=== PATIENT | female | born 1955 | race Caucasian/White ===

== ENCOUNTER 2023-05-15 09:43 | Outpatient (OUT) | payer MEDICARE, SELFPAY ==
--- NOTE | 2023-05-15 | VEIN_ITS ---
Patient Name: CHAI PAREDES MR#: [id number] : 1955 Exam Date: 05/15/2023 Ordering Doctor: MRS. ANNABELLA VASQUEZ . RADIOLOGY REPORT PROCEDURE: VC EXT VENOUS REFLUX RAISSA LMTD COMPARISON: None. INDICATIONS: Pain due to varicose veins of bilateral legs I83.813 TECHNIQUE: Duplex imaging of the lower extremity to assess the deep and superficial venous system for the presence of deep or superficial venous incompetence and to document the location and severity of disease. The study includes evaluation of the great saphenous vein (GSV), anterior accessory saphenous vein (AASV) and small saphenous vein (SSV). Patient scanned in reverse Trendelenburg and standing. FINDINGS: RIGHT LOWER EXTREMITY: Saphenofemoral Junction Reflux: Yes 6.8mm 3.0 sec GSV: Diam (mm) Reflux/ Time (sec) Proximal Thigh 7.3 Yes 2.6 Mid Thigh 6.1 Yes 1.1 Distal Thigh 5.9 Yes 1.8 Prox Calf 5.6 Yes 0.7 Mid Calf 2.6 No Saphenopopliteal Junction Reflux: 3.3mm No SSV: Proximal Calf 3.0 No Mid Calf 3.4 No AASV: Proximal Thigh 4.6 Yes 1.0 Mid Thigh 4.2 No Distal Thigh Thrombi: No acute or chronic thrombus visualized Compressibility: Normal Flow: Normal Preforator: Mid/med calf 3.1mm with 0.5s reflux. Tech Note: Incompetent GSV. Patent varicose vein prox/med calf 4.7mm with 1.3s reflux. Patent varicose vein medial knee 3.5mm with 0.7s reflux. Patent varicose vein mid/med thigh 3.9mm with 0.6s reflux. LEFT LOWER EXTREMITY: Saphenofemoral Junction Reflux: Yes 8.1 mm 1.4 sec GSV: Diam (mm) Reflux/Time (sec) Proximal Thigh 8.5 Yes 1.7 Mid Thigh 7.2 Yes 2.1 Distal Thigh 6.8 Yes 1.7 Prox Calf 5.4 Yes 1.0 Mid Calf 3.4 Yes 0.6 Saphenopopliteal Junction Relux: 2.6 mm Yes 0.5 SSV: Proximal Calf 2.1 No Mid Calf 1.3 AASV: Proximal Thigh 4.2 No Mid Thigh 4.8 No Distal Thigh Thrombi: No acute or chronic thrombus visualized Compressibility: Normal Flow: Normal Premises Technician: Dist/med calf 3.1mm with 0s reflux. Tech Note: Incompetent GSV. Patent varicose vein prox/med calf 3.6mm with 0.8s reflux. Patent varicose vein mid/med thigh 4.4mm with 0.9s reflux. CONCLUSION: 1. Abnormally dilated and incompetent great saphenous vein bilaterally with associated incompetent branch saphenous varicosities. Dictated by: Kishor Diez M.D. on 05/15/2023 at 10:56 Approved by: Kishor Diez M.D. on 05/15/2023 at 11:22
--- NOTE | 2023-05-15 | VEIN_ITS ---
Patient Name: CHAI PAREDES MR#: [id number] : 1955 Exam Date: 05/15/2023 Ordering Doctor: MRS. ANNABELLA VASQUEZ . RADIOLOGY REPORT PROCEDURE: [facility] - OFFICE VISIT INITIAL COMPARISON: None. PROGRESS NOTES: [age] year old female who presents with a 3 year history of right ankle pain. The patient's right leg symptoms are worse than the left. There has been a progression of symptoms since most recent surgery. This increases with increased use. The patient describes an improvement with stretches and exercises. The patient denies any signs and symptoms to suggest arterial ischemia. The patient describes a family history of heart disease, cancer, and diabetes,. The patient has drinking and smoking history of : Current smoker; no alcohol use. Patient has a past medical history significant for traumatic displaced fracture of right ankle and multiple surgeries.. The patient denies a history of deep venous thrombus or pulmonary embolus. See separate history and physical for medication list. No prior treatment for varicose or spider veins. No current use of compression stockings. After review of nurse notes, history and physical exam I discussed at length the pathophysiology of venous hypertension and possible treatments, therapies and strategies available. We discussed at length the importance of elevating the lower extremities above the level of the heart, increased physical activity and compression stocking use. Ultrasound venous reflux study performed today was discussed at length with the patient. The report demonstrates abnormally dilated and incompetent great saphenous veins bilaterally with associated dilated branches.. PHYSICAL EXAM: The right leg demonstrates a few varicosities, a few spider veins, no ulceration, mild edema, no significant skin discoloration. The left leg demonstrates a few varicosities, a few spider veins, no ulceration, no edema, no skin discoloration. Both thighs, legs and feet were symmetrically warm to the touch. Good posterior tibial and dorsalis pedis pulses were present bilaterally. VEIN/VC Facility EST Comprehensive IMPRESSION: 1. Bilateral lower extremity venous insufficiency 2. Bilateral lower extremity varicose veins 3. Mild right lower extremity subcutaneous edema 4. No flow significant arterial disease 5. CEAP: C3, EP, , MO PLAN: 1. Begin use of compression stockings 2. Elevated legs and increased physical activity symptomatic relief 3. Patient does not desire treatment of varicose veins at this time and will follow-up with us in future when symptomatic. Nurse notes, history and physical were reviewed and confirmed, see attached forms. The nurse was present throughout the physical exam and consultation Dictated by: Kishor Diez M.D. on 05/15/2023 at 13:02 Approved by: Kishor Diez M.D. on 05/15/2023 at 13:08
== END 2023-05-15 09:44 | disposition home or self-care (01) ==
PROVIDERS: Visit Provider Nurse Practitioner
DX: M79.89 Other specified soft tissue disorders (principal); L81.9 Disorder of pigmentation, unspecified; F17.200 Nicotine dependence, unspecified, uncomplicated; I83.813 Varicose veins of bilateral lower extremities with pain
CPT/HCPCS: 93970; G0463

== ENCOUNTER 2023-12-19 10:09 | Outpatient (OUT) | payer MEDICARE, SELFPAY ==
--- NOTE | 2023-12-19 10:17 | MM_ITS ---
Patient Name: CHAI PAREDES MR#: [id number] : 1955 Exam Date: 12/19/2023 Ordering Doctor: DR. ELIDA ANAND . RADIOLOGY REPORT PROCEDURE: MM TOMOSYNTHESIS SCREENING BI COMPARISON: MG MAMM SCREEN 3D RAISSA CAD, 11/23/2022. MG MAMM SCREEN 3D RAISSA CAD, 11/16/2021. MG MAMM SCREEN 3D RAISSA CAD, 11/13/2020. MG MAMM RAISSA SCRN W CAD DIG, 10/16/2013. INDICATIONS: Screening Calculator Name NCI Breast Cancer Risk Assessment Tool 5 Year Breast Cancer Risk 1.80% Lifetime Breast Cancer Risk 6.30% Personal Breast Cancer No Personal Ovarian Cancer No Treatments None Family Cancers None LOCATION: The [facility] BREAST COMPOSITION: There are scattered areas of fibroglandular density. FINDINGS: DIAGNOSTIC CATEGORY 2--BENIGN FINDING: RIGHT BREAST: No significant suspicious finding. Stable biopsy marker clip. No significant change has occurred. LEFT BREAST: No significant suspicious finding. No significant change has occurred. RECOMMENDATIONS: ROUTINE MAMMOGRAM AND CLINICAL EVALUATION IN 12 MONTHS. PLEASE NOTE: A NORMAL MAMMOGRAM DOES NOT EXCLUDE THE POSSIBILITY OF BREAST CANCER. A CLINICALLY SUSPICIOUS PALPABLE LUMP SHOULD BE BIOPSIED. Dictated by: Kishor Diez M.D. on 12/21/2023 at 08:13 Approved by: Kishor Diez M.D. on 12/21/2023 at 08:17
== END 2023-12-19 10:10 | disposition home or self-care (01) ==
LOC: MAMMO 10:09
PROVIDERS: PCP Family Medicine; Visit Provider Family Medicine
DX: Z12.31 Encounter for screening mammogram for malignant neoplasm of breast (principal)
CPT/HCPCS: 77063; 77067

== ENCOUNTER 2024-06-10 08:05 | Outpatient (RCR) | payer MEDICARE, SELFPAY | END 2024-07-02 20:54 | disposition home or self-care (01) | LOC: PT 08:05 | PROVIDERS: PCP Family Medicine; Visit Provider Family Medicine | DX: H83.09 Labyrinthitis, unspecified ear (principal); F43.20 Adjustment disorder, unspecified; F41.9 Anxiety disorder, unspecified; R09.81 Nasal congestion; G47.00 Insomnia, unspecified | CPT/HCPCS: 97110; 97161 ==

== ENCOUNTER 2024-12-23 10:09 | Outpatient (OUT) | payer MEDICARE, SELFPAY ==
--- NOTE | 2024-12-23 10:13 | MM_ITS ---
Patient Name: CHAI PAREDES MR#: [id number] : 1955 Exam Date: 12/23/2024 Ordering Doctor: DR. ELIDA ANAND . RADIOLOGY REPORT PROCEDURE: MM TOMOSYNTHESIS SCREENING BI COMPARISON: MM TOMOSYNTHESIS SCREENING BI, 12/19/2023. MG MAMM SCREEN 3D RAISSA CAD, 11/23/2022. MG MAMM SCREEN 3D RAISSA CAD, 11/16/2021. MG MAMM RAISSA SCRN W CAD DIG, 10/16/2013. INDICATIONS: Screening Calculator Name NCI Breast Cancer Risk Assessment Tool 5 Year Breast Cancer Risk 1.80% Lifetime Breast Cancer Risk 6.00% Personal Breast Cancer No Personal Ovarian Cancer No Treatments None Family Cancers None LOCATION: [facility] BREAST COMPOSITION: There are scattered areas of fibroglandular density. FINDINGS: DIAGNOSTIC CATEGORY 1--NEGATIVE. RIGHT BREAST: No significant suspicious finding. LEFT BREAST: No significant suspicious finding. RECOMMENDATIONS: ROUTINE MAMMOGRAM AND CLINICAL EVALUATION IN 12 MONTHS. PLEASE NOTE: A NORMAL MAMMOGRAM DOES NOT EXCLUDE THE POSSIBILITY OF BREAST CANCER. A CLINICALLY SUSPICIOUS PALPABLE LUMP SHOULD BE BIOPSIED. Dictated by: Choco Nunez DO on 12/23/2024 at 16:35 Approved by: Choco Nunez DO on 12/23/2024 at 16:36
--- OUTSIDE RECORDS SUMMARY | 2024-12-23 10:37 | XMS_ITS | CCD ---
Author Organization [facility] Care Team Providers Care Slubber Operator Name Role Phone MD Agustina West Primary Care Provider [phone] SARMAD Gordon Attending Provider [phone] Agustina West Primary Care Unavailable Rick Gordon Attending Unavailable Rick Gordon Admitting Unavailable AGUSTINA WEST Primary Care Physician CHRISTIANO, DR AGUSTINA Bower Primary Care Unavailable BEATA, DR RAO Consulting Unavailable BEATA, DR RAO Attending Unavailable BEATA, DR RAO Admitting Unavailable ZIEBER, DR DEEPAK Christopher Consulting Unavailable WEST, DR AGUSTINA Bower Admitting Unavailable WEST, DR AGUSTINA Bower Primary Care Unavailable WEST, DR AGUSTINA Bower Consulting Unavailable WEST, DR AGUSTINA Bower Attending Unavailable ZIEBER, DR DEEPAK Chirstopher Consulting Unavailable WEST, DR AGUSTINA Bower Admitting Unavailable WEST, DR AGUSTINA Bower Primary Care Unavailable WEST, DR AGUSTINA Bower Consulting Unavailable WEST, DR AGUSTINA Bower Attending Unavailable ZIEBER, DR DEEPAK Christopher Consulting Unavailable WEST, DR AGUSTINA Bower Primary Care Unavailable WEST, DR AGUSTINA Bower Attending Unavailable WEST, DR AGUSTINA Bower Admitting Unavailable WEST, DR AGUSTINA Bower Consulting Unavailable NEFCYCELINE Consulting Unavailable CHRISTIANO, DR AGUSTINA Bower Primary Care Unavailable MISC, DR RAMIRES Attending Unavailable MISC, DR RAMIRES Admitting Unavailable MISC, DR RAMIRES Consulting Unavailable CELINE ABRAHAM Admitting Unavailable CHRISTIANO, DR AGUSTINA Bower Primary Care Unavailable CELINE ABRAHAM Attending Unavailable CELINE ABRAHAM Admitting Unavailable CHRISTIANO, DR AGUSTINA Bower Primary Care Unavailable CONNER, DR NICOLAS Rodriguez Consulting Unavailable CELINE ABRAHAM Attending Unavailable CELINE ABRAHAM Consulting Unavailable OLIVER OLIVEIRA Consulting Unavailable DESTINEY RAMIREZ Consulting Unavailable CHRISTIANO, DR AGUSTINA Bower Primary Care Unavailable CELINE ABRAHAM Attending Unavailable CELINE ABRAHAM Admitting Unavailable CELINE ABRAHAM Attending Unavailable CHRISTIANO, DR AGUSTINA Bower Primary Care Unavailable CELINE ABRAHAM Admitting Unavailable RICK GORDON Attending Unavailable RICK GORDON Admitting Unavailable WEST, DR AGUSTINA Bower Primary Care Unavailable RICK GORDON Consulting Unavailable WEST, DR AGUSTINA Bower Primary Care Unavailable WEST, DR AGUSTINA Bower Consulting Unavailable WEST, DR AGUSTINA Bower Attending Unavailable WEST, DR AGUSTINA Bower Admitting Unavailable WEST, DR AGUSTINA Bower Primary Care Unavailable BEATA, DR RAO Admitting Unavailable BEATA, DR RAO Attending Unavailable WEST, DR NICOLAS Rodriguez Consulting Unavailable BAETA, DR RAO Consulting Unavailable WEST, DR AGUSTINA Bower Primary Care Unavailable WARREN ARMENDARIZ Attending Unavailable WARREN ARMENDARIZ Admitting Unavailable WARREN ARMENDARIZ Consulting Unavailable AALIYAHIPPNICOLAS KNOX Consulting Unavailable WEST, DR AGUSTINA Bower Primary Care Unavailable BEATA, DR RAO Admitting Unavailable BEATA, DR RAO Consulting Unavailable BEATA, DR RAO Attending Unavailable AGUSTINA WEST Primary Care Physician Elida Anand. Primary Care Physician SMITHA WATSON Attending Unavailable ELIDA ANAND Referring Unavailable Elida Anand MD Primary Care Provider KENISHA HILLIARD Referring Unavailable ROSS, ELIDA E Primary Care Unavailable KENISHA HILLIARD Referring Unavailable KIKA, ELIDA E Primary Care Unavailable KENISHA HILLIARD Referring Unavailable KIKA, ELIDA E Primary Care Unavailable NICOLAS ELLIS Referring Unavailable KIKA ELIDA E Primary Care Unavailable KENISHA HILLIARD Referring Unavailable ROSS, ELIDA E Primary Care Unavailable KENISHA HILLIARD Admitting Unavailable KENISHA HILLIARD Attending Unavailable KENISHA HILLIARD Referring Unavailable KIKA, ELIDA E Primary Care Unavailable GARCIA SANCHEZ Attending Unavailable ELIDA ANAND E Primary Care Unavailable KENISHA HILLIARD Attending Unavailable AGUSTINA WEST Referring Unavailable KIKA, ELIDA E Primary Care Unavailable KENISHA HILLIARD Attending Unavailable KIKA ELIDA E Referring Unavailable KIKA, ELIDA E Primary Care Unavailable AGUSTINA WEST Referring Unavailable AGUSTINA WEST Primary Care Unavailable SUMMER SMALLWOOD Attending Unavailable ELIDA ANAND Referring Unavailable KIKA, ELIDA E Primary Care Unavailable KENISHA HILLIARD Attending Unavailable ELIDA ANAND Referring Unavailable ROSS, ELIDA E Primary Care Unavailable YOALNDA SUMMER A Attending Unavailable ELIDA ANAND Referring Unavailable ELIDA ANAND Primary Care Unavailable Elida Anand Attending Unavailable Elida Anand Admitting Unavailable MD Elida Anand Attending Unavailable MD Elida Anand Attending Unavailable MD Elida Anand Attending Unavailable MD Elida Anand Attending Unavailable MD Elida Anand Attending Unavailable MD Elida Anand Referring Unavailable MD Elida Anand Admitting Unavailable MD Elida Anand Admitting Unavailable MD Elida Anand Attending Unavailable Kika, MD Elida Lyn Attending Unavailable Kika, MD Elida Lyn Admitting Unavailable Kika, MD Elida Lyn Admitting Unavailable MD Elida Anand Attending Unavailable Kika, MD Elida Lyn Admitting Unavailable MD Elida Anand Attending Unavailable MD Elida Anand Attending Unavailable EdmarKatlyn myers Attending Unavailable Katlyn Hyatt Attending Unavailable MD Elida Anand Attending Unavailable MD Elida Anand Attending Unavailable MD Elida Anand Attending Unavailable EdmarKatlyn myers Attending Unavailable Katlyn Hyatt Attending Unavailable Elida Anand Admitting Unavailable Elida Anand Attending Unavailable Katlyn Hyatt Attending Unavailable Allergies Allergy Classification Reported Allergen(s) Allergy Type Date of Onset Reaction(s) Facility (16 sources) Bacitracin / Hydrocortisone / Neomycin / Polymyxin B; Translations: [bacitracin/HC/neomyci n/polymyxin B topical] Drug Allergy [facility] (20 sources) bacitracin / neomycin / polymyxin b; Translations: [bacitracin/neomycin/p olymyxin B topical] Drug Allergy 04-11-20 18 [facility] (20 sources) ceftibuten; Translations: [ceftibuten] Drug Allergy 04-11-20 18 [facility] (16 sources) Cefuroxime; Translations: [cefuroxime] Drug Allergy [facility] (20 sources) Ciprofloxacin; Translations: [ciprofloxacin] Drug Allergy 04-11-20 18 [facility] (16 sources) Cortisone; Translations: [cortisone] Drug Allergy Eruption of skin (disorder) [facility] (20 sources) FLUoxetine; Translations: [fluoxetine] Drug Allergy 04-11-20 18 [facility] (12 sources) Minocycline; Translations: [minocycline] Drug Allergy 04-11-20 18 [facility] (3 sources) Oseltamivir; Translations: [oseltamivir] Drug Allergy [facility] (20 sources) Penicillins; Translations: [penicillins] Drug allergy 02-22-20 13 Difficulty breathing (finding), Anaphylaxis [facility] (12 sources) rofecoxib; Translations: [rofecoxib] Drug Allergy 04-11-20 18 [facility] (16 sources) Sulfonamides (Antibiotic); Translations: [sulfa drugs] Drug allergy [facility] (12 sources) Tetracycline; Translations: [tetracycline] Drug Allergy 04-11-20 18 [facility] (1 source) Bacitracin / Neomycin / Polymyxin B Drug Allergy 02-29-20 13 [facility] (1 source) ceftibuten Drug Allergy 02-29-20 13 [facility] (1 source) Cefuroxime Drug Allergy 02-29-20 13 [facility] (1 source) Ciprofloxacin Drug Allergy 02-29-20 13 [facility] (3 sources) Corticosteroids; Translations: [CORTICOSTEROIDS (GLUCOCORTICOIDS)] Drug allergy (disorder) 02-29-20 13 [facility] (2 sources) FLUoxetine Drug Allergy 02-29-20 13 [facility] (1 source) Minocycline Drug Allergy 02-29-20 13 [facility] (3 sources) moxifloxacin; Translations: [Avelox] Drug Allergy 02-29-20 13 [facility] (1 source) rofecoxib Drug Allergy 02-29-20 13 [facility] (1 source) Sulfonamides (Antibiotic) Drug allergy (disorder) 02-22-20 13 [facility] (1 source) Tetracycline Drug Allergy 02-29-20 13 [facility] (15 sources) Cromolyn; Translations: [cromolyn nasal] Drug Allergy Unknown (qualifier value) [facility] (15 sources) fluocinolone; Translations: [fluocinolone topical] Drug Allergy Unknown (qualifier value) [facility] (20 sources) moxifloxacin; Translations: [moxifloxacin] Drug Allergy 04-11-20 Unknown (qualifier value) [facility] (7 sources) Glucocorticoid preparation Propensity to adverse reactions to drug [facility] (9 sources) hydroCHLOROthiazide / Triamterene; Translations: [TRIAMTERENE-HYDROCHLO ROTHIAZID] Drug Allergy 04-11-20 [facility] (9 sources) Hydrocortisone / Neomycin / Polymyxin B; Translations: [SHETHMOP-OMVMOHJOC-AV ] Drug Allergy 04-11-20 [facility] (9 sources) Sulfonamides (Antibiotic); Translations: [SULFA (SULFONAMIDE ANTIBIOTICS)] Propensity to adverse reactions to drug 04-11-20 [facility] (2 sources) EYHAVOZV-[id number]-V OLYMYXNB; Translations: [NEOMYCIN-BACITRACNZN- POLYMYXNB] Propensity to adverse reactions to drug (disorder) 04-11-20 [facility] Medications Current Medications Medication Drug Class(es) Dates Sig (Normalized) Sig (Original) acetaminophen 325 mg / oxyCODONE hydrochloride 5 mg oral tablet (1 source) Opioid Agonist Start: 08-27-2024 End: 09-10-2024 oxyCODONE-acetamino phen (PERCOCET) 5-325 mg per tablet Indications: Lipoma of right axilla Take 1 tablet by mouth every 6 (six) hours as needed for pain for up to 12 doses. Max Daily Amount: 4 tablets 12 tablet 08/27/2024 09/10/2024 Discontinued (Patient Never Started This Medication) alendronic acid 70 mg oral tablet (20 sources) Bisphosphonate Start: 08-13-2024 take 1 tablet by mouth every week alendronate 70 mg Tab See Instructions, TAKE 1 TABLET BY MOUTH WEEKLY, # 12 tab(s), Refills(s) 11, Pharmacy: [facility]/pharmacy #[id number], 157, cm, 07/08/24 10:07:00 EST, Height/Length Dosing, 92.7, kg, 07/08/24 10:07:00 EST, Weight Dosing Start Date: 08/13/24 Status: Ordered Quantity: 12.0 Unit: tab(s) Repeat number: 12 Start: 04-25-2023 take 1 tablet by gloria th every week alendronate 70 mg Tab See Instructions, TAKE 1 TABLET BY MOUTH WEEKLY, # 12 tab(s), Refills(s) 11, Pharmacy: [facility] STORE [id number], 160, cm, 04/10/23 11:51:00 EDT, Height/Length Dosing, 92.1, kg, 04/10/23 11:51:00 EDT, Weight Dosing Start Date: 04/25/23 Status: Ordered Start: 07-15-2022 alendronate 70 mg Tab 70 mg = 1 tab(s), Oral, q7day, # 12 tab(s), Refills(s) 0 Start Date: 07/15/22 Status: Ordered ALPRAZolam 0.5 mg oral tablet (20 sources) Benzodiazepine Start: 11-04-2024 take 1 tablet by mouth three times daily as needed for anxiety Xanax 0.5 mg Tab 0.5 mg = 1 tab(s), Oral, TID, PRN for anxiety, For Anxiety, # 90 tab(s), Refills(s) 0, Pharmacy: [facility]/pharmacy #[id number], 157, cm, 10/15/24 14:04:00 EDT, Height/Length Dosing, 92.6, kg, 10/15/24 14:04:00 EDT, Weight Dosing Start Date: 11/04/24 Status: Ordered Quantity: 90.0 Unit: tab(s) Repeat number: 1 Start: 06-06-2012 take 1 tablet by gloria th three times daily as needed ALPRAZolam (XANAX) 0.5 mg tablet Take 1 tablet (0.5 mg total) by mouth 3 (three) times a day as needed. 0 03/27/2018 Active aspirin 81 mg delayed release oral tablet (12 sources) Platelet Aggregation Inhibitor, Nonsteroidal Anti-inflammatory Drug Start: 09-25-2023 take 1 tablet by mouth once daily aspirin 81 mg Oral EC Tab 81 mg = 1 tab(s), Oral, Daily, Refills(s) 0 Start Date: 09/25/23 Status: Ordered Repeat number: 1 atorvastatin 10 mg oral tablet (20 sources) HMG-CoA Reductase Inhibitor Start: 11-04-2024 take 1 tablet by mouth at bedtime atorvastatin 10 mg Tab See Instructions, TAKE 1 TABLET BY MOUTH AT BEDTIME, # 90 tab(s), Refills(s) 1, [id number] 157, cm, 10/15/24 14:04:00 EDT, Height/Length Dosing, 92.6, kg, 10/15/24 14:04:00 EDT, Weight Dosing Start Date: 11/04/24 Status: Ordered Quantity: 90.0 Unit: tab(s) Repeat number: 2 Start: 07-15-2022 take 1 tablet by gloria th at bedtime atorvastatin 10 mg Tab See Instructions, TAKE 1 TABLET BY MOUTH AT BEDTIME, # 90 tab(s), Refills(s) 1, Pharmacy: [facility]ORE [id number], 157, cm, 12/04/23 12:36:00 EDT, Height/Length Dosing, 89, kg, 12/04/23 12:36:00 EDT, Weight Dosing Start Date: 12/18/23 Status: Ordered azithromycin 500 mg oral tablet (5 sources) Macrolide Antimicrobial Start: 07-15-2022 take 1 tablet by mouth once daily azithromycin 500 mg oral tablet 500 mg = 1 tab(s), Oral, Daily, # 5 tab(s), Refills(s) 0, [id number] 160, cm, 12/05/22 12:09:00 EDT, Height/Length Dosing, 89.1, kg, 12/05/22 12:09:00 EDT, Weight Dosing Start Date: 12/09/22 Status: Ordered Azithromycin 3 Day Dose Pack 500 mg oral tablet (2 sources) Start: 04-10-2023 Azithromycin 3 Day Dose Pack 500 mg oral tablet 500 mg = 1 tab(s), Oral, Daily, # 3 tab(s), Refills(s) 0, [id number] 160, cm, 04/10/23 11:51:00 EDT, Height/Length Dosing, 92.1, kg, 04/10/23 11:51:00 EDT, Weight Dosing Start Date: 04/10/23 Status: Ordered cetirizine hydrochloride 10 mg oral capsule (4 sources) Histamine-1 Receptor Antagonist Start: 01-23-2023 take 1 capsule by mouth once daily as needed cetirizine 10 mg oral capsule 10 mg = 1 cap(s), Oral, Daily, PRN for allergy symptoms, # 90 cap(s), Refills(s) 0, Pharmacy: [facility]/pharmacy #[id number], 160, cm, 01/23/23 8:54:00 EDT, Height/Length Dosing, 88.7, kg, 01/23/23 8:54:00 EDT, Weight Dosing Start Date: 01/23/23 Status: Ordered escitalopram 20 mg oral tablet (20 sources) Serotonin Reuptake Inhibitor Start: 11-04-2024 take 1 tablet by mouth once daily escitalopram 20 mg Tab See Instructions, TAKE 1 TABLET BY MOUTH EVERY DAY, # 90 tab(s), Refills(s) 0, Pharmacy: [facility]/pharmacy #[id number], 157, cm, 10/15/24 14:04:00 EDT, Height/Length Dosing, 92.6, kg, 10/15/24 14:04:00 EDT, Weight Dosing Start Date: 11/04/24 Status: Ordered Quantity: 90.0 Unit: tab(s) Repeat number: 1 Start: 11-02-2023 take 1 tablet by gloria th once daily escitalopram 20 mg Tab 20 mg = 1 tab(s), Oral, Daily, # 90 tab(s), Refills(s) 0, [id number] 160, cm, 11/02/23 13:29:00 EDT, Height/Length Dosing, 87.5, kg, 11/02/23 13:29:00 EDT, Weight Dosing Start Date: 11/02/23 Status: Ordered Start: 01-08-2019 take 1 tablet by gloria th once daily escitalopram 10 mg Tab 10 mg = 1 tab(s), Oral, Daily, # 90 tab(s), Refills(s) 3, Pharmacy: [facility]/pharmacy #[id number], 160, cm, 04/10/23 11:51:00 EDT, Height/Length Dosing, 92.1, kg, 04/10/23 11:51:00 EDT, Weight Dosing Start Date: 06/02/23 Status: Ordered fluticasone propionate 0.05 mg/actuat metered dose nasal spray (2 sources) Corticosteroid Start: 11-29-2022 fluticasone Nasal 0.05 mg/inh [employer] 2 spray(s), Nasal, Daily, 16 gram, Refill(s) 3, each nostril, [id number], cm, 11/03/22 10:00:00 EDT, Height/Length Dosing, 89.7, kg, 11/03/22 10:00:00 EDT, Weight Dosing Start Date: 11/29/22 Status: Ordered Multivitamin preparation (4 sources) Start: 12-03-2024 multivitamin Refill(s) 0 Start Date: 12/03/24 Status: Ordered Repeat number: 1 pantoprazole 40 mg delayed release oral tablet (20 sources) Proton Pump Inhibitor Start: 11-26-2024 take 1 tablet by mouth twice daily Pantoprazole [address] Tab See Instructions, TAKE 1 TABLET BY MOUTH TWICE A DAY, # 180 tab(s), Refills(s) 1, Pharmacy: [facility] [id number], 157, cm, 10/15/24 14:04:00 EDT, Height/Length Dosing, 92.6, kg, 10/15/24 14:04:00 EDT, Weight Dosing Start Date: 11/26/24 Status: Ordered Quantity: 180.0 Unit: tab(s) Repeat number: 1 Start: 12-04-2023 take 1 tablet by gloria th twice daily Pantoprazole [address] Tab 40 mg = 1 tab(s), Oral, BID, # 180 tab(s), Refills(s) 1, [id number] 160, cm, 11/02/23 13:29:00 EDT, Height/Length Dosing, 87.5, kg, 11/02/23 13:29:00 EDT, Weight Dosing Start Date: 12/04/23 Status: Ordered Start: 06-02-2023 take 1 tablet by gloria th once daily Pantoprazole [address] Tab 40 mg = 1 tab(s), Oral, Daily, # 90 tab(s), Refills(s) 3, [id number] 160, cm, 04/10/23 11:51:00 EDT, Height/Length Dosing, 92.1, kg, 04/10/23 11:51:00 EDT, Weight Dosing Start Date: 06/02/23 Status: Ordered Start: 07-15-2022 take 1 tablet by gloria th once daily Pantoprazole [address] Tab 40 mg = 1 tab(s), Oral, Daily, Refills(s) 0 Start Date: 07/15/22 Status: Ordered take 1 tablet by gloria th in the morning pantoprazole (PROTONIX) 20 mg EC tablet Take 1 tablet (20 mg total) by mouth in the morning. Active promethazine hydrochloride 25 mg oral tablet (5 sources) Phenothiazine Start: 07-15-2022 take 1 tablet by mouth three times daily promethazine 25 mg Tab 25 mg = 1 tab(s), Oral, TID, # 15 tab(s), Refills(s) 0, Pharmacy: [facility][id number], 154.9, cm, 07/15/22 14:17:00 EST, Height/Length Dosing, 89, kg, 07/15/22 14:17:00 EST, Weight Dosing Start Date: 07/15/22 Status: Ordered Completed/Discontinued Medications Medication Drug Class(es) Dates Sig (Normalized) Sig (Original) ergocalciferol 1.25 mg oral capsule (9 sources) Provitamin D2 Compound Start: 07-15-2022 End: 07-09-2024 take 1 capsule by mouth every week ergocalciferol 50,000 intl units Cap 50,000 International_Unit = 1 cap(s), Oral, qWeek, # 4 cap(s), Refills(s) 0 Start Date: 07/15/22 Status: Ordered Start: 07-15-2022 take 1 capsule by mo [facility] every week ergocalciferol 50,000 intl units Cap 50,000 International_Unit = 1 cap(s), Oral, qWeek, # 4 cap(s), Refills(s) 0 Start Date: 07/15/22 Status: Ordered meclizine hydrochloride 25 mg oral tablet (6 sources) Antiemetic Start: 05-03-2023 take 1 tablet by mouth three times daily as needed for dizziness meclizine 25 mg Tab 25 mg = 1 tab(s), Oral, TID, TAKE 1 TABLET BY MOUTH THREE TIMES DAILY NEEDED for dizziness, # 90 tab(s), Refills(s) 0, Pharmacy: [facility]/pharmacy #[id number], 160, cm, 04/10/23 11:51:00 EDT, Height/Length Dosing, 92.1, kg, 04/10/23 11:51:00 EDT, Weight Dosing Start Date: 05/03/23 Status: Ordered Start: 09-12-2022 take 1 tablet by gloria th three times daily as needed for dizziness meclizine 25 mg Tab TAKE 1 TABLET BY MOUTH THREE TIMES DAILY NEEDED for dizziness Start Date: 09/12/22 Status: Ordered triamcinolone acetonide 0.055 mg/actuat metered dose nasal spray (4 sources) Corticosteroid Start: 01-23-2023 Nasacort Aller gy 24HR nasal spray 55 mcg, 1 spray(s), Nasal, Daily, 1 EA, Refill(s) 0, [facility]/pharmacy #[id number], 160, cm, 01/23/23 8:54:00 EDT, Height/Length Dosing, 88.7, kg, 01/23/23 8:54:00 EDT, Weight Dosing Start Date: 01/23/23 Status: Ordered Problems Active Problems Problem Classification Problem Date Documented Date Episodic/Chronic Anxiety disorders (20 sources) Anxiety; Translations: [Panic attack] Resolved : 06-06-20 12 01-08-2019 Chronic Cancer of kidney and renal pelvis (18 sources) History of malignant neoplasm of kidney; Translations: [Personal history of other malignant neoplasm of kidney] Onset: 08-19-1912-07-2018 Episodic Cancer; other and unspecified primary (1 source) H/O: neoplasm; Translations: [Personal history of other benign neoplasm] Onset: 10-16-19 Episodic Chronic kidney disease (12 sources) Chronic kidney disease stage 3A ; Translations: [Chronic kidney disease] Onset: 12-05-1912-19-2022 Chronic Conditions associated with dizziness or vertigo (3 sources) Dizziness; Translations: [Dizziness and giddiness] 04-10-2023 Episodic Congestive heart failure; nonhypertensive (7 sources) Diastolic heart failure 08-18-2023 Chronic Disorders of lipid metabolism (4 sources) Pure hypercholesterolemia, unspecified; Translations: [PURE HYPERCHOLESTEROLEMIA UNSPEC] Onset: 01-28-20 Chronic Gastritis and duodenitis (10 sources) Gastritis 03-22-2023 Episodic Genitourinary symptoms and ill-defined conditions (14 sources) Genuine stress incontinence 01-02-2020 Chronic Genitourinary symptoms and ill-defined conditions (20 sources) Nocturia; Translations: [Urgent desire to urinate] 10-10-2014 Episodic Joint disorders and dislocations; trauma-related (4 sources) Traumatic arthropathy, right ankle and foot; Translations: [TRAUMATIC ARTHROPATHY RT ANKLE FOOT] Onset: 08-16-19 Chronic Lymphadenitis (3 sources) Axillary lymphadenopathy; Translations: [Localized enlarged lymph nodes] Onset: 07-24-19 25 07-24-2024 Episodic Malaise and fatigue (2 sources) Fatigue 05-01-2023 Episodic Nausea and vomiting (1 source) Nausea; Translations: [Nausea] Onset: 07-15-19 Episodic Nutritional deficiencies (1 source) Vitamin D deficiency, unspecified; Translations: [VITAMIN D DEFICIENCY UNSPECIFIED] Onset: 02-03-20 Chronic Osteoporosis (1 source) Age-related osteoporosis without current pathological fracture; Translations: [AGE-REL OSTEOPOR W/O CURR PATH FX] Onset: 08-19-19 Chronic Other and unspecified benign neoplasm (3 sources) Lipoma of left upper limb; Translations: [Benign lipomatous neoplasm of skin and subcutaneous tissue of left arm] 07-10-2024 Episodic Other and unspecified benign neoplasm (3 sources) Lipoma of right upper limb; Translations: [Benign lipomatous neoplasm of skin and subcutaneous tissue of right arm] 07-10-2024 Episodic Other and unspecified benign neoplasm (2 sources) Lipoma of trunk; Translations: [Benign lipomatous neoplasm of skin and subcutaneous tissue of trunk] 08-14-2024 Episodic Other and unspecified benign neoplasm (2 sources) Benign lipomatous neoplasm of skin and subcutaneous tissue of trunk; Translations: [Benign lipomatous neoplasm of skin and subcutaneous tissue of trunk] Onset: 08-14-19 Episodic Other and unspecified benign neoplasm (2 sources) Benign lipomatous neoplasm of skin and subcutaneous tissue of left arm; Translations: [Benign lipomatous neoplasm of skin and subcutaneous tissue of left arm] Onset: 07-24-19 Episodic Other and unspecified benign neoplasm (2 sources) Benign lipomatous neoplasm of skin and subcutaneous tissue of right arm; Translations: [Benign lipomatous neoplasm of skin and subcutaneous tissue of right arm] Onset: 07-24-19 Episodic Other and unspecified benign neoplasm (1 source) Lipoma of axilla; Translations: [Benign lipomatous neoplasm of skin and subcutaneous tissue of right arm] 09-10-2024 Episodic Other circulatory disease (6 sources) Elevated blood-pressure reading without diagnosis of hypertension 12-04-2023 Episodic Other connective tissue disease (14 sources) Impingement syndrome of shoulder region 10-10-2014 Episodic Comment on above: right shoulder Other connective tissue disease (4 sources) Ganglion, right ankle and foot; Translations: [GANGLION RIGHT ANKLE AND FOOT] Onset: 05-19-20 Episodic Other connective tissue disease (10 sources) Swelling of right lower limb 05-01-2023 Episodic Other gastrointestinal disorders (1 source) Diarrhea; Translations: [Diarrhea, unspecified] Onset: 07-15-19 Episodic Other lower respiratory disease (1 source) Cough; Translations: [Cough, unspecified] Onset: 07-15-19 Episodic Other lower respiratory disease (10 sources) Dyspnea 12-19-2022 Episodic Other lower respiratory disease (8 sources) Orthopnea 07-31-2023 Episodic Other nutritional; endocrine; and metabolic disorders (4 sources) Obesity; Translations: [Obesity, unspecified] Onset: 10-16-1910-10-2014 Chronic Other nutritional; endocrine; and metabolic disorders (12 sources) Simple obesity 11-30-2022 Chronic Other nutritional; endocrine; and metabolic disorders (20 sources) Body mass index 30+ - obesity; Translations: [Obesity, unspecified] 12-04-2023 Chronic Other nutritional; endocrine; and metabolic disorders (1 source) Obesity, unspecified; Translations: [Obesity, unspecified] Onset: 08-14-19 Chronic Other nutritional; endocrine; and metabolic disorders (1 source) Obese class II; Translations: [Body mass index (BMI) 37.0-37.9, adult] Onset: 10-16-19 Chronic Other nutritional; endocrine; and metabolic disorders (5 sources) Obesity caused by energy imbalance 02-26-2024 Chronic Other skin disorders (10 sources) Cyst of skin 03-22-2023 Episodic Other upper respiratory infections (20 sources) Chronic sinusitis, unspecified; Translations: [Chronic maxillary sinusitis] Onset: 07-26-19 Chronic Other upper respiratory infections (2 sources) Viral upper respiratory tract infection 04-10-2023 Episodic Residual codes; unclassified (14 sources) Tobacco user 06-06-2012 Episodic Comment on above: Added secondary to s ocial history documentation. Residual codes; unclassified (1 source) Absent kidney; Translations: [Acquired absence of kidney] Episodic Residual codes; unclassified (1 source) Pain, unspecified; Translations: [Pain, unspecified] Onset: 07-28-19 Episodic Screening and history of mental health and substance abuse codes (8 sources) Ex-smoker; Translations: [Personal history of nicotine dependence] Onset: 07-28-19 23 01-02-2020 Episodic Substance-related disorders (20 sources) Smoker; Translations: [Nicotine dependence, cigarettes, uncomplicated] Onset: 08-19-1910-10-2014 Chronic Comment on above: Added secondary to d ocumentation in Social History. Unclassified (1 source) Ganglion, right ankle and foot; Translations: [Ganglion, right ankle and foot] Onset: 05-20-20 Unclassified (14 sources) Drug therapy finding 01-08-2019 Unclassified (1 source) PERSONAL HISTORY OF COVID-19; Translations: [PERSONAL HISTORY OF COVID-19] Onset: 08-19-19 Unclassified (10 sources) Finding of color of limb 05-01-2023 Unclassified (2 sources) Otalgia of left ear 12-19-2022 Unclassified (1 source) right axillary lipoma Onset: 08-27-19 Unclassified (1 source) Post-op Onset: 09-11-19 25 Unclassified (1 source) POST-OP VISIT Onset: 08-05-19 25 Unclassified (1 source) Suspicious Skin Lesion Onset: 07-24-19 25 Unclassified (1 source) Mass Onset: 07-10-19 25 Unclassified (5 sources) Long-term current use of opiate analgesic drug Onset: 03-11-20 24 03-11-2024 Comment on above: Added secondary to c urrent Opioid Treatment Agreement Past or Other Problems Problem Classification Problem Date Documented Date Episodic/Chronic Anal and rectal conditions (14 sources) Anal fissure Resolved: 06-06-2012 01-08-2019 Episodic Complication of device; implant or graft (1 source) Pain due to internal orthopedic prosthetic devices, implants and grafts, initial encounter; Translations: [PAIN INTRL ORTHO PROS DEV GFT INIT] Onset: 02-17-2022 Episodic Esophageal disorders (18 sources) Gastroesophageal reflux disease; Translations: [Gastro-esophageal reflux disease without esophagitis] Onset: 08-01-2022 Resolved: 06-06-2012 01-08-2019 Chronic Fracture of lower limb (2 sources) Displaced spiral fracture of shaft of right fibula, sequela; Translations: [Displaced pilon fracture of right tibia, sequela] Onset: 08-19-2021 Episodic Immunizations and screening for infectious disease (1 source) Encounter for screening for human papillomavirus (HPV); Translations: [ENC SCREENING HUMAN PAPILLOMAVIRUS] Onset: 08-16-2021 Episodic Mood disorders (15 sources) Depressive disorder; Translations: [Depression, unspecified] Resolved: 01-08-2019 01-08-2019 Chronic Other aftercare (1 source) Other long-term (current) drug therapy; Translations: [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] Onset: 08-19-2021 Episodic Other bone disease and musculoskeletal deformities (1 source) Other specified disorders of bone density and structure, right ankle and foot; Translations: [OTH D/O BONE DEN STRUCT RT ANK FOOT] Onset: 08-19-2021 Episodic Other bone disease and musculoskeletal deformities (1 source) Other specified disorders of bone density and structure, other site; Translations: [OTH D/O BONE DEN STRUCT OTH SITE] Onset: 08-17-2021 Episodic Other non-traumatic joint disorders (1 source) Pain in right ankle and joints of right foot; Translations: [PAIN IN RIGHT ANKLE] Onset: 08-19-2021 Episodic Other screening for suspected conditions (not mental disorders or infectious disease) (8 sources) Encounter for screening mammogram for malignant neoplasm of breast; Translations: [Encounter for screening for malignant neoplasm of cervix] Onset: 08-11-2021 Episodic Residual codes; unclassified (14 sources) Menopause present Resolved: 06-06-2012 01-08-2019 Episodic Residual codes; unclassified (1 source) Acquired absence of kidney; Translations: [ACQUIRED ABSENCE OF KIDNEY] Onset: 08-19-2021 Episodic Residual codes; unclassified (1 source) Acquired absence of other specified parts of digestive tract; Translations: [ACQ ABSENCE OTH PART DIGESTV TRACT] Onset: 08-19-2021 Episodic Residual codes; unclassified (1 source) Acquired absence of both cervix and uterus; Translations: [ACQUIRED ABSENCE BOTH CERVIX AND UTERUS] Onset: 08-19-2021 Episodic Residual codes; unclassified (4 sources) Asymptomatic menopausal state; Translations: [ASYMPTOMATIC MENOPAUSAL STATE] Onset: 08-12-2021 Episodic Unclassified (14 sources) Hypersensitivity granuloma (morphologic abnormality) Resolved: 10-10-2014 01-08-2019 Comment on above: multiple body sites Results Test Name Value Interpretation Reference Range Facility Ambulatory Visit Summaryon 0 12-18-2024 Ambulatory Visit Summary Ambulatory Visit Summary FLAKITA PAREDES :1955 Visit Date:12/18/2024 Ambulatory Visit Instructions Your Diagnosis Cough Fluid level behind tympanic membrane of both ears Wheezing BMI 38.0-38.9,adult Your Care Team Attending Physician - Katlyn Brooks Primary Care Physician - Kika SAMPSON, Elida Lyn This Is Your Medications List alendronate (alendronate 70 mg Tab) alprazolam (Xanax 0.5 mg Tab) aspirin (aspirin 81 mg Oral EC Tab) atorvastatin (atorvastatin 10 mg Tab) escitalopram (escitalopram 20 mg Tab) multivitamin pantoprazole (Pantoprazole [address] Tab) Procedures Performed Excision of lipoma of subcutaneous tissue of neck (08/27/2024), Foot (2021), Biopsy of breast (10/2019), Nephrectomy (12/31/2015), right shoulder arthroscopic subacromial decompression. extensive debridement, right shoulder partial thickness rotator cuff tear, biceps tendon, labrum, and and extensive subacromial bursectomy. lateral clavicle resection (10/23/2014), Biopsy of kidney using ultrasound guidance, Cholecystectomy, Colonoscopy, Coronary angiography, Hysterectomy, palmar faciectomy, trigger finger release, Tubal ligation. Discharge Vitals Temperature (Oral) 36.5 ???C Heart Rate (Peripheral) 94 Respiratory Rate 20 Blood Pressure 126/88 Height 157.0 cm Height 62 in Weight 94.0 kg Weight 207.234 lb BMI 38.14 What to do next Scheduled Follow-Up Appointments Monday 10:00 AM EDT With: Where: [facility] Monday 1:40 PM EDT With: Elida Anand MD Where: [address] [address]- Monday2025 9:30 AM EDT With: Where: [facility] [address] [place] [address]- Medications What How Much When Instructions Unchanged alendronate (alendronate 70 mg Tab) See instructions TAKE 1 TABLET BY MOUTH WEEKLY Unchanged alprazolam (Xanax 0.5 mg Tab) 1 Tablets By Mouth 3 times a day as needed for for anxiety For Anxiety Unchanged aspirin (aspirin 81 mg Oral EC Tab) 1 Tablets By Mouth Every day Unchanged atorvastatin (atorvastatin 10 mg Tab) See instructions TAKE 1 TABLET BY MOUTH AT BEDTIME Unchanged escitalopram (escitalopram 20 mg Tab) See instructions TAKE 1 TABLET BY MOUTH EVERY DAY Unchanged multivitamin Unchanged pantoprazole (Pantoprazole [address] Tab) See instructions TAKE 1 TABLET BY MOUTH TWICE A DAY Allergies Avelox (Unknown) Cedax Ceftin Cipro Cortisporin Nasalcrom (Unknown) Neosporin PROzac cortisone (Rash) fluocinolone topical (Unknown) penicillins (Difficulty breathing) sulfa drugs Problems Ongoing - Any problem that you are currently receiving treatment for. Anticoagulated Anxiety BMI 37.0-37.9, adult BMI 38.0-38.9,adult Chronic maxillary sinusitis Cigarette nicotine dependence Class 1 obesity due to excess calories in adult Cough Diastolic CHF Discoloration of skin of lower leg Elevated BP without diagnosis of hypertension Fluid level behind tympanic membrane of both ears RADHA (generalized anxiety disorder) Gastritis H/O renal cell cancer Long-term current use of opiate analgesic drug Obesity Obesity (BMI 30-39.9) Orthopnea Shortness of breath Shoulder impingement syndrome Sinusitis Skin cyst Smoker Stage 3a chronic kidney disease (CKD) Stress incontinence Swelling of right lower extremity Wheezing Historical - Any problem that you are no longer receiving treatment for. Acid reflux Allergic granuloma Anal fissure Anxiety BMI 35.0-35.9,adult BMI 36.0-36.9,adult Depression Menopause Nocturia Panic attacks Patient Survey You may receive a survey via text or e-mail asking about your office visit. Please share your experience with us by completing your survey. We appreciate your feedback and thank you for choosing us for your care. Normal [facility] Medicine Office/Clini c Noteon 12-18-2024 Family Medicine Office/Clinic Note Family Medicine Office/Clinic Note [facility] Staff Flakita is a 69 year old female presenting for congestion, cough Symptoms started- a month ago Headache- yes.. every day pressure Body aches- no Earache- both pressure in ears Runny/stuffy nose- runny Problem with Smell- no Problem with Taste- no Sore throat- yes Cough- yes Scratchy tickly throat- yes Chest symptoms- SOB- a little bit Lung Hx asthma, bronchitis, chest colds- Nothing Fever/chills- chills , never checked temp. but thinks had fever Has been sleeping in recliner because of her cough at night , she feels tired all the time Has ot tried anything for this, Tylenol for headache History of Present Illness pt presents today for URI symptoms Review of Systems PHQ Score Initial Depression Screen Score: 0 SCORE Physical Exam Vitals & Measurements T: 36.5 ???C(Oral) HR: 94(Peripheral) RR: 20 BP: 126/88 SpO2: 98% HT: 62 in HT: 157.0 cm WT: 94.0 kg WT: 207.234 lb BMI: 38.14 General: alert, no acute distress ENMT: oral mucosa moist, yes pharyngeal erythema or no exudate, RAISSA TM full of clear fluid Cardiovascular: regular rate and rhythm, normal peripheral perfusion Respiratory: Lungs expiratory wheezes, respirations non labored Extremities: no deformity, no trauma Neurological: oriented x 4, LOC appropriate for age, CN II-XII intact, motor strength equal & normal bilaterally, speech normal Assessment/Plan 1. Cough (R05.9: Cough, unspecified) pt has been coughing for a month. she is very congested and nasally. ears canals are irritated and TM are full of fluid. 2. Fluid level behind tympanic membrane of both ears (H65.93: Unspecified nonsuppurative otitis media, bilateral) RAISSA TM full of clear fluid. will give 40mg Kenalog in office today. 3. Wheezing (R06.2: Wheezing) mild wheezing noted on exam. z pack sent in, Kenalog given in office today 4. BMI 38.0-38.9,adult (Z68.38: Body mass index [BMI] 38.0-38.9, adult) BMI education given Follow-up No qualifying data available Problem List/Past Medical History Ongoing Anticoagulated Anxiety BMI 37.0-37.9, adult BMI 38.0-38.9,adult Chronic maxillary sinusitis Cigarette nicotine dependence Class 1 obesity due to excess calories in adult Cough Diastolic CHF Discoloration of skin of lower leg Elevated BP without diagnosis of hypertension Fluid level behind tympanic membrane of both ears RADHA (generalized anxiety disorder) Gastritis H/O renal cell cancer Long-term current use of opiate analgesic drug Obesity Obesity (BMI 30-39.9) Orthopnea Shortness of breath Shoulder impingement syndrome Sinusitis Skin cyst Smoker Stage 3a chronic kidney disease (CKD) Stress incontinence Swelling of right lower extremity Wheezing Historical Acid reflux Allergic granuloma Anal fissure Anxiety BMI 35.0-35.9,adult BMI 36.0-36.9,adult Depression Menopause Nocturia Panic attacks Procedure/Surgical History Excision of lipoma of subcutaneous tissue of neck (08/27/2024), Foot (2021), Biopsy of breast (10/2019), Nephrectomy (12/31/2015), right shoulder arthroscopic subacromial decompression. extensive debridement, right shoulder partial thickness rotator cuff tear, biceps tendon, labrum, and and extensive subacromial bursectomy. lateral clavicle resection (10/23/2014), Biopsy of kidney using ultrasound guidance, Cholecystectomy, Colonoscopy, Coronary angiography, Hysterectomy, palmar faciectomy, trigger finger release, Tubal ligation. Medications alendronate 70 mg Tab, See Instructions, 11 refills aspirin 81 mg Oral EC Tab, 81 mg= 1 tab(s), Oral, Daily atorvastatin 10 mg Tab, See Instructions, 1 refills escitalopram 20 mg Tab, See Instructions multivitamin Pantoprazole [address] Tab, See Instructions Xanax 0.5 mg Tab, 0.5 mg= 1 tab(s), Oral, TID, PRN Allergies Avelox (Unknown) Cedax Ceftin Cipro Cortisporin Nasalcrom (Unknown) Neosporin PROzac cortisone (Rash) fluocinolone topical (Unknown) penicillins (Difficulty breathing) sulfa drugs Social History Alcohol - Denies Alcohol Use, 06/06/2012 Never, 12/03/2024 Substance Abuse - Denies Substance Abuse, 06/06/2012 Never, 12/03/2024 Tobacco - High Risk, 12/12/2022 10 or more cigarettes (1/2 pack or more)/day in last 30 days Tobacco Use:. Never Smokeless Tobacco Use:. Cigarettes, Started age 15.0 Years. Ready to change: No. Household tobacco concerns: No. Yes, 12/18/2024 Family History Diabetes mellitus type 2: Father, Sister and Brother. Primary malignant neoplasm of colon: Grandparent. Immunizations Vaccine Date Status Comments pneumococcal 23-valent vaccine - Not Given Postpone due to refusal pneumococcal 13-valent vaccine - Not Given Postpone due to refusal SARS-CoV-2 mRNA (tozinameran 5y-11y) vac - Not Given Postpone due to refusal Normal [facility] Comment on above: Result Comment: Elec tronically Signed By: Katlyn Brooks\.br\Date and Time Signed: 12/18/24 15:44 EDT Ambulatory Visit Summaryon 0 12-04-2024 Ambulatory Visit Summary Ambulatory Visit Summary NEYEDWARD FLAKITA Yates :1955 Visit Date:12/03/2024 Ambulatory Visit Instructions Your Diagnosis Encounter for Medicare annual examination with abnormal findings Diastolic CHF Stage 3a chronic kidney disease (CKD) Depression Anxiety History of smoking 25-50 pack years Smoker Ovarian failure due to menopause Screening for ischemic heart disease Obesity due to excess calories Tests Performed BD Bone Density DEXA -- Results Pending -- Please visit your patient portal for your results or contact your primary care physician. Your Care Team Attending Physician - Elida Anand MD Primary Care Physician - Elida Anand MD. This Is Your Medications List alendronate (alendronate 70 mg Tab) alprazolam (Xanax 0.5 mg Tab) aspirin (aspirin 81 mg Oral EC Tab) atorvastatin (atorvastatin 10 mg Tab) escitalopram (escitalopram 20 mg Tab) multivitamin pantoprazole (Pantoprazole [address] Tab) Procedures Performed Excision of lipoma of subcutaneous tissue of neck (08/27/2024), Foot (2021), Biopsy of breast (10/2019), Nephrectomy (12/31/2015), right shoulder arthroscopic subacromial decompression. extensive debridement, right shoulder partial thickness rotator cuff tear, biceps tendon, labrum, and and extensive subacromial bursectomy. lateral clavicle resection (10/23/2014), Biopsy of kidney using ultrasound guidance, Cholecystectomy, Colonoscopy, Coronary angiography, Hysterectomy, palmar faciectomy, trigger finger release, Tubal ligation. Discharge Vitals Heart Rate (Peripheral) 66 Blood Pressure 130/70 Height 157 cm Height 62 in Weight 92.8 kg Weight 204.589 lb BMI 37.65 What to do next Scheduled Follow-Up Appointments Monday 8:20 AM EDT With: Where: [address] [id number]- Monday 9:00 AM EDT With: Kika SAMPSON, Elida Lyn Where: [address] [id number]- Monday2025 9:30 AM EDT With: Where: [address] [address]- You Need to Complete the Following Comprehensive Metabolic Panel, Blood, Routine collect, 12/03/24, Order for future visit, Lab Collect, Stage 3a chronic kidney disease (CKD), Not Required, Print Label By Order Location Lipid Panel, Blood, Routine collect, 12/03/24, Order for future visit, Lab Collect, Screening for ischemic heart disease, Required & Missing, Print Label By Order Location Urine Microalbumin/Creatinin e Ratio, Urine, Routine collect, 12/03/24, Order for future visit, Nurse collect, Stage 3a chronic kidney disease (CKD), Not Required, Print Label By Order Location CT Chest, Low Dose Screening, 12/03/24, Routine, Order for future visit, Transport Mode: Ambulatory, Reason: Screening, Yes, Yes, Yes, 1, 53, Yes, current smoker, [id number], No, Yes, Smoker History of smoking 25-50 pack years, pp_set_radiology_subsp ecialty, Not Required, Bud... Medications What How Much When Instructions Unchanged alendronate (alendronate 70 mg Tab) See instructions TAKE 1 TABLET BY MOUTH WEEKLY Unchanged alprazolam (Xanax 0.5 mg Tab) 1 Tablets By Mouth 3 times a day as needed for for anxiety For Anxiety Unchanged aspirin (aspirin 81 mg Oral EC Tab) 1 Tablets By Mouth Every day Unchanged atorvastatin (atorvastatin 10 mg Tab) See instructions TAKE 1 TABLET BY MOUTH AT BEDTIME Unchanged escitalopram (escitalopram 20 mg Tab) See instructions TAKE 1 TABLET BY MOUTH EVERY DAY Unchanged multivitamin Unchanged pantoprazole (Pantoprazole [address] Tab) See instructions TAKE 1 TABLET BY MOUTH TWICE A DAY Allergies Avelox (Unknown) Cedax Ceftin Cipro Cortisporin Nasalcrom (Unknown) Neosporin PROzac cortisone (Rash) fluocinolone topical (Unknown) penicillins (Difficulty breathing) sulfa drugs Problems Ongoing - Any problem that you are currently receiving treatment for. Anticoagulated Anxiety BMI 37.0-37.9, adult Chronic maxillary sinusitis Cigarette nicotine dependence Class 1 obesity due to excess calories in adult Diastolic CHF Discoloration of skin of lower leg Elevated BP without diagnosis of hypertension RADHA (generalized anxiety disorder) Gastritis H/O renal cell cancer Long-term current use of opiate analgesic drug Obesity Obesity (BMI 30-39.9) Orthopnea Shortness of breath Shoulder impingement syndrome Sinusitis Skin cyst Smoker Stage 3a chronic kidney disease (CKD) Stress incontinence Swelling of right lower extremity Historical - Any problem that you are no longer receiving treatment for. Acid reflux Allergic granuloma Anal fissure Anxiety BMI 35.0-35.9,adult BMI 36.0-36.9,adult Depression Menopause Nocturia Panic attacks Patient (more content not included)... Normal [facility] CHEMISTRYOrdered By: SYSTEM SYSTEM on 12-04-2024 Albumin [Mass/Vol] 4.2 g/dL Normal 3.3 - 5.0 gm/dL Remisol Chem Albumin/Globulin [Mass ratio] 1.4 {ratio} Normal 1.1 - 2.2 Remisol Chem ALP [Catalytic activity/Vol] 82 [iU]/d Normal 21 - 98 Int._Unit/L Remisol Chem ALT No additional P-5'-P [Catalytic activity/Vol] 21 [iU]/d Normal 6 - 46 Int._Unit/L Remisol Chem Anion gap [Moles/Vol] 11 mmol/L Normal 6 - 16 mEq/L Remisol Chem AST [Catalytic activity/Vol] 26 [iU]/d Normal 5 - 43 Int._Unit/L Remisol Chem Bilirubin [Mass/Vol] 0.9 mg/dL Normal 0.0 - 1 .1 mg/dL Remisol Chem Calcium [Mass/Vol] 9.5 mg/dL Normal 8.9 - 11. 1 mg/dL Remisol Chem Chloride [Moles/Vol] 104 mmol/L Normal 101 - 1 11 mmol/L Remisol Chem CO2 [Moles/Vol] 31 mmol/L Normal 21 - 31 mmol/L Remis ol Chem Creatinine [Mass/Vol] 1.0 mg/dL Normal 0.5 - 1.3 mg/dL Remisol Chem GFR/1.73 sq M.predicted MDRD (S/P/Bld) [Vol rate/Area] 61 mL/min/1.73 m2 Normal >=59mL/min/1.7 3 m2 Remisol Chem Globulin (S) [Mass/Vol] 3.0 g/dL Normal 1.4 - 4.0 gm/dL Remisol Chem Glucose [Mass/Vol] 100 mg/dL Normal 55 - 199 mg/dL Re misol Chem Potassium [Moles/Vol] 4.5 mmol/L Normal 3.5 - 5.3 mmol/L Remisol Chem Protein [Mass/Vol] 7.2 g/dL Normal 6.0 - 7.8 gm/dL Remisol Chem Sodium [Moles/Vol] 141 mmol/L Normal 135 - 145 mmol/L Remisol Chem Urea nitrogen [Mass/Vol] 13 mg/dL Normal 5 - 21 mg/dL Remisol Chem Urea nitrogen/Creatinine [Mass ratio] 13 mg/mg Normal 10 - 20 Remisol Chem Albumin DL <= 20 mg/L (U) [Mass/Vol] 0.9 mg/dL Normal 0.0 - 1.9 mg/dL Remisol Chem Cholesterol [Mass/Vol] 124 mg/dL Normal 120 - 200 mg/dL Remisol Chem Cholesterol in HDL [Mass/Vol] 46 mg/dL Invalid Interpretation Code Remisol Chem Comment on above: Result Comment: '>= 60 LOW RISK' '<= 40 HIGH RISK' Cholesterol in LDL [Mass/Vol] 69 mg/dL Normal <=129mg/dL Remisol Chem Cholesterol in VLDL [Mass/Vol] 19 mg/dL Normal 7 - 40 mg/dL Remisol Chem Triglyceride [Mass/Vol] 94 mg/dL Normal <=149mg/dL Remisol Chem CMPon 12-04-2024 Albumin [Mass/Vol] 4.2 g/dL Normal 3.3-5.0 [facility] Comment on above: Performed By: #### 2 [id number] #### [facility] [address] [place] [address] Albumin/Globulin [Mass ratio] 1.4 {ratio} Normal 1.1-2.2 [facility] Comment on above: Performed By: #### 2 [id number] #### [facility] [address] [place] [address] Alk Phos 82 Int._Unit/L Normal 21-98 [facility] Comment on above: Performed By: #### 2 [id number] #### [facility] [address] [place] [address] ALT 21 Int._Unit/L Normal 6-46 [facility] Comment on above: Performed By: #### 2 [id number] #### [facility] [address] [place] [address] Anion gap [Moles/Vol] 11 mmol/L Normal 6-16 [facility] Comment on above: Performed By: #### 2 [id number] #### [facility] [address] [place] [address] AST 26 Int._Unit/L Normal 5-43 [facility] Comment on above: Performed By: #### 2 [id number] #### [facility] [address] [place] [address] Bili Total 0.9 mg/dL Normal 0.0-1.1 [facility] Comment on above: Performed By: #### 2 [id number] #### [facility] [address] [place] [address] BUN/Creat Ratio 13 No Units Normal 10-20 [facility] Comment on above: Performed By: #### 2 [id number] #### [facility] [address] [place] [address] Calcium [Mass/Vol] 9.5 mg/dL Normal 8.9-11.1 [facility] Comment on above: Performed By: #### 2 [id number] #### [facility] [address] [place] [address] Chloride [Moles/Vol] 104 mmol/L Normal 101-111 [facility] Comment on above: Performed By: #### 2 [id number] #### [facility] [address] [place] [address] CO2 [Moles/Vol] 31 mmol/L Normal 21-31 [facility] Comment on above: Performed By: #### 2 [id number] #### [facility] [address] [place] [address] Creatinine [Mass/Vol] 1.0 mg/dL Normal 0.5-1.3 [facility] Comment on above: Performed By: #### 2 [id number] #### [facility] [address] [place] [address] Globulin (S) [Mass/Vol] 3.0 g/dL Normal 1.4-4.0 [facility] Comment on above: Performed By: #### 2 [id number] #### [facility] [address] [place] [address] Glucose [Mass/Vol] 100 mg/dL Normal 55-199 [facility] Comment on above: Performed By: #### 2 [id number] #### [facility] [address] [place] [address] Potassium [Moles/Vol] 4.5 mmol/L Normal 3.5-5.3 [facility] Comment on above: Performed By: #### 2 [id number] #### [facility] [address] [place] [address] Protein [Mass/Vol] 7.2 g/dL Normal 6.0-7.8 [facility] Comment on above: Performed By: #### 2 [id number] #### [facility] [address] [place], [place] [address] Sodium [Moles/Vol] 141 mmol/L Normal 135-145 [facility] Comment on above: Performed By: #### 2 [id number] #### [facility] [address] [place] [address] Urea nitrogen [Mass/Vol] 13 mg/dL Normal 5- [facility] Comment on above: Performed By: #### 2 [id number] #### [facility] [address] [place] [address] [facility] Medicine Office/Clini c Noteon 12-04-2024 Family Medicine Office/Clinic Note Family Medicine Office/Clinic Note Chief Complaint Subsequent Medicare Wellness History of Present Illness Covid-19, MERS, Ebola Screen *Contact With Person With Highly Contagious Disease Like Ebola/MERS/COVID-19 AND Have One or More of the Symptoms Below : No *Travel to a Country With Wide-Spread Ebola/MERS/COVID-19 in the Past 21 Days AND Have One or More of the Symptoms Below : No Patient Reported Covid-19 Testing : No *Verify Droplet, Contact Precautions for Ebola (Reference for CDC) : N/A *Verify Airborne, Droplet Precautions for MERS/COVID-19 : N/A Carolina Clark 12/03/2024 7:58 EDT Medicare/Medicaid Summary Systolic Blood Pressure : 130 mmHg Diastolic Blood Pressure : 70 mmHg Blood Pressure Location : Left arm Blood Pressure Position : Sitting O2 Sat Resting/Exertion Alpha : Resting Peripheral Pulse Rate : 66 bpm SpO2 : 94 % Carolina Clark 12/03/2024 8:22 EDT Chief Complaint : Subsequent Medicare Wellness Patient Counseled : Nutrition, Physical activity, Elevated BMI Height/Length Measured : 157 cm(Converted to: 5 ft 2 in, 61.81 in) Weight Measured : 92.8 kg(Converted to: 204 lb 9 Ounces, 204.589 lb) Body Mass Index Measured : 37.65 kg/m2 Height in Inches : 62 in Weight in Pounds : 204.589 lb Pain Present : No actual or suspected pain Carolina Clark 12/03/2024 7:58 EDT Carolina Clark 12/03/2024 8:22 EDT Hearing and Vision Screening FT FT Whisper Test Comments : no hearing deficits Vision Screen Comments : wears corrective lens. [employer] 2 years ago. Carolina Clark 12/03/2024 7:58 EDT Advance Directive FT Advance Directive : Yes Type of Advance Directive : Living will, Medical durable power of prosecuting attorney Location of Advance Directive : Scanned into EMR Organ Donation Consent : Yes Carolina Clark - 12/03/2024 7:58 EDT Procedures / Surgeries FT - Procedure History (As Of: 12/03/2024 08:16:35 EDT) Anesthesia Minutes: 0 ; Procedure Name: Hysterectomy ; Procedure Minutes: 0 ; Last Reviewed Dt/Tm: 12/03/2024 08:03:02 EDT Anesthesia Minutes: 0 ; Procedure Name: Cholecystectomy ; Procedure Minutes: 0 ; Last Reviewed Dt/Tm: 12/03/2024 08:03:02 EDT Anesthesia Minutes: 0 ; Procedure Name: Coronary angiography ; Procedure Minutes: 0 ; Comments: 06/06/2012 11:14 SAMMIE Hopkins RN, [facility] heart cath 8-10 years ago- negative ; Last Reviewed Dt/Tm: 12/03/2024 08:03:02 EDT Anesthesia Minutes: 0 ; Procedure Name: Tubal ligation ; Procedure Minutes: 0 ; Last Reviewed Dt/Tm: 12/03/2024 08:03:02 EDT Procedure Dt/Tm: 10/23/2014 ; Provider: Deepak Washburn DO; Anesthesia Minutes: 0 ; Procedure Name: right shoulder arthroscopic subacromial decompression. extensive debridement, right shoulder partial thickness rotator cuff tear, biceps tendon, labrum, and and extensive subacromial bursectomy. lateral clavicle resection ; Procedure Minutes: 0 ; Last Reviewed Dt/Tm: 12/03/2024 08:03:02 EDT Anesthesia Minutes: 0 ; Procedure Name: palmar faciectomy ; Procedure Minutes: 0 ; Comments: 10/10/2014 10:29 EDT - Tiki RODRIGUEZ, Camille right hand ; Last Reviewed Dt/Tm: 12/03/2024 08:03:02 EDT Anesthesia Minutes: 0 ; Procedure Name: trigger finger release ; Procedure Minutes: 0 ; Last Reviewed Dt/Tm: 12/03/2024 08:03:02 EDT Anesthesia Minutes: 0 ; Procedure Name: Colonoscopy ; Procedure Minutes: 0 ; Last Reviewed Dt/Tm: 12/03/2024 08:03:02 EDT Anesthesia Minutes: 0 ; Procedure Name: Biopsy of kidney using ultrasound guidance ; Procedure Minutes: 0 ; Last Reviewed Dt/Tm: 12/03/2024 08:03:02 EDT Procedure Dt/Tm: 12/31/2015 ; Provider: Dallas Roberson Jr., MD; Anesthesia Minutes: 0 ; Procedure Name: Nephrectomy ; Procedure Minutes: 0 ; Comments: 12/07/2018 11:08 EDT - Lolis Sun MA RT~ 12/31/2015 ; Last Reviewed Dt/Tm: 12/03/2024 08:03:02 EDT Procedure Dt/Tm: 10/2019 ; Anesthesia Minutes: 0 ; Procedure Name: Biopsy of breast- right ; Procedure Minutes: 0 ; Last Reviewed Dt/Tm: 12/03/2024 08:03:02 EDT Procedure Dt/Tm: 2021 ; Anesthesia Minutes: 0 ; Procedure Name: Foot ; Procedure Minutes: 0 ; Comments: 09/19/2022 9:14 EDT - Davina Sweet LPN right foot tumor was benign ; Last Reviewed Dt/Tm: 12/03/2024 08:03:02 EDT Procedure Dt/Tm: 08/27/2024 ; Provider: KENISHA HILLIARD DO; Anesthesia Minutes: 0 ; Procedure Name: Excision of lipoma of subcutaneous tissue of neck ; Procedure Minutes: 0 ; Last Reviewed Dt/Tm: 12/03/2024 08:03:02 EDT Family History Family History (As Of: 12/03/2024 08:30:39 EDT) Father: Relation: Father ; Gender: Male ; Nomenclature: Diabetes mellitus type 2 ; Value: Positive Brother: Relation: Brother ; Gender: Male ; Nomenclature: Diabetes mellitus type 2 ; Value: Positive Sister: Relation: Sister ; Gender: Female ; Nomenclature: Diabetes mellitus type 2 ; Value: Positive Grandparent: Relation: Grandparent ; Nomenclature: Primary malignant neoplasm of colon ; Value: Positive Medicare/Medicaid Social History FT Social History (As Of: 12/03 (more content not included)... Normal [facility] Comment on above: Result Comment: Elec tronically Signed By: Elida Anand MD\.br\Date and Time Signed: 12/04/24 10:43 EDT\.br\Electronically Co-Signed By: Carolina Clark\.br\Date and Time Co-Signed: 12/03/24 10:37 EDT Lipid Panelon 12-04-2024 Cholesterol [Mass/Vol] 124 mg/dL Normal 120-200 [facility] Comment on above: Performed By: #### 2 [id number] #### [facility] [address] [place] [address] Cholesterol in HDL [Mass/Vol] 46 mg/dL Invalid Interpretation Code [facility] Comment on above: Result Comment: '>= 60 LOW RISK' '<= 40 HIGH RISK' Performed By: #### 2 [id number] #### [facility] [address] [place] [address] Cholesterol in LDL [Mass/Vol] 69 mg/dL Normal <=129 [facility] Comment on above: Performed By: #### 2 [id number] #### [facility] [address] [place] [address] Cholesterol in VLDL [Mass/Vol] 19 mg/dL Normal 7-40 [facility] Comment on above: Performed By: #### 2 [id number] #### [facility] [address] [place] [address] Triglyceride [Mass/Vol] 94 mg/dL Normal <=149 [facility] Comment on above: Performed By: #### 2 [id number] #### [facility] [address] [place] [address] U Microalbon 12-04-2024 U Microalb 0.9 mg/dL Normal 0.0-1.9 [facility] Comment on above: Performed By: #### 1 [id number] #### [facility] [address] [place] [address] eGFRon 12-04-2024 eGFR 61 mL/min/1.73 m2 Normal >=59 [facility] Comment on above: Performed By: #### 1 [id number] #### [facility] [address] [place] [address] Ambulatory Visit Summaryon 0 10-15-2024 Ambulatory Visit Summary Ambulatory Visit Summary FLAKITA PAREDES :1955 Visit Date:10/15/2024 Ambulatory Visit Instructions Your Diagnosis BMI 37.0-37.9, adult Smoker Obesity (BMI 30-39.9) Your Care Team Attending Physician - Elida Anand MD. Primary Care Physician - Elida Anand MD This Is Your Medications List alendronate (alendronate 70 mg Tab) alprazolam (Xanax 0.5 mg Tab) aspirin (aspirin 81 mg Oral EC Tab) atorvastatin (atorvastatin 10 mg Tab) escitalopram (escitalopram 20 mg Tab) pantoprazole (Pantoprazole [address] Tab) Procedures Performed Excision of lipoma of subcutaneous tissue of neck (08/27/2024), Foot (2021), Biopsy of breast (10/2019), Nephrectomy (12/31/2015), right shoulder arthroscopic subacromial decompression. extensive debridement, right shoulder partial thickness rotator cuff tear, biceps tendon, labrum, and and extensive subacromial bursectomy. lateral clavicle resection (10/23/2014), Biopsy of kidney using ultrasound guidance, Cholecystectomy, Colonoscopy, Coronary angiography, Hysterectomy, palmar faciectomy, trigger finger release, Tubal ligation. Discharge Vitals Temperature (Tympanic) 36.8 ???C Heart Rate (Peripheral) 74 Blood Pressure 138/84 Height 157 cm Height 62 in Weight 92.6 kg Weight 204.148 lb BMI 37.57 What to do next Scheduled Follow-Up Appointments Monday 8:00 AM EDT Where: [place] [id number]- Medications What How Much When Instructions Unchanged alendronate (alendronate 70 mg Tab) See instructions TAKE 1 TABLET BY MOUTH WEEKLY Unchanged alprazolam (Xanax 0.5 mg Tab) 1 Tablets By Mouth 3 times a day as needed for for anxiety For Anxiety Unchanged aspirin (aspirin 81 mg Oral EC Tab) 1 Tablets By Mouth Every day Unchanged atorvastatin (atorvastatin 10 mg Tab) See instructions TAKE 1 TABLET BY MOUTH AT BEDTIME Unchanged escitalopram (escitalopram 20 mg Tab) See instructions TAKE 1 TABLET BY MOUTH EVERY DAY Unchanged pantoprazole (Pantoprazole [address] Tab) See instructions TAKE 1 TABLET BY MOUTH TWICE A DAY Allergies Avelox (Unknown) Cedax Ceftin Cipro Cortisporin Nasalcrom (Unknown) Neosporin PROzac cortisone (Rash) fluocinolone topical (Unknown) penicillins (Difficulty breathing) sulfa drugs Problems Ongoing - Any problem that you are currently receiving treatment for. Anticoagulated Anxiety BMI 36.0-36.9,adult BMI 37.0-37.9, adult Chronic maxillary sinusitis Cigarette nicotine dependence Class 1 obesity due to excess calories in adult Diastolic CHF Discoloration of skin of lower leg Elevated BP without diagnosis of hypertension RADHA (generalized anxiety disorder) Gastritis H/O renal cell cancer Long-term current use of opiate analgesic drug Obesity Obesity (BMI 30-39.9) Orthopnea Shortness of breath Shoulder impingement syndrome Sinusitis Skin cyst Smoker Stage 3a chronic kidney disease (CKD) Stress incontinence Swelling of right lower extremity Historical - Any problem that you are no longer receiving treatment for. Acid reflux Allergic granuloma Anal fissure Anxiety BMI 35.0-35.9,adult Depression Menopause Nocturia Panic attacks Patient Survey You may receive a survey via text or e-mail asking about your office visit. Please share your experience with us by completing your survey. We appreciate your feedback and thank you for choosing us for your care. Normal [facility] Family Medicine Office/Clini c Noteon 10-15-2024 Family Medicine Office/Clinic Note Family Medicine Office/Clinic Note Chief Complaint Acute Sick Visit HPI Staff Pt presents today for acute sick visit. Headaches, face tenderness & sore in mouth for the past week. Thinks it is sinus pressure. Denies fever. Has not tried anything OTC. History of Present Illness 1 week history of sinus pressure. Frontal headache. Sore throat. No other associated signs or symptoms. Review of Systems PHQ Score Initial Depression Screen Score: 2 SCORE Physical Exam Vitals & Measurements T: 36.8 ???C(Tympanic) HR: 74(Peripheral) BP: 138/84 SpO2: 92% HT: 62 in HT: 157 cm WT: 204.148 lb WT: 92.6 kg BMI: 37.57 General: alert, no acute distress ENMT: oral mucosa moist, Cardiovascular: normal peripheral perfusion Respiratory: respirations non labored Extremities: no deformity, no trauma Neurological: oriented x 4, LOC appropriate for age, CN II-XII intact, motor strength equal & normal bilaterally, speech normal Abdomen: Soft, Nontender, Non-distended, + BS Assessment/Plan 1. Sinusitis (J32.9: Chronic sinusitis, unspecified) Will do azithromycin. If no improvement please let us know. Patient is allergic to steroids. Ordered: azithromycin, = 1 packet(s), Oral, As Directed, as directed on package labeling, X 5 day(s), # 6 tab(s), Refills(s) 0, Pharmacy: [facility]/pharmacy #[id number], 157, cm, 10/15/24 14:04:00 EDT, Height/Length Dosing, 92.6, kg, 10/15/24 14:04:00 EDT, Weight Dosing 2. BMI 37.0-37.9, adult (Z68.37: Body mass index [BMI] 37.0-37.9, adult) BMI education added Ordered: azithromycin, = 1 packet(s), Oral, As Directed, as directed on package labeling, X 5 day(s), # 6 tab(s), Refills(s) 0, Pharmacy: [facility]/pharmacy #[id number], 157, cm, 10/15/24 14:04:00 EDT, Height/Length Dosing, 92.6, kg, 10/15/24 14:04:00 EDT, Weight Dosing Body Mass Index (BMI) documented 3008F Current tobacco non-user 1036F Depression Screening Negative 3352F Discharge medications reconciled with current medications in outpatient record 1111F Influenza immunization status assessed 1030F Influenza Type A&B POC 70919 Medication list documented in medical record 1159F Most recent diastolic blood pressure 80-89 mm Hg 3079F Patient screen for fall risk: no falls in last year or 1 fall with no injury in last year 1101F Rapid COVID POC 01851 Review of all meds by a prescribing practitioner or clinical pharmacist documented in EHR 1160F Systolic BP 130-139 mm Hg (Most Recent) 3075F 3. Smoker (F17.200: Nicotine dependence, unspecified, uncomplicated) Please stop smoking. This could be the cause of the sinusitis. Ordered: azithromycin, = 1 packet(s), Oral, As Directed, as directed on package labeling, X 5 day(s), # 6 tab(s), Refills(s) 0, Pharmacy: [facility]/pharmacy #[id number], 157, cm, 10/15/24 14:04:00 EDT, Height/Length Dosing, 92.6, kg, 10/15/24 14:04:00 EDT, Weight Dosing 4. Obesity (BMI 30-39.9) (E66.9: Obesity, unspecified) Diet and exercise advised Ordered: azithromycin, = 1 packet(s), Oral, As Directed, as directed on package labeling, X 5 day(s), # 6 tab(s), Refills(s) 0, Pharmacy: [facility]/pharmacy #[id number], 157, cm, 10/15/24 14:04:00 EDT, Height/Length Dosing, 92.6, kg, 10/15/24 14:04:00 EDT, Weight Dosing 5. History of lipoma (Z86.018: Personal history of other benign neoplasm) Removed by general surgery. Area is healing very well. Follow-up No qualifying data available Problem List/Past Medical History Ongoing Anticoagulated Anxiety BMI 36.0-36.9,adult BMI 37.0-37.9, adult Chronic maxillary sinusitis Cigarette nicotine dependence Class 1 obesity due to excess calories in adult Diastolic CHF Discoloration of skin of lower leg Elevated BP without diagnosis of hypertension RADHA (generalized anxiety disorder) Gastritis H/O renal cell cancer Long-term current use of opiate analgesic drug Obesity Obesity (BMI 30-39.9) Orthopnea Shortness of breath Shoulder impingement syndrome Sinusitis Skin cyst Smoker Stage 3a chronic kidney disease (CKD) Stress incontinence Swelling of right lower extremity Historical Acid reflux Allergic granuloma Anal fissure Anxiety BMI 35.0-35.9,adult Depression Menopause Nocturia Panic attacks Procedure/Surgical History Excision of lipoma of subcutaneous tissue of neck (08/27/2024), Foot (2021), Biopsy of breast (10/2019), Nephrectomy (12/31/2015), right shoulder arthroscopic subacromial decompression. extensive debridement, right shoulder partial thickness rotator cuff tear, biceps tendon, labrum, and and extensive subacromial bursectomy. lateral clavicle resection (10/23/2014), Biopsy of kidney using ultrasound guidance, Cholecystectomy, Colonoscopy, Coronary angiography, Hysterectomy, palmar faciectomy, trigger finger release, Tubal ligation. Medications alendronate 70 mg Tab, See Instructions, 11 refills aspirin 81 mg Oral EC Tab, 81 mg= 1 tab(s), Oral, Daily atorvastatin 10 mg Tab, See Instructions, 1 refills azithromycin 250 mg Tab, 1 packe (more content not included)... Normal [facility] Comment on above: Result Comment: Elec tronically Signed By: Kika SAMPSON, Elida Luo\Date and Time Signed: 10/15/24 14:32 EDT Surgical Pathologyon 08-27-2 025 Surgical Pathology Normal [facility] Comment on above: Result Comment: [facility] [address] [place] [address] Surgical Pathology Consultation Patient Name:FLAKITA PAREDES:1955 (Age: 69)Gender:FTaken:08/27/2024Reported:09/02/2024Physician(s):Kenisha Hilliard D.O. ([phone])Copy To: Rec. #:[id number]: #[id number] Final Pathologic Diagnosis Lipoma, right axilla - excision: - Lipoma Report Electronically Signed Out peng/09/02/2024Hemal Marsh MD [place] [address], License number: [id number]. Clinical History Right axillary lipoma. Gross Description Received in formalin labeled Candi PAREDES axilla is an aggregate of yellow lobulated fat, 3.5 x 3.5 x 1 cm. The specimen is sectioned to reveal homogeneous cut surfaces and 2 manufacturer's service representative sections are submitted a single cassette. (1,ns,[id number], m8.1) TB tgb/08/28/2024SSI Specimen(s) Received Right axilla lipoma Fee Codes(s): 1; 23073 COMPLETE BLOOD COUNTon 08-22 Erythrocyte distribution width (RBC) [Ratio] 13.8 % Normal 11.5-15.0 [facility] Comment on above: Performed By: #### C BC, CMP #### [facility] ([id number]) [address] [place] [address], [address] [place] [address] Hematocrit (Bld) [Volume fraction] 44.0 % Normal 35-47 [facility] Comment on above: Performed By: #### C ALICIA, CMP #### [facility] ([id number]) [address], [address] [place] [address] Hemoglobin (Bld) [Mass/Vol] 14.8 g/dL Normal 11.7-15.5 [facility] Comment on above: Performed By: #### C ALICIA, CMP #### [facility] ([id number]) [address] [facility] [address] [place] [address] MCH (RBC) [Entitic mass] 32.0 pg Normal 27-34 [facility] Comment on above: Performed By: #### C ALICIA, CMP #### [facility] ([id number]) [address], [facility] [address] [place] [address] MCHC (RBC) [Mass/Vol] 33.7 g/dL Normal 32-36 [facility] Comment on above: Performed By: #### C ALICIA, CMP #### [facility] ([id number]) [address], [facility] [address] [place] [address] MCV (RBC) [Entitic vol] 95 fL Normal 80-100 [facility] Comment on above: Performed By: #### C ALICIA, CMP #### [facility] ([id number]) [address], [address] [place] [address] Platelet mean volume (Bld) [Entitic vol] 8.6 fL Normal 7-12 [facility] Comment on above: Performed By: #### C ALICIA, CMP #### [facility] ([id number]) [address] [address] [place] [address] Platelets (Bld) [#/Vol] 344 10*3/uL Normal 150-450 [facility] Comment on above: Performed By: #### C BC, CMP #### [facility] ([id number]) [address], [address] [place] [address] RBC COUNT 4.64 X10E12/L Normal 3.80-5.20 [facility] Comment on above: Performed By: #### C BC, CMP #### [facility] ([id number]) [address], [address] [place] [address] WBC (Bld) [#/Vol] 7.2 10*3/uL Normal 4.0-11.[address] [facility] Comment on above: Performed By: #### C ALICIA, CMP #### [facility] ([id number]) [address], [address] [place] [address] COMPREHENSIVE METABOLIC PANE Junior 08-22-2024 Albumin [Mass/Vol] 4.3 g/dL Normal 3.2-5.[address] [facility] Comment on above: Performed By: #### Marc VARGAS, CMP #### [facility] ([id number]) [address], [address] [place] [address] ALP [Catalytic activity/Vol] 72 U/L Normal 39-130 [facility] Comment on above: Performed By: #### C ALICIA, CMP #### [facility] ([id number]) [address], [address] [place] [address] ALT [Catalytic activity/Vol] 23 U/L Normal 0-31 [facility] Comment on above: Performed By: #### C BC, CMP #### [facility] ([id number]) [address], [address] [place] [address] Anion gap [Moles/Vol] 8 mmol/L Normal 5-15 [facility] Comment on above: Performed By: #### C BC, CMP #### [facility] ([id number]) [address], [address] [place] [address] AST [Catalytic activity/Vol] 23 U/L Normal 0-41 [facility] Comment on above: Performed By: #### C BC, CMP #### [facility] ([id number]) [address], [address] [place] [address] Bilirubin [Mass/Vol] 1.2 mg/dL Normal 0.3-1.2 [facility] Comment on above: Performed By: #### C BC, CMP #### [facility] ([id number]) [address], [address] [place] [address] Calcium [Mass/Vol] 9.8 mg/dL Normal 8.5-10.[address] [facility] Comment on above: Performed By: #### C BC, CMP #### [facility] ([id number]) [address], [address] [place] [address] Chloride [Moles/Vol] 103 mmol/L Normal 98-109 [facility] Comment on above: Performed By: #### C BC, CMP #### [facility] ([id number]) [address], [address] [place] [address] CO2 [Moles/Vol] 30 mmol/L Normal 22-32 [facility] Comment on above: Performed By: #### C BC, CMP #### [facility] ([id number]) [address], [address] [place] [address] Creatinine [Mass/Vol] 1.03 mg/dL High 0.40-1.00 [facility] Comment on above: Result Comment: METH OD TRACEABLE TO IDMS STANDARD Performed By: #### C BC, CMP #### [facility] ([id number]) [address] [address] [place] [address] GFR/1.73 sq M.predicted among non-blacks MDRD (S/P/Bld) [Vol rate/Area] 59 mL/min/{1.73_m2} Low >59 [facility] Comment on above: Result Comment: Reported eGFR is based on the CKD-EPI 2021 equation that does not use a race coefficient. Performed By: #### C BC, CMP #### [facility] ([id number]) [address], [address] [place] [address] Glucose [Mass/Vol] 90 mg/dL Normal 65-[address] [facility] Comment on above: Performed By: #### C BC, CMP #### [facility] ([id number]) [address], [address] [place] [address] Potassium [Moles/Vol] 4.2 mmol/L Normal 3.5-5.0 [facility] Comment on above: Performed By: #### C BC, CMP #### [facility] ([id number]) [address], [address] [place] [address] Protein [Mass/Vol] 7.3 g/dL Normal 6.0-8.[address] [facility] Comment on above: Performed By: #### C BC, CMP #### [facility] ([id number]) [address], [address] [place] [address] Sodium [Moles/Vol] 141 mmol/L Normal 134-[address] [facility] Comment on above: Performed By: #### C BC, CMP #### [facility] ([id number]) [address], [address] [place] [address] Urea nitrogen [Mass/Vol] 14 mg/dL Normal 5-27 [facility] Comment on above: Performed By: #### C BC, CMP #### [facility] ([id number]) [address], [address] [place] [address] US EXT NON-VASC RT LIMITEDon 07-26-2024 US EXT NON-VASC RT LIMITED US EXT NON-VASC RT LIMITED Clinical history: Axillary adenopathy versus lipoma. Limited ultrasound right upper extremity: 07/25/2024 FINDINGS: Targeted ultrasound evaluation was performed in the area of clinical symptoms. In the subcutaneous fat there is a circumscribed isoechoic lesion estimated to measure 2.9 x 1.5 x 1.0 cm. Color Doppler images demonstrate no hyperemia or irregular flow within this area Nonenlarged lymph nodes are present within the axilla with minimally lobular appearance. There is no definite cortical thickening. The largest has a short axis diameter of less than 1 cm. IMPRESSION: Probable lipoma measuring 2.9 cm in the area of clinical symptoms. Axillary lymph nodes have benign appearance. Clinical follow-up recommended. Finalized by Jas Almazan MD on 07/26/2024 6:11 AM Normal [facility] Surgical Pathologyon 025 Surgical Pathology Normal [facility] Comment on above: Result Comment: [facility] Medicine [address] [place] [address] Surgical Pathology Consultation Patient Name:FLAKITA PAREDES:1955 (Age: 69)Gender:FTaken:07/24/2024Reported:07/29/2024Physician(s):Kenisha Hilliard D.O. ([phone])Copy To: Rec. #:[id number]: #[id number] Final Pathologic Diagnosis 1. Right upper extremity lipoma, excision: Angiolipoma 2. Left upper extremity top lipoma, excision: Angiolipoma. 3. Left forearm lipoma, excision: Angiolipoma. 4. Left upper extremity bottom lipoma, excision: Angiolipoma. Report Electronically Signed Out [facility]/07/29/2024Juan Carlos Braswell M.D. Interpretation performed at [facility], [address] [place] [address], License number: [id number]. Clinical History Lipoma of left upper extremity, D17.22. Lipoma of right upper extremity, D17.21. Gross Description 1. Received in formalin labeled REGGIE, right upper arm lipoma is a portion of yellow glistening adipose soft tissue that measures 1.6 x 1.2 x 1.0 cm. The specimen is inked black. The specimen is serially sectioned to reveal yellow glistening uniform cut surfaces. Three manufacturer's service representative cross-sections are submitted in a single cassette. (1, ss, [id number],m1) DM. 2. .Received in formalin labeled [facility], left upper arm top Lipoma is a portion of yellow glistening adipose soft tissue that measures 2.4 x 1.6 x 1.1 cm. The specimen is inked black. The specimen is serially sectioned to reveal yellow glistening uniform cut surfaces. Four manufacturer's service representative cross-sections are submitted in a single cassette. (1, ss, [id number],m1) DM. 3. Received in formalin labeled VOELZKE, left forearm lipoma is a portion of yellow glistening adipose soft tissue that measures 1.2 x 1.0 x 0.6 cm. The specimen is inked black. The specimen is serially sectioned to reveal yellow glistening uniform cut surfaces. Three manufacturer's service representative cross-sections are submitted in a single cassette. (1, ss, [id number],m1) DM. 4. Received in formalin labeled VOELKE, left upper arm bottom lipoma is a portion of yellow glistening adipose soft tissue that measures 1.2 x 1.1 x 0.6 cm. The specimen is inked black. The specimen is serially sectioned to reveal yellow glistening uniform cut surfaces. Two. Three manufacturer's service representative cross-sections are submitted in a single cassette. (1, ss, [id number],m1) DM. dm/07/25/2024NSK Specimen(s) Received 1: Right upper extremity 2: Left upper extremity top 3: Left forearm 4: Left upper extremity bottom Fee Codes(s): 1; 57647 2; 80983 3; 83577 4; 24841 Ambulatory Visit Summaryon 0 07-08-2024 Ambulatory Visit Summary Ambulatory Visit Summary REGGIE FLAKITA Yates :1955 Visit Date:07/08/2024 Ambulatory Visit Instructions Your Diagnosis Diastolic CHF Stage 3a chronic kidney disease (CKD) Elevated BP without diagnosis of hypertension Otitis media, unspecified, unspecified ear BMI 37.0-37.9, adult Obesity (BMI 30-39.9) Smoker Your Care Team Attending Physician - Elida Anand MD Primary Care Physician - Elida Anand MD This Is Your Medications List azithromycin (azithromycin 250 mg Tab) Contact prescribing physician if questions or concerns alendronate (alendronate 70 mg Tab) alprazolam (Xanax 0.5 mg Tab) aspirin (aspirin 81 mg Oral EC Tab) atorvastatin (atorvastatin 10 mg Tab) escitalopram (escitalopram 20 mg Tab) pantoprazole (Pantoprazole [address] Tab) Procedures Performed Foot (2021), Biopsy of breast (10/2019), Nephrectomy (12/31/2015), right shoulder arthroscopic subacromial decompression. extensive debridement, right shoulder partial thickness rotator cuff tear, biceps tendon, labrum, and and extensive subacromial bursectomy. lateral clavicle resection (10/23/2014), Biopsy of kidney using ultrasound guidance, Cholecystectomy, Colonoscopy, Coronary angiography, Hysterectomy, palmar faciectomy, trigger finger release, Tubal ligation. Discharge Vitals Temperature (Tympanic) 36.5 ???C Heart Rate (Peripheral) 76 Respiratory Rate 18 Blood Pressure 128/74 Height 157 cm Height 62 in Weight 92.7 kg Weight 204.368 lb BMI 37.61 What to do next Scheduled Follow-Up Appointments Monday 8:00 AM EDT Where: [place] [phone] Medications What How Much When Instructions New azithromycin (azithromycin 250 mg Tab) 1 Packets By Mouth As Directed Duration: 5 Days as directed on package labeling Pickup at [facility]/pharmacy #[id number] Unchanged alendronate (alendronate 70 mg Tab) See instructions TAKE 1 TABLET BY MOUTH WEEKLY Contact prescribing physician if questions or concerns Unchanged alprazolam (Xanax 0.5 mg Tab) 1 Tablets By Mouth 3 times a day as needed for for anxiety For Anxiety Contact prescribing physician if questions or concerns Unchanged aspirin (aspirin 81 mg Oral EC Tab) 1 Tablets By Mouth Every day Contact prescribing physician if questions or concerns Unchanged atorvastatin (atorvastatin 10 mg Tab) See instructions TAKE 1 TABLET BY MOUTH AT BEDTIME Contact prescribing physician if questions or concerns Unchanged escitalopram (escitalopram 20 mg Tab) See instructions TAKE 1 TABLET BY MOUTH EVERY DAY Contact prescribing physician if questions or concerns Unchanged pantoprazole (Pantoprazole [address] Tab) See instructions TAKE 1 TABLET BY MOUTH TWICE A DAY Contact prescribing physician if questions or concerns Pharmacy Information [facility]/pharmacy #[id number]: [address] [place], [place] [id number] [phone] Allergies Avelox (Unknown) Cedax Ceftin Cipro Cortisporin Nasalcrom (Unknown) Neosporin PROzac cortisone (Rash) fluocinolone topical (Unknown) penicillins (Difficulty breathing) sulfa drugs Problems Ongoing - Any problem that you are currently receiving treatment for. Anticoagulated Anxiety BMI 36.0-36.9,adult BMI 37.0-37.9, adult Chronic maxillary sinusitis Cigarette nicotine dependence Class 1 obesity due to excess calories in adult Diastolic CHF Discoloration of skin of lower leg Elevated BP without diagnosis of hypertension RADHA (generalized anxiety disorder) Gastritis H/O renal cell cancer Long-term current use of opiate analgesic drug Obesity Obesity (BMI 30-39.9) Orthopnea Shortness of breath Shoulder impingement syndrome Sinusitis Skin cyst Smoker Stage 3a chronic kidney disease (CKD) Stress incontinence Swelling of right lower extremity Historical - Any problem that you are no longer receiving treatment for. Acid reflux Allergic granuloma Anal fissure Anxiety BMI 35.0-35.9,adult Depression Menopause Nocturia Panic attacks Patient Survey You may receive a survey via text or e-mail asking about your office visit. Please share your experience with us by completing your survey. We appreciate your feedback and thank you for choosing us for your care. Education Materials BMI for Adults Body mass index (BMI) is a number found using a person's weight and height. BMI can help tell how much of a person's weight is made up of fat. BMI does not measure body fat directly. It is used instead of tests that directly measure body fat, which can be difficult and expensive. What are BMI measurements used for? BMI is useful to: ??? Find out if your weight puts you at higher risk for medical problems. ??? Help recommend changes, such as in diet and exercise. This can help you reach a healthy weight. BMI screening can be done again to see if these changes are wo (more content not included)... Normal [facility] Medicine Office/Clini c Noteon 07-08-2024 Family Medicine Office/Clinic Note Family Medicine Office/Clinic Note Chief Complaint 6m follow up HPI Staff 6m follow up to HTN & Anxiety Patient is here for follow up on hypertension. How often are you checking your blood pressure? Doesnt check BP at home What are your average readings? _ Yearly BMP: 05/01/23 Follow up for Mental Status: Medication adherence- Yes, takes medication as prescribed Medication refill needed: _ Suicidal thoughts-Not at this time Most recent RADHA: 7 Most recent PHQ: 10 Refills? no Concerns? Rt martins pain for yrs, now having Lt martins pain. Has been sleeping while sitting up, due to getting instant headache & ear pain when she lays down. History of Present Illness Patient presents for follow-up on high blood pressure. Patient had a one-time reading and has been resolved ever since. Patient is also having headaches and ear pain when she lies down. Patient does not want any muscle relaxers. Patient states it is just above her eyes and radiates to the back. Patient states that when she is sitting watching TV she will get a sudden pain in the neck which will go away. Patient also states that she has had a lot more ear pressure. This is improved with using the Jia pot however still having this issue. Review of Systems PHQ Score Initial Depression Screen Score: 0 SCORE Physical Exam Vitals & Measurements T: 36.5 ???C(Tympanic) HR: 76(Peripheral) RR: 18 BP: 128/74 SpO2: 93% HT: 62 in HT: 157 cm WT: 92.7 kg WT: 204.368 lb BMI: 37.61 General: alert, no acute distress ENMT: oral mucosa moist, fluid in the ear, right ear slightly red and painful Cardiovascular: Regular rate and rhythm, normal peripheral perfusion Respiratory: Lungs clear to auscultation, respirations non labored Extremities: no deformity, no trauma Neurological: oriented x 4, level of consciousness appropriate for age, CN II-XII intact, motor strength equal & normal bilaterally, speech normal Abdomen: Soft, Non-tender, Non-distended, + Bowel sounds Assessment/Plan 1. Diastolic CHF (I50.30: Unspecified diastolic (congestive) heart failure) Continue current management strategy for heart failure, monitoring for fluid accumulation and blood pressure changes. Asymptomatic at this time. 2. Stage 3a chronic kidney disease (CKD) (N18.31: Chronic kidney disease, stage 3a) Monitor renal function and electrolyte levels regularly. Advise on avoiding nephrotoxic substances. Discuss dietary modifications. Labs ordered. 3. Elevated BP without diagnosis of hypertension (R03.0: Elevated blood-pressure reading, without diagnosis of hypertension) Resolved Ordered: Body Mass Index (BMI) documented 3008F Current tobacco smoker 1034F Discharge medications reconciled with current medications in outpatient record 1111F Influenza immunization status assessed 1030F Medication list documented in medical record 1159F Most recent diastolic blood pressure <80 mm Hg 3078F Patient screen for fall risk: no falls in last year or 1 fall with no injury in last year 1101F Review of all meds by a prescribing practitioner or clinical pharmacist documented in EHR 1160F Systolic BP <130 mm Hg (Most Recent) 3074F 4. Otitis media, unspecified, unspecified ear (H66.90) Recommend symptomatic relief with nasal saline spray and Flonase. Prescribe azithromycin due to penicillin allergy, given the ear redness and fluid suggesting early infective process. 5. BMI 37.0-37.9, adult (Z68.37: Body mass index [BMI] 37.0-37.9, adult) Encourage weight management strategies. Discuss dietary modification and increased physical activity. Monitor progress with routine follow-ups. 6. Obesity (BMI 30-39.9) (E66.9: Obesity, unspecified) Reinforce the importance of lifestyle changes including diet and physical activity. Consider referral to a pharmacist manager for specialized dietary advice. 7. Smoker (F17.200: Nicotine dependence, unspecified, uncomplicated) Provide smoking cessation resources. Discuss strategies including nicotine replacement therapy or pharmacotherapy options. Orders: azithromycin, = 1 packet(s), Oral, As Directed, as directed on package labeling, X 5 day(s), # 6 tab(s), Refills(s) 0, Pharmacy: [facility]/pharmacy #[id number], 157, cm, 07/08/24 10:07:00 EST, Height/Length Dosing, 92.7, kg, 07/08/24 10:07:00 EST, Weight Dosing 69-year-old female with a history of Body mass index (BMI) 37.0-37.9, diastolic heart failure, elevated blood pressure, obesity, nicotine dependence, and Stage 3a chronic kidney disease presenting with ear pain and headache. The ear pain likely secondary to fluid buildup and possibly related to allergic symptoms or congestion. Neck tension and spasms may be contributing factors. The patient exhibits a significant medication allergy to amoxicillin requiring alternative antibiotic consideration. Follow-up No qualifying data available Patient Education BMI for Adults Problem List/Past Medical History Ongoing Anticoagulated Anxiety BMI 36.0-36.9,adult (more content not included)... Normal [facility] Comment on above: Result Comment: Elec tronically Signed By: Kika SAMPSON, Elida Lyn\.br\Date and Time Signed: 07/08/24 10:43 EST Family Medicine Office/Clini c Noteon 05-23-2024 Family Medicine Office/Clinic Note Family Medicine Office/Clinic Note Chief Complaint Dizziness with changes in position and nasal congestion. HPI Staff Flakita is a 69 year old female presenting for acute visit Acute: has pressure in forehead, frontal but she's just so tired al the time Doesn't always sleep the best at night History of Present Illness The patient is a 69-year-old female presenting with dizziness primarily experienced with positional changes, indicative of possible labyrinthitis. Symptoms began recently and occur when turning to the right, causing transient disequilibrium. She recalls previously having performed the Simone-Hallpike maneuver and associated exercises at home, which were previously recommended and provided some relief. The patient also reports persistent nasal congestion possibly exacerbated by recent sinus pressure. The patient has a background of anxiety disorder, compounded by grief over the loss of her sister nearly a year ago, which continues to deeply affect her emotional health, causing difficulty in sleep. Bereavement has been ongoing, impacting her stress levels and mourning processes, especially during holidays and family gatherings. She experiences disrupted sleep patterns despite not consuming caffeine and avoids Xanax unless necessary, instead focusing on attending counseling for anxiety management. Review of Systems PHQ Score Initial Depression Screen Score: 2 SCORE - Neurological: Reports dizziness when turning the head to the right. - Respiratory: Denies shortness of breath. - Psychiatric: Reports difficulty sleeping, stress, and persistent grief. Physical Exam Vitals & Measurements T: 36.9 ???C(Temporal Artery) HR: 74(Peripheral) RR: 16 BP: 138/84 SpO2: 96% HT: 62 in HT: 157 cm WT: 91.7 kg WT: 202.164 lb BMI: 37.2 General: alert, no acute distress ENMT: oral mucosa moist, sinus pressure noted Cardiovascular: Regular rate and rhythm, normal peripheral perfusion Respiratory: Lungs clear to auscultation, respirations non labored Extremities: no deformity, no trauma Neurological: oriented x 4, level of consciousness appropriate for age, CN II-XII intact, motor strength equal & normal bilaterally, speech normal, equilibrium issues noted when turning head Abdomen: Soft, Non-tender, Non-distended, + Bowel sounds Assessment/Plan 1. Labyrinthitis, unspecified ear (H83.09) Suggest continuation of home exercises such as the Cezar maneuver and physical therapy referral as a precautionary measure if symptoms persist or worsen. Ordered: Physical Therapy Evaluation - External Facility 2. Adjustment disorder, unspecified (F43.20) Reinforce the benefits of counseling in managing grief. Recognize timely attendance to support groups or psychological therapies during the anniversary of her sister???s passing and holidays as supportive measures for emotional well-being. Ordered: Physical Therapy Evaluation - External Facility 3. Anxiety disorder, unspecified (F41.9) Encourage ongoing counseling as primary treatment for anxiety management. Discussed avoiding increases in sedative medication unless necessary. Highlight the importance of support networks in emotional healing. Ordered: Physical Therapy Evaluation - External Facility 4. Nasal congestion (R09.81) Recommend non-pharmacological treatments including nasal saline and vapor rub. Emphasized the need to monitor for indications of infection that might warrant pharmacological treatment if symptoms do not resolve naturally. Ordered: Physical Therapy Evaluation - External Facility 5. Insomnia, unspecified (G47.00) Discuss behavioral strategies for sleep improvement, including sleep hygiene recommendations. Consider non-pharmacological interventions like Benadryl for antihistaminic and sedative effects, especially in relation to mild nasal congestion without reliance on stronger sedatives. Ordered: Physical Therapy Evaluation - External Facility 69-year-old female with history of anxiety disorder and recent bereavement presenting with dizziness attributable to possible labyrinthitis and nasal congestion suggestive of sinus-related pressure. Additionally, the patient exhibits symptoms consistent with insomnia and emotional distress due to unresolved grief and associated anxiety. Her difficulty in maintaining a regular sleep pattern may be contributing to her overall fatigue and psychological stress. Total time spent preparing for the encounter, evaluating and assessing the patient, documenting the visit, and ordering appropriate follow-up work was 30 minutes. Follow-up No qualifying data available Problem List/Past Medical History Ongoing Anticoagulated Anxiety Bereavement BMI 36.0-36.9,adult Chronic maxillary sinusitis Cigarette nicotine dependence Class 1 obesity due to excess calories in adult Diastolic CHF Discoloration of skin of lower leg Elevated BP without diagnosis of hypertension RADHA (generalized anxiety disorder) Gastritis (more content not included)... Normal [facility] Comment on above: Result Comment: Elec tronically Signed By: Elida Anand MD\.br\Date and Time Signed: 05/23/24 07:33 EST Ambulatory Visit Summaryon 1 07-21-2023 Ambulatory Visit Summary Ambulatory Visit Summary FLAKITA PAREDES :1955 Visit Date:05/21/2024 Ambulatory Visit Instructions Your Diagnosis Fatigue Headache Your Care Team Attending Physician - Elida Anand MD Primary Care Physician - Elida Anand MD This Is Your Medications List alendronate (alendronate 70 mg Tab) alprazolam (Xanax 0.5 mg Tab) aspirin (aspirin 81 mg Oral EC Tab) atorvastatin (atorvastatin 10 mg Tab) escitalopram (escitalopram 20 mg Tab) pantoprazole (Pantoprazole [address] Tab) Procedures Performed Foot (2021), Biopsy of breast (10/2019), Nephrectomy (12/31/2015), right shoulder arthroscopic subacromial decompression. extensive debridement, right shoulder partial thickness rotator cuff tear, biceps tendon, labrum, and and extensive subacromial bursectomy. lateral clavicle resection (10/23/2014), Biopsy of kidney using ultrasound guidance, Cholecystectomy, Colonoscopy, Coronary angiography, Hysterectomy, palmar faciectomy, trigger finger release, Tubal ligation. Discharge Vitals Temperature (Temporal Artery) 36.9 ???C Heart Rate (Peripheral) 74 Respiratory Rate 16 Blood Pressure 138/84 Height 157 cm Height 62 in Weight 91.7 kg Weight 202.164 lb BMI 37.2 What to do next Scheduled Follow-Up Appointments Monday 10:00 AM EST With: Elida Anand MD Where: [address] [address]- Monday 8:00 AM EDT With: Where: [address] [address]- Medications What How Much When Instructions Unchanged alendronate (alendronate 70 mg Tab) See instructions TAKE 1 TABLET BY MOUTH WEEKLY Unchanged alprazolam (Xanax 0.5 mg Tab) 1 Tablets By Mouth 3 times a day as needed for for anxiety For Anxiety Unchanged aspirin (aspirin 81 mg Oral EC Tab) 1 Tablets By Mouth Every day Unchanged atorvastatin (atorvastatin 10 mg Tab) See instructions TAKE 1 TABLET BY MOUTH AT BEDTIME Unchanged escitalopram (escitalopram 20 mg Tab) See instructions TAKE 1 TABLET BY MOUTH EVERY DAY Unchanged pantoprazole (Pantoprazole [address] Tab) 1 Tablets By Mouth 2 times a day Allergies Avelox (Unknown) Cedax Ceftin Cipro Cortisporin Nasalcrom (Unknown) Neosporin PROzac cortisone (Rash) fluocinolone topical (Unknown) penicillins (Difficulty breathing) sulfa drugs Problems Ongoing - Any problem that you are currently receiving treatment for. Anticoagulated Anxiety Bereavement BMI 36.0-36.9,adult Chronic maxillary sinusitis Cigarette nicotine dependence Class 1 obesity due to excess calories in adult Diastolic CHF Discoloration of skin of lower leg Elevated BP without diagnosis of hypertension RADHA (generalized anxiety disorder) Gastritis H/O renal cell cancer Long-term current use of opiate analgesic drug Obesity Orthopnea Shortness of breath Shoulder impingement syndrome Sinusitis Skin cyst Smoker Stage 3a chronic kidney disease (CKD) Stress incontinence Swelling of right lower extremity Historical - Any problem that you are no longer receiving treatment for. Acid reflux Allergic granuloma Anal fissure Anxiety BMI 35.0-35.9,adult Depression Menopause Nocturia Panic attacks Patient Survey You may receive a survey via text or e-mail asking about your office visit. Please share your experience with us by completing your survey. We appreciate your feedback and thank you for choosing us for your care. [facility] Ambulatory Visit Summaryon 0 03-11-2024 Ambulatory Visit Summary Ambulatory Visit Summary FLAKITA PAREDES :1955 Visit Date:03/11/2024 Ambulatory Visit Instructions Your Diagnosis BMI 36.0-36.9,adult Class 1 obesity due to excess calories in adult Smoker Your Care Team Attending Physician - Katlyn Brooks Primary Care Physician - Elida Anand MD This Is Your Medications List alendronate (alendronate 70 mg Tab) alprazolam (Xanax 0.5 mg Tab) aspirin (aspirin 81 mg Oral EC Tab) atorvastatin (atorvastatin 10 mg Tab) azithromycin (azithromycin 500 mg oral tablet) escitalopram (escitalopram 20 mg Tab) pantoprazole (Pantoprazole [address] Tab) Procedures Performed Foot (2021), Biopsy of breast (10/2019), Nephrectomy (12/31/2015), right shoulder arthroscopic subacromial decompression. extensive debridement, right shoulder partial thickness rotator cuff tear, biceps tendon, labrum, and and extensive subacromial bursectomy. lateral clavicle resection (10/23/2014), Biopsy of kidney using ultrasound guidance, Cholecystectomy, Colonoscopy, Coronary angiography, Hysterectomy, palmar faciectomy, trigger finger release, Tubal ligation. Discharge Vitals Temperature (Temporal Artery) 36.7 ?C Heart Rate (Peripheral) 78 Respiratory Rate 18 Blood Pressure 137/88 Height 157 cm Height 62 in Weight 90.5 kg Weight 199.1 lb BMI 36.72 What to do next Scheduled Follow-Up Appointments Monday 10:00 AM EST With: Kika SAMPSON, Elida Lyn Where: [address] [address]- Monday 8:00 AM EDT With: Where: [address] [id number]- Medications What How Much When Instructions Unchanged alendronate (alendronate 70 mg Tab) See instructions TAKE 1 TABLET BY MOUTH WEEKLY Unchanged alprazolam (Xanax 0.5 mg Tab) 1 Tablets By Mouth 3 times a day as needed for for anxiety For Anxiety Unchanged aspirin (aspirin 81 mg Oral EC Tab) 1 Tablets By Mouth Every day Unchanged atorvastatin (atorvastatin 10 mg Tab) See instructions TAKE 1 TABLET BY MOUTH AT BEDTIME Unchanged azithromycin (azithromycin 500 mg oral tablet) See instructions TAKE 1 TABLET BY MOUTH EVERY DAY FOR 3 DAYS Unchanged escitalopram (escitalopram 20 mg Tab) See instructions TAKE 1 TABLET BY MOUTH EVERY DAY Unchanged pantoprazole (Pantoprazole [address] Tab) 1 Tablets By Mouth 2 times a day Allergies Avelox (Unknown) Cedax Ceftin Cipro Cortisporin Nasalcrom (Unknown) Neosporin PROzac cortisone (Rash) fluocinolone topical (Unknown) penicillins (Difficulty breathing) sulfa drugs Problems Ongoing - Any problem that you are currently receiving treatment for. Anticoagulated Anxiety Bereavement BMI 36.0-36.9,adult Chronic maxillary sinusitis Cigarette nicotine dependence Class 1 obesity due to excess calories in adult Diastolic CHF Discoloration of skin of lower leg Elevated BP without diagnosis of hypertension RADHA (generalized anxiety disorder) Gastritis H/O renal cell cancer Long-term current use of opiate analgesic drug Obesity Orthopnea Shortness of breath Shoulder impingement syndrome Sinusitis Skin cyst Smoker Stage 3a chronic kidney disease (CKD) Stress incontinence Swelling of right lower extremity Historical - Any problem that you are no longer receiving treatment for. Acid reflux Allergic granuloma Anal fissure Anxiety BMI 35.0-35.9,adult Depression Menopause Nocturia Panic attacks Patient Survey You may receive a survey via text or e-mail asking about your office visit. Please share your experience with us by completing your survey. We appreciate your feedback and thank you for choosing us for your care. Normal [facility] Family Medicine Office/Clini c Noteon 03-11-2024 Family Medicine Office/Clinic Note Family Medicine Office/Clinic Note Chief Complaint f/u to abx Tx HPI Staff Pt presents today due to still having sx following abx tx. Still congested. Has improved. But still gets phlegm stuck. Which causes nausea. Occasional discomfort with ears. Denies coughing & fevers. Pt is requesting refill of Alprazolam. New Med agreement signed today. History of Present Illness pt presents today for continued URI symptoms. also needs refill on alprazolam Review of Systems PHQ Score Initial Depression Screen Score: 0 SCORE Physical Exam Vitals & Measurements T: 36.7 ?C(Temporal Artery) HR: 78(Peripheral) RR: 18 BP: 137/88 SpO2: 96% HT: 62 in HT: 157 cm WT: 90.5 kg WT: 199.1 lb BMI: 36.72 General: alert, no acute distress ENMT: oral mucosa moist, no pharyngeal erythema or exudate, sinus tenderness, nasal congestion Cardiovascular: regular rate and rhythm, normal peripheral perfusion Respiratory: Lungs CTA, respirations non labored Extremities: no deformity, no trauma Neurological: oriented x 4, LOC appropriate for age, CN II-XII intact, motor strength equal & normal bilaterally, speech normal Assessment/Plan 1. Chronic maxillary sinusitis (J32.0: Chronic maxillary sinusitis) pt states she is feeling somewhat better but but Dr. West always had to give her 2 z packs to get rid of it. will send a second 3 day treatment. pt will return the end of April beginning of May for wellness labs. 2. Anxiety (F41.9: Anxiety disorder, unspecified) pt is in need of refills on alprazolam. medication agreement updated. 3. BMI 36.0-36.9,adult (Z68.36: Body mass index [BMI] 36.0-36.9, adult) BMI education given 4. Class 1 obesity due to excess calories in adult (E66.09: Other obesity due to excess calories) see above 5. Smoker (F17.200: Nicotine dependence, unspecified, uncomplicated) consider not smoking Orders: alprazolam, 0.5 mg = 1 tab(s), Oral, TID, PRN for anxiety, For Anxiety, # 90 tab(s), Refills(s) 0, Pharmacy: [facility]/pharmacy #[id number], 157, cm, 03/11/24 13:45:00 EDT, Height/Length Dosing, 90.5, kg, 03/11/24 13:45:00 EDT, Weight Dosing alprazolam, 0.5 mg = 1 tab(s), Oral, TID, PRN for anxiety, For Anxiety, # 90 tab(s), Refills(s) 2, Pharmacy: [facility]/pharmacy #[id number], 160, cm, 09/25/23 13:08:00 EDT, Height/Length Dosing, 91.6, kg, 09/25/23 13:08:00 EDT, Weight Dosing azithromycin, 500 mg = 1 tab(s), Oral, Daily, X 3 day(s), # 3 tab(s), Refills(s) 0, Pharmacy: [facility]/pharmacy #[id number], 157, cm, 03/11/24 13:45:00 EDT, Height/Length Dosing, 90.5, kg, 03/11/24 13:45:00 EDT, Weight Dosing Follow-up No qualifying data available Problem List/Past Medical History Ongoing Anticoagulated Anxiety Bereavement BMI 36.0-36.9,adult Chronic maxillary sinusitis Cigarette nicotine dependence Class 1 obesity due to excess calories in adult Diastolic CHF Discoloration of skin of lower leg Elevated BP without diagnosis of hypertension RADHA (generalized anxiety disorder) Gastritis H/O renal cell cancer Long-term current use of opiate analgesic drug Obesity Orthopnea Shortness of breath Shoulder impingement syndrome Sinusitis Skin cyst Smoker Stage 3a chronic kidney disease (CKD) Stress incontinence Swelling of right lower extremity Historical Acid reflux Allergic granuloma Anal fissure Anxiety BMI 35.0-35.9,adult Depression Menopause Nocturia Panic attacks Procedure/Surgical History Foot (2021), Biopsy of breast (10/2019), Nephrectomy (12/31/2015), right shoulder arthroscopic subacromial decompression. extensive debridement, right shoulder partial thickness rotator cuff tear, biceps tendon, labrum, and and extensive subacromial bursectomy. lateral clavicle resection (10/23/2014), Biopsy of kidney using ultrasound guidance, Cholecystectomy, Colonoscopy, Coronary angiography, Hysterectomy, palmar faciectomy, trigger finger release, Tubal ligation. Medications alendronate 70 mg Tab, See Instructions aspirin 81 mg Oral EC Tab, 81 mg= 1 tab(s), Oral, Daily atorvastatin 10 mg Tab, See Instructions azithromycin 500 mg oral tablet, See Instructions azithromycin 500 mg oral tablet, 500 mg= 1 tab(s), Oral, Daily escitalopram 20 mg Tab, See Instructions Pantoprazole [address] Tab, 40 mg= 1 tab(s), Oral, BID, 1 refills Xanax 0.5 mg Tab, 0.5 mg= 1 tab(s), Oral, TID, PRN Allergies Avelox (Unknown) Cedax Ceftin Cipro Cortisporin Nasalcrom (Unknown) Neosporin PROzac cortisone (Rash) fluocinolone topical (Unknown) penicillins (Difficulty breathing) sulfa drugs Social History Alcohol - Denies Alcohol Use, 06/06/2012 Substance Abuse - Denies Substance Abuse, 06/06/2012 Tobacco - High Risk, 12/12/2022 10 or more cigarettes (1/2 pack or more)/day in last 30 days Tobacco Use:. Never Smokeless Tobacco Use:. Cigarettes, 0.5 per day. 50 year(s). Total pack years: 24.5. Started age 19.0 Years. Previous treatment: Medications, Nicotine replacement. Ready to change: No. Household (more content not included)... Normal [facility] Comment on above: Result Comment: Elec tronically Signed By: Katlyn Brooks\.br\Date and Time Signed: 03/11/24 14:23 EDT Ambulatory Visit Summaryon 0 02-26-2024 Ambulatory Visit Summary Ambulatory Visit Summary FLAKITA PAREDES :1955 Visit Date:02/26/2024 Ambulatory Visit Instructions Your Diagnosis BMI 36.0-36.9,adult Smoker Class 1 obesity due to excess calories in adult Your Care Team Attending Physician - Katlyn Brooks Primary Care Physician - Elida Anand MD This Is Your Medications List alendronate (alendronate 70 mg Tab) alprazolam (Xanax 0.5 mg Tab) aspirin (aspirin 81 mg Oral EC Tab) atorvastatin (atorvastatin 10 mg Tab) azithromycin (azithromycin 500 mg oral tablet) escitalopram (escitalopram 20 mg Tab) pantoprazole (Pantoprazole [address] Tab) Procedures Performed Foot (2021), Biopsy of breast (10/2019), Nephrectomy (12/31/2015), right shoulder arthroscopic subacromial decompression. extensive debridement, right shoulder partial thickness rotator cuff tear, biceps tendon, labrum, and and extensive subacromial bursectomy. lateral clavicle resection (10/23/2014), Biopsy of kidney using ultrasound guidance, Cholecystectomy, Colonoscopy, Coronary angiography, Hysterectomy, palmar faciectomy, trigger finger release, Tubal ligation. Discharge Vitals Temperature (Oral) 36.7 ?C Heart Rate (Peripheral) 79 Respiratory Rate 18 Blood Pressure 132/82 Height 157 cm Height 62 in Weight 90.5 kg Weight 199.1 lb BMI 36.72 What to do next Scheduled Follow-Up Appointments Monday 10:00 AM EST With: Elida Anand MD Where: [address] [address]- Monday 8:00 AM EDT With: Where: [address] [address]- Medications What How Much When Instructions Unchanged alendronate (alendronate 70 mg Tab) See instructions TAKE 1 TABLET BY MOUTH WEEKLY Unchanged alprazolam (Xanax 0.5 mg Tab) 1 Tablets By Mouth 3 times a day as needed for for anxiety For Anxiety Unchanged aspirin (aspirin 81 mg Oral EC Tab) 1 Tablets By Mouth Every day Unchanged atorvastatin (atorvastatin 10 mg Tab) See instructions TAKE 1 TABLET BY MOUTH AT BEDTIME Unchanged azithromycin (azithromycin 500 mg oral tablet) See instructions TAKE 1 TABLET BY MOUTH EVERY DAY FOR 3 DAYS Pickup at [facility]/pharmacy #[id number] Unchanged escitalopram (escitalopram 20 mg Tab) See instructions TAKE 1 TABLET BY MOUTH EVERY DAY Unchanged pantoprazole (Pantoprazole [address] Tab) 1 Tablets By Mouth 2 times a day Pharmacy Information [facility]/pharmacy #[id number]: [address] [place], [place] [id number] [phone] Allergies Avelox (Unknown) Cedax Ceftin Cipro Cortisporin Nasalcrom (Unknown) Neosporin PROzac cortisone (Rash) fluocinolone topical (Unknown) penicillins (Difficulty breathing) sulfa drugs Problems Ongoing - Any problem that you are currently receiving treatment for. Anticoagulated Anxiety Bereavement BMI 36.0-36.9,adult Chronic maxillary sinusitis Cigarette nicotine dependence Class 1 obesity due to excess calories in adult Diastolic CHF Discoloration of skin of lower leg Elevated BP without diagnosis of hypertension RADHA (generalized anxiety disorder) Gastritis H/O renal cell cancer Obesity Orthopnea Shortness of breath Shoulder impingement syndrome Skin cyst Smoker Stage 3a chronic kidney disease (CKD) Stress incontinence Swelling of right lower extremity Historical - Any problem that you are no longer receiving treatment for. Acid reflux Allergic granuloma Anal fissure Anxiety BMI 35.0-35.9,adult Depression Menopause Nocturia Panic attacks Patient Survey You may receive a survey via text or e-mail asking about your office visit. Please share your experience with us by completing your survey. We appreciate your feedback and thank you for choosing us for your care. [place] [facility] Family Medicine Office/Clini c Noteon 02-26-2024 Family Medicine Office/Clinic Note Family Medicine Office/Clinic Note Chief Complaint Sinus Congestion HPI Staff Flakita is a 68 year old female presenting with sinus infection Headache- yes Earache- yes Sinus Congestion- yes Rhinorrhea- no dryness Sore Throat- yes Cough- no only when laying down wheezing- no Dyspnea on exertion- no Orthopnea- Trouble laying flat/breathing through nose: Lung Hx (asthma, recurring bronchitis/chest colds, COPD)- no Fevers/chills- no GI symptoms- yes acid reflux History of Present Illness pt presents today with URI symptoms Review of Systems PHQ Score Initial Depression Screen Score: 0 SCORE Physical Exam Vitals & Measurements T: 36.7 ?C(Oral) HR: 79(Peripheral) RR: 18 BP: 132/82 SpO2: 95% HT: 62 in HT: 157 cm WT: 90.5 kg WT: 199.1 lb BMI: 36.72 General: alert, no acute distress ENMT: oral mucosa moist, no pharyngeal erythema or exudate Cardiovascular: regular rate and rhythm, normal peripheral perfusion Respiratory: Lungs CTA, respirations non labored Extremities: no deformity, no trauma Neurological: oriented x 4, LOC appropriate for age, CN II-XII intact, motor strength equal & normal bilaterally, speech normal sinus tenderness Assessment/Plan 1. Sinusitis (J32.9: Chronic sinusitis, unspecified) pt presents today with cough and nasal congestion. will treat with z kaiden. pt declines steroid and flonase. RTC as needed 2. BMI 36.0-36.9,adult (Z68.36: Body mass index [BMI] 36.0-36.9, adult) BMI education given Ordered: Rapid COVID POC 36874 3. Class 1 obesity due to excess calories in adult (E66.09: Other obesity due to excess calories) see above 4. Smoker (F17.200: Nicotine dependence, unspecified, uncomplicated) continue not smoking Orders: azithromycin, See Instructions, TAKE 1 TABLET BY MOUTH EVERY DAY FOR 3 DAYS, # 3 tab(s), Refills(s) 0, Pharmacy: [facility]/pharmacy #[id number], 157, cm, 02/26/24 13:42:00 EDT, Height/Length Dosing, 90.5, kg, 02/26/24 13:42:00 EDT, Weight Dosing Follow-up No qualifying data available Problem List/Past Medical History Ongoing Anticoagulated Anxiety Bereavement BMI 36.0-36.9,adult Chronic maxillary sinusitis Cigarette nicotine dependence Class 1 obesity due to excess calories in adult Diastolic CHF Discoloration of skin of lower leg Elevated BP without diagnosis of hypertension RADHA (generalized anxiety disorder) Gastritis H/O renal cell cancer Obesity Orthopnea Shortness of breath Shoulder impingement syndrome Sinusitis Skin cyst Smoker Stage 3a chronic kidney disease (CKD) Stress incontinence Swelling of right lower extremity Historical Acid reflux Allergic granuloma Anal fissure Anxiety BMI 35.0-35.9,adult Depression Menopause Nocturia Panic attacks Procedure/Surgical History Foot (2021), Biopsy of breast (10/2019), Nephrectomy (12/31/2015), right shoulder arthroscopic subacromial decompression. extensive debridement, right shoulder partial thickness rotator cuff tear, biceps tendon, labrum, and and extensive subacromial bursectomy. lateral clavicle resection (10/23/2014), Biopsy of kidney using ultrasound guidance, Cholecystectomy, Colonoscopy, Coronary angiography, Hysterectomy, palmar faciectomy, trigger finger release, Tubal ligation. Medications alendronate 70 mg Tab, See Instructions aspirin 81 mg Oral EC Tab, 81 mg= 1 tab(s), Oral, Daily atorvastatin 10 mg Tab, See Instructions azithromycin 500 mg oral tablet, See Instructions escitalopram 20 mg Tab, See Instructions Pantoprazole [address] Tab, 40 mg= 1 tab(s), Oral, BID, 1 refills Xanax 0.5 mg Tab, 0.5 mg= 1 tab(s), Oral, TID, PRN, 2 refills Allergies Avelox (Unknown) Cedax Ceftin Cipro Cortisporin Nasalcrom (Unknown) Neosporin PROzac cortisone (Rash) fluocinolone topical (Unknown) penicillins (Difficulty breathing) sulfa drugs Social History Alcohol - Denies Alcohol Use, 06/06/2012 Substance Abuse - Denies Substance Abuse, 06/06/2012 Tobacco - High Risk, 12/12/2022 10 or more cigarettes (1/2 pack or more)/day in last 30 days Tobacco Use:. Never Smokeless Tobacco Use:. Cigarettes, 0.5 per day. 49 year(s). Total pack years: 24.5. Started age 19.0 Years. Previous treatment: Medications, Nicotine replacement. Ready to change: No. Household tobacco concerns: No. Yes, 02/26/2024 Family History Diabetes mellitus type 2: Father, Sister and Brother. Primary malignant neoplasm of colon: Grandparent. Immunizations Vaccine Date Status Comments pneumococcal 23-valent vaccine - Not Given Postpone due to refusal pneumococcal 13-valent vaccine - Not Given Postpone due to refusal SARS-CoV-2 mRNA (tozinameran 5y-11y) vac - Not Given Postpone due to refusal Lab Results Ambulatory Point of Care Results Rapid Covid POC: Negative (02/26/24 14:02:00) Normal [facility] Comment on above: Result Comment: Elec tronically Signed By: Katlyn Brooks.sherly\Date and Time Signed: 02/26/24 14:15 EDT Ambulatory Visit Summaryon 0 01-01-2024 Ambulatory Visit Summary Ambulatory Visit Summary FLAKITA PAREDES :1955 Visit Date:01/01/2024 Ambulatory Visit Instructions Your Diagnosis Elevated BP without diagnosis of hypertension Bereavement Chronic maxillary sinusitis Class 1 obesity due to excess calories in adult Smoker BMI 36.0-36.9,adult Your Care Team Attending Physician - Elida Anand MD Primary Care Physician - Elida Anand MD This Is Your Medications List alendronate (alendronate 70 mg Tab) alprazolam (Xanax 0.5 mg Tab) aspirin (aspirin 81 mg Oral EC Tab) atorvastatin (atorvastatin 10 mg Tab) escitalopram (escitalopram 20 mg Tab) pantoprazole (Pantoprazole [address] Tab) Procedures Performed Foot (2021), Biopsy of breast (10/2019), Nephrectomy (12/31/2015), right shoulder arthroscopic subacromial decompression. extensive debridement, right shoulder partial thickness rotator cuff tear, biceps tendon, labrum, and and extensive subacromial bursectomy. lateral clavicle resection (10/23/2014), Biopsy of kidney using ultrasound guidance, Cholecystectomy, Colonoscopy, Coronary angiography, Hysterectomy, palmar faciectomy, trigger finger release, Tubal ligation. Discharge Vitals Temperature (Temporal Artery) 36.9 ?C Heart Rate (Peripheral) 70 Respiratory Rate 16 Blood Pressure 124/74 Height 157 cm Height 62 in Weight 90.5 kg Weight 199.1 lb BMI 36.72 What to do next Scheduled Follow-Up Appointments Monday 10:00 AM EST With: Elida Anand MD Where: [facility] Normal [address] [place] [address]- \.br\ Medications\.b r\ What How Much When Instructions\. br\ Unchanged alendronate (alendronate 70 mg Tab) See instructions TAKE 1 TABLET BY MOUTH WEEKLY \.br\ Unchanged alprazolam (Xanax 0.5 mg Tab) 1 Tablets By Mouth 3 times a day as needed for for anxiety For Anxiety \.br\ Unchanged aspirin (aspirin 81 mg Oral EC Tab) 1 Tablets By Mouth Every day\.br\ Unchanged atorvastatin (atorvastatin 10 mg Tab) See instructions TAKE 1 TABLET BY MOUTH AT BEDTIME \.br\ Unchanged escitalopram (escitalopram 20 mg Tab) 1 Tablets By Mouth Every day\.br\ Unchanged pantoprazole (Pantoprazole [address] Tab) 1 Tablets By Mouth 2 times a day\.br\ Allergies\.br\ Avelox (Unknown)\.br\ Cedax\.br\ Ceftin\.br\ Cipro\.br\ Cortisporin\.b r\ Nasalcrom (Unknown)\.br\ Neosporin\.br\ PROzac\.br\ cortisone (Rash)\.br\ fluocinolone topical (Unknown)\.br\ penicillins (Difficulty breathing)\.br \ sulfa drugs\.br\ Problems\.br\ Ongoing - Any problem that you are currently receiving treatment for.\.br\ Anticoagulated \.br\ Anxiety\.br\ Bereavement\.b r\ BMI 36.0-36.9,adul t\.br\ Chronic maxillary sinusitis\.br\ Cigarette nicotine dependence\.br \ Diastolic CHF\.br\ Discoloration of skin of lower leg\.br\ Elevated BP without diagnosis of hypertension\. br\ RADHA (generalized anxiety disorder)\.br\ Gastritis\.br\ H/O renal cell cancer\.br\ Obesity\.br\ Orthopnea\.br\ Shortness of breath\.br\ Shoulder impingement syndrome\.br\ Skin cyst\.br\ Smoker\.br\ Stage 3a chronic kidney disease (CKD)\.br\ Stress incontinence\. br\ Swelling of right lower extremity\.br\ Historical - Any problem that you are no longer receiving treatment for.\.br\ Acid reflux\.br\ Allergic granuloma\.br\ Anal fissure\.br\ Anxiety\.br\ BMI 35.0-35.9,adul t\.br\ Depression\.br \ Menopause\.br\ Nocturia\.br\ Panic attacks\.br\ Patient Survey\.br\ You may receive a survey via text or e-mail asking about your office visit. Please share your experience with us by completing your survey. We appreciate your feedback and thank you for choosing us for your care.\.br\ \.br\ [facility] Family Medicine Office/Clini c Noteon 01-01-2024 Family Medicine Office/Clinic Note Family Medicine Office/Clinic Note HPI Staff Flakita is a 68 year old female presenting for one month follow up elevated BP Patient is here for follow up on hypertension. How often are you checking your blood pressure? Doesnt check BP at home What are your average readings? N/A, Not checking at home Yearly BMP: 05/01/23 questions/concerns: would like her ct lung screening results ( Theo had one also) done at [place]. History of Present Illness - See staff HPI. Review of Systems PHQ Score Initial Depression Screen Score: 0 SCORE Physical Exam Vitals & Measurements T: 36.9 ?C(Temporal Artery) HR: 70(Peripheral) RR: 16 BP: 124/74 SpO2: 95% HT: 62 in HT: 157 cm WT: 90.5 kg WT: 199.1 lb BMI: 36.72 General: alert, no acute distress ENMT: oral mucosa moist, Cardiovascular: regular rate and rhythm, normal peripheral perfusion Respiratory: Lungs CTA, respirations non labored Extremities: no deformity, no trauma Neurological: oriented x 4, LOC appropriate for age, CN II-XII intact, motor strength equal & normal bilaterally, speech normal Abdomen: Soft, Nontender, Non-distended, + BS Assessment/Plan 1. Elevated BP without diagnosis of hypertension (R03.0: Elevated blood-pressure reading, without diagnosis of hypertension) - At goal. - Continue to monitor - Likely 2/2 stress Ordered: Body Mass Index (BMI) documented 3008F Current tobacco smoker 1034F Depression Screening Negative 3352F Most recent diastolic blood pressure <80 mm Hg 3078F Patient screen for fall risk: no falls in last year or 1 fall with no injury in last year 1101F Systolic BP <130 mm Hg (Most Recent) 3074F 2. Bereavement (Z63.4: Disappearance and of family member) - Doing well. - Discussed in detail. - No needs identified Ordered: Body Mass Index (BMI) documented 3008F Current tobacco smoker 1034F Depression Screening Negative 3352F Most recent diastolic blood pressure <80 mm Hg 3078F Patient screen for fall risk: no falls in last year or 1 fall with no injury in last year 1101F Systolic BP <130 mm Hg (Most Recent) 3074F 3. Chronic maxillary sinusitis (J32.0: Chronic maxillary sinusitis) - Will do Azithro 500mg for 3 days - Please stop smoking - Follow up PRN 4. Class 1 obesity due to excess calories in adult (E66.09: Other obesity due to excess calories) - Diet and exercise advised Ordered: Body Mass Index (BMI) documented 3008F Current tobacco smoker 1034F Depression Screening Negative 3352F Most recent diastolic blood pressure <80 mm Hg 3078F Patient screen for fall risk: no falls in last year or 1 fall with no injury in last year 1101F Systolic BP <130 mm Hg (Most Recent) 3074F 5. Smoker (F17.200: Nicotine dependence, unspecified, uncomplicated) - Please stop smoke Ordered: Body Mass Index (BMI) documented 3008F Current tobacco smoker 1034F Depression Screening Negative 3352F Most recent diastolic blood pressure <80 mm Hg 3078F Patient screen for fall risk: no falls in last year or 1 fall with no injury in last year 1101F Systolic BP <130 mm Hg (Most Recent) 3074F 6. BMI 36.0-36.9,adult (Z68.36: Body mass index [BMI] 36.0-36.9, adult) - BMI educations added Ordered: Body Mass Index (BMI) documented 3008F Current tobacco smoker 1034F Depression Screening Negative 3352F Most recent diastolic blood pressure <80 mm Hg 3078F Patient screen for fall risk: no falls in last year or 1 fall with no injury in last year 1101F Systolic BP <130 mm Hg (Most Recent) 3074F Orders: azithromycin, 500 mg = 1 tab(s), Oral, Daily, X 3 day(s), # 3 tab(s), Refills(s) 0, Pharmacy: [facility]/pharmacy #[id number], 157, cm, 01/01/24 9:18:00 EDT, Height/Length Dosing, 90.5, kg, 01/01/24 9:18:00 EDT, Weight Dosing Follow-up No qualifying data available Problem List/Past Medical History Ongoing Anticoagulated Anxiety Bereavement BMI 36.0-36.9,adult Chronic maxillary sinusitis Cigarette nicotine dependence Diastolic CHF Discoloration of skin of lower leg Elevated BP without diagnosis of hypertension RADHA (generalized anxiety disorder) Gastritis H/O renal cell cancer Obesity Orthopnea Shortness of breath Shoulder impingement syndrome Skin cyst Smoker Stage 3a chronic kidney disease (CKD) Stress incontinence Swelling of right lower extremity Historical Acid reflux Allergic granuloma Anal fissure Anxiety BMI 35.0-35.9,adult Depression Menopause Nocturia Panic attacks Procedure/Surgical History Foot (2021), Biopsy of breast (10/2019), Nephrectomy (12/31/2015), right shoulder arthroscopic subacromial decompression. extensive debridement, right shoulder partial thickness rotator cuff tear, biceps tendon, labrum, and and extensive subacromial bursectomy. lateral clavicle resection (10/23/2014), Biopsy of kidney using ultrasound guidance, Cholecystectomy, Colonoscopy, Coronary angiography, Hysterectomy, palmar faciectomy, trigger finger release, (more content not included)... Normal [facility] Comment on above: Result Comment: Elec tronically Signed By: Kika SAMPSON, Elida Lyn\.br\Date and Time Signed: 01/01/24 09:[address] Chest, Low Dose Screening on 12-28-2023 CT Chest, Low Dose Screening Exam Date/Time: 12/27/2023 10:39 EDT Reason for Exam: Screening;F17.210 Report IMPRESSION: Lung RADS 2: BENIGN APPEARANCE OR BEHAVIOR. CONTINUE ANNUAL SCREENING WITH LDCT IN 12 MONTHS CLINICAL HISTORY: Screening, F17.210>= 20 pk-yr smoking history COMPARISON: December 04, 2022 1017 hours FINDINGS: The right lung parenchyma shows mild emphysematous disease. The right lung parenchyma again shows a 2 mm pleural based nodule right upper lobe series 3-58 unchanged. No new focal parenchymal abnormalities pleural pleural effusions no pneumothoraces.. The left lung parenchyma shows mild emphysematous disease The left lung parenchyma shows some minimal atelectasis bases left upper lobe left lingula region. No other focal parenchymal abnormalities no pleural effusions no pneumothoraces. The heart and great vessels are intact. No significant periaortic, pretracheal, perihilar or subcarinal adenopathy. In the [id number] visualized abdominal contents of the gallbladder is surgically absent. Is multilevel degenerative changes of the thoracic spine superimposed upon a mild dorsal kyphosis. All CT scans at this facility use dose modulation, iterative reconstruction, and/or weight based dosing when appropriate to reduce radiation dose to as low as reasonably achievable. Ordering Provider: Elida Anand FINAL REPORT Dictated: 12/28/2023 10:13 am Raad Napoles Signed (Electronic Signature): 12/28/2023 10:13 am Signed by: Raad Napoles Transcribed by: VIRAJ Technologist: [facility] Consent for Treatmenton 12-02 Consent for Treatment [id number] 0TIFF [facility] Outside Mammographyon 2023 Outside Mammography [id number] 0TIFF [facility] CHEMISTRYOrdered By: SYSTEM SYSTEM on 05-01-2023 25-hydroxyvitamin D3 [Mass/Vol] 38.4 ng/mL Normal 30.0 - 100.0 ng/mL [facility] [place] [facility]isol Comment on above: Interpretive Data: Vitamin D deficiency has been defined as a level of serum 25-OH vitamin D less than 20 ng/mL (1,2) by the [place] of [employer] and an Endocrine Society practice guideline. The Endocrine Society further defined vitamin D insufficiency as a level between 21 and 29 ng/mL (2). 1. IOM ([place] of Medicine). 2010. Dietary reference intakes for calcium and D. [place]: The National Academies Press. 2. Bhupinder MF, Junie RÍOS, Samir SWIFT, et al. Evaluation, treatment, and prevention of vitamin D deficiency: an Endocrine Society clinical practice guideline. JCEM. 2010; 96 (7):1911-30. Albumin [Mass/Vol] 4.0 g/dL Normal 3.3 - 5.0 gm/dL [facility] Albumin/Globulin [Mass ratio] 1.0 {ratio} Low 1.1 - 2.2 [facility] ALP [Catalytic activity/Vol] 81 [iU]/d Normal 21 - 98 Int._Unit/L [facility] ALT No additional P-5'-P [Catalytic activity/Vol] 22 [iU]/d Normal 6 - 46 Int._Unit/L [facility] Anion gap [Moles/Vol] 10 mmol/L Normal 6 - 16 mEq/L [facility] AST [Catalytic activity/Vol] 23 [iU]/d Normal 5 - 43 Int._Unit/L [facility] Bilirubin [Mass/Vol] 1.0 mg/dL Normal 0.0 - 1 .1 mg/dL [facility] Calcium [Mass/Vol] 9.4 mg/dL Normal 8.9 - 11. 1 mg/dL [facility] Chloride [Moles/Vol] 105 mmol/L Normal 101 - 1 11 mmol/L [facility] CO2 [Moles/Vol] 27 mmol/L Normal 21 - 31 mmol/L [facility] Creatinine [Mass/Vol] 1.1 mg/dL Normal 0.5 - 1.3 mg/dL [facility] Ferritin [Mass/Vol] 80 ng/mL Normal 11 - 307 ng/mL [facility] Comment on above: Interpretive Data: N ORMALS MEN <30 YRS 16-132 ng/mL MEN >30 YRS 8-338 ng/mL WOMEN (PREMEN) 6-104 ng/mL WOMEN (POSTMEN) 12-210 ng/mL GFR/1.73 sq M.predicted among non-blacks MDRD (S/P/Bld) [Vol rate/Area] 55 mL/min/1.73 m2 Low >=59mL/min/1.7 3 m2 [facility] Chem S Comment on above: Interpretive Data: C hronic kidney disease could be indicated at eGFR's of less than 60 mL/min/1.73m2. Kidney failure is indicated at less than 15 mL/min/1.73m2. Globulin (S) [Mass/Vol] 3.9 g/dL Normal 1.4 - 4.0 gm/dL [facility] Glucose [Mass/Vol] 82 mg/dL Normal 55 - 199 mg/dL [facility] Comment on above: Interpretive Data: I f this glucose result represents a fasting glucose, interpretation should refer to the following reference range: 55-99 mg/dL Iron [Mass/Vol] 68 ug/dL Normal 35 - 153 mcg/dL [facility] Iron binding capacity [Mass/Vol] 353 ug/dL Normal 250 - 400 mcg/dL [facility] Potassium [Moles/Vol] 4.0 mmol/L Normal 3.5 - 5.3 mmol/L [facility] Protein [Mass/Vol] 7.9 g/dL High 6.0 - 7.8 gm/dL [facility] Sodium [Moles/Vol] 138 mmol/L Normal 135 - 145 mmol/L [facility] Transferrin [Mass/Vol] 252 mg/dL Normal 200 - 370 mg/dL [facility] TSH Qn 2.65 m[IU]/L Normal 0.34 - 5.60 mcIU/mL [facility] Urea nitrogen [Mass/Vol] 10 mg/dL Normal 5 - 21 mg/dL [facility] Urea nitrogen/Creatinine [Mass ratio] 9 mg/mg Low 10 - 20 [facility] HEMATOLOGYOrdered By: SYSTEM SYSTEM on 05-01-2023 Basophils/100 WBC (Bld) 1.0 % Normal 0.0 - 2.0 % [facility] HemeAutoSS Basophils/Leukocytes Auto (Bld) [Pure # fraction] 0.1 E9/L Normal 0.0 - 0.2 E9/L [facility]eAutoSS Eosinophils/100 WBC (Bld) 2.5 % Normal 0.0 - 8.0 % [facility]eAutoSS Eosinophils/Leukocyt es Auto (Bld) [Pure # fraction] 0.2 E9/L Normal 0.0 - 0.5 E9/L [facility]eAutoSS Lymphocytes/100 WBC (Bld) 30.9 % Normal 14.0 - 50.0 % [facility] HemeAutoSS Lymphocytes/Leukocyt es Auto (Bld) [Pure # fraction] 2.2 E9/L Normal 1.0 - 4.0 E9/L [facility]eAutoSS Monocytes/100 WBC (Bld) 8.8 % Normal 4.0 - 14.0 % [facility]eAutoSS Monocytes/Leukocytes Auto (Bld) [Pure # fraction] 0.6 E9/L Normal 0.2 - 1.0 E9/L [facility]eAutoSS Neutrophils/100 WBC (Bld) 56.8 % Normal 36.0 - 75.0 % [facility]eAutoSS Neutrophils/Leukocyt es Auto (Bld) [Pure # fraction] 4.1 E9/L Normal 2.0 - 7.5 E9/L [facility]eAutoSS HEMATOLOGYOrdered By: Ann-Marie Martins on 05-01-2023 Erythrocyte distribution width (RBC) [Ratio] 13.6 % Normal 10.9 - 14.2 % [facility]eAutoSS Hematocrit (Bld) [Volume fraction] 46.0 % Normal 34.0 - 46.0 % [facility]eAutoSS Hemoglobin (Bld) [Mass/Vol] 15.7 g/dL Normal 12.0 - 16.0 gm/dL [facility]eAuto[facility] MCH (RBC) [Entitic mass] 31.9 pg Normal 27.0 - 34.0 pg [facility]eAuto[facility] MCHC (RBC) [Mass/Vol] 34.1 g/dL Normal 31.4 - 36.0 gm/dL [facility]eAuto[facility] MCV (RBC) [Entitic vol] 93.7 fL Normal 80.0 - 100.0 fL [facility]Auto[facility] Platelet mean volume (Bld) [Entitic vol] 8.4 fL Normal 6.4 - 10.8 fL [facility]eAutoSS Platelets (Bld) [#/Vol] 322.0 E9/L Normal 150.0 - 500.0 E9/L [facility]eAuto[facility] RBC (Bld) [#/Vol] 4.9 E12/L Normal 4.3 - 5.9 E12/L [facility] WBC corrected for nucl RBC Auto (Bld) [#/Vol] 7.3 E9/L Normal 4.0 - 11.0 E9/L [facility] CHEMISTRYOrdered By: SYSTEM SYSTEM on 12-14-2022 Cholesterol [Mass/Vol] 120 mg/dL Normal 120 - 200 mg/dL [facility] Cholesterol in HDL [Mass/Vol] 44 mg/dL Invalid Interpretation Code [facility] Cholesterol in LDL [Mass/Vol] 58 mg/dL Normal <=129mg/dL [facility] Cholesterol in VLDL [Mass/Vol] 16 mg/dL Normal 7 - 40 mg/dL [facility] Triglyceride [Mass/Vol] 81 mg/dL Normal <=149mg/dL [facility] [place] CT LUNG CANCER SCREENINGon 0 07-28-2022 CT LUNG CANCER SCREENING EXAMINATION: CT LUNG CANCER SCREENING HISTORY: Nicotine dependence COMPARISON: No relevant comparison available. TECHNIQUE: Axial, Coronal, and Sagittal images were created without the administration of IV contrast material. Dose reduction techniques were achieved by using automated exposure control and/or adjustment of mA and/or kV according to patient size and/or use of iterative reconstruction technique. FINDINGS: LUNGS: No suspicious nodules. Trace amount of atelectasis or infiltrates within right middle lobe. Trace amount of scarring within lingula. PLEURA: No mass, effusion, or pneumothorax. VASCULATURE: No abnormality. RAYMUNDO: No mass or pathologic adenopathy. MEDIASTINUM: No mass or pathologic adenopathy. CARDIAC: No enlargement, pericardial thickening, or significant calcification. AORTA: No aneurysm or dissection. CHEST WALL: No mass or axillary adenopathy BONES: No bone lesion or fracture. LIMITED ABDOMEN: No suspicious findings. Limited images of the upper abdomen. OTHER: Negative. IMPRESSION: 1. Lung-RADS Category 1 Negative. No nodules and definitely benign nodules. Continue annual screening with LDCT in 12 months. Electronically authenticated by: DEEPAK SEGOVIA Date: 2022-07-28 12:22 Normal [facility] XR SINUSES 3 VIEWS OR GREATE Jose 07-26-2022 XR SINUSES 3 VIEWS OR GREATER EXAM: XR SINUSES 3 VIEWS OR GREATER HISTORY: Chronic sinusitis symptoms COMPARISON: None. TECHNIQUE: 4 views of the paranasal sinuses were obtained. FINDINGS: The paranasal sinuses are well-developed and clear. The orbital rims and floors are intact. No significant osseous abnormality is identified. No radiopaque foreign body is identified. The patient is edentulous with dentures in place. IMPRESSION: The paranasal sinuses are well-developed and clear. There is no evidence of sinusitis. The patient had a CT study of the head performed 08/25/2020, which also demonstrated clear paranasal sinuses. Electronically authenticated by: CELINE OCHOA Date: 2022-07-26 20:16 Normal [facility] CHEMISTRYOrdered By: Central Desktop SYSTEM on 07-15-2022 Albumin [Mass/Vol] 4.2 g/dL Normal 3.3 - 5.0 gm/dL [facility] Albumin/Globulin [Mass ratio] 1.1 {ratio} Normal 1.1 - 2.2 [facility] ALP [Catalytic activity/Vol] 73 [iU]/d Normal 21 - 98 Int._Unit/L [facility] ALT No additional P-5'-P [Catalytic activity/Vol] 36 [iU]/d Normal 6 - 46 Int._Unit/L [facility] Comment on above: Result Comment: 'Spe cimen hemolyzed, result may be affected. Recommend redraw.' Anion gap [Moles/Vol] 12 mmol/L Normal 6 - 16 mEq/L [facility] AST [Catalytic activity/Vol] 34 [iU]/d Normal 5 - 43 Int._Unit/L [facility] Comment on above: Result Comment: 'Spe cimen hemolyzed, result may be affected. Recommend redraw.' Bilirubin [Mass/Vol] 2.5 mg/dL High 0.0 - 1 .1 mg/dL [facility] Comment on above: Result Comment: 'Spe cimen hemolyzed, result may be affected. Redraw is recommended.' Bilirubin.direct [Mass/Vol] 0.5 mg/dL High 0.1 - 0.4 mg/dL [facility] Comment on above: Result Comment: 'Spe cimen hemolyzed, result may be affected. Redraw recommended.' Bilirubin.indirect [Mass or moles/Vol] 2.0 mg/dL High 0.1 - 0.9 mg/dL [facility] Calcium [Mass/Vol] 9.5 mg/dL Normal 8.9 - 11. 1 mg/dL [facility] Chloride [Moles/Vol] 103 mmol/L Normal 101 - 1 11 mmol/L [facility] CO2 [Moles/Vol] 24 mmol/L Normal 21 - 31 mmol/L [facility] Creatinine [Mass/Vol] 1.1 mg/dL Normal 0.5 - 1.3 mg/dL [facility] GFR/1.73 sq M.predicted among blacks MDRD (S/P/Bld) [Vol rate/Area] 60 mL/min/1.73 m2 Normal >=59mL/min/1.7 3 m2 [facility] [place] Chem S GFR/1.73 sq M.predicted among non-blacks MDRD (S/P/Bld) [Vol rate/Area] 50 mL/min/1.73 m2 Low >=59mL/min/1.7 3 m2 [facility] [place] Chem S Globulin (S) [Mass/Vol] 3.9 g/dL Normal 1.4 - 4.0 gm/dL [facility] Glucose [Mass/Vol] 106 mg/dL Normal 55 - 199 mg/dL [facility] Lipase [Catalytic activity/Vol] 40 U/L Normal 13 - 58 unit/L [facility] Potassium [Moles/Vol] 4.5 mmol/L Normal 3.5 - 5.3 mmol/L [facility] Comment on above: Result Comment: 'Spe cimen hemolyzed. Result may be affected. Redraw is recommended.' Protein [Mass/Vol] 8.1 g/dL High 6.0 - 7.8 gm/dL [facility] Sodium [Moles/Vol] 134 mmol/L Low 135 - 145 mmol/L [facility] Troponin I.cardiac [Mass/Vol] 3.80 pg/mL Low 10.10 - 27.10 pg/mL [facility] Urea nitrogen [Mass/Vol] 11 mg/dL Normal 5 - 21 mg/dL [facility] Urea nitrogen/Creatinine [Mass ratio] 10 mg/mg Normal 10 - 20 [facility] HEMATOLOGYOrdered By: SYSTEM SYSTEM on 07-15-2022 Basophils/100 WBC (Bld) 0.8 % Normal 0.0 - 2.0 % [facility]eAutoSS Basophils/Leukocytes Auto (Bld) [Pure # fraction] 0.1 E9/L Normal 0.0 - 0.2 E9/L [facility] Eosinophils/100 WBC (Bld) 2.5 % Normal 0.0 - 8.0 % [facility]Auto[facility] Eosinophils/Leukocyt es Auto (Bld) [Pure # fraction] 0.2 E9/L Normal 0.0 - 0.5 E9/L [facility] Lymphocytes/100 WBC (Bld) 30.7 % Normal 14.0 - 50.0 % [facility]eAutoSS Lymphocytes/Leukocyt es Auto (Bld) [Pure # fraction] 2.4 E9/L Normal 1.0 - 4.0 E9/L [facility] Monocytes/100 WBC (Bld) 6.3 % Normal 4.0 - 14.0 % [facility]eAutoSS Monocytes/Leukocytes Auto (Bld) [Pure # fraction] 0.5 E9/L Normal 0.2 - 1.0 E9/L [facility] Neutrophils/100 WBC (Bld) 59.7 % Normal 36.0 - 75.0 % [facility] Neutrophils/Leukocyt es Auto (Bld) [Pure # fraction] 4.8 E9/L Normal 2.0 - 7.5 E9/L [facility] HEMATOLOGYOrdered By: Kelli Gonzales on 07-15-2022 Erythrocyte distribution width (RBC) [Ratio] 13.2 % Normal 10.9 - 14.2 % [facility]eAuto[facility] Hematocrit (Bld) [Volume fraction] 49.1 % High 34.0 - 46.0 % [facility] Hemoglobin (Bld) [Mass/Vol] 16.4 g/dL High 12.0 - 16.0 gm/dL [facility] MCH (RBC) [Entitic mass] 31.7 pg Normal 27.0 - 34.0 pg [facility] MCHC (RBC) [Mass/Vol] 33.4 g/dL Normal 31.4 - 36.0 gm/dL [facility] MCV (RBC) [Entitic vol] 94.9 fL Normal 80.0 - 100.0 fL [facility] Platelet mean volume (Bld) [Entitic vol] 8.6 fL Normal 6.4 - 10.8 fL [facility] Platelets (Bld) [#/Vol] 389.0 E9/L Normal 150.0 - 500.0 E9/L [facility] RBC (Bld) [#/Vol] 5.2 E12/L Normal 4.3 - 5.9 E12/L [facility] WBC corrected for nucl RBC Auto (Bld) [#/Vol] 8.0 E9/L Normal 4.0 - 11.0 E9/L [facility] URINALYSISOrdered By: Kely orozco on 07-15-2022 Bacteria LM Ql (Urine sed) Trace /HPF Normal Trace/HPF [facility] UA Auto SS Bilirubin Ql (U) Negative (07/15/22 2:31 PM) Normal Negative [facility]A Auto SS Clarity (U) Slightly Cloudy *ABN* (07/15/22 2:31 PM) Invalid Interpretation Code Clear [facility] Auto SS Color (U) Straw *ABN* (07/15/22 2:31 PM) Invalid Interpretation Code Yellow [facility]A Auto SS Epithelial cells.squamous LM.HPF (Urine sed) [#/Area] /[HPF] Normal 0-2/HPF [facility]A Auto SS Glucose Test strip (U) [Mass/Vol] Negative (07/15/22 2:31 PM) Normal Negative [facility]A Auto SS Hemoglobin Ql (U) Negative (07/15/22 2:31 PM) Normal Negative [facility]A Auto SS Ketones (U) [Mass/Vol] Negative (07/15/22 2:31 PM) Normal Negative [facility] UA Auto SS [place] Ii.plasma/Lithi um.RBC (Bld) [Mass ratio] 0-3 /HPF Normal 0-3/HPF [facility] UA Auto SS Nitrite Ql (U) Negative (07/15/22 2:31 PM) Normal Negative [facility] Auto SS pH (U) 7.0 *NA* (07/15/22 2:31 PM) Invalid Interpretation Code 5.0 - 9.0 [facility] Auto SS Protein (U) [Mass/Vol] Negative (07/15/22 2:31 PM) Normal Negative [facility]A Auto SS Specific gravity (U) [Rel density] <=1.005 *NA* (07/15/22 2:31 PM) Invalid Interpretation Code 1.005 - 1.030 [facility]A Auto SS UA Spec Desc Clean Catch (07/15/22 2:31 PM) Normal [facility] UA Auto SS Urobilinogen Qn (U) 0.6576933 {Joelle'U}/dL Normal 0.0 - 1.0 EU/dL [facility] UA Auto SS WBC Auto Ql (U) Negative (07/15/22 2:31 PM) Normal Negative [facility] UA Auto SS WBC LM.HPF (Urine sed) [#/Area] 0-5 /HPF Normal 0-5/HPF [facility] UA Auto SS Junior 05-20-2022 L -- ---- Specimen: [id number] Received: 05/23/22 Status: EDUARDO Ayala Num: [id number] Spec Type: Surgical Subm Dr: Rick Godron DPM Tissues: A Soft Tissue/Surgical Margin-Other than Tumor,Mass,Lip or Martha (RT FOOT FIBROM B Lipoma (RT FOOT LIPOMA) Procedures: HE/2, Gross/Micro L4, Gross/Micro L3, SM ACTIN, SOX-10 ---- Age/ Patient Sex Location Account Attending Physician ---- Flakita Paredes 67/F LUD[place] [id number] Rick Gordon DPM ---- SPEC NUM: [id number] RECD: 05/23/22 STATUS: EDUARDO AYALA NUM: [id number] HUONG: 05/20/22- SUBM DR: Rick Gordon DPM ENTERED: 05/23/[address]: [facility] SPEC TYPE: Surgical DEPT: S ORDERED: HE/2, Gross/Micro L4, Gross/Micro L3, SM ACTIN, SOX-10 ORDERED: HE/2, Gross/Micro L4, Gross/Micro L3, SM ACTIN, SOX-10 Supplemental Report Addendum 1 Entered: 05/30/22 Specimen A: Intradermal nevus present. [id number] melanocytes present, SMA negative in the lesion. Stain controls adequate. CPT: 85572, 41782 Addendum Signed (signature on file) Joao Neal MD 05/30/221551 ---- Pathological Diagnosis A. Right foot, ganglion cyst and fibroma, excision: - Benign dense fibrous tissue, compatible with fibroma. - Benign skin with intradermal cellular lesion. See comment. B. Right foot, lipoma, excision: - Lipoma. Comment: Glomus tumor is in differential diagnosis with a potential intradermal nevus. See ---- Specimen: [id number] Received: 05/23/22 Status: EDUARDO Ayala Num: [id number] Spec Type: Surgical Subm Dr: Rick Gordon DPM Tissues: A Soft Tissue/Surgical Margin-Other than Tumor,Mass,Lip or Martha (RT FOOT FIBROM B Lipoma (RT FOOT LIPOMA) Procedures: HE/2, Gross/Micro L4, Gross/Micro L3, SM ACTIN, SOX-10 ---- Patient: Flakita Paredes [id number] (Continued) ---- Specimen: [id number] Received: 05/23/22 (Continued) Pathological Diagnosis (Continued) Signed (signature on file) Marah Avila MD 05/27/22 1800 ---- Specimen: [id number] Received: 05/23/22 Status: EDUARDO Ayala Num: [id number] Spec Type: Surgical Subm Dr: Rick Gordon DPM Tissues: A Soft Tissue/Surgical Margin-Other than Tumor,Mass,Lip or Martha (RT FOOT FIBROM B Lipoma (RT FOOT LIPOMA) Procedures: HE/2, Gross/Micro L4, Gross/Micro L3, SM ACTIN, SOX-10 ---- Patient: Flakita Paredes [id number] (Continued) ---- Specimen: [id number] Received: 05/23/22901 (Continued) Pathological Diagnosis (Continued) results of immunohistochemical stains with the final interpretation in a supplemental report. Clinical Information Ganglion cyst right foot, fibroma right foot Gross Description A. Received in formalin labeled with the patient's name, number and right foot fibroma is a 2.5 x 1.7 x 0.3 cm aggregate of borjas-ballesteros rubbery tissue. Entirely submitted in one cassette labeled A1. B. Received in formalin labeled with the patient's name, number and right foot lipoma is a 3.2 x 2.3 x 0.6 cm aggregate of yellow-borjas, lobular tissue. Entirely submitted in one cassette labeled B1. Microscopic Description A. One glass slide with H E stained material has been examined. The microscopic findings support the above pathologic diagnosis. B. One glass slide with H E stained material has been examined. The microscopic findings support the above pathologic diagnosis. CPT Codes 59992, 54839 ---- ---- Specimen: [id number] Received: 05/23/22 Status: EDUARDO Ayala Num: [id number] Spec Type: Surgical Subm Dr: Rick Gordon DPM Tissues: A Soft Tissue/Surgical Margin-Other than Tumor,Mass,Lip or Martha (RT FOOT FIBROM B Lipoma (RT FOOT LIPOMA) Procedures: HE/2, (more content not included)... Normal [facility] PROF CHEM 8 (BAS METB)on Anion gap [Moles/Vol] 5.7 mmol/L Normal [facility] Comment on above: Performed By: #### B MP ####[facility] [address] [place] [id number]. Paola Reynolds Calcium [Mass/Vol] 9.1 mg/dL Normal 8.5-10.1 [facility] Comment on above: Performed By: #### B MP ####[facility] [address] [place] [id number] Reynolds Chloride [Moles/Vol] 104 mmol/L Normal 98-107 [facility] Comment on above: Performed By: #### B MP ####[facility] [address] [place], [place] [address]HbCory Reynolds CO2 [Moles/Vol] 31.3 mmol/L Normal 21.0-32.0 [facility] Comment on above: Performed By: #### B MP ####[facility] [address] [place], [place] [address]JcCory Reynolds Creatinine [Mass/Vol] 1.00 mg/dL Normal 0.55-1.02 [facility] Comment on above: Performed By: #### B MP ####[facility] [address] [place] [id number]. Paola Rodolfo EGFR-AF MONTSERRATIAN >60 Normal >=60 [facility] Comment on above: Performed By: #### B MP ####[facility] [address] [place] [address]Dr. Paola Rodolfo EGFR-NON AF MONTSERRATIAN 55 mL/min/1.73m2 Critically low >=60 [facility] Comment on above: Performed By: #### B MP ####[facility] [address] [place] [id number]. Paola Reynolds Glucose [Mass/Vol] 100 mg/dL Normal 74-106 [facility] Comment on above: Performed By: #### B MP ####[facility] [address] [place] [address]Dr. Paola Reynolds Potassium [Moles/Vol] 4.0 mmol/L Normal 3.5-5.1 [facility] Comment on above: Performed By: #### B MP ####[facility] [address] [place] [address]Dr. Paola Reynolds Sodium [Moles/Vol] 137 mmol/L Normal 136-145 [facility] Comment on above: Performed By: #### B MP ####[facility] [address] [place] [address]Dr. Padminitalya Rodolfo Urea nitrogen [Mass/Vol] 14.0 mg/dL Normal 7.0-18.0 [facility] Comment on above: Performed By: #### B MP ####[facility] [address] [place] [phone]. Paola Reynolds Urea nitrogen/Creatinine [Mass ratio] 14.0 mg/mg Normal [facility] Comment on above: Performed By: #### B MP ####[facility] [address] [place] [address]Dr. Paola Reynolds VIT D 25-OH [facility] 2021 Vitamin D, 25-Hydroxy 94.3 ng/mL Normal 30.0-100.0 [facility] Comment on above: Result Comment: Sylvia min D deficiency has been defined by the [place] of Medicine and an Endocrine Society practice guideline as a level of serum 25-OH vitamin D less than 20 ng/mL (1,2). The Endocrine Society went on to further define vitamin D insufficiency as a level between 21 and 29 ng/mL (2). 1. IOM ([place] of Medicine). 2010. Dietary reference intakes for calcium and D. [place]: The National Academies Press. 2. Bhupinder MF, Junie RÍOS, Samir SWIFT, et al. Evaluation, treatment, and prevention of vitamin D deficiency: an Endocrine Society clinical practice guideline. JCEM. 2010; 96(7):1911-30. Performed By: #### V ITADLC ####[facility] [address] [place] [address]Dr. Paola Reynolds CBC AUTO DIFFon 01-27-2022 BASO # 0.0 103/ul Normal 0.0-0.1 [facility] Comment on above: Performed By: #### C BC #### [facility] [address] [address] [address] Paola Reynolds Basophils/100 WBC (Bld) 0.5 % Normal 0.2-2.0 [facility] Comment on above: Performed By: #### C BC #### [facility] [address] [address] [address] Paola Reynolds EO # 0.3 103/ul Normal 0.0-0.7 [facility] Comment on above: Performed By: #### C BC #### [facility] [address] [address] [address] Paola Reynolds Eosinophils/100 WBC (Bld) 4.0 % Normal 0.9-7.0 [facility] Comment on above: Performed By: #### C BC #### [facility] [address] [address] [address] Paola Reynolds Erythrocyte distribution width (RBC) [Ratio] 12.9 % Normal 11.0-15.0 [facility] Comment on above: Performed By: #### C BC #### [facility] [address] [place] [address] Dr. Paola Reynolds Hematocrit (Bld) [Volume fraction] 45.0 % Normal 36.0-48.0 [facility] Comment on above: Performed By: #### C BC #### [facility] [address] [place] [address] Dr. Paola Reynolds Hemoglobin (Bld) [Mass/Vol] 15.1 g/dL Normal 12.0-16.0 [facility] Comment on above: Performed By: #### C BC #### [facility] [address] [place] [address] Dr. Paola Reynolds IG # 0.02 10e3/ul Normal 0.00-0.03 [facility] Comment on above: Performed By: #### C BC #### [facility] [address] [place] [address] Dr. Paola Reynolds IG % 0.3 % Normal 0.0-0.5 [facility] Comment on above: Performed By: #### C BC #### [facility] [address] [place] [address] Dr. Paola Reynolds LYMPH # 2.9 103/ul Normal 1.2-3.8 [facility] Comment on above: Performed By: #### C BC #### [facility] [address] [place] [address] Dr. Paola Reynolds Lymphocytes/100 WBC (Bld) 37.7 % Normal 20.5-60.0 [facility] Comment on above: Performed By: #### C BC #### [facility] [address] [place] [address] Dr. Paola Reynolds MANUAL DIFF REQ NO Normal [facility] Comment on above: Performed By: #### C BC #### [facility] [address] [place] [address] Dr. Paola Reynolds MCH (RBC) [Entitic mass] 31.9 pg Normal 26.7-34.0 [facility] Comment on above: Performed By: #### C BC #### [facility] [address] [place] [address] Dr. Paola Reynolds MCHC (RBC) [Mass/Vol] 33.6 g/dL Normal 29.9-35.2 [facility] Comment on above: Performed By: #### C BC #### [facility] [address] [address] [address] Paola Reynolds MCV (RBC) [Entitic vol] 95.1 fL Normal 81.0-99.0 The [facility] Comment on above: Performed By: #### C BC #### [facility] [address] [address] [address] Paola Reynolds MONO # 0.6 103/ul Normal 0.3-0.8 The [facility] Comment on above: Performed By: #### C BC #### [facility] [address] [place] [address] Dr. Paola Reynolds Monocytes/100 WBC (Bld) 7.4 % Normal 1.7-12.0 The [facility] Comment on above: Performed By: #### C BC #### [facility] [address] [place] [address] Dr. Paola Reynolds NEUT # 3.9 103/ul Normal 1.4-6.5 The [facility] Comment on above: Performed By: #### C BC #### [facility] [address] [place] [address] Dr. Paola Reynolds Neutrophils/100 WBC (Bld) 50.1 % Normal 43.0-75.0 The [facility] Comment on above: Performed By: #### C BC #### [facility] [address] [place] [address] Dr. Paola Reynolds Platelet mean volume (Bld) [Entitic vol] 9.9 fL Normal 9.5-13.5 The [facility] Comment on above: Performed By: #### C BC #### [facility] [address] [place] [address] Dr. Paola Reynolds PLT 292 103/ul Normal 150-450 The [facility] Comment on above: Performed By: #### C BC #### [facility] [address] [place] [address] Dr. Paola Reynolds RBC 4.73 106/ul Normal 4.20-5.40 [facility] Comment on above: Performed By: #### C BC #### [facility] [address] [address] [address] Paola Reynolds WBC 7.8 103/ul Normal 4.0-11.0 [facility] Comment on above: Performed By: #### C BC #### [facility] [address] [address] [address] Paola Reynolds LIPID PROFILEon 01-27-2022 CHOL-HDL RATIO NORM SEE BELOW Normal [facility] Comment on above: Result Comment: 3.3 - 4.4 LOW RISK 4.4 - 7.1 AVERAGE RISK 7.1 - 11.0 MODERATE RISK >11.0 HIGH RISK Performed By: #### L IPID, CMP ####[facility] [address] [id number]. Paola Reynolds Cholesterol [Mass/Vol] 118 mg/dL Normal <=200 [facility] Comment on above: Performed By: #### L IPID, CMP ####[facility] [address] [place], [place] [address]Mm. Paola Reynolds Cholesterol in HDL [Mass/Vol] 48 mg/dL Normal 40-60 [facility] Comment on above: Performed By: #### L IPID, CMP ####[facility] [address] [place], [place] [address]Oc. Paola Reynolds Cholesterol in LDL [Mass/Vol] 51.4 mg/dL Normal [facility] Comment on above: Performed By: #### L IPID, CMP ####[facility] [address] [id number]. Paola Reynolds Cholesterol.total/Ch olesterol in HDL [Mass ratio] 2.5 {ratio} Normal [facility] Comment on above: Performed By: #### L IPID, CMP ####[facility] [address] [id number]. Paola Reynolds HDL NORMAL > or = 60 mg/dl - LO W CARDIOVASCULAR RISK <40 mg/dl - HIGH CARDIOVASCULAR RISK Normal [facility] Comment on above: Performed By: #### L IPID, CMP ####[facility] [address] [address]Dr. Paola Reynolds LDL CALC NORMAL SEE BELOW Normal [facility] Comment on above: Result Comment: <100 mg/dl OPTIMAL 100 - 129 mg/dl NEAR OR ABOVE OPTIMAL 130 - 159 mg/dl BORDERLINE HIGH 160 - 189 mg/dl HIGH >190 mg/dl VERY HIGH Performed By: #### L IPID, CMP ####[facility] [address] [address]Dr. Paola Reynolds Triglyceride [Mass/Vol] 93 mg/dL Normal <=150 The [facility] Comment on above: Performed By: #### L IPID, CMP ####[facility] [address] [address]Dr. Paola Reynolds VLDL CALC 18.6 mg/dL Normal [facility] Comment on above: Performed By: #### L IPID, CMP ####[facility] [address] [place], [place] [address]Dr. Paola Reynolds PROF 14(COMP METB)on 022 Albumin [Mass/Vol] 3.6 g/dL Normal 3.4-5.0 [facility] Comment on above: Performed By: #### L IPID, CMP ####[facility] [address] [place], [place] [address]Dr. Paola Reynolds Albumin/Globulin [Mass ratio] 1.0 {ratio} Normal [facility] Comment on above: Performed By: #### L IPID, CMP ####[facility] [address] [address]Dr. Paola Reynolds ALP [Catalytic activity/Vol] 86 U/L Normal 46-116 The [facility] Comment on above: Performed By: #### L IPID, CMP ####[facility] [address] [address]Dr. Paola Reynolds ALT [Catalytic activity/Vol] 28 U/L Normal 14-59 [facility] Comment on above: Performed By: #### L IPID, CMP ####[facility] [address] [id number]. Paola Reynolds Anion gap [Moles/Vol] 9.2 mmol/L Normal [facility] Comment on above: Performed By: #### L IPID, CMP ####[facility] [address] [address]Dr. Paola Reynolds AST [Catalytic activity/Vol] 21 U/L Normal 15-37 The [facility] Comment on above: Performed By: #### L IPID, CMP ####[facility] [address] [place], [place] [address]Dr. Paola Reynolds Bilirubin [Mass/Vol] 1.0 mg/dL Normal 0.2-1.0 [facility] Comment on above: Performed By: #### L IPID, CMP ####[facility] [address] [place], [place] [address]Dr. Paola Reynolds Calcium [Mass/Vol] 8.9 mg/dL Normal 8.5-10.1 [facility] Comment on above: Performed By: #### L IPID, CMP ####[facility] [address] [place], [place] [address]Dr. Paola Reynolds Chloride [Moles/Vol] 106 mmol/L Normal 98-107 The [facility] Comment on above: Performed By: #### L IPID, CMP ####[facility] [address] [place], [place] [address]Dr. Paola Reynolds CO2 [Moles/Vol] 30.3 mmol/L Normal 21.0-32.0 [facility] [place] [facility] Comment on above: Performed By: #### L IPID, CMP ####[facility] [address] [place], [place] [address]Dr. Paloa Reynolds Creatinine [Mass/Vol] 1.05 mg/dL Critically high 0.55-1.02 [facility] Comment on above: Performed By: #### L IPID, CMP ####[facility] [address] [place], [place] [address]Dr. Paola Reynolds EGFR-AF MONTSERRATIAN >60 Normal >=60 [facility] [place] [facility] Comment on above: Performed By: #### L IPID, CMP ####[facility] [address] [address]Dr. Paola Reynolds EGFR-NON AF MONTSERRATIAN 53 mL/min/1.73m2 Critically low >=60 [facility] Comment on above: Performed By: #### L IPID, CMP ####[facility] [address] [address]Dr. Paola Reynolds Globulin (S) [Mass/Vol] 3.6 g/dL Normal [facility] Comment on above: Performed By: #### L IPID, CMP ####[facility] [address] [place], [place] [address]Dr. Paola Reynolds Glucose [Mass/Vol] 97 mg/dL Normal 74-106 [facility] Comment on above: Performed By: #### L IPID, CMP ####[facility] [address] [place], [place] [address]Dr. Paola Rodolfo Potassium [Moles/Vol] 4.5 mmol/L Normal 3.5-5.1 The [facility] Comment on above: Performed By: #### L IPID, CMP ####[facility] [address] [place], [place] [address]Dr. Paola Reynolds Protein [Mass/Vol] 7.2 g/dL Normal 6.4-8.2 [facility] Comment on above: Performed By: #### L IPID, CMP ####[facility] [address] [place], [place] [address]Dr. Paola Reynolds Sodium [Moles/Vol] 141 mmol/L Normal 136-145 [facility] Comment on above: Performed By: #### L IPID, CMP ####[facility] [address] [place], [place] [address]Dr. Paola Reynolds Urea nitrogen [Mass/Vol] 10.0 mg/dL Normal 7.0-18.0 [facility] Comment on above: Performed By: #### L IPID, CMP ####[facility] [address] [place], [place] [address]Dr. Paola Reynolds Urea nitrogen/Creatinine [Mass ratio] 9.5 mg/mg Normal [facility] Comment on above: Performed By: #### L IPID, [facility] ####[facility] [address] [place], [place] [address]EhCory Reynolds MG MAMM SCREEN 3D RAISSA CADon 11-16-2021 MG MAMM SCREEN 3D RAISSA CAD Patient: FLAKITA PAREDES Exam Date: 11/16/2021 : 1955 Gender:F Ordering : DR MAIRA COTA . Admission #: [id number] Family : Order #: [id number] CLICK HERE TO VIEW EXAM RADIOLOGY REPORT PROCEDURE: MAMMOGRAM SCREENING 3D BILATERAL CAD COMPARISON: MG MAMM RT DIAG W CAD, 04/22/2020. MG MAMM SCREEN 3D RAISSA CAD, 11/13/2020. INDICATIONS: Screening mammography Calculator Name NCI Breast Cancer Risk Assessment Tool 5 Year Breast Cancer Risk 1.80% Lifetime Breast Cancer Risk 6.80% Personal Breast Cancer No Personal Ovarian Cancer No Treatments None Family Cancers None LOCATION: The [facility] BREAST COMPOSITION: Scattered areas fibroglandular density. FINDINGS: DIAGNOSTIC CATEGORY 1--NEGATIVE. NO CHANGE FROM COMPARISON ASSESSMENT. Scattered benign-appearing calcifications are present. Scattered benign-appearing lymph nodes are present. RIGHT BREAST: No significant suspicious finding. LEFT BREAST: No significant suspicious finding. RECOMMENDATIONS: ROUTINE MAMMOGRAM AND CLINICAL EVALUATION IN 12 MONTHS. PLEASE NOTE: A NORMAL MAMMOGRAM DOES NOT EXCLUDE THE POSSIBILITY OF BREAST CANCER. A CLINICALLY SUSPICIOUS PALPABLE LUMP SHOULD BE BIOPSIED. Dictated by: Nicolas Arnold MD on 11/16/2021 at 13:40 Approved by: Nicolas Arnold MD on 11/16/2021 at 14:24 Normal [facility] MRI ANKLE RT WO CONon 2021 MRI ANKLE RT WO CON EXAM: MRI ANKLE RT W O CON HISTORY: Ganglion of ankle and foot COMPARISON: Ankle x-rays 08/16/2021. TECHNIQUE: Multiplanar, multi sequential MRI sequences were performed. FINDINGS: Soft tissue marker has been placed along the lateral aspect of the foot adjacent to the fifth metatarsal base. Within the area of interest there is no subcutaneous soft tissue mass, cyst, hematoma or fluid collection. The fifth metatarsal base exhibits no fracture, dislocation, subluxation, bone marrow edema or osseous lesion. The insertion of the peroneus brevis tendon is normal. The peroneus brevis and peroneus longus tendons exhibit no thickening, tear, edema or tenosynovial collections. The adjacent muscles are normal. Patient is status post open reduction internal fixation of the tibia. The internal hardware results in susceptibility artifact through this region. Fibular hardware has been removed. The visualized osseous structures exhibit no acute fracture, dislocation, subluxation, osseous lesion or bone marrow edema. The superficial subcutaneous soft tissues are free of edema, hematoma, mass, cyst or fluid collection. No visualized chondral or osteochondral defect, ganglion cyst, joint effusion, synovitis or erosion The posterior tibial, flexor digitorum longus, flexor hallucis longus and anterior tendons exhibit no thickening, tear, edema or tenosynovial collections. The anterior talofibular, posterior talofibular, calcaneofibular, posterior inferior tibiofibular and intermalleolar ligaments are unremarkable. Postoperative changes of the distal tibiofibular syndesmosis and the anterior inferior tibiofibular ligament. Medially, no gross acute irregularity of the deltoid or spring ligamentous complex. The Achilles tendon, central cord of the plantar aponeurosis and sinus tarsi are unremarkable. No muscle edema, hematoma, atrophy or fatty infiltration. IMPRESSION: 1. No visualized irregularity within the region of the patient's skin marker. 2. Postoperative changes . 3. No visualized acute abnormalities Electronically authenticated by: NICOLAS PRIETO Date: 2021-11-12 10:53 Normal [facility] PAP ACOG PANEL 2: 30 to 65on 08-17-2021 . . Normal The [facility] Comment on above: Result Comment: Perf ormed at: WB Performed By: #### [id number] #### [facility] [address] [address] [address] Paola Reynolds Age Gdln ACOG Testing 30-65 Normal [facility] Comment on above: Performed By: #### [id number] #### [facility] [address] [id number] Paola Reynolds DIAGNOSIS: Comment Normal [facility] Comment on above: Result Comment: NEGA TIVE FOR INTRAEPITHELIAL LESION OR MALIGNANCY. THIS SPECIMEN WAS RESCREENED PART OF OUR LABORER DRIVER PROGRAM. Performed at: WB Performed By: #### [id number] #### [facility] [address] [place] [address] Dr. Paola Reynolds HPV Aptima Negative Normal Negative [facility] Comment on above: Result Comment: This nucleic acid amplification test detects fourteen high-risk HPV types (16,18,31,33,35,39,45,51,52,56,58,59,66,68) without differentiation. Performed at: =G Performed By: #### [id number] #### [facility] [address] [address] [address] Paola Reynolds Methodology: Comment Normal [facility] Comment on above: Result Comment: This liquid based ThinPrep(R) pap test was screened with the use of an image guided system. Performed at: WB Performed By: #### [id number] #### [facility] [address] [place] [address] Dr. Paola Reynolds Note: Comment Normal [facility] Comment on above: Result Comment: The Pap smear is a screening test designed to aid in the detection of premalignant and malignant conditions of the uterine cervix. It is not a diagnostic procedure and should not be used as the sole means of detecting cervical cancer. Both false-positive and false-negative reports do occur. . Performed at: WB Performed By: #### [id number] #### [facility] [address] [place] [address] Dr. Paola Reynolds Performed by: Comment Normal [facility] Comment on above: Result Comment: Narendra Tristan Business Operations Coordinator (ASCP) Performed at: WB Performed By: #### [id number] #### [facility] [address] [place] [address] Dr. Paola Reynolds QC reviewed by: Comment Normal [facility] Comment on above: Result Comment: Mark Reza, Business Operations Coordinator Performed at: WB Performed By: #### [id number] #### [facility] [address] [place] [address] Dr. Paola Reynolds Specimen adequacy: Comment Normal [facility] Comment on above: Result Comment: Sati sfactory for evaluation. No endocervical component is identified. Performed at: Performed By: #### [id number] #### [facility] [address] [place] [address] Dr. Paola Reynolds XR DEXA BONE DENSITYon 08-12 XR DEXA BONE DENSITY EXAMINATION: XR DEX A BONE DENSITY, 08/12/2021 1:57 PM EST HISTORY: Menopause present COMPARISON: 06/13/2017 TECHNIQUE: Dual-energy X-ray absorptiometry (DEXA) bone density study performed for the axial skeleton. FINDINGS: SPINE ANALYSIS: Average bone mineral density is 1.215 g/cm2. T-score (standard deviation relative to young adult mean): 0.3 . +6.3% change since prior study. HIP ANALYSIS: Lowest bone mineral density is within the left femoral neck, 0.763 g/cm2. T-score (standard deviation relative to young adult mean): -2.0 . +10.5% change since prior study. IMPRESSION: World [employer] Classification: Osteopenia - Moderate Fracture Risk Electronically authenticated by: DEEPAK SEGOVIA Date: 2021-08-12 14:41 Normal [facility] Vital Signs Date Time Vital Sign Value Performing Clinician Facility 10-15-2024 13:59-0400 Blood Pressure Location Elida Anand [facility] 10-15-2024 13:59-0400 Body temperature 98.24 [degF] Elida Anand [facility] 10-15-2024 13:59-0400 Diastolic blood pressure 84 mm[Hg] Elida Anand [facility] 10-15-2024 13:59-0400 Heart rate 74 /min Elida Anand [facility] 10-15-2024 13:59-0400 SaO2% (BldA) [Mass fraction] 92 % Elida Anand [facility] 10-15-2024 13:59-0400 Systolic blood pressure 138 mm[Hg] Elida Anand [facility] [place] 09-10-2024 10:31-0400 Body height 160 cm Summer Smallwood CARDIOVASCULAR INVASIVE SPECIALIST-WEATHERCASTER Work Phone: [facility] [employer] [facility] 09-10-2024 10:31-0400 Body mass index (BMI) [Ratio] 35.85 kg/m2 Summer Smallwood CARDIOVASCULAR INVASIVE SPECIALIST-WEATHERCASTER Work Phone: [facility] [employer] [facility] 09-10-2024 10:31-0400 Body weight 91.81 kg Summer Smallwood CARDIOVASCULAR INVASIVE SPECIALIST-WEATHERCASTER Work Phone: [facility] [employer] 09-10-2024 10:31-0400 Diastolic blood pressure 61 mm[Hg] Summer Smallwood CARDIOVASCULAR INVASIVE SPECIALIST-WEATHERCASTER Work Phone: [facility] [employer] 09-10-2024 10:31-0400 Heart rate 70 /min Summer Smallwood CARDIOVASCULAR INVASIVE SPECIALIST-WEATHERCASTER Work Phone: [facility] [employer] [facility] 09-10-2024 10:31-0400 Systolic blood pressure 119 mm[Hg] Summer Smallwood CARDIOVASCULAR INVASIVE SPECIALIST-WEATHERCASTER Work Phone: [facility] [employer] [facility] 08-22-2024 13:45-0500 Body height 160 cm Pmh 2 [facility] [employer] [facility] 08-22-2024 13:45-0500 Body mass index (BMI) [Ratio] 35.43 kg/m2 Pmh 2 [facility] [employer] [facility] 08-22-2024 13:45-0500 Body weight 90.72 kg Pmh 2 [facility] 08-14-2024 14:07-0500 Body height 157.5 cm Kenisha Hilliard DO [facility] Phone[facility] 08-14-2024 14:07-0500 Body mass index (BMI) [Ratio] 37.79 kg/m2 Kenisha Hilliard DO Work Phone[facility] 08-14-2024 14:07-0500 Body weight 93.71 kg Kenisha Hilliard DO Work Phone: [facility] [employer] [facility] 08-14-2024 14:07-0500 Diastolic blood pressure 62 mm[Hg] Kenisha Hilliard DO Work Phone: [facility] [employer] [facility] 08-14-2024 14:07-0500 Heart rate 95 /min Kenisha Hilliard DO Work Phone: [facility] 08-14-2024 14:07-0500 Systolic blood pressure 137 mm[Hg] Kenisha Hilliard DO Work Phone: [facility] 08-05-2024 09:23-0500 Body height 157.5 cm Summer Smallwood CARDIOVASCULAR INVASIVE SPECIALIST-WEATHERCASTER Work Phone: [facility] 08-05-2024 09:23-0500 Body mass index (BMI) [Ratio] 37.68 kg/m2 Summer Smallwood CARDIOVASCULAR INVASIVE SPECIALIST-WEATHERCASTER Work Phone: [facility] [employer] [facility] 08-05-2024 09:23-0500 Body weight 93.44 kg Summer Smallwood CARDIOVASCULAR INVASIVE SPECIALIST-WEATHERCASTER Work Phone: [facility] [employer] [facility] 07-24-2024 08:50-0500 Body height 157.5 cm Kenisha Hilliard DO Work Phone: [facility] 07-24-2024 08:50-0500 Body mass index (BMI) [Ratio] 37.39 kg/m2 Kenisha Hilliard DO Work Phone: [facility] 07-24-2024 08:50-0500 Body weight 92.72 kg Kenisha Hilliard DO Work Phone: [facility] 07-24-2024 08:50-0500 Diastolic blood pressure 80 mm[Hg] Kenisha Hilliard DO Work Phone: [facility] 07-24-2024 08:50-0500 Heart rate 84 /min Kenisha Hilliard DO Work Phone: [facility] 07-24-2024 08:50-0500 Systolic blood pressure 163 mm[Hg] Kenisha Hilliard DO Work Phone: [facility] 07-10-2024 09:43-0500 Body height 157.5 cm Kenisha Hilliard DO Work Phone: [facility] 07-10-2024 09:43-0500 Body mass index (BMI) [Ratio] 37.31 kg/m2 Kenisha Hilliard DO Work Phone: [facility] 07-10-2024 09:43-0500 Body weight 92.53 kg Kenisha Hilliard DO Work Phone: [facility] 07-15-2022 17:00-0500 Diastolic blood pressure 66 mm[Hg] [facility] 07-15-2022 17:00-0500 Heart rate 98 /min [facility] 07-15-2022 17:00-0500 Mean blood pressure 85 mm[Hg] [facility] 07-15-2022 17:00-0500 Respiratory rate 18 /min [facility] 07-15-2022 17:00-0500 SaO2% (BldA) [Mass fraction] 95 % [facility] 07-15-2022 17:00-0500 Systolic blood pressure 122 mm[Hg] [facility] 07-15-2022 16:00-0500 Diastolic blood pressure 75 mm[Hg] [facility] 07-15-2022 16:00-0500 Heart rate 103 /min [facility] 07-15-2022 16:00-0500 Mean blood pressure 92 mm[Hg] [facility] 07-15-2022 16:00-0500 SaO2% (BldA) [Mass fraction] 96 % [facility] 07-15-2022 16:00-0500 Systolic blood pressure 125 mm[Hg] [facility] 07-15-2022 15:00-0500 Diastolic blood pressure 69 mm[Hg] [facility] 07-15-2022 15:00-0500 Heart rate 101 /min [facility] 07-15-2022 15:00-0500 Mean blood pressure 86 mm[Hg] [facility] 07-15-2022 15:00-0500 Respiratory rate 20 /min [facility] 07-15-2022 15:00-0500 Systolic blood pressure 121 mm[Hg] [facility] 07-15-2022 14:13-0500 Body temperature 98.06 [degF] [facility] Encounters Encounter Date Encounter Type Care Provider Facility Start: 12-03-2025 ambulatory MD Elida Anand Facil ity:[facility] Start: 01-13-2025 ambulatory MD Elida Anand Facil ity:[facility] Start: 12-18-2024 End: 12-18-2024 ambulatory Katlyn Hyatt Facility:[facility] Start: 12-04-2024 End: 12-04-2024 Lab Drop off Elida Anand [facility] Start: 12-04-2024 End: 12-04-2024 ambulatory Elida Anand Facility:[facility] Start: 12-03-2024 End: 12-03-2024 ambulatory MD Elida Anand Facility:[facility] Start: 10-15-2024 End: 10-15-2024 ambulatory MD Elida Anand Facility:[facility] Start: 10-15-2024 End: 10-15-2024 Patient encounter procedure Elida Anand [facility] [place] Start: 09-10-2024 End: 09-10-2024 Office outpatient visit 10 minutes Summer Smallwood APRN-[facility]ATHERCASTER Work Phone: [facility] Comment on above: Lipoma of right axil la (Primary Dx) Start: 09-10-2024 End: 09-10-2024 ambulatory [facility] Start: 08-27-2024 End: 08-27-2024 Evaluation and management of inpatient GARCIA SANCHEZ [facility] Start: 08-27-2024 End: 08-27-2024 Evaluation and management of inpatient [facility] Start: 08-22-2024 Encounter for other preprocedural examination [facility] Start: 08-22-2024 End: 08-22-2024 ambulatory [facility] Start: 08-22-2024 End: 08-22-2024 Patient encounter procedure [facility] Pre-Admission Testing 2 [facility] - Pre Ad[facility] Start: 08-14-2024 End: 08-14-2024 Office outpatient visit 25 minutes Kenisha Hilliard DO Work Phone: [facility] Comment on above: Lipoma of torso (Leti daniel Dx); Obesity (BMI 35.0-39.9 without comorbidity); History of renal cell carcinoma Start: 08-14-2024 End: 08-14-2024 ambulatory [facility] Start: 08-05-2024 End: 08-05-2024 Office outpatient visit 10 minutes Summer Lion Monaca CARDIOVASCULAR INVASIVE SPECIALIST-[facility] Work Phone: [facility] Comment on above: Lipoma of left upper extremity (Primary Dx); Lipoma of right upper extremity Start: 08-05-2024 End: 08-05-2024 ambulatory [facility] Start: 07-29-2024 End: 07-29-2024 Telephone encounter Betzy Cotto CMA [facility] Start: 07-28-2024 ambulatory AGUSTINA WEST [facility] Start: 07-25-2024 End: 07-25-2024 ambulatory [facility] Start: 07-24-2024 End: 07-24-2024 Office outpatient visit 25 minutes Kenisha Hilliard DO Work Phone: [facility] Comment on above: Lipoma of left upper extremity (Primary Dx); Lipoma of right upper extremity; Axillary adenopathy Start: 07-24-2024 End: 07-24-2024 ambulatory [facility] Start: 07-10-2024 End: 07-10-2024 Office outpatient visit 15 minutes Kenisha Hilliard DO Work Phone: [facility] Comment on above: Lipoma of left upper extremity (Primary Dx); Lipoma of right upper extremity Start: 07-10-2024 End: 07-10-2024 ambulatory [facility] Start: 07-08-2024 End: 07-08-2024 ambulatory MD Elida Anand Facility:[facility] [place] Start: 05-21-2024 End: 05-21-2024 ambulatory MD Elida Anand Facility:[facility] [place] Start: 03-11-2024 End: 03-11-2024 ambulatory Katlyn L Edmar Facility:[facility] [place] Start: 02-26-2024 End: 02-26-2024 ambulatory Katlyn L Edmar Facility:[facility] [place] Start: 01-01-2024 End: 01-01-2024 ambulatory MD Elida Anand Facility:[facility] [place] Start: 12-27-2023 End: 12-27-2023 ambulatory MD Elida Anand Facility:[facility] Start: 12-27-2023 End: 12-27-2023 Patient encounter procedure Elida Anand [facility] Start: 10-18-2023 End: 10-18-2023 ambulatory SMITHA WATSON Not Available Start: 08-15-2023 End: 08-15-2023 Patient encounter procedure Elida Anand [facility] Start: 05-18-2023 End: 05-18-2023 Patient encounter procedure Katlyn L Edmar [facility] Start: 05-11-2023 End: 09-04-2023 Recurring Katlyn L Edmar [facility] Start: 05-01-2023 End: 05-01-2023 Lab Drop off Katlyn L Edmar [facility] Start: 12-14-2022 End: 12-14-2022 Patient encounter procedure Katlyn L Edmar [facility] Start: 11-30-2022 End: 11-30-2022 Lab Drop off Katlyn L Edmar [facility] Start: 09-27-2022 End: 09-27-2022 Patient encounter procedure Katlyn L Edmar [facility] Start: 08-01-2022 End: 08-02-[address] AGUSTINA WEST Facility:[facility] Start: 07-28-2022 End: 07-29-[address] AGUSTINA WEST Facility:[facility] Start: 07-26-2022 End: 07-27-[address] AGUSTINA WEST Facility:[facility] Start: 07-15-2022 End: 07-15-2022 Emergency department patient visit Noni Espinosa [facility] Start: 05-20-2022 End: 05-20-2022 ambulatory Agustina West Facility:[facility] Start: 05-20-2022 End: 05-20-2022 ambulatory MD Agustina West Work Phone: [facility] Work Phone: Start: 05-20-2022 End: 05-20-2022 Departed Referred MD Agustina West Work Phone: [facility] [place] Start: 05-19-2022 End: 05-20-[address] AGUSTINA WEST Facility:[facility] Start: 05-11-2022 End: 05-12-2022 ambulatory RICK GORDON Facility:[facility] Start: 01-27-2022 End: 01-28-[address] AGUSTINA WEST Facility:[facility] Start: 11-16-2021 End: 11-17-[address] AGUSTINA WEST Facility:[facility] Start: 11-10-2021 End: 11-11-[address] AGUSTINA WEST Facility:[facility] Start: 08-19-2021 Encounter for other preprocedural examination CELINE ABRAHAM [facility] Start: 08-19-2021 ambulatory CELINE ABRAHAM Faci lity:[facility] Start: 08-16-2021 End: 08-16-2021 ambulatory CELINE ABRAHAM Facility:[facility] Start: 08-12-2021 End: 08-13-[address] AGUSTINA WEST Facility:[facility] Start: 08-11-2021 End: 08-11-[address] AGUSTINA WEST Facility:[facility] Start: 08-10-2021 End: 08-11-2021 ambulatory CELINE ABRAHAM Facility:[facility] Start: 08-10-2021 End: 08-11-2021 Encounter for other preprocedural examination CELINE ABRAHAM Facility:[facility] Procedures Date Procedure Procedure Detail Performing Clinician Start: 08-27-2024 Excision of lipoma o f subcutaneous tissue of neck Elida Anand Start: 08-14-2024 Follow-up visit Follow-up KENISHA HILLIARD Start: 12-30-2021 Colonoscopy Kenisha muhammad DO Work Phone: Start: 07-03-2021 Foot structure (body structure) Katlyn Hyatt Comment on above: right foot tumor was benign Start: 10-02-2019 Biopsy of breast Noni Espinosa Start: 12-31-2015 Total nephrectomy Aamir Espinosa Comment on above: RT~ 12/31/2015 Start: 10-23-2014 right shoulder arthr oscopic subacromial decompression. extensive debridement, right shoulder partial thickness rotator cuff tear, biceps tendon, labrum, and and extensive subacromial bursectomy. lateral clavicle resection Noni Espinosa Biopsy of kidney usi ng ultrasound guidance Noni Espinosa Cholecystectomy Noni West ri Colonoscopy Noni Espinosa Coronary angiography Noni Espinosa Comment on above: heart cath 8-10 year s ago- negative Hysterectomy Noni Espinosa Ligation of fallopian tube A pancho Espinosa palmar faciectomy 3 Noni degroot Comment on above: right hand palmar faciectomy 4 Katlyn basilio Comment on above: right hand trigger finger release Aamir Espinosa Plan of Treatment Date Care Activity Detail Author Start: 12-30-2026 Screening for malign ant neoplasm of colon Colonoscopy [facility] Start: 08-27-2025 Adult BMI Screening Adult BMI Screen ing [facility] Start: 08-27-2025 Tobacco Screening Tobacco Screening [facility] Start: 08-22-2025 Adult BMI Screening Adult BMI Screen ing [facility] Start: 08-22-2025 Tobacco Screening Tobacco Screening [facility] Start: 08-14-2025 Adult BMI Screening Adult BMI Screen ing [facility] Start: 08-14-2025 Tobacco Screening Tobacco Screening [facility] Start: 07-24-2025 Adult BMI Screening Adult BMI Screen ing [facility] Start: 07-24-2025 Tobacco Screening Tobacco Screening [facility] Start: 07-10-2025 Adult BMI Screening Adult BMI Screen ing [facility] Start: 07-10-2025 Tobacco Screening Tobacco Screening [facility] Start: 09-10-2024 End: 09-10-2024 Patient encounter procedure 09/10/2024 10:30 AM EDT Office Visit [facility] [address] [place] [id number] Summer Smallwood, CARDIOVASCULAR INVASIVE SPECIALIST-[employer] [address] [place] [address] [facility] Start: 08-27-2024 End: 08-27-2024 Admission to same day surgery center [facility] Comment on above: EXCISION LIPOMA UPPE R EXTREMITY EXCISION LIPOMA UPPE R EXTREMITY AXILLA Start: 08-27-2024 End: 08-27-2024 Anesthesia consultation 08/27/2024 12:45 PM EST Anesthesia Event [facility] [address] [place] [address] Garcia Sanchez, DO [address] [facility] [place] [address] [facility] Start: 08-27-2024 End: 08-27-2024 EXCISION LIPOMA UPPER EXTREMITY EXCISION LIPOMA UPPER EXTREMITY right axillary lipoma 08/27/2024 12:45 PM EST [facility] Start: 08-27-2024 Subsequent hospital visit by physician 08/27/2024 12:45 PM EST Hospital Encounter [facility] [address] [place] [address] Kenisha Hilliard, [address] [place] [address] [facility] Start: 08-20-2024 End: 08-20-2024 Patient encounter procedure 08/20/2024 10:30 AM EST Procedure visit [facility] - Pre Admit [address] [place] [address] [facility] Start: 08-14-2024 End: 08-14-2024 Patient encounter procedure 08/14/2024 2:15 PM EST Office Visit [facility] [address] [place] [id number] Kenisha Hilliard DO [address] [place] [address] [facility] Start: 08-05-2024 End: 08-05-2024 Patient encounter procedure 08/05/2024 12:00 PM EST Office Visit [facility] [address] [place] [address] Summer Smallwood, CARDIOVASCULAR INVASIVE SPECIALIST-[employer] [address] [place], [place] [id number] [facility] Start: 07-25-2024 End: 07-25-2024 Patient encounter procedure 07/25/2024 1:00 PM EST Appointment [facility] [address] [place] [address] [facility] Start: 07-24-2024 End: 07-24-2025 US Extremity - right limited Ultrasound extremity non vascular limited right Imaging Routine Axillary adenopathy Expected: 07/24/2024, Expires: 07/24/2025 [facility] Comment on above: Expected: 07/24/2024 , Expires: 07/24/2025 Start: 07-24-2024 End: 07-24-2024 Patient encounter procedure 07/24/2024 9:00 AM EST Office Visit [facility] [address] [place] [id number] Kenisha Hilliard DO [address] [place], [place] [id number] [facility] Start: 03-03-2024 Influenza vaccination Influenza Vacc ine [facility] Start: 2021 Fall Risk Screening Fall Risk Screen ing [facility] Start: 2006 Administration of varicella zoster vaccine Zoster (Shingles) Vaccine (1 of 2) [facility] Start: 1975 DTaP,Tdap and Td Vaccines (1 - Tdap) DTaP,Tdap and Td Vaccines (1 - Tdap) [facility] Start: 1974 Adult BMI Follow Up Plan Adult BMI Follow Up Plan [facility] Start: 1968 Depression Screening Depression Scre maria luisa [facility] Start: 1956 Tobacco Counseling Tobacco Counselin g [facility] End: 08-14-2025 CBC panel - Blood by Automated count CBC without diff Lab Routine Lipoma of torso 1 Occurrences starting 08/14/2024 until 08/14/2025 [employer] Work Phone: Comment on above: 1 Occurrences starti ng 08/14/2024 until 08/14/2025 End: 08-14-2025 Comprehensive metabolic 2000 panel - Serum or Plasma Comprehensive metabolic panel Lab Routine Lipoma of torso 1 Occurrences starting 08/14/2024 until 08/14/2025 [employer] Comment on above: 1 Occurrences starti ng 08/14/2024 until 08/14/2025 End: 07-24-2025 Surgical Pathology Surgical Pathology Pathology and Cytology Routine Lipoma of left upper extremity Lipoma of right upper extremity 1 Occurrences starting 07/24/2024 until 07/24/2025 [employer] Work Phone: Comment on above: 1 Occurrences starti ng 07/24/2024 until 07/24/2025 End: 08-14-2025 Unlisted Procedure / Surgery Unlisted Procedure / Surgery Procedures Routine Lipoma of torso 1 Occurrences starting 08/14/2024 until 08/14/2025 [employer] Comment on above: 1 Occurrences starti ng 08/14/2024 until 08/14/2025 Immunizations Immunization Date Immunization Notes Care Provider Michelle sloan NEGATED: Highlighted row has not occurred!11-30-2022 pneumococcal polysaccharide vaccine, 23 valent Katlyn C[facility] [place] NEGATED: Highlighted row has not occurred!11-30-2022 pneumococcal conjugate vaccine, 13 valent [facility] [place] NEGATED: Highlighted row has not occurred!09-19-2022 SARS-CoV-2 mRNA (tozinameran 5y-11y) vaccine Katlyn Edmar [facility] [place] Payers Date Payer Category Payer Medicare [id number] 2024 Medicare HMO [employer] MEDICARE [id number] 2024 Unknown [id number] 2022 Medicare [id number] 2022 Self-pay 2022 Unknown [id number] 1959 Unknown [id number] 1956 Unknown [id number] 2.16.840.1.701762.3.579.2.593 1956 Unknown [id number] 2.16.840.1.954041.3.579.2.593 1956 Unknown [id number] 2.16.840.1.059568.3.579.2.593 1956 Unknown [id number] 2.16.840.1.473410.3.579.2.593 1956 Unknown [id number] 2.16.840.1.440094.3.579.2.593 1956 Unknown [id number] 2.16.840.1.883581.3.579.2.593 1956 Unknown [id number] 2.16.840.1.557383.3.579.2.593 1956 Unknown [id number] 2.16.840.1.374557.3.579.2.593 1956 Unknown [id number] 2.16.840.1.220502.3.579.2.593 1956 Unknown [id number] 2.16.840.1.931338.3.579.2.593 1956 Unknown [id number] 2.16.840.1.234861.3.579.2.593 1956 Unknown [id number] 2.16.840.1.920769.3.579.2.593 1956 Unknown [id number] 2.16.840.1.614587.3.579.2.593 1956 Unknown [id number] 2.16.840.1.760739.3.579.2.593 1956 Unknown [id number] 2.16.840.1.926486.3.579.2.125 9 1956 Unknown [id number] 2.16.840.1.271643.3.579.2.128 6 1956 Unknown [id number] 2.16.840.1.228375.3.579.2.128 6 1956 Unknown [id number] 2.16.840.1.211319.3.579.2.128 6 1956 Unknown [id number] 2.16.840.1.172887.3.579.2.128 6 1956 Unknown [id number] 2.16.840.1.427167.3.579.2.128 6 1956 Unknown [id number] 2.16.840.1.281469.3.579.2.128 6 1956 Unknown [id number] 2.16.840.1.054707.3.579.2.128 6 1956 Unknown [id number] 2.16.840.1.708848.3.579.2.128 6 1956 Unknown [id number] 2.16.840.1.148340.3.579.2.128 6 1956 Unknown [id number] 2.16.840.1.152713.3.579.2.128 6 1956 Unknown [id number] 2.16.840.1.791525.3.579.2.128 6 1956 Unknown [id number] 2.16.840.1.485774.3.579.2.128 6 1956 Unknown [id number] 2.16.840.1.685518.3.579.2.128 6 1956 Unknown [id number] 2.16.840.1.429666.3.579.2.128 6 1956 Unknown [id number] 2.16.840.1.348555.3.579.2.727 1956 Unknown [id number] 2.16.840.1.390652.3.579.2.727 1956 Unknown [id number] 2.16.840.1.530009.3.579.2.727 1956 Unknown [id number] 2.16.840.1.333549.3.579.2.727 1956 Unknown [id number] 2.16.840.1.808798.3.579.2.727 1956 Unknown [id number] 2.16.840.1.651558.3.579.2.727 1956 Unknown [id number] 2.16.840.1.337503.3.579.2.727 1956 Unknown [id number] 2.16.840.1.094302.3.579.2.727 1956 Unknown [id number] 2.16.840.1.754678.3.579.2.727 1956 Unknown [id number] 2.16.840.1.172494.3.579.2.727 1956 Unknown [id number] 2.16.840.1.760510.3.579.2.727 1956 Unknown [id number] 2.16.840.1.260564.3.579.2.727 1956 Unknown [id number] 2.16.840.1.954290.3.579.2.727 1956 Unknown [id number] 2.16.840.1.562393.3.579.2.727 1956 Unknown [id number] 2.16.840.1.638937.3.579.2.727 1956 Unknown [id number] 2.16.840.1.039406.3.579.2.727 Medicare Medicare [id number] Unknown [id number] 2.16.840.1.432683.3.579.2.531 Social History Date Type Detail Facility Tobacco smoking stat [facility] Unknown if ever smoked [facility] Work Phone: Start: 1955 Sex Assigned At Female [facility] Start: 04-15-2021 End: 12-03-2024 Tobacco smoking status Heavy tobacco smoker (finding) [facility] Comment on above: Pateint has smoked 1 /2 - 1 PPD for 50 + years, patient is currently working on cutting back smokes a pack or les s a day since 15 years. Start: 04-11-2018 End: 08-13-2020 Sex Assigned At Female [facility] Tobacco smoking status [facility] Comment on above: Pateint has smoked 1 /2 - 1 PPD for 50 + years, patient is currently working on cutting back smokes a pack or les s a day since 15 years. Start: 04-10-2023 End: 07-31-2023 Tobacco smoking status Light tobacco smoker (finding) [facility] Comment on above: Pateint has smoked 1 /2 - 1 PPD for 50 + years, patient is currently working on [employer] back Start: 07-10-2024 [facility] [employer] [facility] History of tobacco use [facility] Start: 08-13-2020 End: 07-10-2024 Cigarettes smoked current (pack per day) - Reported 0.5 [facility] [employer] Start: 07-10-2024 Tobacco use and exposure Smoke less tobacco non-user [facility] Start: 07-10-2024 End: 09-10-2024 Alcoholic beverage intake Current non-drinker of alcohol (finding) [facility] Start: 1955 Sex assigned at Not on file [facility] Start: 10-14-2009 End: 02-05-2015 Sex Female (finding) [facility] Sexual Orientation [facility] Functional Status Date Assessment Result Facility 10-15-2024 Functional Status N/A [facility] 07-15-2022 Functional Status N/A [facility] Clinical Notes 08-16-2021 to 12-04-2024 Summer Smallwood, CARDIOVASCULAR INVASIVE SPECIALIST-[facility] - 09/10/2024 10:30 AM EDTPatient InstructionsPerioperative Nursing Note - Rhonda Del Real RN - 08/22/2024 1:30 PM Lui Hilliard DO - 08/14/2024 2:15 PM EST Note Date & Type Note Facility 12-04-2024 Note Nurse Consultation N ote Reason for Visit patient came IO for lab draw Assessment/Plan 1. Stage 3a chronic kidney disease (CKD) (N18.31: Chronic kidney disease, stage 3a) Medications alendronate 70 mg Tab, See Instructions, 11 refills aspirin 81 mg Oral EC Tab, 81 mg= 1 tab(s), Oral, Daily atorvastatin 10 mg Tab, See Instructions, 1 refills escitalopram 20 mg Tab, See Instructions multivitamin Pantoprazole [address] Tab, See Instructions Xanax 0.5 mg Tab, 0.5 mg= 1 tab(s), Oral, TID, PRN Allergies Avelox (Unknown) Cedax Ceftin Cipro Cortisporin Nasalcrom (Unknown) Neosporin PROzac cortisone (Rash) fluocinolone topical (Unknown) penicillins (Difficulty breathing) sulfa drugs Immunizations Vaccine Date Status Comments pneumococcal 23-valent vaccine - Not Given Postpone due to refusal pneumococcal 13-valent vaccine - Not Given Postpone due to refusal SARS-CoV-2 mRNA (tozinameran 5y-11y) vac - Not Given Postpone due to refusal [facility] 12-03-2024 Note Patient Education Emergency Medicine Heart Attack A heart attack occurs when blood and oxygen supply to the heart is cut off. A heart attack can cause damage to the heart that cannot be fixed. A heart attack is also called a myocardial infarction, or IN. If you think you are having a heart attack, do not wait to see if the symptoms will go away. Get medical help right away. What are the causes? This condition may be caused by: ??? A fatty substance (plaque) in the blood vessels (arteries). This can block the flow of blood to the heart. ??? A blood clot in the blood vessels that go to the heart. The blood clot blocks blood flow. ??? An abnormal heartbeat. ??? Some diseases, such as problems in red blood cells (anemia)orproblems in breathing (respiratory failure). ??? Tightening (spasm) of a blood vessel that cuts off blood to the heart. ??? A tear in a blood vessel of the heart. Other causes may include: ??? Using drugs such as cocaine or methamphetamine. ??? Low blood pressure. What increases the risk? Aging. The risk gets higher as you get older. ??? Having a personal or family history of chest pain, heart attack, stroke, or narrowing of the arteries in the legs, arms, head, or stomach (peripheral vascular disease). ??? Having taken chemotherapy or immune-suppressing medicines. ??? Being male. ??? Being overweight or obese. ??? Having any of these conditions: ? High blood pressure. ? High cholesterol. ? Diabetes. ??? Making lifestyle choices such as: ? Drinking too much alcohol. ? Not getting regular exercise. ? Smoking. What are the signs or symptoms? Chest pain. It may feel like: ? Crushing or squeezing. ? Tightness, pressure, fullness, or heaviness. ??? Pain in the arm, neck, jaw, back, or upper body. ??? Heartburn. ??? Upset stomach (indigestion). ??? Shortness of breath. ??? Feeling like you may vomit (nauseous). ??? Cold sweats. ??? Sudden light-headedness, dizziness, or passing out. ??? Feeling tired. How is this treated? A heart attack must be treated as soon as possible. Treatment may include: ??? Medicines to: ? Break up or dissolve blood clots. ? Thin your blood and help prevent blood clots. ? Treat blood pressure. ? Improve blood flow to the heart. ? Reduce pain. ? Reduce cholesterol. ??? Procedures to widen a blocked artery and keep it open. ??? Open heart surgery. ??? Making your heart strong again (cardiac rehabilitation) through exercise, education, and counseling. Follow these instructions at home: Medicines ??? Take [id number] and prescription medicines only as told by your doctor. ??? Do not take these medicines unless your doctor says it is okay: ? NSAIDs, such as ibuprofen, naproxen, or celecoxib. ? Any vitamins or supplements. ? Hormone replacement therapy that has estrogen with or without progestin. ??? If you are taking blood thinners: ? Talk with your doctor before taking any medicines that have aspirin or NSAIDs, such as ibuprofen. ? Take medicines exactly as told. Take them at the same time each day. ? Avoid doing things that could hurt or bruise you. Take action to prevent falls. ? Wear an alert bracelet or carry a card that shows you are taking blood thinners. Lifestyle ??? Do not smoke or use any products that contain nicotine or tobacco. If you need help quitting, ask your doctor. ??? Avoid secondhand smoke. ??? Exercise regularly. Ask your doctor about a cardiac rehab program. ??? Eat heart-healthy foods. Your doctor will tell you what foods to eat. ??? Stay at a healthy weight. ??? Learn ways to lower your stress level. ??? Do not use illegal drugs. Alcohol use ??? Do not drink alcohol if: ? Your doctor tells you not to drink. ? You are , may be , or are planning to become . ??? If you drink alcohol: ? Limit how much you have to: ? 0?1 drink a day for women. ? 0?2 drinks a day for men. ? Know how much alcohol is in your drink. In the [place] one drink equals one 12 oz bottle of beer (355 mL), one 5 oz glass of wine (148 mL), or one 1? oz glass of hard liquor (44 mL). General instructions ??? Work with your doctor to treat other problems you may have, such as diabetes or high blood pressure. ??? Get screened for depression. Get treatment if needed. ??? Keep your vaccines up to date. Get the flu shot (influenza vaccine) every year. ??? Keep all follow-up visits. Contact a doctor if: ??? You feel very sad. ??? You have trouble doing your daily activities. ??? You get light-headed or dizzy. Get help right away if: ??? You have sudden, unexplained discomfort in your chest, arms, back, neck, jaw, or upper body. ??? You have shortness of breath. ??? You have sudden sweating or clammy skin. ??? You feel like you may vomit or you vomit. ??? You fe (more content not included)... [facility] 09-10-2024 History of Presen t illness Narrative Subjective Flakita Paredes is a 69 y.o. female status post excision of right axillary lipoma on 08/27/2024. She is doing well and is very pleased. She denies fever and chills. She denies drainage. Objective Vitals: 09/10/24 1031 BP: 119/61 Pulse: 70 Physical Exam Constitutional: General: She is not in acute distress. Appearance: Normal appearance. She is not ill-appearing. HENT: Head: Normocephalic and atraumatic. Mouth/Throat: Mouth: Mucous membranes are moist. Eyes: Pupils: Pupils are equal, round, and reactive to light. Cardiovascular: Rate and Rhythm: Normal rate. Pulmonary: Effort: Pulmonary effort is normal. No respiratory distress. Musculoskeletal: General: Normal range of motion. Skin: General: Skin is warm and dry. Findings: No bruising or erythema. Comments: Right axillary incision clean, dry and intact. No erythema or drainage. Minimal swelling. Neurological: Mental Status: She is alert and oriented to person, place, and time. Mental status is at baseline. Final Pathologic Diagnosis Lipoma, right axilla - excision: - Lipoma Assessment Flakita Paredes is a 69 y.o.female postoperative excision of right axillary lipoma. Plan Keep incision clean and dry. Avoid shaving until fully healed. Follow up p.r.n.. Lipoma of right axilla [D17.21] SARA CRAWFORD [facility] General Surgery [place] This note was created with the assistance of a speech recognition program. While intending to generate a timely document that accurately reflects the content of the visit, no guarantee can be provided that every grammatical or spelling mistake has been or will be identified or corrected. Thank you for your understanding. SARA Crawford 09/10/24 1043 documented in this encounter [facility] 08-22-2024 Instructions Rhonda Del Real RN - 08/22/2024 1:30 PM EST Preoperative Education Checklist- General Surgery date: 08/27/24 Surgery time: 1245 p.m. Arrival time: 1045 a.m. 1. Bring a photo ID and your insurance card with you the day of surgery. You will check in at the main lobby of the [facility]- registration desk is straight ahead as soon as you walk in. Tell them you are here for surgery. 2. If you have a Living Will/Durable Power of [employer] for Health Care that is not on file here, please bring a copy the day of surgery. 3. Please shower/bathe the night before surgery with the provided soap or wipes. Do not shower the morning of surgery- you will do use wipes when you arrive here at the hospital before getting into your surgical gown. Do not shave the area of your procedure for 2 days prior to your surgery. 4. NO powder, lotion, perfume/cologne, aftershave, make-up, deodorant, or hair products after you have bathed. 5. NO nail hungarian/acrylic on at least one finger. If you are having a hand, wrist or foot surgery then all nail hungarian and artificial/acrylic nails must be removed from that hand or foot. 6. Avoid ALL Aspirin and non-steroidal anti-inflammatory drugs and certain vitamins (Ibuprofen, Advil, Aleve, Excedrin, Meloxicam, Celebrex, fish/krill oil, etc.) for 7 days prior to surgery as instructed by your surgeon and/or your prescribing doctor. Tylenol IS ALLOWED. If you are on Ticlid, Xarelto, Eliquis, Pradaxa, Plavix or Coumadin, please check with your prescribing doctor for instructions for when to stop them. 7. If you use an inhaler, continue to use it routinely. 8. Nothing to eat or drink (not even water, gum, mints, or hard candy!) AFTER midnight prior to your surgery. 9. Take only medications that you are instructed to on the morning of surgery with a TINY SIP OF WATER. 10. Choose a responsible adult that will be able to drive you home when you are discharged from your hospital stay for your surgery and can stay with you in your home for 24 hours after your procedure. You must NOT drive any vehicle or operate any machinery for 24 hours after surgery. 11. When you dress for your appointment, please wear loose fitting clothing that is appropriate to accommodate your surgical area procedure. BRING WITH YOU ANY DEVICES YOU MAY NEED: RENÉE hose, ice machine, sling/swath, brace or special shoe, oversized zip-up or button up shirt, CPAP machine if staying overnight. 12. Do NOT wear jewelry, watches, or any piercings or metal for surgery- leave these valuables and money at home. 13. Do NOT wear contact lenses for surgery- glasses are okay if needed. 14. The anesthesiologist will talk with you the day of surgery and will ask you to sign a Consent Form. 15. Refrain from smoking or any type of tobacco use for at least 8 hours and marijuana for 24 hours prior to arrival for your surgery. 16. If a GREEN BLOOD band is given to you, please bring it with you for the day of surgery. 17. Notify your surgeon if you develop any illness before your surgery. 18. If you are staying overnight, please DO NOT BRING your home medications with you. 19. If you have any questions prior to surgery, please call the Preadmission Testing office at [phone], Mon.-Fri. 7 a.m.-3 p.m. Leave a voicemail if needed. Pre-Surgery Instructions: Medication Instructions alendronate (FOSAMAX) 70 mg tablet Stop taking 0 days prior to procedure ALPRAZolam (XANAX) 0.5 mg tablet Stop taking 0 days prior to procedure aspirin 81 mg Stop taking 1 week prior to procedure atorvastatin (LIPITOR) 10 mg tablet Stop taking 0 days prior to procedure escitalopram (LEXAPRO) 10 mg tablet Stop taking 0 days prior to procedure pantoprazole (PROTONIX) 20 mg EC tablet Take morning of procedure How to Avoid an Infection after Your Surgery Your doctor will give you specific instructions, but remember: -ALWAYS wash hands before caring for your incision. -No picking, scratching, or rubbing your incision. -No creams, lotion, powder, rubbing alcohol or hydrogen peroxide on the incision (can harm the tissue and slow healing). -Your doctor will give you specific instructions for what type of dressing you will need and how often it will need changed for infection purposes. -No tight clothing on incision. -Do not allow anyone to touch your incision unless they are cleaning, checking, or redressing it (be sure they wash their hands first). -No contact of your incision with pets; avoid sleeping with pets. -Take full course of antibiotic if prescribed for you after surgery- do not stop unless directed to by your physician. You may also be given an antibiotic prior to your surgery to help prevent surgical site infections. -Eat a healthy and varied diet including proteins, fruits, and vegetables to help promote wound healing and keep blood sugars under control if you are diabetic. -Smoking slows the healing process by decreasing the amount of oxygen in your blood that is needed for tissue healing. Try to avoid or stop smoking if possible. LOOK at your incision each morning and each night to check the progress of healing. Some soreness, numbness, itching and/or mild bruising around the incision is normal. Call your doctor if you notice any of the following: -Increased redness or hardening around the incision area. -Increased pain at the incision site. -Incision feels hot to the touch. -Swelling or pulling apart of the incision edges. -Yellow or green drainage or foul odor coming from the incision. -Bleeding from the incision (apply pressure as needed). -Fever higher than 101 degrees Fahrenheit for more than 4 hours. SHOWERING: Your doctor will give you specific instructions, but remember: -Be careful getting into and out of the shower. -Showers should be quick (5 minutes or less). -Use a clean washcloth to gently wash your incision with soap and water and pat the area dry with a clean towel. -No re-using wash cloths or towels; get a fresh one to clean your incision. -Do not soak in the bathtub, go swimming or use a hot tub (Canonicaluzzi), or perform activities where your incision is submerged in water or exposed to any fluids or substances until instructed by your doctor. -If your have the sticky strips (steri-strips) over the incision, it is OK to shower with them. Do not remove them. Let them fall off on their own. If you have a question, call your doctor s office. Go to the follow-up appointment with your doctor. documented in this encounter [facility] [employer] [facility] 08-22-2024 Miscellaneous Notes Preoperative Education Checklist- General Surgery date: 08/27/24 Surgery time: 1245 p.m. Arrival time: 1045 a.m. 1. Bring a photo ID and your insurance card with you the day of surgery. You will check in at the main lobby of the [facility]- registration desk is straight ahead as soon as you walk in. Tell them you are here for surgery. 2. If you have a Living Will/Durable Power of [employer] for Health Care that is not on file here, please bring a copy the day of surgery. 3. Please shower/bathe the night before surgery with the provided soap or wipes. Do not shower the morning of surgery- you will do use wipes when you arrive here at the hospital before getting into your surgical gown. Do not shave the area of your procedure for 2 days prior to your surgery. 4. NO powder, lotion, perfume/cologne, aftershave, make-up, deodorant, or hair products after you have bathed. 5. NO nail hungarian/acrylic on at least one finger. If you are having a hand, wrist or foot surgery then all nail hungarian and artificial/acrylic nails must be removed from that hand or foot. 6. Avoid ALL Aspirin and non-steroidal anti-inflammatory drugs and certain vitamins (Ibuprofen, Advil, Aleve, Excedrin, Meloxicam, Celebrex, fish/krill oil, etc.) for 7 days prior to surgery as instructed by your surgeon and/or your prescribing doctor. Tylenol IS ALLOWED. If you are on Ticlid, Xarelto, Eliquis, Pradaxa, Plavix or Coumadin, please check with your prescribing doctor for instructions for when to stop them. 7. If you use an inhaler, continue to use it routinely. 8. Nothing to eat or drink (not even water, gum, mints, or hard candy!) AFTER midnight prior to your surgery. 9. Take only medications that you are instructed to on the morning of surgery with a TINY SIP OF WATER. 10. Choose a responsible adult that will be able to drive you home when you are discharged from your hospital stay for your surgery and can stay with you in your home for 24 hours after your procedure. You must NOT drive any vehicle or operate any machinery for 24 hours after surgery. 11. When you dress for your appointment, please wear loose fitting clothing that is appropriate to accommodate your surgical area procedure. BRING WITH YOU ANY DEVICES YOU MAY NEED: RENÉE hose, ice machine, sling/swath, brace or special shoe, oversized zip-up or button up shirt, CPAP machine if staying overnight. 12. Do NOT wear jewelry, watches, or any piercings or metal for surgery- leave these valuables and money at home. 13. Do NOT wear contact lenses for surgery- glasses are okay if needed. 14. The anesthesiologist will talk with you the day of surgery and will ask you to sign a Consent Form. 15. Refrain from smoking or any type of tobacco use for at least 8 hours and marijuana for 24 hours prior to arrival for your surgery. 16. If a GREEN BLOOD band is given to you, please bring it with you for the day of surgery. 17. Notify your surgeon if you develop any illness before your surgery. 18. If you are staying overnight, please DO NOT BRING your home medications with you. 19. If you have any questions prior to surgery, please call the Preadmission Testing office at [phone], Mon.-Fri. 7 a.m.-3 p.m. Leave a voicemail if needed. Pre-Surgery Instructions: Medication Instructions alendronate (FOSAMAX) 70 mg tablet Stop taking 0 days prior to procedure ALPRAZolam (XANAX) 0.5 mg tablet Stop taking 0 days prior to procedure aspirin 81 mg Stop taking 1 week prior to procedure atorvastatin (LIPITOR) 10 mg tablet Stop taking 0 days prior to procedure escitalopram (LEXAPRO) 10 mg tablet Stop taking 0 days prior to procedure pantoprazole (PROTONIX) 20 mg EC tablet Take morning of procedure How to Avoid an Infection after Your Surgery Your doctor will give you specific instructions, but remember: -ALWAYS wash hands before caring for your incision. -No picking, scratching, or rubbing your incision. -No creams, lotion, powder, rubbing alcohol or hydrogen peroxide on the incision (can harm the tissue and slow healing). -Your doctor will give you specific instructions for what type of dressing you will need and how often it will need changed for infection purposes. -No tight clothing on incision. -Do not allow anyone to touch your incision unless they are cleaning, checking, or redressing it (be sure they wash their hands first). -No contact of your incision with pets; avoid sleeping with pets. -Take full course of antibiotic if prescribed for you after surgery- do not stop unless directed to by your physician. You may also be given an antibiotic prior to your surgery to help prevent surgical site infections. -Eat a healthy and varied diet including proteins, fruits, and vegetables to help promote wound healing and keep blood sugars under control if you are diabetic. -Smoking slows the healing process by decreasing the amount of oxygen in your blood that is needed for tissue healing. Try to avoid or stop smoking if possible. LOOK at your incision each morning and each night to check the progress of healing. Some soreness, numbness, itching and/or mild bruising around the incision is normal. Call your doctor if you notice any of the following: -Increased redness or hardening around the incision area. -Increased pain at the incision site. -Incision feels hot to the touch. -Swelling or pulling apart of the incision edges. -Yellow or green drainage or foul odor coming from the incision. -Bleeding from the incision (apply pressure as needed). -Fever higher than 101 degrees Fahrenheit for more than 4 hours. SHOWERING: Your doctor will give you specific instructions, but remember: -Be careful getting into and out of the shower. -Showers should be quick (5 minutes or less). -Use a clean washcloth to gently wash your incision with soap and water and pat the area dry with a clean towel. -No re-using wash cloths or towels; get a fresh one to clean your incision. -Do not soak in the bathtub, go swimming or use a hot tub (Jacuzzi), or perform activities where your incision is submerged in water or exposed to any fluids or substances until instructed by your doctor. -If your have the sticky strips (steri-strips) over the incision, it is OK to shower with them. Do not remove them. Let them fall off on their own. If you have a question, call your doctor s office. Go to the follow-up appointment with your doctor. Hibiclens and surgical instructions reviewed. Patient verbalized understanding. documented in this encounter [facility] 08-22-2024 Nurse Note Preoperative Education Checklist- General Surgery date: 08/27/24 Surgery time: 1245 p.m. Arrival time: 1045 a.m. 1. Bring a photo ID and your insurance card with you the day of surgery. You will check in at the main lobby of the [facility]- registration desk is straight ahead as soon as you walk in. Tell them you are here for surgery. 2. If you have a Living Will/Durable Power of Car [employer] for Health Care that is not on file here, please bring a copy the day of surgery. 3. Please shower/bathe the night before surgery with the provided soap or wipes. Do not shower the morning of surgery- you will do use wipes when you arrive here at the hospital before getting into your surgical gown. Do not shave the area of your procedure for 2 days prior to your surgery. 4. NO powder, lotion, perfume/cologne, aftershave, make-up, deodorant, or hair products after you have bathed. 5. NO nail hungarian/acrylic on at least one finger. If you are having a hand, wrist or foot surgery then all nail hungarian and artificial/acrylic nails must be removed from that hand or foot. 6. Avoid ALL Aspirin and non-steroidal anti-inflammatory drugs and certain vitamins (Ibuprofen, Advil, Aleve, Excedrin, Meloxicam, Celebrex, fish/krill oil, etc.) for 7 days prior to surgery as instructed by your surgeon and/or your prescribing doctor. Tylenol IS ALLOWED. If you are on Ticlid, Xarelto, Eliquis, Pradaxa, Plavix or Coumadin, please check with your prescribing doctor for instructions for when to stop them. 7. If you use an inhaler, continue to use it routinely. 8. Nothing to eat or drink (not even water, gum, mints, or hard candy!) AFTER midnight prior to your surgery. 9. Take only medications that you are instructed to on the morning of surgery with a TINY SIP OF WATER. 10. Choose a responsible adult that will be able to drive you home when you are discharged from your hospital stay for your surgery and can stay with you in your home for 24 hours after your procedure. You must NOT drive any vehicle or operate any machinery for 24 hours after surgery. 11. When you dress for your appointment, please wear loose fitting clothing that is appropriate to accommodate your surgical area procedure. BRING WITH YOU ANY DEVICES YOU MAY NEED: RENÉE hose, ice machine, sling/swath, brace or special shoe, oversized zip-up or button up shirt, CPAP machine if staying overnight. 12. Do NOT wear jewelry, watches, or any piercings or metal for surgery- leave these valuables and money at home. 13. Do NOT wear contact lenses for surgery- glasses are okay if needed. 14. The anesthesiologist will talk with you the day of surgery and will ask you to sign a Consent Form. 15. Refrain from smoking or any type of tobacco use for at least 8 hours and marijuana for 24 hours prior to arrival for your surgery. 16. If a GREEN BLOOD band is given to you, please bring it with you for the day of surgery. 17. Notify your surgeon if you develop any illness before your surgery. 18. If you are staying overnight, please DO NOT BRING your home medications with you. 19. If you have any questions prior to surgery, please call the Preadmission Testing office at [phone], Mon.-Fri. 7 a.m.-3 p.m. Leave a voicemail if needed. Pre-Surgery Instructions: Medication Instructions alendronate (FOSAMAX) 70 mg tablet Stop taking 0 days prior to procedure ALPRAZolam (XANAX) 0.5 mg tablet Stop taking 0 days prior to procedure aspirin 81 mg Stop taking 1 week prior to procedure atorvastatin (LIPITOR) 10 mg tablet Stop taking 0 days prior to procedure escitalopram (LEXAPRO) 10 mg tablet Stop taking 0 days prior to procedure pantoprazole (PROTONIX) 20 mg EC tablet Take morning of procedure How to Avoid an Infection after Your Surgery Your doctor will give you specific instructions, but remember: -ALWAYS wash hands before caring for your incision. -No picking, scratching, or rubbing your incision. -No creams, lotion, powder, rubbing alcohol or hydrogen peroxide on the incision (can harm the tissue and slow healing). -Your doctor will give you specific instructions for what type of dressing you will need and how often it will need changed for infection purposes. -No tight clothing on incision. -Do not allow anyone to touch your incision unless they are cleaning, checking, or redressing it (be sure they wash their hands first). -No contact of your incision with pets; avoid sleeping with pets. -Take full course of antibiotic if prescribed for you after surgery- do not stop unless directed to by your physician. You may also be given an antibiotic prior to your surgery to help prevent surgical site infections. -Eat a healthy and varied diet including proteins, fruits, and vegetables to help promote wound healing and keep blood sugars under control if you are diabetic. -Smoking slows the healing process by decreasing the amount of oxygen in your blood that is needed for tissue healing. Try to avoid or stop smoking if possible. LOOK at your incision each morning and each night to check the progress of healing. Some soreness, numbness, itching and/or mild bruising around the incision is normal. Call your doctor if you notice any of the following: -Increased redness or hardening around the incision area. -Increased pain at the incision site. -Incision feels hot to the touch. -Swelling or pulling apart of the incision edges. -Yellow or green drainage or foul odor coming from the incision. -Bleeding from the incision (apply pressure as needed). -Fever higher than 101 degrees Fahrenheit for more than 4 hours. SHOWERING: Your doctor will give you specific instructions, but remember: -Be careful getting into and out of the shower. -Showers should be quick (5 minutes or less). -Use a clean washcloth to gently wash your incision with soap and water and pat the area dry with a clean towel. -No re-using wash cloths or towels; get a fresh one to clean your incision. -Do not soak in the bathtub, go swimming or use a hot tub (Jacuzzi), or perform activities where your incision is submerged in water or exposed to any fluids or substances until instructed by your doctor. -If your have the sticky strips (steri-strips) over the incision, it is OK to shower with them. Do not remove them. Let them fall off on their own. If you have a question, call your doctor s office. Go to the follow-up appointment with your doctor. [facility] 08-22-2024 Nurse Note Hibiclens and surgical instructions reviewed. Patient verbalized understanding. [facility] 08-14-2024 History of Presen t illness Narrative Images from the original note were not included. [facility] GENER[facility] [address] [place] [address] Progress NOTE CHIEF COMPLAINT Chief Complaint Patient presents with Follow-up Follow up from ultrasound performed 07/25/24, discuss surgery Flakita Paredes is a 69 y.o. female presents along with her to review results of her ultrasound of the right axilla to rule out lymphadenopathy versus a lipoma. The ultrasound did show A lipoma measuring 2.9 x 1.5 x 1.0. She has a history of lipomas of the upper extremities. She wishes to see about having it excised. Reason for Exam Right axillary lymphadenopathy versus lipoma Dx: Axillary adenopathy [R59.0 (ICD-10-CM)] PACS Images Show images for Ultrasound extremity non vascular limited right Ultrasound extremity non vascular limited right Order: [id number] Status: Final result Visible to patient: Yes (seen) Next appt: None Dx: Axillary adenopathy 1 Result Note 1 Follow-up Encounter Details Reading Physician Reading Date Result Priority Jas Almazan MD [phone] 07/26/2024 Routine Narrative & Impression Clinical history: Axillary adenopathy versus lipoma. Limited ultrasound right upper extremity: 07/25/2024 FINDINGS: Targeted ultrasound evaluation was performed in the area of clinical symptoms. In the subcutaneous fat there is a circumscribed isoechoic lesion estimated to measure 2.9 x 1.5 x 1.0 cm. Color Doppler images demonstrate no hyperemia or irregular flow within this area Nonenlarged lymph nodes are present within the axilla with minimally lobular appearance. There is no definite cortical thickening. The largest has a short axis diameter of less than 1 cm. IMPRESSION: Probable lipoma measuring 2.9 cm in the area of clinical symptoms. Axillary lymph nodes have benign appearance. Clinical follow-up recommended. Finalized by Jas Almazan MD on 07/26/2024 6:11 AM Exam Ended: 07/25/24 13:08 EST Last Resulted: 01/24/25 06:11 EST MEDICATION Current Outpatient Medications: alendronate (FOSAMAX) 70 mg tablet, Take 1 tablet (70 mg total) by mouth every 7 days. In a.m. with water on empty stomach, nothing else by mouth and remain upright for 30min, Disp: , Rfl: ALPRAZolam (XANAX) 0.5 mg tablet, Take 1 tablet (0.5 mg total) by mouth 3 (three) times a day as needed., Disp: , Rfl: 0 aspirin 81 mg, Take 1 tablet (81 mg total) by mouth in the morning., Disp: , Rfl: atorvastatin (LIPITOR) 10 mg tablet, Take 1 tablet (10 mg total) by mouth in the morning., Disp: , Rfl: escitalopram (LEXAPRO) 10 mg tablet, Take 1 tablet (10 mg total) by mouth in the morning., Disp: , Rfl: pantoprazole (PROTONIX) 20 mg EC tablet, Take 1 tablet (20 mg total) by mouth in the morning., Disp: , Rfl: ALLERGY Allergies Allergen Reactions Penicillins Anaphylaxis Avelox [Moxifloxacin] Cedax [Ceftibuten] Ciprofloxacin Corticosteroids (Glucocorticoids) Cortisporin [Vaaikwgr-Yxfxqchqw-Oz] Dyazide [Triamterene-Hydrochlorothiazid] Minocin [Minocycline] Neosporin (Tse-Hhq-Qvyxs) [Lofoxhff-Eirkiukeykz-Ihgaglcmi] Prozac [Fluoxetine] Sulfa (Sulfonamide Antibiotics) Tetracycline Vioxx [Rofecoxib] MEDICAL HISTORY Past Medical History: Diagnosis Date Allergic Anxiety Cancer ([facility]) kidney- right kidney was removed Depression 1979 GERD (gastroesophageal reflux disease) 1999 History of kidney cancer Visual impairment SURGICAL HISTORY Past Surgical History: Procedure Laterality Date ANKLE FRACTURE SURGERY Right BREAST BIOPSY 2019 CARDIAC CATHETERIZATION 2014 CHOLECYSTECTOMY COLONOSCOPY COLONOSCOPY N/A 12/30/2021 Performed by Kenisha Hilliard DO at [facility] FRACTURE SURGERY 2020 Shattered right ankle HYSTERECTOMY KIDNEY SURGERY removed right kidney TUBAL LIGATION 1979 SOCIAL HISTORY Social History Socioeconomic History Marital status: Spouse name: Not on file Number of children: Not on file Years of education: Not on file Highest education level: Not on file Occupational History Not on file Tobacco Use Smoking status: Every Day Current packs/day: 0.50 Average packs/day: 0.5 packs/day for 50.0 years (25.0 ttl pk-yrs) Types: Cigarettes Smokeless tobacco: Never Vaping Use Vaping status: Never Used Substance and Sexual Activity Alcohol use: No Drug use: Never Sexual activity: Not Currently Partners: Male Other Topics Concern Not on file Social History Narrative Not on file Social Drivers of Health Financial Resource Strain: Not on file Food Insecurity: No Food Insecurity (08/14/2024) Hunger Screening Food Insecurity - Worry: Never True Food Insecurity - Inability: Never True Transportation Needs: Not on file Physical Activity: Not on file Stress: Not on file Social Connections: Not on file Interpersonal Safety: Not on file Housing Instability: Not on file FAMILY HISTORY Family History Problem Relation Age of Onset COPD Mother Diabetes Father Heart attack Father Stroke Sister Diabetes Sister No Known Problems Sister Diabetes Brother Kidney disease Brother Diabetes Brother Diabetes Paternal Aunt Diabetes Paternal Uncle Diabetes Paternal Grandmother Diabetes Paternal Grandfather Lung cancer Sister REVIEW OF SYSTEMS: Constitutional: Denies fevers, denies recent illnesses. Rest review of 10 systems negative except as above. PHYSICAL EXAM Constitutional: She is oriented to person, place, and time. Vital signs are normal. She appears well-developed and well-nourished. Cardiovascular: Normal rate and regular rhythm. Pulmonary/Chest: Effort normal and breath sounds normal. Abdominal: Soft. Obese Musculoskeletal: Normal range of motion. Lymphadenopathy: She has no cervical adenopathy. She has no axillary adenopathy. But in the right axilla she has a palpable mass approximately golf ball sized compatible with a lipoma with asymmetry in comparison to the left axilla Right: No inguinal and no supraclavicular adenopathy present. Left: No inguinal and no supraclavicular adenopathy present. Neurological: She is alert and oriented to person, place, and time. Skin: Skin is warm, dry and intact. Psychiatric: She has a normal mood and affect. Her speech is normal and behavior is normal. Cognition and memory are normal. IMPRESSION 1. Right axillary lipoma 2.9 x 1.5 x 1 cm 2. Obesity with a BMI of 38 3. History of right renal cell carcinoma status post nephrectomy ASSESSMENT & PLAN Excision of right axillary lipoma under general anesthesia. Risks benefits alternatives to surgery may include infection, bleeding, recurrence, pain, nerve injury, lymphedema of the right upper extremity, seroma formation, blood clots to legs or lungs pneumonia heart attack stroke or . She understood all the above and wished to proceed. Wafer Production Lead Worker was present for examination. Evaluation included: Preparing to see the patient (e.g., review of tests) Obtaining and/or reviewing separately obtained history Performing a medically appropriate examination and/or evaluation Counseling and educating the patient/family/caregiver Referring and communicating with other health customer care associate Lipoma of torso [D17.1] Kenisha Hilliard DO This note was created with the assistance of a speech recognition program. While intending to generate a timely document that accurately reflects the content of the visit, no guarantee can be provided that every grammatical or spelling mistake has been or will be identified or corrected. Thank you for your understanding. documented in this encounter [facility] 08-14-2024 Instructions Betzy Cotto [facility] - 08/14/2024 2:15 PM EST Are You Ready To Kick The Habit? Free Tobacco Cessation Resources [facility] Services [facility] provide all employees with free tobacco cessation services that include: Counseling to understand nicotine addiction Education about medications that can help you successfully quit Assistance with developing a plan to quit Call to set up an individual appointment or find out when group classes will be held: Alfredo yanez [facility]: [phone] [facility]: [phone] [facility]: [phone] [facility]: [phone] Quit Smoking Action Plan and Resources [facility] offers an eight-week, online smoking cessation plan to all [facility] employees, regardless of whether [place] is your medical insurance provider. Go to [email or web address].[email or web address]/employeewell ness and click the Health Risk Assessment and Resources link to get started. In the Sxrhu9Vsveij menu, click Action Plans instead of Health Risk Assessment to access the Quit Smoking Action Plan. Additional smoking cessation resources are also available to all [facility] employees on the Opxvl3Togqhs web page at www.[employer].com/quit smoking. [place] Tobacco Cessation Program If [place] is your medical insurance provider, there are more free resources available to you, including: No copays or deductibles on local tobacco cessation counseling services to help you quit Prescription assistance for tobacco cessation medications to help you quit For details about the tobacco cessation program available to [place] members, go to www.[employer] Experience.[employer]s (Search: Tobacco Cessation Program). [place] Tobacco Quit Line 0-874-SZZA-NOW ( ) is a toll-free, telephonic service that helps [place] residents quit smoking and using tobacco. It is staffed by experts who tailor a quit plan for you and provide you with advice. [place] Tobacco Quit Line 9-699-YURS-NOW ( ) is a toll-free, telephonic service that helps [place] residents quit smoking and using tobacco. It is staffed by experts who tailor a quit plan for you and provide you with advice. Two weeks of nicotine replacement therapy may be provided at no charge, if needed. Additional Resources These national organizations also offer free information and resources to help you quit tobacco: Canadian Cancer Society--www.cancer.org/healthy/ stayawayfromtobacco Canadian Heart Association--www.heart.org (Search: Quit Smoking) Centers for Disease Control and Prevention--www.cdc.gov/tobacco Canadian Lung Association--www.lungusa.org documented in this encounter [facility] 08-05-2024 History of Presen t illness Narrative Images from the original note were not included. Subjective Flakita Paredes is a 69 y.o. female status post excision of lipomas x4 on right and left upper extremities. She is doing well and has no concerns. She denies fever, chills, drainage. Objective There were no vitals filed for this visit. Physical Exam Constitutional: General: She is not in acute distress. Appearance: Normal appearance. She is not ill-appearing. HENT: Head: Normocephalic and atraumatic. Mouth/Throat: Mouth: Mucous membranes are moist. Eyes: Pupils: Pupils are equal, round, and reactive to light. Cardiovascular: Rate and Rhythm: Normal rate. Pulmonary: Effort: Pulmonary effort is normal. No respiratory distress. Abdominal: General: There is no distension. Musculoskeletal: General: Normal range of motion. Skin: General: Skin is warm and dry. Comments: RUE incision site x1 clean, dry and intact. LUE incision sites x3 clean, dry and intact. All sutures removed in office today. No signs of infection. Neurological: Mental Status: She is alert and oriented to person, place, and time. Mental status is at baseline. Final Pathologic Diagnosis 1. Right upper extremity lipoma, excision: Angiolipoma 2. Left upper extremity top lipoma, excision: Angiolipoma. 3. Left forearm lipoma, excision: Angiolipoma. 4. Left upper extremity bottom lipoma, excision: Angiolipoma. Assessment Flakita Paredes is a 69 y.o.female status post excision of lipomas x4. Plan Final pathology discussed and given to patient in office today. Follow-up to discuss surgery for right axillary lipoma. Lipoma of left upper extremity [D17.22] SARA CRAWFORD [facility] [place] This note was created with the assistance of a speech recognition program. While intending to generate a timely document that accurately reflects the content of the visit, no guarantee can be provided that every grammatical or spelling mistake has been or will be identified or corrected. Thank you for your understanding. SARA Crawford 08/05/24 0949 documented in this encounter [facility] 07-29-2024 Miscellaneous Notes ----- Message from Dr. Kenisha Hilliard DO sent at 07/26/2024 9:33 AM EST ----- Please let her know that there is a small lipoma there and that I would need to see her again to set up surgery if she wishes to have it removed. Thanks, Dr. Hdz Spoke with patient regarding ultrasound results. Patient verbally understood with no further questions. Will schedule a follow up appointment with Dr. Hilliard to discuss surgery. documented in this encounter [facility] 07-29-2024 Telephone encounter Note ----- Message from Dr. Kenisha Hilliard DO sent at 07/26/2024 9:33 AM EST ----- Please let her know that there is a small lipoma there and that I would need to see her again to set up surgery if she wishes to have it removed. Thanks, Dr. Hdz [facility] 07-29-2024 Telephone encounter Note Spoke with patient regarding ultrasound results. Patient verbally understood with no further questions. Will schedule a follow up appointment with Dr. Hilliard to discuss surgery. [facility] 07-24-2024 History of Presen t illness Narrative Images from the original note were not included. [facility] [id number] Progress NOTE CHIEF COMPLAINT Chief Complaint Patient presents with Suspicious Skin Lesion Excision of multiple lipomas Flakita Paredes is a 69 y.o. female who presents for excision of multiple lipomas 3 on the left upper extremity and 1 on the right upper extremity. She is also complaining of a lump in her right axilla and states that she is up-to-date on mammograms but has not had a physical examination by her PCP. She denies palpating any masses. Patient's last mammogram was normal and performed at the [facility] in November of 2023. We will obtain copies of that. MEDICATION Current Outpatient Medications: alendronate (FOSAMAX) 70 mg tablet, Take 1 tablet (70 mg total) by mouth every 7 days. In a.m. with water on empty stomach, nothing else by mouth and remain upright for 30min, Disp: , Rfl: ALPRAZolam (XANAX) 0.5 mg tablet, Take 1 tablet (0.5 mg total) by mouth 3 (three) times a day as needed., Disp: , Rfl: 0 aspirin 81 mg, Take 1 tablet (81 mg total) by mouth in the morning., Disp: , Rfl: atorvastatin (LIPITOR) 10 mg tablet, Take 1 tablet (10 mg total) by mouth in the morning., Disp: , Rfl: escitalopram (LEXAPRO) 10 mg tablet, Take 1 tablet (10 mg total) by mouth in the morning., Disp: , Rfl: pantoprazole (PROTONIX) 20 mg EC tablet, Take 1 tablet (20 mg total) by mouth in the morning., Disp: , Rfl: ALLERGY Allergies Allergen Reactions Penicillins Anaphylaxis Avelox [Moxifloxacin] Cedax [Ceftibuten] Ciprofloxacin Corticosteroids (Glucocorticoids) Cortisporin [Rrzapwqo-Unyksczus-Zm] Dyazide [Triamterene-Hydrochlorothiazid] Minocin [Minocycline] Neosporin (Ddb-Vmg-Tfbvm) [Zwyelczg-Djvarklyauc-Gaeeusell] Prozac [Fluoxetine] Sulfa (Sulfonamide Antibiotics) Tetracycline Vioxx [Rofecoxib] MEDICAL HISTORY Past Medical History: Diagnosis Date Allergic Anxiety Cancer ([facility]) kidney- right kidney was removed Depression 1979 GERD (gastroesophageal reflux disease) 1999 History of kidney cancer Visual impairment SURGICAL HISTORY Past Surgical History: Procedure Laterality Date ANKLE FRACTURE SURGERY Right BREAST BIOPSY 2019 CARDIAC CATHETERIZATION 2014 CHOLECYSTECTOMY COLONOSCOPY COLONOSCOPY N/A 12/30/2021 Performed by Kenisha Hilliard DO at [facility] F[facility]CTURE SURGERY 2020 Shattered right ankle HYSTERECTOMY KIDNEY SURGERY removed right kidney TUBAL LIGATION 1979 SOCIAL HISTORY Social History Socioeconomic History Marital status: Spouse name: Not on file Number of children: Not on file Years of education: Not on file Highest education level: Not on file Occupational History Not on file Tobacco Use Smoking status: Every Day Current packs/day: 0.50 Average packs/day: 0.5 packs/day for 50.0 years (25.0 ttl pk-yrs) Types: Cigarettes Smokeless tobacco: Never Vaping Use Vaping status: Never Used Substance and Sexual Activity Alcohol use: No Drug use: Never Sexual activity: Not Currently Partners: Male Other Topics Concern Not on file Social History Narrative Not on file Social Drivers of Health Financial Resource Strain: Not on file Food Insecurity: No Food Insecurity (07/24/2024) Hunger Screening Food Insecurity - Worry: Never True Food Insecurity - Inability: Never True Transportation Needs: Not on file Physical Activity: Not on file Stress: Not on file Social Connections: Not on file Interpersonal Safety: Not on file Housing Instability: Not on file FAMILY HISTORY Family History Problem Relation Age of Onset COPD Mother Diabetes Father Heart attack Father Stroke Sister Diabetes Sister No Known Problems Sister Diabetes Brother Kidney disease Brother Diabetes Brother Diabetes Paternal Aunt Diabetes Paternal Uncle Diabetes Paternal Grandmother Diabetes Paternal Grandfather Lung cancer Sister REVIEW OF SYSTEMS: Constitutional: Denies fevers, denies recent illnesses. Eyes: Denies any vision changes. ENT: Denies any throat pain. Neck: Denies any neck pain. Cardiovascular denies chest pain. Denies palpitations. Respiratory: Denies shortness of breath, denies cough, denies history of asthma or any other pulmonary illnesses. Gastrointestinal: Negative for abdominal pain, nausea, melena, hematochezia, weight loss, change in bowel habits or weight loss or emesis. Genitourinary negative for dysuria hematuria urinary frequency or urgency. Musculoskeletal: Negative for extremity pains or joint discomfort. Neurologic: No change in sensation or paresthesias or history of seizure disorder skin: No rashes. Hematologic: No anemia. No purpura. No petechiae and no prolonged or excessive bleeding Allergic and immunologic: No pruritus. No swelling. Endocrine: No unexplained weight loss. No polydipsia. No polyuria. No polyphagia. PHYSICAL EXAM Constitutional: She is oriented to person, place, and time. Vital signs are normal. She appears well-developed and well-nourished. HEENT: Head: Normocephalic and atraumatic. Eyes: Conjunctivae, EOM and lids are normal. Neck: Trachea normal. Neck supple. No thyroid mass present. 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 No palpable masses noted in either breast. She was examined in the sitting and supine positions. Abdominal: Soft. Normal appearance. Obese She exhibits no distension and no mass. Healed Aysha scar in the right upper quadrant; No hernia. Musculoskeletal: Normal range of motion. Lymphadenopathy: She has no cervical adenopathy. She has no axillary adenopathy on the left but on the right only in the supine position there is fullness in the upper right axilla? Lipoma versus axillary adenopathy versus normal fatty tissue. Neurological: She is alert and oriented to person, place, and time. Skin: Skin is warm, dry and intact. Psychiatric: She has a normal mood and affect. Her speech is normal and behavior is normal. Cognition and memory are normal. IMPRESSION 1. Multiple lipomas left upper extremity and right upper extremity successfully excised; specimens to pathology 2. Right axillary mass probable lipoma versus normal tissue only palpable in the supine position rule out lymphadenopathy versus lipoma ASSESSMENT & PLAN 1. Ultrasound right axilla and return to office for further recommendations Procedure: All areas of the arms were prepped and draped usual sterile fashion. Informed consent was obtained. 1% xylocaine with epinephrine 5 cc used anesthetize each lesion and a small incision was made over the palpable lump and the right triceps area measured about a cm to a cm and a half it was excised and submitted for pathology. The wound was closed with 3-0 Vicryl suture in interrupted fashion the skin was closed with 3-0 nylon suture in interrupted fashion. She had 2 lesions in the left biceps/triceps area; an incision was made over each area and a 1 cm mass was excised and submitted to pathology consistent with lipomas. There was another mass on the left forearm area which was excised similar fashion and all areas closed with 3-0 Vicryl suture in interrupted fashion and 3-0 nylon suture in interrupted fashion. Sterile dressings were placed. Specimens to pathology. Wound care precautions given. Tylenol or ice p.r.n. pain. She can expect to have bruising. Evaluation included: Preparing to see the patient (e.g., review of tests) Obtaining and/or reviewing separately obtained history Performing a medically appropriate examination and/or evaluation Counseling and educating the patient/family/caregiver Referring and communicating with other health customer care associate Lipoma of left upper extremity [D17.22] Kenisha Hilliard DO This note was created with the assistance of a speech recognition program. While intending to generate a timely document that accurately reflects the content of the visit, no guarantee can be provided that every grammatical or spelling mistake has been or will be identified or corrected. Thank you for your understanding. documented in this encounter [facility] [employer] [facility] 07-10-2024 History of Presen t illness Narrative Images from the original note were not included. [facility] [address] [place] [address] Progress NOTE CHIEF COMPLAINT Chief Complaint Patient presents with Mass 1 LEFT FOREARM, 2 UPPER LEFT, 1 RIGHT UPPER & 1 RIGHT LOWER LUMPS LIKE 2018, LIPOMAS SELF REFERRED Flakita Paredes is a 69 y.o. female Who presents today with complaints of multiple lumps on upper extremities. She has had previous lipomas removed by me. She wishes to have these removed as well. She complains of a lipoma in the left medial forearm near a vein and also 2 small ones on the left posterior triceps area and another 1 on the right upper extremity triceps area. She has had prior lipomas removed by me. MEDICATION Current Outpatient Medications: alendronate (FOSAMAX) 70 mg tablet, Take 1 tablet (70 mg total) by mouth every 7 days. In a.m. with water on empty stomach, nothing else by mouth and remain upright for 30min, Disp: , Rfl: ALPRAZolam (XANAX) 0.5 mg tablet, Take 1 tablet (0.5 mg total) by mouth 3 (three) times a day as needed., Disp: , Rfl: 0 aspirin 81 mg, Take 1 tablet (81 mg total) by mouth in the morning., Disp: , Rfl: atorvastatin (LIPITOR) 10 mg tablet, Take 1 tablet (10 mg total) by mouth in the morning., Disp: , Rfl: escitalopram (LEXAPRO) 10 mg tablet, Take 1 tablet (10 mg total) by mouth in the morning., Disp: , Rfl: pantoprazole (PROTONIX) 20 mg EC tablet, Take 1 tablet (20 mg total) by mouth in the morning., Disp: , Rfl: ALLERGY Allergies Allergen Reactions Penicillins Anaphylaxis Avelox [Moxifloxacin] Cedax [Ceftibuten] Ciprofloxacin Corticosteroids (Glucocorticoids) Cortisporin [Uytbaict-Ugypmognl-Pd] Dyazide [Triamterene-Hydrochlorothiazid] Minocin [Minocycline] Neosporin (Nte-Lvi-Cyslj) [Vlxmsrfs-Btwabtobzkk-Azbhghxtx] Prozac [Fluoxetine] Sulfa (Sulfonamide Antibiotics) Tetracycline Vioxx [Rofecoxib] MEDICAL HISTORY Past Medical History: Diagnosis Date Allergic Anxiety Cancer ([facility]) kidney- right kidney was removed Depression 1979 GERD (gastroesophageal reflux disease) 1999 History of kidney cancer Visual impairment SURGICAL HISTORY Past Surgical History: Procedure Laterality Date ANKLE FRACTURE SURGERY Right BREAST BIOPSY 2019 CARDIAC CATHETERIZATION 2014 CHOLECYSTECTOMY COLONOSCOPY COLONOSCOPY N/A 12/30/2021 Performed by Kenisha Hilliard DO at [facility] 2020 Shattered right ankle HYSTERECTOMY KIDNEY SURGERY removed right kidney TUBAL LIGATION 1979 SOCIAL HISTORY Social History Socioeconomic History Marital status: Spouse name: Not on file Number of children: Not on file Years of education: Not on file Highest education level: Not on file Occupational History Not on file Tobacco Use Smoking status: Every Day Current packs/day: 0.50 Average packs/day: 0.5 packs/day for 50.0 years (25.0 ttl pk-yrs) Types: Cigarettes Smokeless tobacco: Never Vaping Use Vaping status: Never Used Substance and Sexual Activity Alcohol use: No Drug use: Never Sexual activity: Not Currently Partners: Male Other Topics Concern Not on file Social History Narrative Not on file Social Drivers of Health Financial Resource Strain: Not on file Food Insecurity: Not on file Transportation Needs: Not on file Physical Activity: Not on file Stress: Not on file Social Connections: Not on file Interpersonal Safety: Not on file Housing Instability: Not on file FAMILY HISTORY Family History Problem Relation Age of Onset COPD Mother Diabetes Father Heart attack Father Stroke Sister Diabetes Sister No Known Problems Sister Diabetes Brother Kidney disease Brother Diabetes Brother Diabetes Paternal Aunt Diabetes Paternal Uncle Diabetes Paternal Grandmother Diabetes Paternal Grandfather Lung cancer Sister REVIEW OF SYSTEMS: Constitutional: Denies fevers, denies recent illnesses. Rest review of 10 systems negative except as above. PHYSICAL EXAM Constitutional: She is oriented to person, place, and time. Vital signs are normal. She appears well-developed and well-nourished. Left upper extremity on the volar surface of the left forearm she has a palpable 1/2-1 cm lym lipoma; on the posterior triceps area she has a another 2 smaller ones adjacent to 1 another about 1/2 cm to 1 cm in size and then on the right upper extremity in the right triceps areas another 1/2-1 cm lipoma Neurological: She is alert and oriented to person, place, and time. Skin: Skin is warm, dry and intact. Psychiatric: She has a normal mood and affect. Her speech is normal and behavior is normal. Cognition and memory are normal. IMPRESSION Lipomas left upper extremity and right upper extremity ASSESSMENT & PLAN Return to the office at later date for excision under local anesthesia. Risks benefits alternatives to procedure may include infection bleeding pain recurrence. She understood and wished to proceed. Evaluation included: Preparing to see the patient (e.g., review of tests) Obtaining and/or reviewing separately obtained history Performing a medically appropriate examination and/or evaluation Counseling and educating the patient/family/caregiver Referring and communicating with other health customer care associate Lipoma of left upper extremity [D17.22] Kenisha Hilliard DO This note was created with the assistance of a speech recognition program. While intending to generate a timely document that accurately reflects the content of the visit, no guarantee can be provided that every grammatical or spelling mistake has been or will be identified or corrected. Thank you for your understanding. documented in this encounter [facility] [employer] [facility] 07-08-2024 Note Patient Education Nutrition BMI for Adults Body mass index (BMI) is a number found using a person's weight and height. BMI can help tell how much of a person's weight is made up of fat. BMI does not measure body fat directly. It is used instead of tests that directly measure body fat, which can be difficult and expensive. What are BMI measurements used for? BMI is useful to: ??? Find out if your weight puts you at higher risk for medical problems. ??? Help recommend changes, such as in diet and exercise. This can help you reach a healthy weight. BMI screening can be done again to see if these changes are working. How is BMI calculated? Your height and weight are measured. The BMI is found from those numbers. This can be done with U.S. or metric measurements. Note that charts and online BMI calculators are available to help you find your BMI quickly and easily without doing these calculations. To calculate your BMI in U.S. measurements: 1. Measure your weight in pounds (lb). 2. Multiply the number of pounds by 703. ??? So, for an adult who weighs 150 lb, multiply that number by 703: 150 x 703, which equals 105,450. 3. Measure your height in inches. Then multiply that number by itself to get a measurement called inches squared. ??? So, for an adult who is 70 inches tall, the inches squared measurement is 70 inches x 70 inches, which equals 4,900 inches squared. 4. Divide the total from step 2 (number of lb x 703) by the total from step 3 (inches squared): 105,450 ? 4,900 = 21.5. This is your BMI. To calculate your BMI in metric measurements: 1. Measure your weight in kilograms (kg). ??? For this example, the weight is 70 kg. 2. Measure your height in meters (m). Then multiply that number by itself to get a measurement called meters squared. ??? So, for an adult who is 1.75 m tall, the meters squared measurement is 1.75 m x 1.75 m, which equals 3.1 meters squared. 3. Divide the number of kilograms (your weight) by the meters squared number. In this example: 70 ? 3.1 = 22.6. This is your BMI. What do the results mean? BMI charts are used to see if you are underweight, normal weight, overweight, or obese. The following guidelines will be used: ??? Underweight: BMI less than 18.5. ??? Normal weight: BMI between 18.5 and 24.9. ??? Overweight: BMI between 25 and 29.9. ??? Obese: BMI of 30 or above. BMI is a tool and cannot diagnose a condition. Talk with your health care provider about what your BMI means for you. Keep these notes in mind: ??? Weight includes fat and muscle. Someone with a muscular build, such as an athlete, may have a BMI that is higher than 24.9. In cases like these, BMI is not a correct measure of body fat. ??? If you have a BMI of 25 or higher, your provider may need to do more testing to find out if excess body fat is the cause. ??? BMI is measured the same way for males and females. Females usually have more body fat than males of the same height and weight. Where to find more information For more information about BMI, including tools to quickly find your BMI, go to: ??? Centers for Disease Control and Prevention: cdc.gov ??? Canadian Heart Association: heart.org ??? National Heart, Lung, and Blood [place]: nhlbi.nih.gov This information is not intended to replace advice given to you by your health care provider. Make sure you discuss any questions you have with your health care provider. Document Revised: 03/09/2023 Document Reviewed: 03/02/2023 Elsevier Patient Education ? 2023 [employer]. [facility] 08-01-2022 Note PROCEDURE: XR GI UPP ER AIR KUB DUAL CONTRAST, XR CINERADIOGRAPHY COMPARISON: None. HISTORY: Acid reflux TECHNIQUE: An air contrast upper gastrointestinal series was performed in the usual manner. Standard level fluoroscopic mode of operation utilized. FINDINGS: ESOPHAGUS:No visible obstruction, dilatation, reflux or hernia STOMACH: No obstruction, mass, or ulceration. Normal motility. DUODENUM:No ulceration or diverticulum. OTHER: Negative. IMPRESSION: 1. Normal upper GI study. No gastroesophageal reflux or suspicious findings. Electronically authenticated by: DEEPAK SEGOVIA Date: 2022-08-01 10:38 [facility] 08-01-2022 Note PROCEDURE: XR GI UPP ER AIR KUB DUAL CONTRAST, XR CINERADIOGRAPHY COMPARISON: None. HISTORY: Acid reflux TECHNIQUE: An air contrast upper gastrointestinal series was performed in the usual manner. Standard level fluoroscopic mode of operation utilized. FINDINGS: ESOPHAGUS:No visible obstruction, dilatation, reflux or hernia STOMACH: No obstruction, mass, or ulceration. Normal motility. DUODENUM:No ulceration or diverticulum. OTHER: Negative. IMPRESSION: 1. Normal upper GI study. No gastroesophageal reflux or suspicious findings. Electronically authenticated by: DEEPAK SEGOVIA Date: 2022-08-01 10:38 [facility] 07-15-2022 Hospital Discharg e instructions Patient Education 07/15/2022 17:44:52 Viral Illness, Adult Viral Illness, Adult Viruses are tiny germs that can get into a person's body and cause illness. There are many different types of viruses, and they cause many types of illness. Viral illnesses can range from mild to severe. They can affect various parts of the body. Common illnesses that are caused by a virus include colds and the flu. Viral illnesses also include serious conditions such as HIV/AIDS (human immunodeficiency virus/acquired immunodeficiency syndrome). A few viruses have been linked to certain cancers. What are the causes? Many types of viruses can cause illness. Viruses invade cells in your body, multiply, and cause the infected cells to malfunction or . When the cell dies, it releases more of the virus. When this happens, you develop symptoms of the illness, and the virus continues to spread to other cells. If the virus takes over the function of the cell, it can cause the cell to divide and grow out of control, as is the case when a virus causes cancer. Different viruses get into the body in different ways. You can get a virus by: Swallowing food or water that is contaminated with the virus. Breathing in droplets that have been coughed or sneezed into the air by an infected person. Touching a surface that has been contaminated with the virus and then touching your eyes, nose, or mouth. Being bitten by an insect or animal that carries the virus. Having sexual contact with a person who is infected with the virus. Being exposed to blood or fluids that contain the virus, either through an open cut or during a transfusion. If a virus enters your body, your body's defense system (immune system) will try to fight the virus. You may be at higher risk for a viral illness if your immune system is weak. What are the signs or symptoms? Symptoms vary depending on the type of virus and the location of the cells that it invades. Common symptoms of the main types of viral illnesses include: Cold and flu viruses Fever. Headache. Sore throat. Muscle aches. Nasal congestion. Cough. Digestive system (gastrointestinal) viruses Fever. Abdominal pain. Nausea. Diarrhea. Liver viruses (hepatitis) Loss of appetite. Tiredness. Yellowing of the skin (jaundice). Brain and spinal cord viruses Fever. Headache. Stiff neck. Nausea and vomiting. Confusion or sleepiness. Skin viruses Warts. Itching. Rash. Sexually transmitted viruses Discharge. Swelling. Redness. Rash. How is this treated? Viruses can be difficult to treat because they live within cells. Antibiotic medicines do not treat viruses because these drugs do not get inside cells. Treatment for a viral illness may include: Resting and drinking plenty of fluids. Medicines to relieve symptoms. These can include qutw-vaf-kaeluan medicine for pain and fever, medicines for cough or congestion, and medicines to relieve diarrhea. Antiviral medicines. These drugs are available only for certain types of viruses. They may help reduce flu symptoms if taken early. There are also many antiviral medicines for hepatitis and HIV/AIDS. Some viral illnesses can be prevented with vaccinations. A common example is the flu shot. Follow these instructions at home: Medicines Take dzmh-hrm-iqlyaob and prescription medicines only as told by your health care provider. If you were prescribed an antiviral medicine, take it as told by your health care provider. Do not stop taking the medicine even if you start to feel better. Be aware of when antibiotics are needed and when they are not needed. Antibiotics do not treat viruses. If your health care provider thinks that you may have a bacterial infection as well as a viral infection, you may get an antibiotic. ?Do not ask for an antibiotic prescription if you have been diagnosed with a viral illness. That will not make your illness go away faster. ?Frequently taking antibiotics when they are not needed can lead to antibiotic resistance. When this develops, the medicine no longer works against the bacteria that it normally fights. General instructions Drink enough fluids to keep your urine clear or pale yellow. Rest as much as possible. Return to your normal activities as told by your health care provider. Ask your health care provider what activities are safe for you. Keep all follow-up visits as told by your health care provider. This is important. How is this prevented? Take these actions to reduce your risk of viral infection: Eat a healthy diet and get enough rest. Wash your hands often with soap and water. This is especially important when you are in public places. If soap and water are not available, use hand sagger filler. Avoid close contact with friends and family who have a viral illness. If you travel to areas where viral gastrointestinal infection is common, avoid drinking water or eating raw food. Keep your immunizations up to date. Get a flu shot every year as told by your health care provider. Do not share toothbrushes, nail clippers, razors, or needles with other people. Always practice safe sex. Contact a health care provider if: You have symptoms of a viral illness that do not go away. Your symptoms come back after going away. Your symptoms get worse. Get help right away if: You have trouble breathing. You have a severe headache or a stiff neck. You have severe vomiting or abdominal pain. This information is not intended to replace advice given to you by your health care provider. Make sure you discuss any questions you have with your health care provider. Document Released: 10/28/2016 Document Revised: 06/01/2018 Document Reviewed: 10/28/2016 [employer] Patient Education 2020 [employer]. Follow Up Care 07/15/2022 14:04:44 With:AGUSTINA WEST Address: [address] [place] [id number] Business (1) When:07/18/2022 17:03:13 [facility] 07-15-2022 Evaluation + Plan note Extrac renée from: Title:ED Note Author:Gildardo Cha PA-C te:07/15/22 Cough (R05.9: Cough, unspeci fied) Diarrhea (R19.7: Diarrhea, unspecified) Nausea (R11.0: Nausea) Orders: promethazine, 12.5 mg = 0.5 mL, Injection, IV Push, Once, Stop date 07/15/22 14:19:00 EST, STAT, Start date 07/15/22 14:19:00 EST, 07/15/22 14:19:00 EST promethazine, 25 mg = 1 tab(s), Oral, TID, # 15 tab(s), Refills(s) 0, Pharmacy: [facility], 154.9, cm, 07/15/22 14:17:00 EST, Height/Length Dosing, 89, kg, 07/15/22 14:17:00 EST, Weight Dosing Sodium Chloride 0.9% intravenous solution, 1,000 mL, Soln-IV, IV, Once, Stop date 07/15/22 14:19:00 EST, STAT, Start date 07/15/22 14:19:00 EST, mL/hr, Infuse over 61, minute(s) Automated Diff Basic Metabolic Panel CBC w/ Auto Diff CT Abdomen/Pelvis w/ Contrast ECG 12 Lead Adult eGFR Hepatic Function Panel Lipase Level Troponin 0 Hr. Troponin 3 Hr. Troponin 6 Hr. Troponin 9 Hr. UA With Cult Reflex XR Chest Single View [facility]02-14-2022 NotePROCEDURE: XR ANKLE RT MIN 3 VIEWS COMPARISON: 03/24/2021 HISTORY: Postoperative care FINDINGS: BONES:Interval removal of medial and lateral fixation plates and screws and single medial malleolus screw. Stable posterior malleolus plate and screws. No acute fracture or dislocation. SOFT TISSUES:Moderate diffuse soft tissue swelling. Subcutaneous emphysema. Findings are consistent with postsurgical changes EFFUSION:None visible. OTHER: Negative. IMPRESSION: Interval removal of internal fixation hardware along the medial and lateral malleoli Electronically authenticated by: NICOLAS ARNOLD Date: 2021-08-16 11:22[facility]02-14-2022 NotePROCEDURE: XR ANKLE RT 2V COMPARISON: 08/26/2020 HISTORY: Pain of right ankle joint FINDINGS: 14 seconds of fluoroscopy. 7 fluoroscopic images Images demonstrate interval removal of medial lateral fixation plate and screws. Removal of medial malleolus screw. A posterior tibial plate remains in place IMPRESSION: Interval removal of medial and lateral internal fixation hardware Electronically authenticated by: NICOLAS ANROLD Date: 2021-08-16 10:46[facility] App[facility]ments Appointment Date:12/04/2023 09:30:00 AM Scheduled Provider: Location:[facility] Appointment Type:FM Medicare Wellness Subsequent Diagnostic Tests Pending * HCV Antibody RFX to Quant PCR 11/30/22 Future Scheduled Tests Laboratory* Lipid Panel 11/30/22 Radiology* CT Chest, Low Dose Screening [facility]ments Appointment Date:12/19/2022 07:40:00 AM Scheduled Provider:Elida Anand MD Location:[facility] Appointment Type: ER/Hospital Follow Up Appointment Date:12/04/2023 09:30:00 AM Scheduled Provider: Location:[facility] Appointment Type:FM Medicare Wellness [facility] Future App[facility]ments Appointment Date:07/31/2023 09:15:00 AM Scheduled Provider:Elida Anand MD Location:[facility] Appointment Type: Open Appointment Date:12/04/2023 09:30:00 AM Scheduled Provider: Location:[facility] Appointment Type:FM Medicare Wellness [facility] App[facility]ments Appointment Date:05/23/2023 08:45:00 AM Scheduled Provider: [facility] Appoint[facility] Type:PT Vestib 45 (FT) Appointment Date:06/02/2023 09:30:00 AM Scheduled Provider: [facility] Appointment Type:PT Vestib 45 (FT) Appointment Date:06/06/2023 11:15:00 AM Scheduled Provider: [facility] [place] Appointment Type:PT Vestib Re-eval (FT) Appointment Date:07/31/2023 09:15:00 AM Scheduled Provider:[facility] Open Appointment Date:12/04/2023 09:30:00 AM Scheduled Provider: Location:[facility] Appointment Type: Medicare Wellness [facility] Future App[facility]ments Appointment Date:09/25/2023 01:00:00 PM Scheduled Provider:Elida Anand MD [facility] Appointment Type: Open Appointment Date:12/04/2023 09:30:00 AM Scheduled Provider: Location:[facility] Appointment Type: Medicare Wellness Subsequent Future Scheduled Tests Radiology* CT Chest, Low Dose Screening 07/31/23 [facility]ments Appointment Date:01/01/2024 09:15:00 AM Scheduled Provider:Elida Anand MD [facility] Appointment Type: Open Appointment Date:12/03/2024 08:00:00 AM Scheduled Provider: Location:[facility] Appointment Type: Medicare Wellness [facility] Future Appointments Appointment Date:12/03/2024 08:00:00 AM Scheduled Provider: Location:[facility] Appointment Type: Medicare Wellness Subsequent [facility] Evaluation + Plan note Future Appointments Appointment Date:12/30/2024 10:00:00 AM Scheduled Provider: [facility] App[facility] Type:CT Chest, Low Dose Screening (FT) Appointment Date:01/06/2025 08:20:00 AM Scheduled Provider:Elida Anand MD [facility] Appointment Type:FM Open Appointment Date:12/03/2025 09:30:00 AM Scheduled Provider: Location:[facility] [place] Appointment Type: Medicare Wellness Subsequent Future Scheduled Tests Radiology* CT Chest, Low Dose Screening 12/30/24 [facility] evaluation noteNo assessment information available [facility] Work Phone: [email or web address] note* Diagnosis Lipoma of left upper extremity- Primary Lipoma of right upper extremity [facility] Lipoma of left upper extremity- Primary Lipoma of right upper extremity Axillary adenopathy Enlargement of lymph nodes [facility] Diagnosis Lipoma of left upper extremity- Primary Lipoma of right upper extremity [facility] Diagnosis Lipoma of torso- Primary Obesity (BMI 35.0-39.9 without comorbidity) History of renal cell carcinoma Preop examination- Primary Unspecified pre-operative examination [facility] Diagnosis Lipoma of right axilla- Primary [facility] Narrative No data available for this section [facility] No data available for this section [facility] filedocumented in this encounter [facility] filedocumented in this encounter [facility]Not on filedocumented in [facility] encounter [facility] No data available for this section [facility] Summary Purpose Family History No Family History Records FoundNo Family History Records Found No data available for this section No data available for this section No data available for this section No data available for this section No Family History Records Found No data available for this section No Family History Records FoundNo Family History Records Found No data available for this section No Family History Records FoundNo Family History Records Found No data available for this section No data available for this section No data available for this section No data available for this section No Family History Records FoundNo Family History Records FoundNo Family History Records Found Advance Directives No Advanced Directives Records FoundNo Advanced Directives Records FoundNo Advanced Directives Records FoundNo Advanced Directives Records FoundNo Advanced Directives Records FoundNo Advanced Directives Records FoundNo Advanced Directives Records FoundNo Advanced Directives Records FoundNo Advanced Directives Records FoundNo Advanced Directives Records Found Additional Source Comments Care Teams (unrecognized sec tion and content) Team Status: Inactive Member Role Status Dates Agustina West MD Primary Care Provider Active Rick Gordon DPM Attending Provider Active Team Status: Active Member Role Status Dates Agustina West MD Primary Care Provider Active Slubber Operator Relationship Specialty Start Date End Date Elida Anand MD [address] [place] [address] PCP - General Family Medicine 07/10/24 Slubber Operator Relationship Specialty Start Date End Date Elida Anand MD [address] [place] [address] PCP - General Family Medicine 07/10/24 Slubber Operator Relationship Specialty Start Date End Date Elida Anand MD [address] [place] [address] PCP - General Family Medicine 07/10/24 Slubber Operator Relationship Specialty Start Date End Date Elida Anand MD [address] [place] [address] PCP - General Family Medicine 07/10/24 Slubber Operator Relationship Specialty Start Date End Date Elida Anand MD [address] [place] [address] PCP - General Family Medicine 07/10/24 Slubber Operator Relationship Specialty Start Date End Date Elida Anand MD [address] [place] [address] PCP - General Family Medicine 07/10/24 Goals (unrecognized section and content) Goals may be documented in a n alternate section No data available for this section No data available for this section No data available for this section No data available for this section No data available for this section No data available for this section No data available for this section No data available for this section No data available for this sectionNot on filedocumented as of this encounterNot on filedocumented as of this encounterNot on filedocumented as of this encounterNot on filedocumented as of this encounterNot on filedocumented as of this encounterNot on filedocumented as of this encounterNot on filedocumented as of this encounter No data available for this section No data available for this section No data available for this section No data available for this section No data available for this section INFORMATION SOURCE (unrecogn ized section and content) DATE CREATED AUTHOR 06/01/2022 [facility] DATE CREATED AUTHOR AUTHOR'S ORGANIZ ATION 08/04/2022 [facility] DATE CREATED AUTHOR AUTHOR'S ORGANIZ ATION [facility]/19/2023 [facility] DATE CREATED AUTHOR AUTHOR'S ORGANIZ ATION 09/04/2024 [facility] DATE CREATED AUTHOR AUTHOR'S ORGANIZ ATION 09/12/2024 [facility] DATE CREATED AUTHOR AUTHOR'S ORGANIZ ATION 12/06/2024 [facility] DATE CREATED AUTHOR AUTHOR'S ORGANIZ ATION 12/10/2024 [facility] DATE CREATED AUTHOR AUTHOR'S ORGANIZ ATION 12/12/2024 [facility] DATE CREATED AUTHOR AUTHOR'S ORGANIZ ATION 12/20/2024 [facility] Reason for Visit (unrecogniz ed section and content) Reason Comments Mass 1 LEFT FOREARM, 2 UP PER LEFT, 1 RIGHT UPPER & 1 RIGHT LOWER LUMPS LIKE 2018, LIPOMAS SELF REFERRED Reason Comments Suspicious Skin Lesion Excision of multi ple lipomas Reason Comments POST-OP VISIT SUTURE REMOVAL, IN O FFICE EXCISION OF 4 CYSTS ON 07/24/24 Reason Comments [facility] performed 07/25/24, discuss surgery Reason Comments Post-op Post op excision of right axillary lipoma performed 08/27/24 at [facility] PERTAINING TO PATIENTS WHO ARE OR HAVE BEEN ENROLLED IN A CHEMICAL DEPENDENCY/SUBSTANCEABUSE PROGRAM, SOME INFORMATION MAY BE OMITTED. This clinical summary was aggregated from multiple sources. Caution should be exercised in using it in the provision of clinical care. This summary normalizes information from multiple sources, and as a consequence, information in this document may materially change the coding, format and clinical context of patient data. In addition, data may be omitted in some cases. CLINICAL DECISIONS SHOULD BE BASED ON THE PRIMARY CLINICAL RECORDS. [facility] [employer] [facility]. provides no warranty or guarantee of the accuracy or completeness of information in this document.
== END 2024-12-23 10:10 | disposition home or self-care (01) ==
LOC: MAMMO 10:09
PROVIDERS: PCP Family Medicine; Visit Provider Family Medicine
DX: Z12.31 Encounter for screening mammogram for malignant neoplasm of breast (principal); E28.39 Other primary ovarian failure; M85.80 Other specified disorders of bone density and structure, unspecified site
CPT/HCPCS: 77063; 77067; 77080

== ENCOUNTER 2025-01-22 09:51 | Outpatient (OUT) | payer MEDICARE, SELFPAY ==
--- OUTSIDE RECORDS SUMMARY | 2025-01-22 09:55 | XMS_ITS | Clinical Summary ---
Author Organization [employer] tem Address [id number] [address] [place] [address] Care Team Providers Care Body Hanger Name Role Phone Braydon Rodas MD Primary Care Provider [phone] Allergies Active Allergy Reactions Criticality Noted Date Comments Moxifloxacin 04/11/2018 Ceftibuten 04/11/2018 Ciprofloxacin 04/11/2018 Corticosteroids (Glucocorticoids) Bwgsohzi-Arrfefcku-Yq 04/11/2018 Triamterene-Hydrochlorothiazid 04/11 Minocycline 04/11/2018 Lfucylja-Rxjvuqhohvs-Twgcisqgw 04/11 Penicillins Anaphylaxis High 04/11/2018 Fluoxetine 04/11/2018 Sulfa (Sulfonamide Antibiotics) 04/02 Tetracycline 04/11/2018 Rofecoxib 04/11/2018 Medications ALPRAZolam (XANAX) 0.5 mg tablet Take 1 tablet (0.5 mg total) by mouth 3 (three) times a day as needed. 0 03/27/2018 Active escitalopram (LEXAPRO) 10 mg tablet Take 1 tablet (10 mg total) by mouth in the morning. Active aspirin 81 mg Take 1 tablet (81 mg total) by mouth in the morning. Active atorvastatin (LIPITOR) 10 mg tablet Take 1 tablet (10 mg total) by mouth in the morning. Active alendronate (FOSAMAX) 70 mg tablet Take 1 tablet (70 mg total) by mouth every 7 days. In a.m. with water on empty stomach, nothing else by mouth and remain upright for 30min Active pantoprazole (PROTONIX) 20 mg EC tablet Take 1 tablet (20 mg total) by mouth in the morning. Active Active Problems No known active problems Family History Medical History Relation Name Comments Diabetes Brother 1 JViji Liban Diabetes Brother 2 Richard Liban Kidney disease Brother 2 Richard Liban Heart attack Brother 3 Remy- in his 40s Diabetes Father Calin Louie Heart attack Father Calin Louie COPD Mother Flakita Richter Diabetes Paternal Aunt Linda Bowen Diabetes Paternal Grandfather Calin Louie St Diabetes Paternal Grandmother Skyla Louie Diabetes Paternal Uncle Luther Louie Diabetes Sister 1 Simran Dubose Stroke Sister 1 Simran Dubose No Known Problems Sister 2 Lung cancer Sister 3 Lyssa Deckerdipika Relation Name Status Comments Brother 1 JElizabethn Liban Alive Brother 2 Richard Liban Alive Brother 3 Remy- in his 40s Father Calin Louie Mother Flakita Richter Paternal Aunt Linda Bowen Paternal Grandfather Calin Louie St Paternal Grandmother Skyla Louie Paternal Uncle Luther Liban Sister 1 Simran Dubose Alive Sister 2 Alive Sister 3 Lyssa Hernandez Social History Tobacco Use Types Packs/Day Years Used Date Smoking Tobacco: Every Day Cigarettes 0.5 50 Smokeless Tobacco: Never Tobacco Cessation:Ready to Q uit: Not Asked; Counseling Given: Not Answered Alcohol Use Standard Drinks/Week Comments No 0 (1 standard drink = 0.6 oz pur e alcohol) AUDIT-C Answer Date Recorded Frequency of Alcohol Consumption Never 04/11/2018 Average Number of Drinks Not on file 018 Frequency of Binge Drinking Not on file 04/02 Childcare Answer Date Recorded Childcare Unknown 12/12/2018 Employment Answer Date Recorded Employment Unknown 12/12/2018 Hunger Screening Answer Date Recorded Within the past 12 months we worried whether our food would run out before we got money to buy more. Never True 09/10/2024 Within the past 12 months th e food we bought just didn't last and we didn't have money to get more. Never True 09/10/2024 Purpose - Life Answer Date Recorded Purpose and direction in life Unknown Comments No Sex and Gender Information Value Date Recorded Sex Assigned at Not on file Legal Sex Female 11:33 AM EDT Gender Identity Not on file Sexual Orientation Not on file Last Filed Vital Signs Vital Sign Reading Time Taken Comments Blood Pressure 119/61 09/10/2024 10:31 AM EDT Pulse 70 09/10/2024 10:31 AM EDT Temperature 36.1 C (96.9 F) 08/27/2024 1:30 PM EST Respiratory Rate 15 08/27/2024 2:06 PM EST Oxygen Saturation 90% 08/27/2024 1:59 PM EST Inhaled Oxygen Concentration - - Weight 91.8 kg (202 lb 6.4 oz) 09/10/2024 10:31 AM EDT Height 160 cm (5' 3 ) 09/10/2024 10:31 AM EDT Body Mass Index 35.85 09/10/2024 10:31 AM EDT Plan of Treatment Health Maintenance Due Date Last Done Comments Tobacco Counseling 1955 Depression Screening 1968 Adult BMI Follow Up Plan 1974 DTaP,Tdap and Td Vaccines (1 - Tdap) 1975 Zoster (Shingles) Vaccine (1 of 2) 2006 Fall Risk Screening 2021 Influenza Vaccine 03/03/2025 Adult BMI Screening 09/10/2025 09/10/2024 Tobacco Screening 09/10/2025 09/10/2024 Colonoscopy 12/30/2026 12/30/2021, 12/30/2021 Medical Devices Not on file Procedures Procedure Name Priority Date/Time Associated Diagnosis Comments PROVATION COLONOSCOPY Routine 12/30/2021 8:17 AM EDT from Last 3 Months or Most Recently Relevant to Health Maintenance Results * Colonoscopy Report (12/30/2021 8:17 AM EDT) Narrative SYSTEMGENERATED, DOCUMENTATION - 12/30/2021 8:17 AM EDT This order has been auto-finalized for image and report archival in PACs. *For full report details, please reach out to your physician. Effective 11/17/20 this image will be visible to you in MyChart.* us Justin Davis DO IMG OR IMG ORDERABLES Final Result from Last 3 Months or Most Recently Relevant to Health Maintenance Insurance [employer] Care Teams Body Hanger Relationship Specialty Start Date End Date Braydon Rodas MD [address] [facility] [place] [address] PCP - General Family Medicine 07/10/24
--- OUTSIDE RECORDS SUMMARY | 2025-01-22 09:55 | XMS_ITS | Encounter Summary ---
Author Organization [employer] [facility] tem Address [id number] [address] [place] [address] Care Team Providers Care Network Operations Project Manager Name Role Phone Braydon Rdoas MD Primary Care Provider [phone] Encounter Details Date Type Department Care Team (Late st Contact Info) Description 12/15/2021 Telephone [facility] [address] [place] [address] Justin Davis DO [address] [place], [place] [id number] Social History Tobacco Use Types Packs/Day Years Used Date Smoking Tobacco: Every Day Cigarettes Smokeless Tobacco: Never Alcohol Use Standard Drinks/Week Comments No 0 (1 standard drink = 0.6 oz pur e alcohol) AUDIT-C Answer Date Recorded Frequency of Alcohol Consumption Never 04/11/2018 Average Number of Drinks Not on file 018 Frequency of Binge Drinking Not on file 04/02 Childcare Answer Date Recorded Childcare Unknown 12/12/2018 Employment Answer Date Recorded Employment Unknown 12/12/2018 Purpose - Life Answer Date Recorded Purpose and direction in life Unknown Comments Unknown Sex and Gender Information Value Date Recorded Sex Assigned at Not on file Legal Sex Female 11:33 AM EDT Gender Identity Not on file Sexual Orientation Not on file COVID-19 Exposure Response Date Recorded In the last month, have you been in contact with someone who was confirmed or suspected to have Coronavirus / COVID-19? No / Unsure 12/16/2021 2:18 PM EDT documented as of this encounter Plan of Treatment Not on file documented as of this encounter Visit Diagnoses Not on filedocumented in this encounter Care Teams Network Operations Project Manager Relationship Specialty Start Date End Date Braydon Rodas MD [address] [place] [address] PCP - General Family Medicine 07/10/24 documented as of this encounter
--- OUTSIDE RECORDS SUMMARY | 2025-01-22 09:55 | XMS_ITS | Clinical Summary ---
Author Organization [facility] Address [address] [place] [address] Care Team Providers Care Safety Instructor Name Role Phone Braydon Rodas MD Primary Care Provider [phone] Allergies Active Allergy Reactions Criticality Noted Date Comments Hpxpvny-Djaduktk-Ntesnf shauna-Hc 03/28/2023 Other Reaction(s): Unknown Bacitracin-Polymyxin B 03/28/2023 Other Reaction(s): Unknown Ceftibuten 04/11/2018 Other Reaction(s): Not available, Unknown Cefuroxime 03/28/2023 Other Reaction(s): Not available, Unknown Ciprofloxacin 04/11/2018 Other Reaction(s): Not available, Unknown Cortisone Rash Low 03/28/2023 Other Reaction(s): Unknown Cromolyn 03/28/2023 Other Reaction(s): Unknown Fluocinonide 03/28/2023 Other Reaction(s): Unknown Fluoxetine 04/11/2018 Other Reaction(s): Not available, Unknown Hydrochlorothiazide-Tri amterene 04/11/2018 Lomefloxacin 03/28/2023 Other Reaction(s): Unknown Minocycline 04/11/2018 Other Reaction(s): Not available, Unknown Moxifloxacin 04/11/2018 Other Reaction(s): Not available, Unknown Oseltamivir Unknown 03/28/2023 Penicillins Anaphylaxis,Shortne ss of breath High 11/30/2015 Other Reaction(s): Difficulty breathing, Unknown Rofecoxib 04/11/2018 Other Reaction(s): Not available Sulfa Antibiotics 03/28/2023 Tetracycline 04/11/2018 Other Reaction(s): Not available, Unknown Medications alendronate (Fosamax) 70 MG tablet Take 70 mg by mouth once a week. 07/15/2022 Active atorvastatin (Lipitor) 10 MG tablet Take 10 mg by mouth in the morning. 07/15/2022 Active ergocalciferol (Vitamin D-2) 1.25 MG (58875 UT) capsule Take 50,000 Int'l Units by mouth 1 (one) time per week. 07/15/2022 Active escitalopram (Lexapro) 10 MG tablet Take 10 mg by mouth in the morning. Active pantoprazole (ProtoNix) 40 MG EC tablet Take 40 mg by mouth in the morning. Take before meals. 07/15/2022 Active ALPRAZolam (Xanax) 0.5 MG tablet Take 0.5 mg by mouth 3 (three) times a day as needed. 12/19/2022 Active Active Problems Problem Noted Date Diagnosed Date Acute recurrent sinusitis 03/29/2023 Anticoagulated 03/28/2023 Chest pain 03/28/2023 Depression 03/28/2023 Dysphagia 03/28/2023 Ear pain, left 03/28/2023 Fibrocystic disease of breast 03/28/2023 Gastritis 03/28/2023 Generalized anxiety disorder 03/28/2023 Glenoid labrum tear 03/28/2023 Granuloma annulare 03/28/2023 History of primary malignant neoplasm of kidney 03/28/2023 Hypertensive disorder 03/28/2023 Disorder of rotator cuff 03/28/2023 Impingement syndrome of shoulder region 03/28/20 23 Overview (03/28/2023): right shoulder Dyspnea 03/28/2023 Stage 3a chronic kidney disease (CKD) 03/28/2023 Stress incontinence 03/28/2023 Current smoker 03/28/2023 Overview (03/28/2023): Added secondary to documentation in Social History. Unspecified mononeuropathy of right lower limb 0 03/28/2023 Wheezing 03/28/2023 Chronic maxillary sinusitis 12/05/2022 Gastroesophageal reflux disease without esophagi tis 11/30/2015 Resolved Problems Problem Noted Date Diagnosed Date Resolved Date Simple obesity 03/28/2023 03/28/2023 Skin cyst 03/28/2023 03/28/2023 Tobacco user 03/28/2023 03/28/2023 Overview (03/28/2023): Added secondary to social history documentation. Urgency of urination 03/28/2023 023 Anxiety 10/22/1970 03/28/2023 Family History Medical History Relation Name Comments Diabetes Brother 1 Diabetes Brother 2 Marcus Louie Mental illness Daughter youngest Panic attack Daughter youngest Diabetes Father Calin Louie Heart attack Father Calin Louie Diabetes Father's Brother Bob Louie Mental illness Father's Sister 1 Panic attack Father's Sister 1 Diabetes Father's Sister 2 Flakita Antoine Cancer Maternal Grandmother Iramdon Richter COPD Mother Flakita Louie Migraines Mother Flkaita Louie Cancer Paternal Grandmother Skyla Louie Diabetes Sibling Hypertension Sibling Diabetes Sister 1 Diabetes Sister 2 Simran Dubose Relation Name Status Comments Brother 1 Brother 2 Marcus Liban Daughter x2 Father Calin Louie Father's Brother Bob Louie Father's Sister 1 Father's Sister 2 Flakita Antoine Maternal Grandmother Iram Richter Mother Flakita Louie Paternal Grandmother Skyla Louie Sibling Alive Sister 1 Sister 2 Simran Dubose Social History Tobacco Use Types Packs/Day Years Used Date Smoking Tobacco: Every Day Cigarettes 0.5 50 Smokeless Tobacco: Never Tobacco Cessation:Ready to Q uit: Not Asked; Counseling Given: Not Answered Alcohol Use Standard Drinks/Week Comments Not Currently 0 (1 standard drink = 0.6 oz pur e alcohol) Comments Unknown Sex and Gender Information Value Date Recorded Sex Assigned at Female 03/24/2023 2:23 PM EDT Legal Sex Female 7:13 PM EDT Gender Identity Female 09/14/2022 7:13 PM EDT Sexual Orientation Straight 03/24/2023 2: 23 PM EDT Occupation Industry Job Start Date Job End Date on social security disability Not on file Not on file Not on file Last Filed Vital Signs Vital Sign Reading Time Taken Comments Blood Pressure 118/70 03/29/2023 10:21 AM EDT Pulse - - Temperature - - Respiratory Rate - - Oxygen Saturation - - Inhaled Oxygen Concentration - - Weight 91.6 kg (202 lb) 03/29/2023 10:21 AM EDT Height 160 cm (5' 3 ) 03/29/2023 10:21 AM EDT Body Mass Index 35.78 03/29/2023 10:21 AM EDT Plan of Treatment Not on file Insurance [employer] Care Teams Safety Instructor Relationship Specialty Start Date End Date Braydon Rodas MD PCP - General Family Medicine 03/24/23
--- OUTSIDE RECORDS SUMMARY | 2025-01-22 09:55 | XMS_ITS | Clinical Summary ---
Author Organization [facility] Address [address] [place] [address], [address] [place] [address] Care Team Providers Care Burn Table Operator Name Role Phone Ltaa West MD Primary Care Provider Unavailab le Allergies Active Allergy Reactions Criticality Noted Date Comments Penicillins 11/30/2015 Active Problems Problem Noted Date Diagnosed Date Gastroesophageal reflux disease without esophagi tis 11/30/2015 Social History Tobacco Use Types Packs/Day Years Used Date Smoking Tobacco: Never Assessed Comments Unknown Sex and Gender Information Value Date Recorded Sex Assigned at Not on file Legal Sex Female 12:50 PM EDT Gender Identity Not on file Sexual Orientation Not on file Plan of Treatment Not on file Insurance [email or web address] MEDICARE Care Teams Burn Table Operator Relationship Specialty Start Date End Date Lata West MD [address] [place] [address] PCP - General 09/19/14
--- NOTE | 2025-01-22 10:02 | US_ITS ---
The [address] [address] Patient Name: CHAI PAREDES MRN: [id number] date: 1955 Sex: F Assigned Patient Location: US Current Patient Location: US Accession/Order Number: [id number] Exam Date: 01/22/2025 10:31 Report Date: 01/22/2025 10:32 At the request of: ANNABELLA VASQUEZ Procedure: US renal BI Bilateral Renal Ultrasound HISTORY: Left flank pain for one month. Right nephrectomy secondary to cancer COMPARISON: None RIGHT kidney absent LEFT kidney measures 11.4 cm. Hydronephrosis: None RENAL STONE: No shadowing renal calculus is seen. RENAL LESIONS: No renal lesion identified. URINARY BLADDER: Unremarkable REPRODUCTIVE STRUCTURES Not assessed IMPRESSION : No left hydronephrosis. Right nephrectomy Impression dictated by: Raad Mustafa M.D. 01/22/2025 10:32 AM Dictation Location: [place] [address] Electronically authenticated by: [id number] Y Date: 01/22/2025 10:32
--- OUTSIDE RECORDS SUMMARY | 2025-01-22 10:13 | XMS_ITS | CCD ---
Author Organization [facility] Care Team Providers Care Lead Manufacturing Engineer Name Role Phone MD Agustina West Primary Care Provider [phone] SARMAD Gordon Attending Provider Agustina West Primary Care Unavailable Rick Gordon [...] Unavailable WEST, DR AGUSTINA Bower Consulting Unavailable NEFCELINE SANDOVAL Consulting Unavailable WEST, DR AGUSTINA Bower Primary Care Unavailable MISC, DR RAMIRES Attending Unavailable MISC, DR RAMIRES Admitting Unavailable MISC, DR RAMIRES Consulting Unavailable CELINE ABRAHAM Admitting Unavailable CHRISTIANO, DR AGUSTINA Bower Primary Care Unavailable CELINE ABRAHAM Attending Unavailable CELINE ABRAHAM Admitting Unavailable CHRISTIANO, DR AGUSTINA Bower Primary Care Unavailable [place], DR NICOLAS Rodriguez Consulting Unavailable CELINE ABRAHAM [...] AGUSTINA Bower Primary Care Unavailable BEATA, DR ROA Admitting Unavailable BEATA, DR RAO Attending Unavailable WEST, DR NICOLAS Rodriguez Consulting Unavailable BEATA, DR RAO Consulting Unavailable WEST, DR AGUSTINA Bower Primary Care Unavailable WARREN ARMENDARIZ Attending Unavailable WARREN ARMENDARIZ Admitting Unavailable WARREN ARMENDARIZ Consulting Unavailable KLIPPNICOLAS KNOX Consulting Unavailable WEST, DR AGUSTINA Bower Primary Care Unavailable BEATA, DR RAO Admitting Unavailable BEATA, DR RAO Consulting Unavailable BEATA, DR RAO Attending Unavailable AGUSTINA WEST Primary Care Physician Elida Anand. Primary Care Physician [phone] SMITHA WATSON Attending Unavailable ELIDA ANAND Referring Unavailable Elida Anand MD Primary Care Provider KENISHA HILLIARD Referring Unavailable KIKA ELIDA E Primary Care Unavailable KENISHA HILLIARD Referring Unavailable KIKA ELIDA E Primary Care Unavailable KENISHA HILLIARD Referring Unavailable KIKA ELIDA E Primary Care Unavailable NICOLAS ELLIS Referring Unavailable ELIDA ANAND Primary Care Unavailable KENISHA HILLIARD Referring Unavailable KIKA ELIDA E Primary Care Unavailable KENISHA HILLIARD Admitting Unavailable KENISHA HILLIARD Attending Unavailable KENISHA HILLIARD Referring Unavailable KIKA ELIDA E Primary Care Unavailable GARCIA SANCHEZ Attending Unavailable ELIDA ANAND Primary Care Unavailable KENISHA HILLIARD Attending Unavailable AGUSTINA WEST Referring Unavailable KIKA ELIDA E Primary Care Unavailable KENISHA HILLIARD Attending Unavailable ELIDA ANAND Referring Unavailable KIKA ELIDA E Primary Care Unavailable AGUSTINA WEST Referring Unavailable AGUSTINA WEST Primary Care Unavailable SUMMER SMALLWOOD Attending Unavailable ELIDA ANAND Referring Unavailable KIKA ELIDA E Primary Care Unavailable KENISHA HILLIARD Attending Unavailable ELIDA ANAND Referring Unavailable ELIDA ANAND Primary Care Unavailable SMALLWOODSUMMER CAT Lion Attending Unavailable ELIDA ANAND Referring Unavailable ELIDA ANAND Primary Care Unavailable Elida Anand Attending Unavailable Elida Anand Admitting Unavailable MD Elida Anand Attending Unavailable MD Elida Anand Attending Unavailable [place], CAFETERIA COOK Katlyn L Attending Unavailable MD Elida Anand Attending Unavailable MD Elida Anand Attending Unavailable [place], CAFETERIA COOK Katlyn L Attending Unavailable MD Elida Anand Attending Unavailable MD Elida Anand Admitting Unavailable MD Elida Anand Attending Unavailable MD Elida Anand Admitting Unavailable MD Elida Anand Attending Unavailable MD Elida Anand Admitting Unavailable MD Elida Anand Attending Unavailable MD Elida Anand Admitting Unavailable MD Elida Anand Attending Unavailable MD Elida Anand Attending Unavailable [place], CAFETERIA COOK Katlyn L Attending Unavailable [place], CAFETERIA COOK Katlyn L Attending Unavailable [place], CAFETERIA COOK Katlyn L Attending Unavailable MD Elida Anand Admitting Unavailable MD Elida Anand Attending Unavailable [place], CAFETERIA COOK Katlyn L Attending Unavailable [place], CAFETERIA COOK Katlyn L Attending Unavailable [place], CAFETERIA COOK Katlyn L Attending Unavailable MD Elida Anand Admitting Unavailable MD Elida Anand Attending Unavailable MD Elida Anand Referring Unavailable Allergies Allergy Classification Reported Allergen(s) Allergy Type Date of Onset Reaction(s) Facility (17 sources) Bacitracin / Hydrocortisone / Neomycin / Polymyxin B; Translations: [bacitracin/HC/neomyci n/polymyxin B topical] Drug Allergy [facility] (20 sources) bacitracin / neomycin / polymyxin b; Translations: [bacitracin/neomycin/p olymyxin B topical] Drug Allergy 04-11-20 18 [facility] (20 sources) ceftibuten; Translations: [ceftibuten] Drug Allergy 04-11-20 18 [facility] (17 sources) Cefuroxime; Translations: [cefuroxime] Drug Allergy [facility] (20 sources) Ciprofloxacin; Translations: [ciprofloxacin] Drug Allergy 04-11-20 18 [facility] (17 sources) Cortisone; Translations: [cortisone] Drug Allergy Eruption of skin (disorder) [facility] (20 sources) FLUoxetine; Translations: [fluoxetine] Drug Allergy 04-11-20 18 [facility] (12 sources) Minocycline; Translations: [minocycline] Drug Allergy 04-11-20 18 [facility] (3 sources) Oseltamivir; Translations: [oseltamivir] Drug Allergy [facility] (20 sources) Penicillins; Translations: [penicillins] Drug allergy 02-22-20 13 Difficulty breathing (finding), Anaphylaxis [facility] (12 sources) rofecoxib; Translations: [rofecoxib] Drug Allergy 04-11-20 18 [facility] (17 sources) Sulfonamides (Antibiotic); Translations: [sulfa drugs] Drug allergy [facility] (12 sources) Tetracycline; Translations: [tetracycline] Drug Allergy 04-11-20 18 [facility] (1 source) Bacitracin / Neomycin / Polymyxin B Drug Allergy 02-29-20 13 [facility] (1 source) ceftibuten Drug Allergy 02-29-20 13 [facility] (1 source) Cefuroxime Drug Allergy 02-29-20 13 [facility] (1 source) Ciprofloxacin Drug Allergy 02-29-20 13 [facility] (3 sources) Corticosteroids; Translations: [CORTICOSTEROIDS (GLUCOCORTICOIDS)] Drug allergy (disorder) 02-29-20 13 [facility] (2 sources) FLUoxetine Drug Allergy 02-29-20 13 [facility] (1 source) Minocycline Drug Allergy 02-29-20 13 [facility] (3 sources) moxifloxacin; Translations: [Avelox] Drug Allergy 02-29-20 13 [facility] (1 source) rofecoxib Drug Allergy 02-29-20 13 [facility] (1 source) Sulfonamides (Antibiotic) Drug allergy (disorder) 02-22-20 13 [facility] (1 source) Tetracycline Drug Allergy 02-29-20 13 [facility] (16 sources) Cromolyn; Translations: [cromolyn nasal] Drug Allergy Unknown (qualifier value) [facility] (16 sources) fluocinolone; Translations: [fluocinolone topical] Drug Allergy Unknown (qualifier value) [facility] (20 sources) moxifloxacin; Translations: [moxifloxacin] Drug Allergy 04-11-20 Unknown (qualifier value) [facility] (7 sources) Glucocorticoid preparation Propensity to adverse reactions to drug [facility] (9 sources) hydroCHLOROthiazide / Triamterene; Translations: [TRIAMTERENE-HYDROCHLO ROTHIAZID] Drug Allergy 04-11-20 [facility] (9 sources) Hydrocortisone / Neomycin / Polymyxin B; Translations: [[id number] ] Drug Allergy 04-11-20 [facility] (9 sources) Sulfonamides (Antibiotic); Translations: [SULFA (SULFONAMIDE ANTIBIOTICS)] Propensity to adverse reactions to drug 04-11-20 [facility] (2 sources) [id number] [id number]; Translations: [NEOMYCIN-BACITRACNZN- POLYMYXNB] Propensity to adverse reactions to drug (disorder) 04-11-20 [facility] Medications Current Medications Medication Drug Class(es) [...] WEEKLY, # 12 tab(s), Refills(s) 11, Pharmacy: [facility]/pharmacy #[id number], 157, cm, 07/08/24 10:07:00 EST, Height/Length Dosing, 92.7, kg, 07/08/24 10:07:00 EST, Weight Dosing Start Date: 08/13/24 Status: Ordered Quantity: 12.0 Unit: tab(s) Repeat number: 12 Start: 04-25-2023 take 1 tablet by gloria th every week alendronate 70 mg Tab See Instructions, TAKE 1 TABLET BY MOUTH WEEKLY, # 12 tab(s), Refills(s) 11, Pharmacy: [facility] [id number], 160, cm, 04/10/23 11:51:00 EDT, Height/Length Dosing, 92.1, kg, 04/10/23 11:51:00 EDT, Weight Dosing Start Date: 04/25/23 Status: Ordered Start: 07-15-2022 alendronate 70 mg Tab 70 mg = 1 tab(s), Oral, q7day, # 12 tab(s), Refills(s) 0 Start Date: 07/15/22 Status: Ordered ALPRAZolam 0.5 mg oral tablet (20 sources) Benzodiazepine Start: 12-19-2024 take 1 tablet by mouth three times daily as needed for anxiety Xanax 0.5 mg Tab 0.5 mg = 1 tab(s), Oral, TID, PRN for anxiety, For Anxiety, # 90 tab(s), Refills(s) 0, [id number] 157, cm, 12/18/24 15:28:00 EDT, Height/Length Dosing, 94, kg, 12/18/24 15:28:00 EDT, Weight Dosing Start Date: 12/19/24 Status: Ordered Quantity: 90.0 Unit: tab(s) Repeat number: 1 Start: 11-04-2024 take 1 tablet by gloria th three times daily as needed for anxiety Xanax 0.5 mg Tab 0.5 mg = 1 tab(s), Oral, TID, PRN for anxiety, For Anxiety, # 90 tab(s), Refills(s) 0, [id number], 157, cm, 10/15/24 14:04:00 EDT, [...] aspirin 81 mg delayed release oral tablet (13 sources) Platelet Aggregation Inhibitor, Nonsteroidal Anti-inflammatory Drug [...] BEDTIME, # 90 tab(s), Refills(s) 1, [id number], 157, cm, 10/15/24 14:04:00 EDT, Height/Length Dosing, 92.6, kg, 10/15/24 14:04:00 EDT, Weight Dosing Start Date: 11/04/24 Status: Ordered Quantity: 90.0 Unit: tab(s) Repeat number: 2 Start: 07-15-2022 take 1 tablet by gloria th at bedtime atorvastatin 10 mg Tab See Instructions, TAKE 1 TABLET BY MOUTH AT BEDTIME, # 90 tab(s), Refills(s) 1, Pharmacy: [facility] [id number], 157, cm, 12/04/23 12:36:00 EDT, Height/Length Dosing, 89, kg, 12/04/23 12:36:00 EDT, Weight Dosing Start Date: 12/18/23 Status: Ordered azithromycin 500 mg oral tablet (5 sources) Macrolide Antimicrobial Start: 07-15-2022 take 1 tablet by mouth once daily azithromycin 500 mg oral tablet 500 mg = 1 tab(s), Oral, Daily, # 5 tab(s), Refills(s) 0, Pharmacy: [facility]/pharmacy #[id number], 160, cm, 12/05/22 12:09:00 EDT, Height/Length Dosing, 89.1, kg, 12/05/22 12:09:00 EDT, Weight Dosing Start Date: 12/09/22 Status: Ordered Azithromycin 3 Day Dose Pack 500 mg oral tablet (2 sources) Start: 04-10-2023 Azithromycin 3 Day Dose Pack 500 mg oral tablet 500 mg = 1 tab(s), Oral, Daily, # 3 tab(s), Refills(s) 0, Pharmacy: [facility]/pharmacy #[id number], 160, cm, 04/10/23 [...] symptoms, # 90 cap(s), Refills(s) 0, [id number], 160, cm, 01/23/23 8:54:00 EDT, Height/Length Dosing, 88.7, kg, 01/23/23 8:54:00 EDT, Weight Dosing Start Date: 01/23/23 Status: Ordered escitalopram 20 mg oral tablet (20 sources) Serotonin Reuptake Inhibitor Start: 11-04-2024 take 1 tablet by mouth once daily escitalopram 20 mg Tab See Instructions, TAKE 1 TABLET BY MOUTH EVERY DAY, # 90 tab(s), Refills(s) 0, [id number], 157, cm, 10/15/24 14:04:00 EDT, Height/Length Dosing, 92.6, kg, 10/15/24 14:04:00 EDT, Weight Dosing Start Date: 11/04/24 Status: Ordered Quantity: 90.0 Unit: tab(s) Repeat number: 1 Start: 11-02-2023 take 1 tablet by gloria th once daily escitalopram 20 mg Tab 20 mg = 1 tab(s), Oral, Daily, # 90 tab(s), Refills(s) 0, Pharmacy: [facility]/pharmacy #[id number], 160, cm, 11/02/23 13:29:00 EDT, Height/Length Dosing, 87.5, kg, 11/02/23 13:29:00 EDT, Weight Dosing Start Date: 11/02/23 Status: Ordered Start: 01-08-2019 take 1 tablet by gloria th once daily escitalopram 10 mg Tab 10 mg = 1 tab(s), Oral, Daily, # 90 tab(s), Refills(s) 3, [id number], 160, cm, 04/10/23 11:51:00 EDT, Height/Length Dosing, 92.1, kg, 04/10/23 11:51:00 EDT, Weight Dosing Start Date: 06/02/23 Status: Ordered fluticasone propionate 0.05 mg/actuat metered dose nasal spray (2 sources) Corticosteroid Start: 11-29-2022 fluticasone Nasal 0.05 mg/inh [place] 2 spray(s), Nasal, Daily, 16 gram, Refill(s) 3, each nostril, [id number] 160, cm, 11/03/22 10:00:00 EDT, Height/Length Dosing, 89.7, kg, 11/03/22 10:00:00 EDT, Weight Dosing Start Date: 11/29/22 Status: Ordered Multivitamin preparation (5 sources) Start: 12-03-2024 multivitamin Refill(s) 0 Start Date: 12/03/24 Status: Ordered Repeat number: 1 pantoprazole 40 mg delayed release oral tablet (20 sources) Proton Pump Inhibitor Start: 11-26-2024 take 1 tablet by mouth twice daily Pantoprazole [address] Tab See Instructions, TAKE 1 TABLET BY MOUTH TWICE A DAY, # 180 tab(s), Refills(s) 1, Pharmacy: [facility] [id number], 157, cm, 10/15/24 14:04:00 EDT, Height/Length Dosing, 92.6, kg, 10/15/24 14:04:00 EDT, Weight Dosing Start Date: 11/26/24 Status: Ordered Quantity: 180.0 Unit: tab(s) Repeat number: 1 Start: 12-04-2023 take 1 tablet by gloria th twice daily Pantoprazole [address] Tab 40 mg = 1 tab(s), Oral, BID, # 180 tab(s), Refills(s) 1, [id number], 160, cm, 11/02/23 13:29:00 EDT, Height/Length Dosing, 87.5, kg, 11/02/23 13:29:00 EDT, Weight Dosing Start Date: 12/04/23 Status: Ordered Start: 06-02-2023 take 1 tablet by gloria th once daily Pantoprazole [address] Tab 40 mg = 1 tab(s), Oral, Daily, # 90 tab(s), Refills(s) 3, Pharmacy: [facility]/pharmacy #[id number], 160, cm, 04/10/23 [...] TID, # 15 tab(s), Refills(s) 0, Pharmacy: [facility] #[id number], 154.9, cm, 07/15/22 14:17:00 EST, Height/Length [...] Start: 07-15-2022 take 1 capsule by mo [facility] every week ergocalciferol 50,000 intl units Cap [...] dizziness, # 90 tab(s), Refills(s) 0, Pharmacy: [facility]/pharmacy #[id number], 160, cm, 04/10/23 11:51:00 EDT, Height/Length Dosing, 92.1, kg, 04/10/23 11:51:00 EDT, Weight Dosing Start Date: 05/03/23 Status: Ordered Start: 09-12-2022 take 1 tablet by [facility] three times daily as needed for dizziness meclizine 25 mg Tab TAKE 1 TABLET BY MOUTH THREE TIMES DAILY NEEDED for dizziness Start Date: 09/12/22 Status: Ordered triamcinolone acetonide 0.055 mg/actuat metered dose nasal spray (4 sources) Corticosteroid Start: 01-23-2023 Nasacort Aller gy 24HR nasal spray 55 mcg, 1 spray(s), Nasal, Daily, 1 EA, Refill(s) 0, [facility]/pharmacy #[id number], 160, cm, 01/23/23 8:54:00 EDT, Height/Length Dosing, 88.7, kg, 01/23/23 8:54:00 EDT, Weight Dosing Start Date: 01/23/23 Status: Ordered Problems Active Problems Problem Classification Problem Date Documented Date Episodic/Chronic Anxiety disorders (20 sources) Anxiety; Translations: [Panic attack] Resolved : 06-06-20 12 01-08-2019 Chronic Cancer of kidney and renal pelvis (19 sources) History of malignant neoplasm of kidney; Translations: [Personal history of other malignant neoplasm of kidney] Onset: 08-19-19 22 12-07-2018 Episodic Cancer; other and unspecified primary (1 source) H/O: neoplasm; Translations: [Personal history of other benign neoplasm] Onset: 10-16-19 Episodic Chronic kidney disease (13 sources) Chronic kidney disease stage 3A ; Translations: [Chronic kidney disease] Onset: 12-05-1912-19-2022 Chronic Conditions associated with dizziness or vertigo (3 sources) Dizziness; Translations: [Dizziness and giddiness] 04-10-2023 Episodic Congestive heart failure; nonhypertensive (8 sources) Diastolic heart failure 08-18-2023 Chronic Disorders of lipid metabolism (4 sources) Pure hypercholesterolemia, unspecified; Translations: [PURE HYPERCHOLESTEROLEMIA UNSPEC] Onset: 01-28-20 Chronic Gastritis and duodenitis (11 sources) Gastritis 03-22-2023 Episodic Genitourinary symptoms and ill-defined conditions (15 sources) Genuine stress incontinence 01-02-2020 Chronic Genitourinary [...] right arm] 09-10-2024 Episodic Other circulatory disease (7 sources) Elevated blood-pressure reading without diagnosis of hypertension 12-04-2023 Episodic Other connective tissue disease (15 sources) Impingement syndrome of shoulder region 10-10-2014 Episodic Comment on above: right shoulder Other connective tissue disease (4 sources) Ganglion, right ankle and foot; Translations: [GANGLION RIGHT ANKLE AND FOOT] Onset: 05-19-20 Episodic Other connective tissue disease (11 sources) Swelling of right lower limb 05-01-2023 Episodic Other gastrointestinal disorders (1 source) Diarrhea; Translations: [Diarrhea, unspecified] Onset: 07-15-19 Episodic Other lower respiratory disease (2 sources) Cough; Translations: [Cough, unspecified] Onset: 07-15-19 Episodic Other lower respiratory disease (11 sources) Dyspnea 12-19-2022 Episodic Other lower respiratory disease (9 sources) Orthopnea 07-31-2023 Episodic Other lower respiratory disease (1 source) Wheezing 12-18-2024 Episodic Other nutritional; endocrine; and metabolic disorders (4 sources) Obesity; Translations: [Obesity, unspecified] Onset: 10-16-19 25 10-10-2014 Chronic Other nutritional; endocrine; and metabolic disorders (13 sources) Simple obesity 11-30-2022 Chronic Other nutritional; [...] Chronic Other nutritional; endocrine; and metabolic disorders (6 sources) Obesity caused by energy imbalance 02-26-2024 Chronic Other skin disorders (11 sources) Cyst of skin 03-22-2023 Episodic Other upper respiratory infections (20 sources) Chronic sinusitis, unspecified; Translations: [Chronic maxillary sinusitis] Onset: 07-26-19 Chronic Other upper respiratory infections (2 sources) Viral upper respiratory tract infection 04-10-2023 Episodic Otitis media and related conditions (1 source) Finding of fluid behind tympanic membrane 12-18-2024 Episodic Residual codes; unclassified (15 sources) Tobacco user 06-06-2012 Episodic Comment on above: Added secondary to s ocial history documentation. Residual codes; unclassified (1 source) Absent kidney; Translations: [Acquired absence of kidney] Episodic Residual codes; unclassified (1 source) Pain, unspecified; Translations: [Pain, unspecified] Onset: 07-28-19 Episodic Screening and history of mental health and substance abuse codes (8 sources) Ex-smoker; Translations: [Personal history of nicotine dependence] Onset: 07-28-1901-02-2020 Episodic Substance-related disorders (20 sources) Smoker; Translations: [Nicotine dependence, cigarettes, uncomplicated] Onset: 08-19-1910-10-2014 Chronic Comment on above: Added secondary to d ocumentation in Social History. Unclassified (1 source) Ganglion, right ankle and foot; Translations: [Ganglion, right ankle and foot] Onset: 05-20-20 Unclassified (15 sources) Drug therapy finding 01-08-2019 Unclassified (1 source) PERSONAL HISTORY OF COVID-19; Translations: [PERSONAL HISTORY OF COVID-19] Onset: 08-19-19 Unclassified (11 sources) Finding of color of limb 05-01-2023 Unclassified (2 sources) Otalgia of left ear 12-19-2022 Unclassified (1 source) right axillary lipoma Onset: 08-27-19 25 Unclassified (1 source) Post-op Onset: 09-11-19 25 Unclassified (1 source) POST-OP VISIT Onset: 08-05-19 25 Unclassified (1 source) Suspicious Skin Lesion Onset: 07-24-19 25 Unclassified (1 source) Mass Onset: 07-10-19 25 Unclassified (6 sources) Long-term current use of opiate analgesic drug Onset: 03-11-20 24 03-11-2024 Comment on above: Added secondary to c urrent Opioid Treatment Agreement Past or Other Problems Problem Classification Problem Date Documented Date Episodic/Chronic Anal and rectal conditions (15 sources) Anal fissure Resolved: 06-06-2012 01-08-2019 Episodic Complication of device; implant or graft (1 source) Pain due to internal orthopedic prosthetic devices, implants and grafts, initial encounter; Translations: [PAIN INTRL ORTHO PROS DEV GFT INIT] Onset: 08-19-2021 Episodic Esophageal disorders (19 sources) Gastroesophageal reflux disease; Translations: [Gastro-esophageal reflux [...] HUMAN PAPILLOMAVIRUS] Onset: 08-16-2021 Episodic Mood disorders (16 sources) Depressive disorder; Translations: [Depression, unspecified] Resolved: 01-08-2019 01-08-2019 Chronic Other aftercare (1 source) Other fci (current) drug therapy; Translations: [OTH GROUP HOME CURRENT DRUG THERAPY] Onset: 08-19-2021 Episodic Other [...] D/O BONE DEN STRUCT OTH SITE] Onset: 02-15-2022 Episodic Other non-traumatic joint disorders (1 source) Pain in right ankle and joints of right foot; Translations: [PAIN IN RIGHT ANKLE] Onset: 08-19-2021 Episodic Other screening for suspected conditions (not mental disorders or infectious disease) (8 sources) Encounter for screening mammogram for malignant neoplasm of breast; Translations: [Encounter for screening for malignant neoplasm of cervix] Onset: 08-11-2021 Episodic Residual codes; unclassified (15 sources) Menopause present Resolved: 06-06-2012 01-08-2019 Episodic [...] [ASYMPTOMATIC MENOPAUSAL STATE] Onset: 08-12-2021 Episodic Unclassified (15 sources) Hypersensitivity granuloma (morphologic abnormality) Resolved: 10-10-2014 01-08-2019 Comment on above: multiple body sites Results Test Name Value Interpretation Reference Range Facility Ambulatory Visit Summaryon 0 01-15-2025 Ambulatory Visit Summary Ambulatory Visit Summary FLAKITA PAREDES :1955 Visit Date:01/15/2025 Ambulatory Visit Instructions Your Diagnosis Major depressive disorder, recurrent, mild BMI 37.0-37.9, adult Class 2 severe obesity with body mass index (BMI) of 35 to 39.9 with serious comorbidity Smoker Morbid (severe) obesity due to excess calories Your Care Team Attending Physician - Katlyn Brooks Primary Care Physician - Katlyn Brooks This Is Your Medications List alendronate (alendronate 70 mg Tab) alprazolam (Xanax 0.5 mg Tab) aspirin (aspirin 81 mg Oral EC Tab) atorvastatin (atorvastatin 10 mg Tab) azithromycin (azithromycin 250 mg Tab) calcium-vitamin D (calcium (as carbonate)-vitamin D 600 mg-800 intl units oral tablet) escitalopram (escitalopram 20 mg Tab) multivitamin pantoprazole [...] Tubal ligation. Discharge Vitals Temperature (Temporal Artery) 36.2 ???C Heart Rate (Peripheral) 64 Respiratory Rate 18 Blood Pressure 124/84 Height 157.0 cm Height 62 in Weight 93.4 kg Weight 205.912 lb BMI 37.89 What to do next Scheduled Follow-Up Appointments Monday 11:00 AM EST With: Katlyn Brooks Where: [address] [id number] 9:30 AM EDT With: Where: [address] [address]- Medications What How Much When Why Instructions Unchanged alendronate (alendronate 70 mg Tab) [...] BY MOUTH AT BEDTIME Unchanged azithromycin (azithromycin 250 mg Tab) 250 Milligram By Mouth As Directed take two tabs on day 1. take one tab on day 2-10 Unchanged calcium-vitamin D (calcium (as carbonate)-vitamin D 600 mg-800 intl units oral tablet) 1 Tablets By Mouth 2 times a day BMI 37.0-37.9, adult Class 1 obesity due to excess calories in adult Smoker Unchanged escitalopram (escitalopram 20 mg Tab) See [...] due to excess calories in adult Cough Dairy product intolerance Depression Diastolic CHF Discoloration of skin of lower leg Elevated BP without diagnosis of hypertension Fluid level behind tympanic membrane of both ears RADHA (generalized anxiety disorder) Gastritis H/O renal cell cancer Long-term current use of opiate analgesic drug Major depressive disorder, recurrent, mild Obesity Orthopnea Osteopenia Shortness of breath Shoulder impingement syndrome Sinusitis Skin cyst Stage 3a chronic kidney disease (CKD) Stress incontinence Swelling of right lower extremity Upper respiratory infection Wheezing Historical - Any problem that you are no longer receiving treatment for. Acid reflux Allergic granuloma Anal fissure Anxiety BMI 35.0-35.9,adult BMI 36.0-36.9,adult Menopause Nocturia Panic attacks Patient Survey You may receive a survey via text or e-mail asking about your office visit. Please share your experience with us by completing your survey. We appreciate your feedback and thank you for choosing us for your care. Patient Portal You may access all of your results and other medical record information on our secure patient portal. If you are not signed up for this yet, please contact [employer] at [phone] to get signed up today. Language Information Language assistance services are available as needed. Vineet Farrell [facility] Family Medicine Office/Clini c Noteon 01-15-2025 Family Medicine Office/Clinic Note Family Medicine Office/Clinic Note HPI Staff Flakita is a 69 year old female presenting with Follow up for Mental Status: Medication adherence- Yes, takes medication as prescribed Medication refill needed: _ Suicidal thoughts-Not at this time Most recent RADHA: 15 Most recent PHQ: 13 Med consent- 09/25/23 updated today Drug screen 09/25/23 updated today History of Present Illness pt presents today for chronic care follow up. Review of Systems PHQ Score Initial Depression Screen Score: 0 SCORE Physical Exam Vitals & Measurements T: 36.2 ???C(Temporal Artery) HR: 64(Peripheral) RR: 18 BP: 124/84 SpO2: 95% HT: 157.0 cm HT: 62 in WT: 205.912 lb WT: 93.4 kg BMI: 37.89 General: alert, no acute distress ENMT: oral mucosa moist, no pharyngeal erythema or exudate Cardiovascular: regular rate and rhythm, normal peripheral perfusion Respiratory: Lungs CTA, respirations non labored Extremities: no deformity, no trauma Neurological: oriented x 4, LOC appropriate for age, CN II-XII intact, motor strength equal & normal bilaterally, speech normal left flank pain Assessment/Plan 1. Left flank pain (R10.9: Unspecified abdominal pain) pt c/o left flank pain, left lower back pain that wraps around left hip and into her abdomen. pt only has 1 kidney due to h/o cancer so she is a little worked up about this pain. will order u/s of left kidney. denies UTI symptoms. does not need refills at this time. All questions answered. RTC in May for follow up or as needed before that. 2. Major depressive disorder, recurrent, mild (F33.0: Major depressive disorder, recurrent, mild) will continue Lexapro and alprazolam. med agreement updated. UDS obtained. pt is still very anxious about changing providers again. much reassurance provided. Ordered: Body Mass Index (BMI) documented 3008F Depression Screening Negative 3352F Influenza immunization status assessed 1030F Medication list documented in medical record 1159F Most recent diastolic blood pressure 80-89 mm Hg 3079F Patient screen for fall risk: no falls in last year or 1 fall with no injury in last year 1101F Review of all meds by a prescribing practitioner or clinical pharmacist documented in EHR 1160F Screened for tobacco use AND received tobacco cessation intervention 4004F Systolic BP <130 mm Hg (Most Recent) 3074F 3. BMI 37.0-37.9, adult (Z68.37: Body mass index [BMI] 37.0-37.9, adult) BMI education given Ordered: Body Mass Index (BMI) documented 3008F Depression Screening Negative 3352F Influenza immunization status assessed 1030F Medication list documented in medical record 1159F Most recent diastolic blood pressure 80-89 mm Hg 3079F Patient screen for fall risk: no falls in last year or 1 fall with no injury in last year 1101F Review of all meds by a prescribing practitioner or clinical pharmacist documented in EHR 1160F Screened for tobacco use AND received tobacco cessation intervention 4004F Systolic BP <130 mm Hg (Most Recent) 3074F 4. Class 2 severe obesity with body mass index (BMI) of 35 to 39.9 with serious comorbidity (E66.812: Obesity, class 2) see above Ordered: Body Mass Index (BMI) documented 3008F Depression Screening Negative 3352F Influenza immunization status assessed 1030F Medication list documented in medical record 1159F Most recent diastolic blood pressure 80-89 mm Hg 3079F Patient screen for fall risk: no falls in last year or 1 fall with no injury in last year 1101F Review of all meds by a prescribing practitioner or clinical pharmacist documented in EHR 1160F Screened for tobacco use AND received tobacco cessation intervention 4004F Systolic BP <130 mm Hg (Most Recent) 3074F 5. Morbid (severe) obesity due to excess calories (E66.01: Morbid (severe) obesity due to excess calories) see above 6. Smoker (F17.200: Nicotine dependence, unspecified, uncomplicated) consider not smoking Ordered: Body Mass Index (BMI) documented 3008F Depression Screening Negative 3352F Influenza immunization status assessed 1030F Medication list documented in medical record 1159F Most recent diastolic blood pressure 80-89 mm Hg 3079F Patient screen for fall risk: no falls in last year or 1 fall with no injury in last year 1101F Review of all meds by a prescribing practitioner or clinical pharmacist documented in EHR 1160F Screened for tobacco use AND received tobacco cessation intervention 4004F Systolic BP <130 mm Hg (Most Recent) 3074F Follow-up No qualifying data available Problem List/Past Medical History Ongoing Anticoagulated Anxiety BMI 37.0-37.9, adult Chronic maxillary sinusitis Cigarette nicotine dependence Class 1 obesity due to excess calories in adult Cough Dairy product intolerance Depression Diastolic CHF Discoloration of skin of lower leg Elevated BP without diagnosis of hypertension Fluid level behind tympanic membrane of both ears RADHA (generalized anxiety dis (more content not included)... Normal [facility] Comment on above: Result Comment: Elec tronically Signed By: Katlyn Brooks\.br\Date and Time Signed: 01/15/25 12:37 EDT Pre-Visit Planningon 025 Pre-Visit Planning Pre-Visit Planning From: Michaela Feliz To: Katlyn Brooks; Sent: 01/14/2025 15:03:21 EDT Subject: Pre-Visit Planning Due Date/Time: 01/14/2025 15:03:00 EDT Caller Name: FLAKITA PAREDES; Caller Number: Grover , Chris Anselmo Potts. During a pre-visit planning chart review, I noted the following documentation in the medical record: Current Problem List: Depression, unspecified. Current Medication List: escitalopram. 12/03/2024 Medicare Wellness Visit: Depression (F32.A: Depression, unspecified) Patient taking escitalopram daily, voices medication is effective. Follows up with PCP with medication management and symptom control. PHQ-9 risk assessment completed with positive findings. Total risk score is 10. Patient denies any suicidal ideations at this time. Reviewed additional signs/symptoms to monitor for and report to provider. Patient follows up with [facility] as directed. Patient reports depression is much improved. Patient understands that a sooner appointment can be made to review depression medications. Patient voices that she does not want medication increased. PCP advised. Based on your medical judgment, can you please clarify which, if any, of the following conditions are present? I can update the Chronic Problem List with your response if you would like. Major Depressive Disorder, Single Episode ??? Major depressive disorder, single episode, mild ??? Major depressive disorder, single episode, moderate ??? Major depressive disorder, single episode, severe without mention of psychotic behavior ??? Major depressive disorder, single episode, in partial remission ??? Major depressive disorder, single episode in full remission Major Depressive Disorder, Recurrent ??? Major depressive disorder, recurrent, mild ??? Major depressive disorder, recurrent, moderate ??? Major depressive disorder, recurrent, severe without mention of psychotic behavior ??? Major depressive disorder, recurrent, in partial remission ??? Major depressive disorder, recurrent, in full remission Other (Please Specify): In responding to this request, please exercise your independent professional judgement. The fact that a question is asked does not imply that any particular answer is desired or expected. If you have any questions, please feel free to contact me at extension [phone]. Thank you! Michaela Feliz LPN Clinical [employer] Consultant [address] [address] Extension: [phone] [email or web address] From: Katlyn Brooks To: Michaela Feliz; Sent: 01/15/2025 07:56:08 EDT Subject: RE: Pre-Visit Planning Caller Name: FLAKITA PAREDES; Caller Number: H , Chris major depressive disorder, recurrent, mild Normal [facility] Ambulatory Visit Summaryon 0 01-01-2025 Ambulatory Visit Summary Ambulatory Visit Summary FLAKITA PAREDES :1955 Visit Date:01/01/2025 Ambulatory Visit Instructions Your Diagnosis BMI 37.0-37.9, adult Class 1 obesity due to excess calories in adult, Other obesity due to excess calories Smoker Your Care Team Attending Physician - Katlyn Brooks Primary Care Physician - Katlyn Brooks This Is Your Medications List alendronate (alendronate [...] ligation. Discharge Vitals Temperature (Temporal Artery) 36.7 ???C Heart Rate (Peripheral) 79 Respiratory Rate 18 Blood Pressure 132/84 Height 157.0 cm Height 62 in Weight 93.0 kg Weight 205.03 lb BMI 37.73 What to do next Scheduled Follow-Up Appointments Monday 9:40 AM EDT With: Edmar COURTNEY, Katlyn Interiano Where: [address] [address]- Monday2025 9:30 AM EDT With: Where: [address] [address]- Medications What How Much When Instructions Unchanged [...] you for choosing us for your care. Patient Portal You may access all of your results and other medical record information on our secure patient portal. If you are not signed up for this yet, please contact [employer] at [phone] to get signed up today. Language Information Language assistance services are available as needed. Vineet Farrell [facility] Family Medicine Office/Clini c Noteon 01-01-2025 Family Medicine Office/Clinic Note Family Medicine Office/Clinic Note HPI Staff Patient is presenting for headaches, upset stomach, coughing up phlegm Headache- yes, started a few months ago. She takes tylenol or ibuprofen if it gets really bad Body aches- yes, a little bit Earache- occasional ear pain, pressure. was told johanna she had fluid in her ears Runny/stuffy nose- yes Problem with Smell- no Problem with Taste- no Sore throat- only when she coughs Cough- yes, with phlegm Scratchy tickly throat- yes, when she coughs Chest symptoms- somtimes feels SOB WILKINSON- no Orthopnea- yes, she has been sleeping in recliner to prevent her from laying flat and coughing Lung Hx asthma, bronchitis, chest colds- no Fever/chills- n/a GI symptoms- nausea COVID exposure- no Wondering if milk is causing her cough with phlegm. Did not have milk on monday and felt fine, after she had milk on monday, cough came back History of Present Illness pt presents today for URI symptoms Review of Systems PHQ Score Initial Depression Screen Score: 2 SCORE Physical Exam Vitals & Measurements T: 36.7 ???C(Temporal Artery) HR: 79(Peripheral) RR: 18 BP: 132/84 SpO2: 97% HT: 157.0 cm HT: 62 in WT: 205.03 lb WT: 93.0 kg BMI: 37.73 General: alert, no acute distress ENMT: oral mucosa moist, no pharyngeal erythema or exudate Cardiovascular: regular rate and rhythm, normal peripheral perfusion Respiratory: Lungs CTA, respirations non labored Extremities: no deformity, no trauma Neurological: oriented x 4, LOC appropriate for age, CN II-XII intact, motor strength equal & normal bilaterally, speech normal Assessment/Plan 1. Upper respiratory infection (J06.9: Acute upper respiratory infection, unspecified) pt very congested and coughing. will send in 10 days worth of z pack. pt states Dr. Yarbrough always order 5 days on then 5 days off then another 5 days. that's the only way she can kick this. offered allergy medication pt declines. 2. Osteopenia (M85.80: Other specified disorders of bone density and structure, unspecified site) will order vitamin D and calcium 3. Dairy product intolerance (K90.49: Malabsorption due to intolerance, not elsewhere classified) pt thinks she has intolerance to milk. she didn't drink milk on Monday and she felt great on Monday. encouraged her to trial not drinking milk for a few days. and use lactaid if she does have dairy products. 4. BMI 37.0-37.9, adult (Z68.37: Body mass index [BMI] 37.0-37.9, adult) BMI education given Ordered: calcium-vitamin D, 1 tab(s), Oral, BID, 180 tab(s), Refill(s) 0, [id number], 157, cm, 01/01/25 13:03:00 EDT, Height/Length Dosing, 93, kg, 01/01/25 13:03:00 EDT, Weight Dosing 5. Class 1 obesity due to excess calories in adult (E66.09: Other obesity due to excess calories) see above Ordered: calcium-vitamin D, 1 tab(s), Oral, BID, 180 tab(s), Refill(s) 0, [id number], 157, cm, 01/01/25 13:03:00 EDT, Height/Length Dosing, 93, kg, 01/01/25 13:03:00 EDT, Weight Dosing 6. Smoker (F17.200: Nicotine dependence, unspecified, uncomplicated) consider not smoking Ordered: calcium-vitamin D, 1 tab(s), Oral, BID, 180 tab(s), Refill(s) 0, [id number], 157, cm, 01/01/25 13:03:00 EDT, Height/Length Dosing, 93, kg, 01/01/25 13:03:00 EDT, Weight Dosing Orders: azithromycin, 250 mg, Oral, As Directed, take two tabs on day 1. take one tab on day 2-10, # 11 tab(s), Refills(s) 1, Pharmacy: [id number], 157, cm, 01/01/25 13:03:00 EDT, Height/Length Dosing, 93, kg, 01/01/25 13:03:00 EDT, Weight Dosing Follow-up No qualifying data available Problem List/Past Medical History Ongoing Anticoagulated Anxiety BMI 37.0-37.9, adult BMI 38.0-38.9,adult Chronic maxillary sinusitis Cigarette nicotine dependence Class 1 obesity due to excess calories in adult Cough Dairy product intolerance Diastolic CHF Discoloration of skin of lower leg Elevated BP without diagnosis of hypertension Fluid level behind tympanic membrane of both ears RADHA (generalized anxiety disorder) Gastritis H/O renal cell cancer Long-term current use of opiate analgesic drug Obesity Obesity (BMI 30-39.9) Orthopnea Osteopenia Shortness of breath Shoulder impingement syndrome Sinusitis Skin cyst Smoker Stage 3a chronic kidney disease (CKD) Stress incontinence Swelling of right lower extremity Upper respiratory infection Wheezing Historical Acid reflux Allergic granuloma Anal fissure Anxiety BMI 35.0-35.9,adult BMI 36.0-36.9,adult Depression Menopause Nocturia Panic attacks Procedure/Surgical History Excision of lipoma of subcutaneous tissue of neck (08/27/2024), Foot (2021), Biopsy of breast (10/2019), Nephrectomy (12/31/2015), right shoulder arthroscopic subacromial decompression. extensive debridement, right shoulder partial thickness rotator cuff tear, biceps tendon, labrum, and and extensive subacromial bursectomy. lateral clavicle resection (10/23/2014 (more content not included)... Normal [facility] Comment on above: Result Comment: Elec tronically Signed By: Katlyn Brooks\.br\Date and Time Signed: 01/01/25 13:[address] Chest, Low Dose Screening on 12-31-2024 CT Chest, Low Dose Screening Exam Date/Time: 12/30/2024 10:13 EDT Reason for Exam: Screening;F17.200 Report IMPRESSION: Lung RADS category 2: Benign appearance and behavior. Follow-up screening CT chest in [address] IMAGING OF THE CHEST WITHOUT INTRAVENOUS CONTRAST MEDIUM. HISTORY: Tobacco use. TECHNICAL FACTORS: Low dose CT imaging of the chest was obtained and formatted as 2.5 mm contiguous axial images from the thoracic inlet through the adrenal glands. Sagittal and coronal reconstructions obtained during postprocessing. Intravenous contrast medium: None. Comparison: 12/27/2023 FINDINGS: Right lun mm noncalcified pleural-based nodule right upper lobe (series 3, image 52), unchanged. No new nodules. No consolidation, pleural effusion, pneumothorax. Left lun.6 mm partially pleural-based noncalcified nodule, left upper lobe (series 3, image 28), unchanged. No new nodules. No consolidation, pleural effusion, pneumothorax. Lymph nodes: No hilar, mediastinal, or axillary lymph node enlargement. Thoracic aorta: Normal in course and caliber. Cardiac: Size normal. No pericardial effusion. Very artery calcification identified. Upper abdomen:Limited imaging upper abdomen shows gallbladder surgically absent.. Musculoskeletal:No osteoblastic, and no osteolytic lesions. Diffuse disc space narrowing thoracic spine. All CT scans at this facility use dose modulation, iterative reconstruction, and/or Report weight based dosing when appropriate to reduce radiation dose to as low as reasonably achievable. Ordering Provider: Elida Anand FINAL REPORT Dictated: 12/31/2024 10:38 am John Frazier MD Signed (Electronic Signature): 12/31/2024 10:38 am Signed by: John Frazier MD Transcribed by: VIRAJ Technologist: ZAC Farrell [facility] Ambulatory Visit Summaryon 0 12-18-2024 Ambulatory Visit [...] PM EDT With: Elida Anand MD Where: [address] [id number]- Monday2025 9:30 AM EDT With: Where: [address] [address]- Medications What How Much When Instructions Unchanged [...] for choosing us for your care. Vineet [facility] Family Medicine Office/Clini c Noteon 12-18-2024 Family Medicine Office/Clinic Note Family Medicine Office/Clinic Note HPI Staff Flakita is a 69 year [...] Given Postpone due to refusal SARS-CoV-2 mRNA (totinonameran 5y-11y) vac - Not Given Postpone due to refusal Normal [facility] Comment on above: Result Comment: Elec tronically Signed By: Edmar COURTNEY, Katlyn Interiano\.br\Date and Time Signed: 12/18/24 15:44 EDT Ambulatory Visit Summaryon 0 12-04-2024 Ambulatory Visit Summary Ambulatory Visit Summary FLAKITA PAREDES :1955 Visit Date:12/03/2024 Ambulatory Visit Instructions Your [...] Appointments Monday 8:20 AM EDT With: Where: [address] [address]- Monday 9:00 AM EDT With: Elida Anand MD Where: [address] [address]- Monday2025 9:30 AM EDT With: Where: [address] [address]- You Need to Complete the Following Comprehensive [...] Yes, Yes, 1, 53, Yes, current smoker, [id number], No, Yes, Smoker History of smoking 25-50 [...] attacks Patient (more content not included)... Normal [facility] CHEMISTRYOrdered By: SYSTEM SYSTEM on 12-04-2024 Albumin [...] 11 mmol/L Normal 6 - 16 mEq/L R emisol Chem AST [Catalytic activity/Vol] 26 [iU]/d Normal 5 - 43 Int._Unit/L Remisol Chem Bilirubin [Mass/Vol] 0.9 mg/dL Normal 0.0 - 1 .1 mg/dL Remisol Chem Calcium [Mass/Vol] 9.5 mg/dL Normal 8.9 - 11. 1 mg/dL Remisol Chem Chloride [Moles/Vol] 104 mmol/L Normal 101 - 1 11 mmol/L Remisol Chem CO2 [Moles/Vol] 31 mmol/L Normal 21 - 31 mmol/L Remisol Chem Creatinine [Mass/Vol] 1.0 mg/dL Normal 0.5 - 1.3 mg/dL Remisol Chem GFR/1.73 sq M.predicted MDRD (S/P/Bld) [Vol rate/Area] 61 mL/min/1.73 m2 Normal >=59mL/min/1 .73 m2 Remisol Chem Globulin (S) [Mass/Vol] 3.0 g/dL Normal 1.4 - 4.0 gm/dL Remisol Chem Glucose [Mass/Vol] 100 mg/dL Normal 55 - 199 mg/dL Remisol Chem Potassium [Moles/Vol] 4.5 mmol/L Normal 3.5 [...] 12-04-2024 Albumin [Mass/Vol] 4.2 g/dL Normal 3.3-5.0 [facility] Comment on above: Performed By: #### 2 [id number] #### [facility] [address] [place] [address] Albumin/Globulin [Mass ratio] 1.4 {ratio} Normal 1.1-2.2 [facility] Comment on above: Performed By: #### 2 [id number] #### [facility] [address] [place] [address] Alk Phos 82 Int._Unit/L Normal 21-98 [facility] Comment on above: Performed By: #### 2 [id number] #### [facility] [address] [place] [address] ALT 21 Int._Unit/L Normal 6-46 [facility] Comment on above: Performed By: #### 2 [id number] #### [facility] [address] [place] [address] Anion gap [Moles/Vol] 11 mmol/L Normal 6-16 [facility] Comment on above: Performed By: #### 2 [id number] #### [facility] [address] [place] [address] AST 26 Int._Unit/L Normal 5-43 [facility] Comment on above: Performed By: #### 2 [id number] #### [facility] [address] [place] [address] Bili Total 0.9 mg/dL Normal 0.0-1.1 [facility] Comment on above: Performed By: #### 2 [id number] #### [facility] [address] [place] [address] BUN/Creat Ratio 13 No Units Normal 10-20 [facility] Comment on above: Performed By: #### 2 [id number] #### [facility] [address] [place] [address] Calcium [Mass/Vol] 9.5 mg/dL Normal 8.9-11.1 [facility] Comment on above: Performed By: #### 2 [id number] #### [facility] [address] [place] [address] Chloride [Moles/Vol] 104 mmol/L Normal 101-111 [facility] Comment on above: Performed By: #### 2 [id number] #### [facility] [address] [place] [address] CO2 [Moles/Vol] 31 mmol/L Normal 21-31 [facility] Comment on above: Performed By: #### 2 [id number] #### [facility] [address] [place] [address] Creatinine [Mass/Vol] 1.0 mg/dL Normal 0.5-1.3 [facility] Comment on above: Performed By: #### 2 [id number] #### [facility] [address] [place] [address] Globulin (S) [Mass/Vol] 3.0 g/dL Normal 1.4-4.0 [facility] Comment on above: Performed By: #### 2 [id number] #### [facility] [address] [place] [address] Glucose [Mass/Vol] 100 mg/dL Normal 55-199 [facility] Comment on above: Performed By: #### 2 [id number] #### [facility] [address] [place] [address] Potassium [Moles/Vol] 4.5 mmol/L Normal 3.5-5.3 [facility] Comment on above: Performed By: #### 2 [id number] #### [facility] [address] [place] [address] Protein [Mass/Vol] 7.2 g/dL Normal 6.0-7.8 [facility] Comment on above: Performed By: #### 2 [id number] #### [facility] [address] [place] [address] Sodium [Moles/Vol] 141 mmol/L Normal 135-145 [facility] Comment on above: Performed By: #### 2 [id number] #### [facility] [address] [place] [address] Urea nitrogen [Mass/Vol] 13 mg/dL Normal 5-21 [facility] Comment on above: Performed By: #### 2 [id number] #### [facility] [address] [place] [address] Family Medicine Office/Clini c Noteon 12-04-2024 Family Medicine [...] [facility] 2 years ago. Carolina Clark Deanna 12/03/2024 7:58 EDT Advance Directive FT Advance Directive : Yes Type of Advance Directive : Living will, Medical durable power of attorney at law Location of Advance Directive : Scanned into EMR Organ Donation Consent : Yes Carolina Clark Deanna 12/03/2024 7:58 EDT Procedures / Surgeries FT [...] ; Comments: 06/06/2012 11:14 SAMMIE Hopkins RN, [facility] heart cath 8-10 years ago- negative ; [...] Of: 12/03 (more content not included)... Normal [facility] Comment on above: Result Comment: Elec tronically Signed By: Elida Anand MD\.br\Date and Time Signed: 12/04/24 10:43 EDT\.br\Electronically Co-Signed By: Carolina Clark\.br\Date and Time Co-Signed: 12/03/24 10:37 EDT Lipid Panelon 12-04-2024 Cholesterol [Mass/Vol] 124 mg/dL Normal 120-200 [facility] Comment on above: Performed By: #### 2 [id number] #### [facility] [address] [place] [address] Cholesterol in HDL [Mass/Vol] 46 mg/dL Invalid Interpretation Code [facility] Comment on above: Result Comment: '>= 60 LOW RISK' '<= 40 HIGH RISK' Performed By: #### 2 [id number] #### [facility] [address] [place] [address] Cholesterol in LDL [Mass/Vol] 69 mg/dL Normal <=129 [facility] Comment on above: Performed By: #### 2 [id number] #### [facility] [address] [place] [address] Cholesterol in VLDL [Mass/Vol] 19 mg/dL Normal 7-40 [facility] Comment on above: Performed By: #### 2 [id number] #### [facility] [address] [place] [address] Triglyceride [Mass/Vol] 94 mg/dL Normal <=149 [facility] [facility] Comment on above: Performed By: #### 2 [id number] #### [facility] [address] [place] [address] U Microalbon 12-04-2024 U Microalb 0.9 mg/dL Normal 0.0-1.9 [facility] Comment on above: Performed By: #### 1 [id number] #### [facility] [address] [place] [address] eGFRon 12-04-2024 eGFR 61 mL/min/1.73 m2 Normal >=59 [facility] Comment on above: Performed By: #### 1 [id number] #### [facility] [address] [place] [address] Ambulatory Visit Summaryon 0 10-15-2024 Ambulatory Visit [...] Follow-Up Appointments Monday 8:00 AM EDT Where: [place] [id number]- Medications What How Much When Instructions Unchanged [...] for choosing us for your care. Vineet Farrell [facility] Family Medicine Office/Clini c Noteon 10-15-2024 Family [...] day(s), # 6 tab(s), Refills(s) 0, Pharmacy: [facility]/pharmacy #[id number], 157, cm, 10/15/24 14:04:00 EDT, Height/Length Dosing, 92.6, kg, 10/15/24 14:04:00 EDT, Weight Dosing 2. BMI 37.0-37.9, adult (Z68.37: Body mass index [BMI] 37.0-37.9, adult) BMI education added Ordered: azithromycin, = 1 packet(s), Oral, As Directed, as directed on package labeling, X 5 day(s), # 6 tab(s), Refills(s) 0, Pharmacy: [facility]/pharmacy #[id number], 157, cm, 10/15/24 14:04:00 EDT, Height/Length Dosing, 92.6, kg, 10/15/24 14:04:00 EDT, Weight Dosing Body Mass Index (BMI) documented 3008F Current tobacco non-user 1036F Depression Screening Negative 3352F Discharge medications reconciled with current medications in outpatient record 1111F Influenza immunization status assessed 1030F Influenza Type A&B POC 86108 Medication list documented in medical record 1159F Most recent diastolic blood pressure 80-89 mm Hg 3079F Patient screen for fall risk: no falls in last year or 1 fall with no injury in last year 1101F Rapid COVID POC 48248 Review of all meds by a prescribing practitioner or clinical pharmacist documented in EHR 1160F Systolic BP 130-139 mm Hg (Most Recent) 3075F 3. Smoker (F17.200: Nicotine dependence, unspecified, uncomplicated) Please stop smoking. This could be the cause of the sinusitis. Ordered: azithromycin, = 1 packet(s), Oral, As Directed, as directed on package labeling, X 5 day(s), # 6 tab(s), Refills(s) 0, [id number] 157, cm, 10/15/24 14:04:00 EDT, Height/Length Dosing, 92.6, kg, 10/15/24 14:04:00 EDT, Weight Dosing 4. Obesity (BMI 30-39.9) (E66.9: Obesity, unspecified) Diet and exercise advised Ordered: azithromycin, = 1 packet(s), Oral, As Directed, as directed on package labeling, X 5 day(s), # 6 tab(s), Refills(s) 0, [id number] 157, cm, 10/15/24 14:04:00 EDT, [...] 1 packe (more content not included)... Normal [facility] Comment on above: Result Comment: Elec tronically Signed By: Kika SAMPSON, Elida Tovar.br\Date and Time Signed: 10/15/24 14:32 EDT Surgical Pathologyon 025 Surgical Pathology Normal [facility] Comment on above: Result Comment: [facility] [address] [place] [address] Surgical Pathology Consultation Patient Name:FLAKITA PAREDES:1955 (Age: 69)Gender:FTaken:08/27/2024Reported:09/02/2024Physician(s):Kenisha Hilliard D.O. ([phone])Copy To: Rec. #:[id number]: #[id number] Final Pathologic Diagnosis Lipoma, right axilla - excision: - Lipoma Report Electronically Signed Out [facility]/09/02/2024Hemal Marsh MD Interpretation performed at [facility], [address] [place] [address], License number: [id number]. Clinical History Right axillary lipoma. Gross Description Received in formalin labeled VOELZKE, R axilla is an aggregate of yellow lobulated fat, 3.5 x 3.5 x 1 cm. The specimen is sectioned to reveal homogeneous cut surfaces and 2 sales representative malt liquors sections are submitted a single cassette. (1,ns,H15-8566, m8.1) [facility]/08/28/2024SSI Specimen(s) Received Right axilla lipoma Fee Codes(s): 1; 12934 COMPLETE BLOOD COUNTon 08-22 Erythrocyte distribution width (RBC) [Ratio] 13.8 % Normal 11.5-15.0 [facility] Comment on above: Performed By: #### C BC, CMP #### [facility] ([id number]) Formerly [facility]0 [facility], [facility] [address] [place] [address] Hematocrit (Bld) [Volume fraction] 44.0 % Normal 35-47 [facility] Comment on above: Performed By: #### C BC, CMP #### [facility] ([id number]) [address] [facility] [address] [place] [address] Hemoglobin (Bld) [Mass/Vol] 14.8 g/dL Normal 11.7-15.5 [facility] Comment on above: Performed By: #### C BC, CMP #### [facility] ([id number]) [address] [facility] [address] [place] [address] MCH (RBC) [Entitic mass] 32.0 pg Normal 27-34 [facility] Comment on above: Performed By: #### C BC, CMP #### [facility] ([id number]) [address], [address] [place] [address] MCHC (RBC) [Mass/Vol] 33.7 g/dL Normal 32-36 [facility] Comment on above: Performed By: #### C BC, CMP #### [facility] ([id number]) [address], [address] [place] [address] MCV (RBC) [Entitic vol] 95 fL Normal 80-100 [facility] Comment on above: Performed By: #### C ALICIA, CMP #### [facility] ([id number]) [address], [address] [place] [address] Platelet mean volume (Bld) [Entitic vol] 8.6 fL Normal 7-12 [facility] Comment on above: Performed By: #### C ALICIA, CMP #### [facility] ([id number]) [address], [address] [place] [address] Platelets (Bld) [#/Vol] 344 10*3/uL Normal 150-450 [facility] Comment on above: Performed By: #### C ALICIA, CMP #### [facility] ([id number]) [address], [address] [place] [address] RBC COUNT 4.64 X10E12/L Normal 3.80-5.20 [facility] Comment on above: Performed By: #### C ALICIA, CMP #### [facility] ([id number]) [address] [place] [address] WBC (Bld) [#/Vol] 7.2 10*3/uL Normal 4.0-11.[address] [facility] Comment on above: Performed By: #### C BC, CMP #### [facility] ([id number]) [address], [address] [place] [address] COMPREHENSIVE METABOLIC PANE Junior 08-22-2024 Albumin [Mass/Vol] 4.3 g/dL Normal 3.2-5.[address] [facility] Comment on above: Performed By: #### C ALICIA, CMP #### [facility] ([id number]) [address], [address] [place] [address] ALP [Catalytic activity/Vol] 72 U/L Normal 39-130 [facility] Comment on above: Performed By: #### C ALICIA, CMP #### [facility] ([id number]) [address], [address] [place] [address] ALT [Catalytic activity/Vol] 23 U/L Normal 0-31 [facility] Comment on above: Performed By: #### C ALICIA, CMP #### [facility] ([id number]) [address], [address] [place] [address] Anion gap [Moles/Vol] 8 mmol/L Normal 5-15 [facility] Comment on above: Performed By: #### C ALICIA, CMP #### [facility] ([id number]) [address], [address] [place] [address] AST [Catalytic activity/Vol] 23 U/L Normal 0-41 [facility] Comment on above: Performed By: #### C ALICIA, CMP #### [facility] ([id number]) [address], [address] [place] [address] Bilirubin [Mass/Vol] 1.2 mg/dL Normal 0.3-1.2 [facility] Comment on above: Performed By: #### C ALICIA, CMP #### [facility] ([id number]) [address], [address] [place] [address] Calcium [Mass/Vol] 9.8 mg/dL Normal 8.5-10.[address] [facility] Comment on above: Performed By: #### C BC, CMP #### [facility] ([id number]) [address], [address] [place] [address] Chloride [Moles/Vol] 103 mmol/L Normal 98-109 [facility] Comment on above: Performed By: #### Marc VARGAS, CMP #### [facility] ([id number]) [address], [address] [place] [address] CO2 [Moles/Vol] 30 mmol/L Normal 22-32 [facility] Comment on above: Performed By: #### Marc VARGAS, CMP #### [facility] ([id number]) [address], [address] [place] [address] Creatinine [Mass/Vol] 1.03 mg/dL High 0.40-1.00 [facility] Comment on above: Result Comment: METH OD TRACEABLE TO IDMS STANDARD Performed By: #### Marc VARGAS, CMP #### [facility] ([id number]) [address], [address] [place] [address] GFR/1.73 sq M.predicted among non-blacks MDRD (S/P/Bld) [Vol rate/Area] 59 mL/min/{1.73_m2} Low >59 [facility] Comment on above: Result Comment: Reported eGFR is based on the CKD-EPI 1 equation that does not use a race coefficient. Performed By: #### Marc VARGAS, CMP #### [facility] ([id number]) [address], [address] [place] [address] Glucose [Mass/Vol] 90 mg/dL Normal 65-[address] [facility] Comment on above: Performed By: #### Marc VARGAS, CMP #### [facility] ([id number]) [address], [address] [place] [address] Potassium [Moles/Vol] 4.2 mmol/L Normal 3.5-5.0 [facility] Comment on above: Performed By: #### Marc VARGAS, CMP #### [facility] ([id number]) [address], [address] [place] [address] Protein [Mass/Vol] 7.3 g/dL Normal 6.0-8.[address] [facility] Comment on above: Performed By: #### C BC, CMP #### [facility] ([id number]) [address], [address] [place] [address] Sodium [Moles/Vol] 141 mmol/L Normal 134-[address] [facility] Comment on above: Performed By: #### C BC, CMP #### [facility] ([id number]) [address], [address] [place] [address] Urea nitrogen [Mass/Vol] 14 mg/dL Normal 5-27 [facility] Comment on above: Performed By: #### C BC, CMP #### [facility] ([id number]) [address], [address] [place] [address] US EXT NON-VASC RT LIMITEDon 07-26-2024 US [...] Almazan MD on 07/26/2024 6:11 AM Normal [facility] Surgical Pathologyon 025 Surgical Pathology Normal [facility] Comment on above: Result Comment: [facility] [employer] [facility] [address] [place] [address] Surgical Pathology Consultation Patient Name:FLAKITA PAREDES:1955 (Age: 69)Gender:FTaken:07/24/2024Reported:07/29/2024Physician(s):Kenisha Hilliard D.O. ([phone])Copy To: Rec. #:[id number]: #[id number] Final Pathologic Diagnosis 1. Right upper extremity lipoma, excision: Angiolipoma 2. Left upper extremity top lipoma, excision: Angiolipoma. 3. Left forearm lipoma, excision: Angiolipoma. 4. Left upper extremity bottom lipoma, excision: Angiolipoma. Report Electronically Signed Out [facility]/07/29/2024Juan Carlos Braswell M.D. Interpretation [place] [address], License number: [id number]. Clinical History Lipoma of left upper extremity, D17.22. Lipoma of right upper extremity, D17.21. Gross Description 1. Received in formalin labeled [facility], right upper arm lipoma is a portion of yellow glistening adipose soft tissue that measures 1.6 x 1.2 x 1.0 cm. The specimen is inked black. The specimen is serially sectioned to reveal yellow glistening uniform cut surfaces. Three sales [employer] cross-sections are submitted in a single cassette. (1, , [id number],m1) DM. 2. .Received in formalin labeled [facility], left upper arm top Lipoma is a portion of yellow glistening adipose soft tissue that measures 2.4 x 1.6 x 1.1 cm. The specimen is inked black. The specimen is serially sectioned to reveal yellow glistening uniform cut surfaces. Four [employer] representative [employer] cross-sections are submitted in a single cassette. (1, ss, [id number],m1) DM. 3. Received in formalin labeled [facility], left forearm lipoma is a portion of yellow glistening adipose soft tissue that measures 1.2 x 1.0 x 0.6 cm. The specimen is inked black. The specimen is serially sectioned to reveal yellow glistening uniform cut surfaces. Three sales representative malt liqu[employer] cross-sections are submitted in a single cassette. (1, ss, [id number],m1) DM. 4. Received in formalin labeled REGGIE left upper arm bottom lipoma is a portion of yellow glistening adipose soft tissue that measures 1.2 x 1.1 x 0.6 cm. The specimen is inked black. The specimen is serially sectioned to reveal yellow glistening uniform cut surfaces. Two. Three sales representative malt [employer] cross-sections are submitted in a single cassette. (1, ss, [id number],m1) DM. dm/07/25/2024NSK Specimen(s) Received 1: Right upper extremity 2: Left upper extremity top 3: Left forearm 4: Left upper extremity bottom Fee Codes(s): 1; 24453 2; 04105 3; 11509 4; 03304 Ambulatory Visit Summaryon 0 07-08-2024 Ambulatory Visit Summary Ambulatory Visit Summary FLAKITA PAREDES :1955 Visit Date:07/08/2024 Ambulatory Visit Instructions Your Diagnosis Diastolic CHF Stage 3a chronic kidney disease (CKD) Elevated BP without diagnosis of hypertension Otitis media, unspecified, unspecified ear BMI 37.0-37.9, adult Obesity (BMI 30-39.9) Smoker Your Care Team Attending Physician - Elida Anand MD Primary Care Physician - Elida Anand MD. This Is Your Medications List azithromycin (azithromycin [...] Follow-Up Appointments Monday 8:00 AM EDT Where: [address] [address]- Medications What How Much When Instructions New azithromycin (azithromycin 250 mg Tab) 1 Packets By Mouth As Directed Duration: 5 Days as directed on package labeling Pickup at [facility]/pharmacy #[id number] Unchanged alendronate (alendronate 70 mg Tab) See [...] physician if questions or concerns Pharmacy Information [facility]/pharmacy #[id number]: [address], [place] [phone] Allergies Avelox (Unknown) Cedax Ceftin Cipro Cortisporin [...] are wo (more content not included)... Normal [facility] Family Medicine Office/Clini c Noteon 07-08-2024 Family Medicine [...] and physical activity. Consider referral to a cage clerk for specialized dietary advice. 7. Smoker (F17.200: Nicotine dependence, unspecified, uncomplicated) Provide smoking cessation resources. Discuss strategies including nicotine replacement therapy or pharmacotherapy options. Orders: azithromycin, = 1 packet(s), Oral, As Directed, as directed on package labeling, X 5 day(s), # 6 tab(s), Refills(s) 0, Pharmacy: [facility]/pharmacy #[id number], 157, cm, 07/08/24 [...] BMI 36.0-36.9,adult (more content not included)... Normal [facility] Comment on above: Result Comment: Elec tronically [...] disorder) Gastritis (more content not included)... Normal [facility] Comment on above: Result Comment: Elec tronically [...] EST With: Kika SAMPSON, Elida Lyn Where: [address] [id number]- Monday 8:00 AM EDT With: Where: [address] [address]- Medications What How Much When Instructions Unchanged [...] you for choosing us for your care. [facility] Ambulatory Visit Summaryon 0 03-11-2024 Ambulatory Visit Summary Ambulatory Visit Summary FLAKITA PAREDES :1955 Visit Date:03/11/2024 Ambulatory Visit Instructions Your Diagnosis BMI 36.0-36.9,adult Class 1 obesity due to excess calories in adult Smoker Your Care Team Attending Physician - Katlyn Brooks Primary Care Physician - Elida Anand MD. [...] EST With: Kika SAMPSON, Elida Lyn Where: [address] [address]- Monday 8:00 AM EDT With: Where: [address] [address]- Medications What How Much When Instructions Unchanged [...] for choosing us for your care. Vineet Farrell [facility] Family Medicine Office/Clini c Noteon 03-11-2024 Family [...] Anxiety, # 90 tab(s), Refills(s) 0, [id number] 157, cm, 03/11/24 13:45:00 EDT, Height/Length Dosing, 90.5, kg, 03/11/24 13:45:00 EDT, Weight Dosing alprazolam, 0.5 mg = 1 tab(s), Oral, TID, PRN for anxiety, For Anxiety, # 90 tab(s), Refills(s) 2, [id number], 160, cm, 09/25/23 13:08:00 EDT, Height/Length Dosing, 91.6, kg, 09/25/23 13:08:00 EDT, Weight Dosing azithromycin, 500 mg = 1 tab(s), Oral, Daily, X 3 day(s), # 3 tab(s), Refills(s) 0, [id number], 157, cm, 03/11/24 13:45:00 EDT, Height/Length [...] No. Household (more content not included)... Normal [facility] Comment on above: Result Comment: Elec tronically [...] EST With: Kika SAMPSON, Elida Lyn Where: [address] [address]- Monday 8:00 AM EDT With: Where: [address] [phone]- Medications What How Much When Instructions Unchanged [...] EVERY DAY FOR 3 DAYS Pickup at [facility]/pharmacy #[id number] Unchanged escitalopram (escitalopram 20 mg Tab) See instructions TAKE 1 TABLET BY MOUTH EVERY DAY Unchanged pantoprazole (Pantoprazole [address] Tab) 1 Tablets By Mouth 2 times a day Pharmacy Information [facility]/pharmacy #[id number]: [address], [place] [phone] Allergies Avelox (Unknown) Cedax Ceftin Cipro Cortisporin [...] for choosing us for your care. Normal [facility] Family Medicine Office/Clini c Noteon 02-26-2024 Family [...] BMI education given Ordered: Rapid COVID POC 25883 3. Class 1 obesity due to excess calories in adult (E66.09: Other obesity due to excess calories) see above 4. Smoker (F17.200: Nicotine dependence, unspecified, uncomplicated) continue not smoking Orders: azithromycin, See Instructions, TAKE 1 TABLET BY MOUTH EVERY DAY FOR 3 DAYS, # 3 tab(s), Refills(s) 0, Pharmacy: [facility]/pharmacy #[id number], 157, cm, 02/26/24 13:42:00 EDT, Height/Length [...] Rapid Covid POC: Negative (02/26/24 14:02:00) Normal [facility] Comment on above: Result Comment: Elec tronically Signed By: Katlyn Brooks\Date and Time Signed: 02/26/24 14:15 EDT CHEMISTRYOrdered By: SYSTEM SYSTEM on 05-01-2023 25-hydroxyvitamin D3 [Mass/Vol] 38.4 ng/mL Normal 30.0 - 100.0 ng/mL [facility] Remisol Comment on above: Interpretive Data: Vitamin D deficiency has been defined as a level of serum 25-OH vitamin D less than 20 ng/mL (1,2) by the [place] [employer] and an Endocrine Society practice guideline. The Endocrine Society further defined vitamin D insufficiency as a level between 21 and 29 ng/mL (2). 1. IOM ([place] of [employer]). 2010. Dietary reference intakes for [...] 10 mmol/L Normal 6 - 16 mEq/L [facility] AST [Catalytic activity/Vol] 23 [iU]/d Normal [...] 80 ng/mL Normal 11 - 307 ng/mL [facility] Comment on above: Interpretive Data: N ORMALS MEN <30 YRS 16-132 ng/mL MEN >30 YRS 8-338 ng/mL WOMEN (PREMEN) 6-104 ng/mL WOMEN (POSTMEN) 12-210 ng/mL GFR/1.73 sq M.predicted among non-blacks MDRD (S/P/Bld) [Vol rate/Area] 55 mL/min/1.73 m2 Low >=59mL/min/1 .73 m2 [facility] Chem S Comment on above: Interpretive Data: C hronic kidney disease could be indicated at eGFR's of less than 60 mL/min/1.73m2. Kidney failure is indicated at less than 15 mL/min/1.73m2. Globulin (S) [Mass/Vol] 3.9 g/dL Normal 1.4 - 4.0 gm/dL [facility] Glucose [Mass/Vol] 82 mg/dL Normal 55 - 199 mg/dL [facility] Comment on above: Interpretive Data: I [...] Normal 0.0 - 8.0 % [facility] HemeAutoSS Eosinophils/Leukocyte s Auto (Bld) [Pure # fraction] 0.2 E9/L Normal 0.0 - 0.5 E9/L [facility] HemeAutoSS Lymphocytes/100 WBC (Bld) 30.9 % Normal 14.0 - 50.0 % [facility] HemeAutoSS Lymphocytes/Leukocyte s Auto (Bld) [Pure # fraction] 2.2 E9/L Normal 1.0 - 4.0 E9/L [facility] HemeAutoSS Monocytes/100 WBC (Bld) 8.8 % Normal 4.0 - 14.0 % [facility] HemeAutoSS Monocytes/Leukocytes Auto (Bld) [Pure # fraction] 0.6 E9/L Normal 0.2 - 1.0 E9/L [facility] HemeAutoSS Neutrophils/100 WBC (Bld) 56.8 % Normal 36.0 - 75.0 % [facility] HemeAutoSS Neutrophils/Leukocyte s Auto (Bld) [Pure # fraction] 4.1 E9/L [...] 16 mg/dL Normal 7 - 40 mg/dL [facility] Triglyceride [Mass/Vol] 81 mg/dL Normal <=149mg/dL [facility] Remisol CT LUNG CANCER SCREENINGon 0 07-28-2022 [...] by: DEEPAK SEGOVIA Date: 2022-07-28 12:22 Normal [facility] XR SINUSES 3 VIEWS OR GREATE Jose [...] CELINE OCHOA Date: 2022-07-26 20:16 Normal [facility] CHEMISTRYOrdered By: SYSTEM SYSTEM on 07-15-2022 Albumin [Mass/Vol] 4.2 g/dL [...] 12 mmol/L Normal 6 - 16 mEq/L [facility] Remisol AST [Catalytic activity/Vol] 34 [iU]/d Normal [...] (S/P/Bld) [Vol rate/Area] 60 mL/min/1.73 m2 Normal >=59mL/min/1 .73 m2 [facility] Chem S GFR/1.73 sq M.predicted among non-blacks MDRD (S/P/Bld) [Vol rate/Area] 50 mL/min/1.73 m2 Low >=59mL/min/1 .73 m2 [facility] Chem S Globulin (S) [Mass/Vol] 3.9 g/dL Normal 1.4 - 4.0 gm/dL [facility] Glucose [Mass/Vol] 106 mg/dL Normal 55 - 199 mg/dL [facility] Lipase [Catalytic activity/Vol] 40 U/L Normal 13 - 58 unit/L [facility] Potassium [Moles/Vol] 4.5 mmol/L Normal 3.5 - 5.3 mmol/L [facility] Comment on above: Result Comment: 'Spe cimen hemolyzed. Result may be affected. Redraw is recommended.' Protein [Mass/Vol] 8.1 g/dL High 6.0 - 7.8 gm/dL [facility] Sodium [Moles/Vol] 134 mmol/L Low 135 - 145 mmol/L [facility] Troponin I.cardiac [Mass/Vol] 3.80 pg/mL Low 10.10 - 27.10 pg/mL [facility] Urea nitrogen [Mass/Vol] 11 mg/dL Normal 5 - 21 mg/dL [facility] Urea nitrogen/Creatinine [Mass ratio] 10 mg/mg Normal 10 - 20 [facility] HEMATOLOGYOrdered By: SYSTEM SYSTEM on 07-15-2022 Basophils/100 WBC (Bld) 0.8 % Normal 0.0 - 2.0 % [facility] HemeAutoSS Basophils/Leukocytes Auto (Bld) [Pure # fraction] 0.1 E9/L Normal 0.0 - 0.2 E9/L [facility] HemeAutoSS Eosinophils/100 WBC (Bld) 2.5 % Normal 0.0 - 8.0 % [facility] HemeAutoSS Eosinophils/Leukocyte s Auto (Bld) [Pure # fraction] 0.2 E9/L Normal 0.0 - 0.5 E9/L [facility] HemeAutoSS Lymphocytes/100 WBC (Bld) 30.7 % Normal 14.0 - 50.0 % [facility] HemeAutoSS Lymphocytes/Leukocyte s Auto (Bld) [Pure # fraction] 2.4 E9/L Normal 1.0 - 4.0 E9/L [facility] HemeAutoSS Monocytes/100 WBC (Bld) 6.3 % Normal 4.0 - 14.0 % [facility] HemeAutoSS Monocytes/Leukocytes Auto (Bld) [Pure # fraction] 0.5 E9/L Normal 0.2 - 1.0 E9/L [facility] HemeAutoSS Neutrophils/100 WBC (Bld) 59.7 % Normal 36.0 - 75.0 % [facility] HemeAutoSS Neutrophils/Leukocyte s Auto (Bld) [Pure # fraction] 4.8 E9/L [...] sed) [#/Area] /[HPF] Normal 0-2/HPF [facility] UA Aut o SS Glucose Test strip (U) [Mass/Vol] Negative (07/15/22 2:31 PM) Normal Negative [facility] UA Auto SS Hemoglobin Ql (U) Negative (07/15/22 2:31 PM) Normal Negative [facility] UA Auto SS Ketones (U) [Mass/Vol] Negative (07/15/22 2:31 PM) Normal Negative [facility] UA Auto SS Amo.plasma/Lithiu m.RBC (Bld) [Mass ratio] 0-3 /HPF Normal 0-3/HPF [...] PM) Invalid Interpretation Code 1.005 - 1.030 [facility] UA Auto SS UA Spec Desc Clean Catch (07/15/22 2:31 PM) Normal [facility] UA Auto SS Urobilinogen Qn (U) [id number] {Joelle'U}/dL Normal 0.0 - 1.0 EU/dL FT UA Auto SS WBC Auto Ql (U) Negative (07/15/22 2:31 PM) Normal Negative [facility] UA Auto SS WBC LM.HPF (Urine sed) [#/Area] 0-5 /HPF Normal 0-5/HPF [facility] SEILING [employer] Junior 05-20-2022 L -- ---- Specimen: [id number] Received: 05/23/22 Status: EDUARDO Ayala Num: [id number] Spec Type: Surgical Subm Dr: Rick Gordon DPM Tissues: A Soft Tissue/Surgical Margin-Other than Tumor,Mass,Lip or Martha (RT FOOT FIBROM B Lipoma (RT FOOT LIPOMA) Procedures: HE/2, Gross/Micro L4, Gross/Micro L3, SM ACTIN, SOX-10 ---- Age/ Patient Sex Location Account Attending Physician ---- Flakita Paredes 67/F [place] [id number] Rick Gordon DPM ---- SPEC NUM: [id number] RECD: 05/23/22 STATUS: EDUARDO AYALA NUM: [id number] HUONG: 05/20/22- SUBM DR: Rick Gordon DPM ENTERED: 05/23/22 [facility] DR: [facility] SPEC TYPE: Surgical DEPT: S ORDERED: HE/2, Gross/Micro L4, Gross/Micro L3, SM ACTIN, SOX-10 ORDERED: HE/2, Gross/Micro L4, Gross/Micro L3, SM ACTIN, SOX-10 Supplemental Report Addendum 1 Entered: 05/30/22 Specimen A: Intradermal nevus present. [id number] melanocytes present, SMA negative in the lesion. Stain controls adequate. CPT: 76541, 98598 Addendum Signed (signature on file) Joao Neal MD 05/30/221551 ---- Pathological Diagnosis A. Right foot, ganglion cyst and fibroma, excision: - Benign dense fibrous tissue, compatible with fibroma. - Benign skin with intradermal cellular lesion. See comment. B. Right foot, lipoma, excision: - Lipoma. Comment: Glomus tumor is in differential diagnosis with a potential intradermal nevus. See ---- Specimen: [id number] Received: 05/23/22 Status: EDUARDO Ayala Num: [id number] Spec Type: Surgical Subm Dr: Rick Gordon DPM Tissues: A Soft Tissue/Surgical Margin-Other than Tumor,Mass,Lip or Martha (RT FOOT FIBROM B Lipoma (RT FOOT LIPOMA) Procedures: HE/2, Gross/Micro L4, Gross/Micro L3, SM ACTIN, SOX-10 ---- Patient: Flakita Paredes [id number] (Continued) ---- Specimen: [id number] Received: 05/23/22 (Continued) Pathological Diagnosis (Continued) Signed (signature on file) Marah Avila MD 05/27/22 1800 ---- Specimen: [id number] Received: 05/23/22 Status: EDUARDO Ayala Num: [id number] Spec Type: Surgical Subm Dr: Rick Gordon DPM Tissues: A Soft Tissue/Surgical Margin-Other than Tumor,Mass,Lip or Martha (RT FOOT FIBROM B Lipoma (RT FOOT LIPOMA) Procedures: HE/2, Gross/Micro L4, Gross/Micro L3, SM ACTIN, SOX-10 ---- Patient: Flakita Paredes [id number] (Continued) ---- Specimen: [id number] Received: 05/23/22 (Continued) Pathological Diagnosis (Continued) results of immunohistochemical [...] support the above pathologic diagnosis. CPT Codes 45106, 01480 ---- ---- Specimen: [id number] Received: 05/23/22 Status: EVANTarun David Num: [id number] Spec Type: Surgical Subm Dr: Rick Gordon DPM Tissues: A Soft Tissue/Surgical Margin-Other than Tumor,Mass,Lip or Martha (RT FOOT FIBROM B Lipoma (RT FOOT LIPOMA) Procedures: HE/2, (more content not included)... Normal [facility] PROF CHEM 8 (BAS METB)on Anion gap [Moles/Vol] 5.7 mmol/L Normal [facility] Comment on above: Performed By: #### B MP ####[facility] [address] [place], [place] [address]LtCory Reynolds Calcium [Mass/Vol] 9.1 mg/dL Normal 8.5-10.1 [facility] Comment on above: Performed By: #### B MP ####[facility] [address] [place] [id number]. Paola Reynolds Chloride [Moles/Vol] 104 mmol/L Normal 98-107 [facility] Comment on above: Performed By: #### B MP ####[facility] [address] [place] [address]Dr. Paola Reynolds CO2 [Moles/Vol] 31.3 mmol/L Normal 21.0-32.0 [facility] Comment on above: Performed By: #### B MP ####[facility] [address] [address]Dr. Paola Reynolds Creatinine [Mass/Vol] 1.00 mg/dL Normal 0.55-1.02 [facility] Comment on above: Performed By: #### B MP ####[facility] [address] [place], [place] [address]Dr. Paola Reynolds EGFR-AF SRI LANKAN >60 Normal >=60 [facility] Comment on above: Performed By: #### B MP ####[facility] [address] [place], [place] [address]Dr. Paola Reynolds EGFR-NON AF SRI LANKAN 55 mL/min/1.73m2 Critically low >=60 [facility] Comment on above: Performed By: #### B MP ####[facility] [address] [place], [place] [address]Dr. Paola Reynolds Glucose [Mass/Vol] 100 mg/dL Normal 74-106 [facility] Comment on above: Performed By: #### B MP ####[facility] [address] [place], [place] [address]Dr. Paola Reynolds Potassium [Moles/Vol] 4.0 mmol/L Normal 3.5-5.1 [facility] Comment on above: Performed By: #### B MP ####[facility] [address] [place], [place] [address]Dr. Paola Reynolds Sodium [Moles/Vol] 137 mmol/L Normal 136-145 [facility] Comment on above: Performed By: #### B MP ####[facility] [address] [place], [place] [address]DrCory Reynolds Urea nitrogen [Mass/Vol] 14.0 mg/dL Normal 7.0-18.0 [facility] Comment on above: Performed By: #### B MP ####[facility] [address] [place] [id number] Reynolds Urea nitrogen/Creatinine [Mass ratio] 14.0 mg/mg Normal [facility] Comment on above: Performed By: #### B MP ####[facility] [address] [place] [id number]. Paola Reynolds VIT D 25-OH LABCORPon 2021 Vitamin D, 25-Hydroxy 94.3 ng/mL Normal 30.0-100.0 [facility] Comment on above: Result Comment: Sylvia min D deficiency has been defined by the [place] of [employer] and an Endocrine Society practice guideline as a level of serum 25-OH vitamin D less than 20 ng/mL (1,2). The Endocrine Society went on to further define vitamin D insufficiency as a level between 21 and 29 ng/mL (2). 1. IOM ([place] of [employer]). 2010. Dietary reference intakes for calcium and D. [place]: The National Academies Press. 2. Bhupinder MF, Junie NC, Samir SWIFT, et al. Evaluation, treatment, and prevention of vitamin D deficiency: an Endocrine Society clinical practice guideline. JCEM. 2010; 96(7):1911-30. Performed By: #### V ITADLC ####[facility] [address] [place] [address]Dr. Paola Reynolds CBC AUTO DIFFon 01-27-2022 BASO # 0.0 103/ul Normal 0.0-0.1 [facility] Comment on above: Performed By: #### C BC #### [facility] [address] [address] [address] Paola Reynolds Basophils/100 WBC (Bld) 0.5 % Normal 0.2-2.0 [facility] Comment on above: Performed By: #### C BC #### [facility] [address] [address] [address] Paola Reynolds EO # 0.3 103/ul Normal 0.0-0.7 [facility] Comment on above: Performed By: #### C BC #### [facility] [address] [place] [address] Dr. Paola Reynolds Eosinophils/100 WBC (Bld) 4.0 % Normal 0.9-7.0 [facility] Comment on above: Performed By: #### C BC #### [facility] [address] [place] [address] Dr. Paola Reynolds Erythrocyte distribution width (RBC) [Ratio] 12.9 % Normal 11.0-15.0 [facility] Comment on above: Performed By: #### C BC #### [facility] [address] [place] [address] Dr. Paola Reynolds Hematocrit (Bld) [Volume fraction] 45.0 % Normal 36.0-48.0 [facility] Comment on above: Performed By: #### C BC #### [facility] [address] [place] [address] Dr. Paola Reynolds Hemoglobin (Bld) [Mass/Vol] 15.1 g/dL Normal 12.0-16.0 [facility] Comment on above: Performed By: #### C BC #### [facility] [address] [place] [address] Dr. Paola Reynolds IG # 0.02 10e3/ul Normal 0.00-0.03 [facility] Comment on above: Performed By: #### C BC #### [facility] [address] [place] [address] Dr. Paola Reynolds IG % 0.3 % Normal 0.0-0.5 [facility] Comment on above: Performed By: #### C BC #### [facility] [address] [place] [address] Dr. Paola Reynolds LYMPH # 2.9 103/ul Normal 1.2-3.8 [facility] Comment on above: Performed By: #### C BC #### [facility] [address] [place] [address] Dr. Paola Reynolds Lymphocytes/100 WBC (Bld) 37.7 % Normal 20.5-60.0 [facility] Comment on above: Performed By: #### C BC #### [facility] [address] [place] [address] Dr. Paola Reynolds MANUAL DIFF REQ NO Normal [facility] Comment on above: Performed By: #### C BC #### [facility] [address] [place] [address] Dr. Paola Reynolds MCH (RBC) [Entitic mass] 31.9 pg Normal 26.7-34.0 [facility] Comment on above: Performed By: #### C BC #### [facility] [address] [place] [address] Dr. Paola Reynolds MCHC (RBC) [Mass/Vol] 33.6 g/dL Normal 29.9-35.2 [facility] Comment on above: Performed By: #### C BC #### [facility] [address] [place] [address] Dr. Paola Reynolds MCV (RBC) [Entitic vol] 95.1 fL Normal 81.0-99.0 [facility] Comment on above: Performed By: #### C BC #### [facility] [address] [place] [address] Dr. Paola Reynolds MONO # 0.6 103/ul Normal 0.3-0.8 [facility] Comment on above: Performed By: #### C BC #### [facility] [address] [place] [address] Dr. Paola Reynolds Monocytes/100 WBC (Bld) 7.4 % Normal 1.7-12.0 [facility] Comment on above: Performed By: #### C BC #### [facility] [address] [place] [address] Dr. Paola Reynolds NEUT # 3.9 103/ul Normal 1.4-6.5 [facility] Comment on above: Performed By: #### C BC #### [facility] [address] [place] [address] Dr. Paola Reynolds Neutrophils/100 WBC (Bld) 50.1 % Normal 43.0-75.0 [facility] Comment on above: Performed By: #### C BC #### [facility] [address] [address] [address] Paola Reynolds Platelet mean volume (Bld) [Entitic vol] 9.9 fL Normal 9.5-13.5 [facility] Comment on above: Performed By: #### C BC #### [facility] [address] [address] [address] Paola Reynolds PLT 292 103/ul Normal 150-450 [facility] Comment on above: Performed By: #### C BC #### [facility] [address] [address] [address] Paola Reynolds RBC 4.73 106/ul Normal 4.20-5.40 [facility] Comment on above: Performed By: #### C BC #### [facility] [address] [address] [address] Paola Reynolds WBC 7.8 103/ul Normal 4.0-11.0 [facility] Comment on above: Performed By: #### C BC #### [facility] [address] [address] [address] Paola Reynolds LIPID PROFILEon 01-27-2022 CHOL-HDL RATIO NORM SEE BELOW Normal [facility] Comment on above: Result Comment: 3.3 - 4.4 LOW RISK 4.4 - 7.1 AVERAGE RISK 7.1 - 11.0 MODERATE RISK >11.0 HIGH RISK Performed By: #### L IPID, CMP ####[facility] [address] [place] [id number] Reynolds Cholesterol [Mass/Vol] 118 mg/dL Normal <=200 [facility] Comment on above: Performed By: #### L IPID, CMP ####[facility] [address] [place] [id number] Reynolds Cholesterol in HDL [Mass/Vol] 48 mg/dL Normal 40-60 [facility] Comment on above: Performed By: #### L IPID, CMP ####[facility] [address] [place] [id number]. Paola Reynolds Cholesterol in LDL [Mass/Vol] 51.4 mg/dL Normal [facility] Comment on above: Performed By: #### L IPID, CMP ####[facility] [address] [place] [id number]. Paola Reynolds Cholesterol.total/Cho lesterol in HDL [Mass ratio] 2.5 {ratio} Normal [facility] Comment on above: Performed By: #### L IPID, CMP ####[facility] [address] [place] [id number]. Paola Reynolds HDL NORMAL > or = 60 mg/dl - LO W CARDIOVASCULAR RISK <40 mg/dl - HIGH CARDIOVASCULAR RISK Normal [facility] Comment on above: Performed By: #### L IPID, CMP ####[facility] [address] [address]Dr. Paola Reynolds LDL CALC NORMAL SEE BELOW Normal [facility] Comment on above: Result Comment: <100 mg/dl OPTIMAL 100 - 129 mg/dl NEAR OR ABOVE OPTIMAL 130 - 159 mg/dl BORDERLINE HIGH 160 - 189 mg/dl HIGH >190 mg/dl VERY HIGH Performed By: #### L IPID, CMP ####[facility] [address] [place] [id number]. Paola Reynolds Triglyceride [Mass/Vol] 93 mg/dL Normal <=150 [facility] Comment on above: Performed By: #### L IPID, CMP ####[facility] [address] [place] [id number]. Paola Reynolds VLDL CALC 18.6 mg/dL Normal [facility] Comment on above: Performed By: #### L IPID, CMP ####[facility] [address] [place] [id number]. Paola Reynolds PROF 14(COMP METB)on 022 Albumin [Mass/Vol] 3.6 g/dL Normal 3.4-5.0 [facility] Comment on above: Performed By: #### L IPID, CMP ####[facility] [address] [place] [id number]. Paola Reynolds Albumin/Globulin [Mass ratio] 1.0 {ratio} Normal [facility] Comment on above: Performed By: #### L IPID, CMP ####[facility] [address] [address]Dr. Paola Reynolds ALP [Catalytic activity/Vol] 86 U/L Normal 46-116 [facility] Comment on above: Performed By: #### L IPID, CMP ####[facility] [address] [place], [place] [address]Dr. Paola Reynolds ALT [Catalytic activity/Vol] 28 U/L Normal 14-59 [facility] Comment on above: Performed By: #### L IPID, CMP ####[facility] [address] [place], [place] [address]Dr. Paola Reynolds Anion gap [Moles/Vol] 9.2 mmol/L Normal [facility] Comment on above: Performed By: #### L IPID, CMP ####[facility] [address] [place], [place] [address]Dr. Paola Reynolds AST [Catalytic activity/Vol] 21 U/L Normal 15-37 [facility] Comment on above: Performed By: #### L IPID, CMP ####[facility] [address] [place], [place] [address]Dr. Paola Reynolds Bilirubin [Mass/Vol] 1.0 mg/dL Normal 0.2-1.0 [facility] Comment on above: Performed By: #### L IPID, CMP ####[facility] [address] [place], [place] [address]Dr. Paola Reynolds Calcium [Mass/Vol] 8.9 mg/dL Normal 8.5-10.1 [facility] Comment on above: Performed By: #### L IPID, CMP ####[facility] [address] [place], [place] [address]Dr. Paola Reynolds Chloride [Moles/Vol] 106 mmol/L Normal 98-107 [facility] Comment on above: Performed By: #### L IPID, CMP ####[facility] [address] [place], [place] [address]Dr. Paola Reynolds CO2 [Moles/Vol] 30.3 mmol/L Normal 21.0-32.0 [facility] Comment on above: Performed By: #### L IPID, CMP ####[facility] [address] [place] [address]Dr. Paola Reynolds Creatinine [Mass/Vol] 1.05 mg/dL Critically high 0.55-1.02 [facility] Comment on above: Performed By: #### L IPID, CMP ####[facility] [address] [place] [address]Dr. Paola Reynolds EGFR-AF SRI LANKAN >60 Normal >=60 [facility] Comment on above: Performed By: #### L IPID, CMP ####[facility] [address] [place] [address]Dr. Paola Reynolds EGFR-NON AF SRI LANKAN 53 mL/min/1.73m2 Critically low >=60 [facility] Comment on above: Performed By: #### L IPID, CMP ####[facility] [address] [place] [address]Dr. Paola Reynolds Globulin (S) [Mass/Vol] 3.6 g/dL Normal [facility] Comment on above: Performed By: #### L IPID, CMP ####[facility] [address] [place] [id number]. Paola Reynolds Glucose [Mass/Vol] 97 mg/dL Normal 74-106 [facility] Comment on above: Performed By: #### L IPID, CMP ####[facility] [address] [place] [address]Dr. Paola Reynolds Potassium [Moles/Vol] 4.5 mmol/L Normal 3.5-5.1 [facility] Comment on above: Performed By: #### L IPID, CMP ####[facility] [address] [place] [address]Dr. Paola Reynolds Protein [Mass/Vol] 7.2 g/dL Normal 6.4-8.2 [facility] Comment on above: Performed By: #### L IPID, CMP ####[facility] [address] [place], [place] [address]Jc. Paola Reynolds Sodium [Moles/Vol] 141 mmol/L Normal 136-145 [facility] Comment on above: Performed By: #### L IPID, CMP ####[facility] [address] [place], [place] [address]El. Paola Reynolds Urea nitrogen [Mass/Vol] 10.0 mg/dL Normal 7.0-18.0 [facility] Comment on above: Performed By: #### L IPID, CMP ####[facility] [address] [place], [place] [address]Db. Paola Reynolds Urea nitrogen/Creatinine [Mass ratio] 9.5 mg/mg Normal [facility] Comment on above: Performed By: #### L IPID, CMP ####[facility] [address] [place], [place] [address]Id. Paola Reynolds MG MAMM SCREEN 3D RAISSA CADon 11-16-2021 MG MAMM SCREEN 3D RAISSA CAD Patient: FLAKITA PAREDES Exam Date: 11/16/2021 : 1955 Gender:F Ordering : DR MAIRA COTA . Admission #: [id number] Family : Order #: [id number] CLICK HERE TO VIEW EXAM RADIOLOGY REPORT [...] Treatments None Family Cancers None LOCATION: [facility] BREAST COMPOSITION: Scattered areas fibroglandular density. FINDINGS: [...] Arnold MD on 11/16/2021 at 14:24 Normal [facility] MRI ANKLE RT WO CONon 2021 [...] by: NICOLAS PRIETO Date: 2021-11-12 10:53 Normal [facility] PAP ACOG PANEL 2: 30 to 65on 08-17-2021 . . Normal [facility] Comment on above: Result Comment: Perf ormed at: WB Performed By: #### [id number] #### [facility] [address] [place] [address] Dr. Paola Reynolds Age Gdln ACOG Testing 30-65 [facility] [place] Comment on above: Performed By: #### [id number] #### [facility] [address] [place] [address] Dr. Paola Reynolds DIAGNOSIS: Comment Normal [facility] Comment on above: Result Comment: NEGA TIVE FOR INTRAEPITHELIAL LESION OR MALIGNANCY. THIS SPECIMEN WAS RESCREENED PART OF OUR BUNCH BREAKER PROGRAM. Performed at: WB Performed By: #### 4 [id number] #### [facility] [address] [place] [address] Dr. Paola Reynolds HPV Aptima Negative Normal Negative [facility] Comment on above: Result Comment: This nucleic acid amplification test detects fourteen high-risk HPV types (16,18,31,33,35,39,45,51,52,56,58,59,66,68) without differentiation. Performed at: =G Performed By: #### [id number] #### [facility] [address] [place] [address] Dr. Paola Reynolds Methodology: Comment [facility] [place] Comment on above: Result Comment: This liquid based ThinPrep(R) pap test was screened with the use of an image guided system. Performed at: WB Performed By: #### [id number] #### [facility] [address] [place] [address] Dr. Paola Reynolds Note: Comment [facility] [place] Comment on above: Result Comment: The Pap smear is a screening test designed to aid in the detection of premalignant and malignant conditions of the uterine cervix. It is not a diagnostic procedure and should not be used as the sole means of detecting cervical cancer. Both false-positive and false-negative reports do occur. . Performed at: WB Performed By: #### [id number] #### [facility] [address] [place] [address] Dr. Paola Reynolds Performed by: Comment Normal [facility] Comment on above: Result Comment: Narendra Tristan, Journal Clerk (ASCP) Performed at: WB Performed By: #### 4 [id number] #### [facility] [address] [address] [address] Paola Reynolds QC reviewed by: Comment Normal [facility] Comment on above: Result Comment: Mark Reza, Journal Clerk Performed at: WB Performed By: #### 4 [id number] #### [facility] [address] [address] [address] Paola Reynolds Specimen adequacy: Comment Normal [facility] Comment on above: Result Comment: Sati sfactory for evaluation. No endocervical component is identified. Performed at: WB Performed By: #### 4 [id number] #### [facility] [address] [place] [address] Dr. Paola Reynolds XR DEXA BONE DENSITYon [...] by: DEEPAK SEGOVIA Date: 2021-08-12 14:41 Normal [facility] Vital Signs Date Time Vital Sign Value Performing Clinician Facility 10-15-2024 13:59-0400 Blood Pressure Location Elida Anand [facility] 10-15-2024 13:59-0400 Body temperature 98.24 [degF] Elida Anand [facility] 10-15-2024 13:59-0400 Diastolic blood pressure 84 mm[Hg] Elida Anand [facility] 10-15-2024 13:59-0400 Heart rate 74 /min Elida Anand [facility] 10-15-2024 13:59-0400 SaO2% (BldA) [Mass fraction] 92 % Elida Anand [facility] 10-15-2024 13:59-0400 Systolic blood pressure 138 mm[Hg] Elida Anand [facility] 09-10-2024 10:31-0400 Body height 160 cm Summer Johnsonoll REAL ESTATE ASSISTANT-FARM CREW LEADER Work Phone: [facility] 09-10-2024 10:31-0400 Body mass index (BMI) [Ratio] 35.85 kg/m2 Summer Smallwood REAL ESTATE ASSISTANT-FARM CREW LEADER Work Phone: [facility] 09-10-2024 10:31-0400 Body weight 91.81 kg Summer Smallwood REAL ESTATE ASSISTANT-FARM CREW LEADER Work Phone: [facility] 09-10-2024 10:31-0400 Diastolic blood pressure 61 mm[Hg] Summer Johnsonoll REAL ESTATE ASSISTANT-FARM CREW LEADER Work Phone: [facility] 09-10-2024 10:31-0400 Heart rate 70 /min Summer Smallwood REAL ESTATE ASSISTANT-FARM CREW LEADER Work Phone: [facility] 09-10-2024 10:31-0400 Systolic blood pressure 119 mm[Hg] Summer Smallwood REAL ESTATE ASSISTANT-FARM CREW LEADER Work Phone: [facility] 08-22-2024 13:45-0500 Body height 160 cm [facility] [employer] [facility] 08-22-2024 13:45-0500 Body mass index (BMI) [Ratio] 35.43 kg/m2 [facility] 2 [facility] 08-22-2024 13:45-0500 Body weight 90.72 kg Pmh 2 [facility] 08-14-2024 14:07-0500 Body height 157.5 cm Kenisha Hilliard DO Work Phone: The [facility] 08-14-2024 14:07-0500 Body mass index (BMI) [Ratio] 37.79 kg/m2 Kenisha Hilliard DO Work Phone: [facility] 08-14-2024 14:07-0500 Body weight 93.71 kg Kenisha Hilliard DO Work Phone: [facility] 08-14-2024 14:07-0500 Diastolic blood pressure 62 mm[Hg] Kenisha Hilliard DO Work Phone: [facility] 08-14-2024 14:07-0500 Heart rate 95 /min Kenisha Hilliard DO Work Phone: [facility] 08-14-2024 14:07-0500 Systolic blood pressure 137 mm[Hg] Kenisha Hilliard DO Work Phone: [facility] 08-05-2024 09:23-0500 Body height 157.5 cm Summer Smallwood APRN-CASH Work Phone: [facility] 08-05-2024 09:23-0500 Body mass index (BMI) [Ratio] 37.68 kg/m2 Summer Smallwood APRN-CASH Work Phone: [facility] 08-05-2024 09:23-0500 Body weight 93.44 kg Summer Smallwood APRN-CASH Work Phone: [facility] 07-24-2024 08:50-0500 Body height 157.5 cm Kenisha Hilliard DO Work Phone: [facility] 07-24-2024 08:50-0500 Body mass index (BMI) [Ratio] 37.39 kg/m2 Kenisha Hilliard DO Work Phone: [facility] 07-24-2024 08:50-0500 Body weight 92.72 kg Kenisha Hilliard DO Work Phone: [facility] 07-24-2024 08:50-0500 Diastolic blood pressure 80 mm[Hg] Kenisha Hilliard DO Work Phone: [facility] 07-24-2024 08:50-0500 Heart rate 84 /min Kenisha Hilliard DO Work Phone: [facility] 07-24-2024 08:50-0500 Systolic blood pressure 163 mm[Hg] Kenisha Hilliard DO Work Phone: [facility] 07-10-2024 09:43-0500 Body height 157.5 cm Kenisha Hilliard DO Work Phone: [facility] 07-10-2024 09:43-0500 Body mass index (BMI) [Ratio] 37.31 kg/m2 Kenisha Hilliard DO Work Phone: [facility] 07-10-2024 09:43-0500 Body weight 92.53 kg Kenisha Hilliard DO Work Phone: [facility] 07-15-2022 17:00-0500 Diastolic blood pressure 66 mm[Hg] [facility] 07-15-2022 17:00-0500 Heart rate 98 /min [facility] 07-15-2022 17:00-0500 Mean blood pressure 85 mm[Hg] [facility] 07-15-2022 17:00-0500 Respiratory rate 18 /min [facility] 07-15-2022 17:00-0500 SaO2% (BldA) [Mass fraction] 95 % [facility] 07-15-2022 17:00-0500 Systolic blood pressure 122 mm[Hg] [facility] 07-15-2022 16:00-0500 Diastolic blood pressure 75 mm[Hg] [facility] 07-15-2022 16:00-0500 Heart rate 103 /min [facility] 07-15-2022 16:00-0500 Mean blood pressure 92 mm[Hg] [facility] 07-15-2022 16:00-0500 SaO2% (BldA) [Mass fraction] 96 % [facility] 07-15-2022 16:00-0500 Systolic blood pressure 125 mm[Hg] [facility] 07-15-2022 15:00-0500 Diastolic blood pressure 69 mm[Hg] [facility] 07-15-2022 15:00-0500 Heart rate 101 /min [facility] 07-15-2022 15:00-0500 Mean blood pressure 86 mm[Hg] [facility] 07-15-2022 15:00-0500 Respiratory rate 20 /min [facility] 07-15-2022 15:00-0500 Systolic blood pressure 121 mm[Hg] [facility] 07-15-2022 14:13-0500 Body temperature 98.06 [degF] [facility] Encounters Encounter Date Encounter Type Care Provider Facility Start: 12-03-2025 ambulatory MD Elida Anand [facility]il [facility] Start: 05-06-2025 ambulatory CAFETERIA COOK Katlyn L Edmar Facil ity:[facility] Start: 01-15-2025 End: 01-15-2025 ambulatory CAFETERIA COOK Katlyn L Edmar Facility:[facility] [place] Start: 01-01-2025 End: 01-01-2025 ambulatory CAFETERIA COOK [facility]lyn L Ed[facility] Start: 12-30-2024 End: 12-30-2024 ambulatory MD Elida Anand [facility] Start: 12-30-2024 End: 12-30-2024 Patient encounter procedure [facility]ida [facility] Start: 12-18-2024 End: 12-18-2024 ambulatory CAFETERIA COOK Katlyn Hyatt Facility:[facility] Start: 12-04-2024 End: 12-04-2024 Lab Drop off Elida Anand [facility] Start: 12-04-2024 End: 12-04-2024 ambulatory Elida Anand Facility:[facility] Start: 12-03-2024 End: 12-03-2024 ambulatory MD Elida Anand Facility:[facility] Start: 10-15-2024 End: 10-15-2024 ambulatory MD Elida Anand Facility:[facility] Start: 10-15-2024 End: 10-15-2024 Patient encounter procedure Elida Anand [facility] Jose R Start: 09-10-2024 End: 09-10-2024 Office outpatient visit 10 minutes Summer Lion Smallwood REAL ESTATE ASSISTANT-FARM CREW LEADER Work Phone: [facility] Comment on above: Lipoma of right axil la (Primary Dx) Start: 09-10-2024 End: 09-10-2024 ambulatory [facility] Lion SMALLWOOD [facility] Start: 08-27-2024 End: 08-27-2024 Evaluation and management of inpatient GARCIA SANCHEZ [facility] Start: 08-27-2024 End: 08-27-2024 Evaluation and management of inpatient [facility] Start: 08-22-2024 Encounter for other preprocedural examination [facility] Start: 08-22-2024 End: 08-22-2024 ambulatory [facility] Start: 08-22-2024 End: 08-22-2024 Patient encounter procedure [facility] Pre-Admission Testing 2 [facility] - Pre Admit Start: 08-14-2024 End: 08-14-2024 Office outpatient visit 25 minutes Kenisha Hilliard DO Work Phone: [facility] Comment on above: Lipoma of torso (Leti daniel Dx); Obesity (BMI 35.0-39.9 without comorbidity); History of renal cell carcinoma Start: 08-14-2024 End: 08-14-2024 ambulatory [facility] Start: 08-05-2024 End: 08-05-2024 Office outpatient visit 10 minutes Summer Lion [place] REAL ESTATE ASSISTANT-FARM CREW LEADER Work Phone: [facility] Comment on above: Lipoma of left upper extremity (Primary Dx); Lipoma of right upper extremity Start: 08-05-2024 End: 08-05-2024 ambulatory [facility] Start: 07-29-2024 End: 07-29-2024 Telephone encounter Betzy Cotto CMA [facility] Start: 07-28-2024 ambulatory [facility] Start: 07-25-2024 End: 07-25-2024 ambulatory [facility] Start: 07-24-2024 End: 07-24-2024 Office outpatient visit 25 minutes Kenisha Hilliard DO [facility] Phone[facility] Comment on above: Lipoma of left upper extremity (Primary Dx); Lipoma of right upper extremity; Axillary adenopathy Start: 07-24-2024 End: 07-24-2024 ambulatory [facility] Start: 07-10-2024 End: 07-10-2024 Office outpatient visit 15 minutes Kenisha Hilliard DO Work Phone: [facility] Comment on above: Lipoma of left upper extremity (Primary Dx); Lipoma of right upper extremity Start: 07-10-2024 End: 07-10-2024 ambulatory [facility] Start: 07-08-2024 End: 07-08-2024 ambulatory MD Elida Anand Facility:[facility] Start: 05-21-2024 End: 05-21-2024 ambulatory MD Elida Anand Facility:[facility] [place] Start: 03-11-2024 End: 03-11-2024 ambulatory CAFETERIA COOK Katlyn L Edmar Facility:[facility] [place] Start: 02-26-2024 End: 02-26-2024 ambulatory CAFETERIA COOK Katlyn L Edmar Facility:[facility] [place] Start: 12-27-2023 End: 12-27-2023 Patient encounter procedure Elida Anand [facility] Start: 10-18-2023 End: 10-18-2023 ambulatory SMITHA WATSON Not Available Start: 08-15-2023 End: 08-15-2023 Patient encounter procedure Elida Anand [facility] Start: 05-18-2023 End: 05-18-2023 Patient encounter procedure Katlyn L [facility] Start: 05-11-2023 End: 09-04-2023 Recurring Katlyn L [facility] Start: 05-01-2023 End: 05-01-2023 Lab Drop off Katlyn L [facility] Start: 12-14-2022 End: 12-14-2022 Patient encounter procedure Katlyn L [facility] Start: 11-30-2022 End: 11-30-2022 Lab Drop off Katlyn L [facility] Start: 09-27-2022 End: 09-27-2022 Patient encounter procedure Katlyn L [facility] Start: 08-01-2022 End: 08-02-[address] AGUSTINA WEST Facility:[facility] Start: 07-28-2022 End: 07-29-[address] AGUSTINA WEST Facility:[facility] Start: 07-26-2022 End: 07-27-[address] AGUSTINA WEST Facility:[facility] Start: 07-15-2022 End: 07-15-2022 Emergency department patient visit [facility] Start: 05-20-2022 End: 05-20-2022 ambulatory Agustina West Facility:[facility] Start: 05-20-2022 End: 05-20-2022 ambulatory MD Agustina West Work Phone: [facility] Work Phone: Start: 05-20-2022 End: 05-20-2022 Departed Referred MD Agustina West Work Phone: [facility] [place] Start: 05-19-2022 End: 05-20-[address] AGUSTINA WEST Facility:[facility] Start: 05-11-2022 End: 05-12-2022 ambulatory RICK GORDON Facility:[facility] Start: 01-27-2022 End: 01-28-[address] AGUSTINA WEST Facility:[facility] Start: 11-16-2021 End: 11-17-[address] AGUSTINA WEST Facility:[facility] Start: 11-10-2021 End: 11-11-[address] AGUSTINA WEST Facility:[facility] Start: 08-19-2021 Encounter for other preprocedural examination CELINE ABRAHAM [facility] Start: 08-19-2021 ambulatory CELINE ABRAHAM Faci lity:[facility] Start: 08-16-2021 End: 08-16-2021 ambulatory CELINE ABRAHAM Facility:[facility] Start: 08-12-2021 End: 08-13-[address] AGUSTINA WEST Facility:[facility] Start: 08-11-2021 End: 08-11-[address] AGUSTINA WEST Facility:[facility] Start: 08-10-2021 End: 08-11-2021 ambulatory CELINE ABRAHAM Facility:[facility] Start: 08-10-2021 End: 08-11-2021 Encounter for other preprocedural examination CELINE Bender [facility] Facility:[facility] Procedures Date Procedure Procedure Detail Performing [...] ng ultrasound guidance Noni Espinosa Cholecystectomy Noni villalba Colonoscopy Noni Espinosa Coronary angiography Noni Espinosa [...] for malign ant neoplasm of colon Colonoscopy [facility] [employer] [facility] Start: 08-27-2025 Adult BMI Screening [facility] Start: 08-27-2025 Tobacco Screening Tobacco Screening [facility] Start: 08-22-2025 Adult BMI Screening Adult BMI Screen ing [facility] Start: 08-22-2025 Tobacco Screening Tobacco Screening [facility] Start: 08-14-2025 Adult BMI Screening Adult BMI Screen ing [facility] Start: 08-14-2025 Tobacco Screening Tobacco Screening [facility] Start: 07-24-2025 Adult BMI Screening Adult BMI Screen ing [facility] Start: 07-24-2025 Tobacco Screening Tobacco Screening [facility] Start: 07-10-2025 Adult BMI Screening Adult BMI Screen ing [facility] Start: 07-10-2025 Tobacco Screening Tobacco Screening [facility] Start: 09-10-2024 End: 09-10-2024 Patient encounter procedure 09/10/2024 10:30 AM EDT Office Visit [facility] [address] [place] [phone] Summer Smallwood APRN-CASH [address] [place], [place] [phone] [facility] Start: 08-27-2024 End: 08-27-2024 Admission to same day surgery center [facility] Comment on above: EXCISION LIPOMA UPPE R EXTREMITY EXCISION LIPOMA UPPE R EXTREMITY AXILLA Start: 08-27-2024 End: 08-27-2024 Anesthesia consultation 08/27/2024 12:45 PM EST Anesthesia Event [facility] [address] [place] [phone] Garcia Sanchez, DO [address] [place], [place] [id number] [facility] Start: 08-27-2024 End: 08-27-2024 EXCISION LIPOMA UPPER EXTREMITY EXCISION LIPOMA UPPER EXTREMITY right axillary lipoma 08/27/2024 12:45 PM EST [facility] Start: 08-27-2024 Subsequent hospital visit by physician 08/27/2024 12:45 PM EST Hospital Encounter [facility] [address] [place] [phone] Kenisha Hilliard DO [address] [place], [place] [id number] [facility] - Surgery Start: 08-20-2024 End: 08-20-2024 Patient encounter procedure 08/20/2024 10:30 AM EST Procedure visit [facility] - Pre Admit [address] [place] [address] [facility] - Pre Admit Start: 08-14-2024 End: 08-14-2024 Patient encounter procedure 08/14/2024 2:15 PM EST Office Visit [facility] [address] [place] [phone] Kenisha Hilliard DO [address] [place] [address] [facility] Start: 08-05-2024 End: 08-05-2024 Patient encounter procedure 08/05/2024 12:00 PM EST Office Visit [facility] [address] [place] [address] Summer Smallwood, REAL ESTATE ASSISTANT-FARM CREW LEADER [address] [place] [address] [facility] Start: 07-25-2024 End: 07-25-2024 Patient encounter procedure 07/25/2024 1:00 PM EST Appointment [facility] - Ultrasound [address] [place] [address] [facility] - Ultrasound Start: 07-24-2024 End: 07-24-2025 US Extremity - right limited Ultrasound extremity non vascular limited right Imaging Routine Axillary adenopathy Expected: 07/24/2024, Expires: 07/24/2025 [facility] Comment on above: Expected: 07/24/2024 , Expires: 07/24/2025 Start: 07-24-2024 End: 07-24-2024 Patient encounter procedure 07/24/2024 9:00 AM EST Office Visit [facility] [address] [place] [phone] Kenisha Hilliard DO [address] [place] [address] [facility] Start: 03-03-2024 Influenza vaccination Influenza Vacc ine [facility] Start: 2021 Fall Risk Screening Fall Risk Screen ing [facility] Start: 2006 Administration of varicella zoster vaccine Zoster (Shingles) Vaccine (1 of 2) [facility] Start: 1975 DTaP,Tdap and Td Vaccines (1 - Tdap) DTaP,Tdap and Td Vaccines (1 - Tdap) [facility] Start: 1974 Adult BMI Follow Up Plan Adult BMI Follow Up Plan [facility] Start: 1968 Depression Screening Depression Scre ening [facility] [employer] Start: 1956 Tobacco Counseling Tobacco Counselin g [facility] End: 08-14-2025 CBC panel - Blood by Automated count CBC without diff Lab Routine Lipoma of torso 1 Occurrences starting 08/14/2024 until 08/14/2025 [employer] Work Phone: Comment on above: 1 Occurrences starti ng 08/14/2024 until 08/14/2025 End: 08-14-2025 Comprehensive metabolic 2000 panel - Serum or Plasma Comprehensive metabolic panel Lab Routine Lipoma of torso 1 Occurrences starting 08/14/2024 until 08/14/2025 [facility] Comment on above: 1 Occurrences starti ng 08/14/2024 until 08/14/2025 End: 07-24-2025 Surgical Pathology Surgical Pathology Pathology and Cytology Routine Lipoma of left upper extremity Lipoma of right upper extremity 1 Occurrences starting 07/24/2024 until 07/24/2025 [employer] Work Phone: Comment on above: 1 Occurrences starti ng 07/24/2024 until 07/24/2025 End: 08-14-2025 Unlisted Procedure / Surgery Unlisted Procedure / Surgery Procedures Routine Lipoma of torso 1 Occurrences starting 08/14/2024 until 08/14/2025 [facility] Comment on above: 1 Occurrences starti ng 08/14/2024 until 08/14/2025 Immunizations Immunization Date Immunization Notes Care Provider Michelle sloan NEGATED: Highlighted row has not occurred!11-30-2022 pneumococcal polysaccharide vaccine, 23 valent Katlyn Lawrenceab [facility] NEGATED: Highlighted row has not occurred!11-30-2022 pneumococcal conjugate vaccine, 13 valent Katlyn Edmar [facility] NEGATED: Highlighted row has not occurred!09-19-2022 SARS-CoV-2 mRNA (tozinameran 5y-11y) vaccine Katlyn Hyatt [facility] Payers Date Payer Category Payer Medicare [id number] 2024 Medicare HMO ANTH MEDICARE [id number] 2024 Unknown [id number] 2022 Medicare [id number] 2022 Self-pay 2022 Unknown [id number] 1959 Unknown [id number] 1956 Unknown [id number] 2.16.840.1.314518.3.579.2.593 1956 Unknown [id number] 2.16.840.1.227490.3.579.2.593 1956 Unknown [id number] 2.16.840.1.262602.3.579.2.593 1956 Unknown [id number] 2.16.840.1.908187.3.579.2.593 1956 Unknown [id number] 2.16.840.1.141194.3.579.2.593 1956 Unknown [id number] 2.16.840.1.814500.3.579.2.593 1956 Unknown [id number] 2.16.840.1.983589.3.579.2.593 1956 Unknown [id number] 2.16.840.1.592441.3.579.2.593 1956 Unknown [id number] 2.16.840.1.697149.3.579.2.593 1956 Unknown [id number] 2.16.840.1.266636.3.579.2.593 1956 Unknown [id number] 2.16.840.1.962205.3.579.2.593 1956 Unknown [id number] 2.16.840.1.115906.3.579.2.593 1956 Unknown [id number] 2.16.840.1.101966.3.579.2.593 1956 Unknown [id number] 2.16.840.1.298367.3.579.2.593 1956 Unknown [id number] 2.16.840.1.864682.3.579.2.125 9 1956 Unknown [id number] 2.16.840.1.046522.3.579.2.128 6 1956 Unknown [id number] 2.16.840.1.521914.3.579.2.128 6 1956 Unknown [id number] 2.16.840.1.379997.3.579.2.128 6 1956 Unknown [id number] 2.16.840.1.329407.3.579.2.128 6 1956 Unknown [id number] 2.16.840.1.926130.3.579.2.128 6 1956 Unknown [id number] 2.16.840.1.600428.3.579.2.128 6 1956 Unknown [id number] 2.840.1.204741.3.579.2.128 6 1956 Unknown [id number] 2.16.840.1.390668.3.579.2.128 6 1956 Unknown [id number] 2.16.840.1.768940.3.579.2.128 6 1956 Unknown [id number] 2.16.840.1.776227.3.579.2.128 6 1956 Unknown [id number] 2.840.1.821037.3.579.2.128 6 1956 Unknown [id number] 2.16.840.1.953443.3.579.2.128 6 1956 Unknown [id number] 2.16.840.1.533385.3.579.2.128 6 1956 Unknown [id number] 2.16.840.1.413899.3.579.2.128 6 1956 Unknown [id number] 2.16.840.1.990527.3.579.2.727 1956 Unknown [id number] 2.16.840.1.322169.3.579.2.727 1956 Unknown [id number] 2.16.840.1.519284.3.579.2. 1956 Unknown [id number] 2.16.840.1.822123.3.579.2. 1956 Unknown [id number] 2.16.840.1.862964.3.579.2. 1956 Unknown [id number] 2.16.840.1.260671.3.579.2. 1956 Unknown [id number] 2.16.840.1.792576.3.579.2 1956 Unknown [id number] 2.16.840.1.298262.3.579.2 1956 Unknown [id number] 2.16.840.1.903544.3.579.2 1956 Unknown [id number] 2.16.840.1.602778.3.579.2 1956 Unknown [id number] 2.16.840.1.819958.3.579.2 1956 Unknown [id number] 2.16.840.1.597949.3.579.2 1956 Unknown [id number] 2.16.840.1.087728.3.579.2 1956 Unknown [id number] 2.16.840.1.589667.3.579.2. 1956 Unknown [id number] 2.16.840.1.500032.3.579.2 1956 Unknown [id number] 2.16.840.1.809648.3.579.2 1956 Unknown [id number] 2.16.840.1.925718.3.579.2.727 Medicare Medicare [id number] Unknown [id number] 2.16.840.1.169199.3.579.2.531 Social History Date Type Detail Facility Tobacco smoking stat us NHIS Unknown if ever smoked [facility] Work Phone: Start: 1955 Sex Assigned At Female F [facility] Start: 04-15-2021 End: 12-18-2024 Tobacco smoking status Heavy tobacco smoker (finding) [facility] Comment on above: Marat has smoked 1 /2 - 1 PPD for 50 + years, patient is currently working on cutting back smokes a pack or les s a day since 15 years. Start: 04-11-2018 End: 08-13-2020 Sex Assigned At Female [facility] Comment on above: Patpatriciat has smoked 1 /2 - 1 PPD for 50 + years, patient is currently working on cutting back smokes a pack or les s a day since 15 years. Start: 04-10-2023 End: 07-31-2023 Tobacco smoking status Light tobacco smoker (finding) [facility] Comment on above: Marat has smoked 1 /2 - 1 PPD for 50 + years, patient is currently working on cutting back Start: 07-10-2024 [facility] History of tobacco use Cigarette Smoker P [facility] Start: 08-13-2020 End: 07-10-2024 Cigarettes smoked current (pack per day) - Reported 0.5 [facility] Start: 07-10-2024 Tobacco use and exposure Smoke less tobacco non-user [facility] Start: 07-10-2024 End: 09-10-2024 Alcoholic beverage intake Current non-drinker of alcohol (finding) [facility] Start: 1955 Sex assigned at Not on file P [facility] Start: 10-14-2009 End: 02-05-2015 Sex Female (finding) [facility] Sexual Orientation [facility] Functional Status Date Assessment Result Facility 10-15-2024 Functional Status N/A [facility] Jose R 07-15-2022 Functional Status N/A [facility] Clinical Notes 08-16-2021 to 12-04-2024 Summer Smallwood, REAL ESTATE ASSISTANT-FARM CREW LEADER - 09/10/2024 10:30 AM EDTPatient InstructionsPerioperative Nursing Note - Rhonda Del Real, RN - 08/22/2024 1:30 PM Lui Hilliard, DO - 08/14/2024 2:15 PM EST Note [...] - Not Given Postpone due to refusal [facility] 12-03-2024 Note Patient Education Emergency Medicine Heart Attack A heart attack occurs when blood and oxygen supply to the heart is cut off. A heart attack can cause damage to the heart that cannot be fixed. A heart attack is also called a myocardial infarction, or PA. If you think you are having a [...] these instructions at home: Medicines ??? Take [id number]-ulu-ajoptyt and prescription medicines only as told by [...] ??? You fe (more content not included)... [facility] 09-10-2024 History of Presen t illness Narrative [...] up p.r.n.. Lipoma of right axilla [D17.21] SUMMER SMALLWOOD, REAL ESTATE ASSISTANT-FARM CREW LEADER [facility] [place] This note was created with the assistance of a speech recognition program. While intending to generate a timely document that accurately reflects the content of the visit, no guarantee can be provided that every grammatical or spelling mistake has been or will be identified or corrected. Thank you for your understanding. SARA Barrett 09/10/24 [id number] documented in this encounter [facility] [employer] [facility] 08-22-2024 Instructions Rhonda Del Real RN - 08/22/2024 1:30 PM EST Preoperative Education Checklist- General Surgery date: 08/27/24 Surgery time: 1245 p.m. Arrival time: 1045 a.m. 1. Bring a photo ID and your insurance card with you the day of surgery. You will check in at the main lobby of the [facility]- registration desk is straight ahead as soon as you walk in. Tell them you are here for surgery. 2. If you have a Living Will/Durable Power of Studio Control Operator for Health Care that is not on [...] after you have bathed. 5. NO nail tanzanian/acrylic on at least one finger. If you are having a hand, wrist or foot surgery then all nail tanzanian and artificial/acrylic nails must be removed from [...] please call the Preadmission Testing office at [phone], Mon.-Fri. 7 a.m.-3 p.m. Leave a voicemail [...] with your doctor. documented in this encounter [employer] 08-22-2024 Miscellaneous Notes Preoperative Education Checklist- General Surgery date: 08/27/24 Surgery time: 1245 p.m. Arrival time: 1045 a.m. 1. Bring a photo ID and your insurance card with you the day of surgery. You will check in at the main lobby of the [facility]- registration desk is straight ahead as soon as you walk in. Tell them you are here for surgery. 2. If you have a Living Will/Durable Power of Studio Control Operator for Health Care that is not on [...] after you have bathed. 5. NO nail tanzanian/acrylic on at least one finger. If you are having a hand, wrist or foot surgery then all nail tanzanian and artificial/acrylic nails must be removed from [...] please call the Preadmission Testing office at [phone], Mon.-Fri. 7 a.m.-3 p.m. Leave a voicemail [...] Patient verbalized understanding. documented in this encounter [facility] 08-22-2024 Nurse Note Preoperative Education Checklist- General Surgery date: 08/27/24 Surgery time: 1245 p.m. Arrival time: 1045 a.m. 1. Bring a photo ID and your insurance card with you the day of surgery. You will check in at the main lobby of the [facility]- registration desk is straight ahead as soon as you walk in. Tell them you are here for surgery. 2. If you have a Living Will/Durable Power of Studio Control Operator for Health Care that is not on [...] after you have bathed. 5. NO nail tanzanian/acrylic on at least one finger. If you are having a hand, wrist or foot surgery then all nail tanzanian and artificial/acrylic nails must be removed from [...] please call the Preadmission Testing office at [phone], Mon.-Fri. 7 a.m.-3 p.m. Leave a voicemail [...] to the follow-up appointment with your doctor. [facility] 08-22-2024 Nurse Note Hibiclens and surgical instructions reviewed. Patient verbalized understanding. [facility]14[facility]24 History of Presen t illness Narrative Images from the original note were not included. [facility] [address] [facility] [address] Progress NOTE CHIEF COMPLAINT Chief Complaint Patient [...] Ultrasound extremity non vascular limited right Order: [id number] Status: Final result Visible to patient: Yes (seen) Next appt: None Dx: Axillary adenopathy 1 Result Note 1 Follow-up Encounter Details Reading Physician Reading Date Result Priority Jas Almazan MD [phone] 07/26/2024 Routine Narrative & Impression Clinical history: [...] Exam Ended: 07/25/24 13:08 EST Last Resulted: 07/26/24 06:11 EST MEDICATION Current Outpatient Medications: alendronate [...] [Moxifloxacin] Cedax [Ceftibuten] Ciprofloxacin Corticosteroids (Glucocorticoids) Cortisporin [Wgnefabx-Vunzgerrv-Tq] Dyazide [Triamterene-Hydrochlorothiazid] Minocin [Minocycline] Neosporin (Nvo-Oml-Twczk) [Jtfornul-Hhrbqctwuhp-Tjhwabzjz] Prozac [Fluoxetine] Sulfa (Sulfonamide Antibiotics) Tetracycline Vioxx [...] 12/30/2021 Performed by Kenisha Hilliard DO at [facility] 2020 Shattered right ankle [...] all the above and wished to proceed. Pca was present for examination. Evaluation included: Preparing to see the patient (e.g., review of tests) Obtaining and/or reviewing separately obtained history Performing a medically appropriate examination and/or evaluation Counseling and educating the patient/family/caregiver Referring and communicating with other health multi care technician Lipoma of torso [D17.1] Kenisha Hilliard DO This note was created with the assistance of a speech recognition program. While intending to generate a timely document that accurately reflects the content of the visit, no guarantee can be provided that every grammatical or spelling mistake has been or will be identified or corrected. Thank you for your understanding. documented in this encounter [facility] [employer] [facility] 08-14-2024 Instructions Betzy Cotto CMA - 08/14/2024 2:15 PM EST Are You Ready To Kick The Habit? Free Tobacco Cessation Resources [facility] Services [facility] provide all employees with free tobacco cessation services that include: Counseling to understand nicotine addiction Education about medications that can help you successfully quit Assistance with developing a plan to quit Call to set up an individual appointment or find out when group classes will be held: [facility] [place], [facility]: [phone] [facility]: [phone] [facility]: [phone] [facility]: [phone] Quit Smoking Action Plan and Resources [facility] offers an eight-week, online smoking cessation plan to all [facility] employees, regardless of whether [employer] is your medical insurance provider. Go to www.AUPEO!.org/employeewell ness and click the Health Risk Assessment and Resources link to get started. In the [employer] menu, click Action Plans instead of Health Risk Assessment to access the Quit Smoking Action Plan. Additional smoking cessation resources are also available to all [facility] employees on the Asrvg1Jbryym web page at www.Instilling Values/quit smoking. [employer] Tobacco Cessation Program If [employer] is your medical insurance provider, there are more free resources available to you, including: No copays or deductibles on local tobacco cessation counseling services to help you quit Prescription assistance for tobacco cessation medications to help you quit For details about the tobacco cessation program available to [employer] members, go to www.LightInTheBox.com.[employer] (Search: Tobacco Cessation Program). [place] Tobacco Quit Line 4-810-FZUV-NOW ( ) is a toll-free, telephonic service that helps [place] residents quit smoking and using tobacco. It is staffed by experts who tailor a quit plan for you and provide you with advice. [place] Tobacco Quit Line 1-450-JSFX-NOW ( ) is a toll-free, telephonic service that helps [place] residents quit smoking and using tobacco. It is staffed by experts who tailor a quit plan for you and provide you with advice. Two weeks of nicotine replacement therapy may be provided at no charge, if needed. Additional Resources These national organizations also offer free information and resources to help you quit tobacco: [employer] Cancer Society--www.cancer.org/healthy/ stayawayfromtobacco [place] Heart Association--www.heart.org (Search: Quit Smoking) Centers for Disease Control and Prevention--www.cdc.gov/tobacco [place] Lung Association--www.lungusa.org documented in this encounter [facility] 08-05-2024 History of Presen t illness Narrative [...] lipoma. Lipoma of left upper extremity [D17.22] [place], REAL ESTATE ASSISTANT-FARM CREW LEADER [facility] General Surgery [facility] This note was created with the assistance of a speech recognition program. While intending to generate a timely document that accurately reflects the content of the visit, no guarantee can be provided that every grammatical or spelling mistake has been or will be identified or corrected. Thank you for your understanding. SARA Barrett 08/05/24 0949 documented in this encounter [facility] 07-29-2024 Miscellaneous Notes ----- Message from Dr. [...] to discuss surgery. documented in this encounter [facility] 07-29-2024 Telephone encounter Note ----- Message from Dr. Kenisha Hilliard DO sent at 07/26/2024 9:33 AM EST ----- Please let her know that there is a small lipoma there and that I would need to see her again to set up surgery if she wishes to have it removed. Thanks, Dr. Hdz [facility] 07-29-2024 Telephone encounter Note Spoke with patient regarding ultrasound results. Patient verbally understood with no further questions. Will schedule a follow up appointment with Dr. Hilliard to discuss surgery. [facility] 07-24-2024 History of Presen t illness Narrative Images from the original note were not included. [facility] [address] [place] [address] Progress NOTE CHIEF COMPLAINT Chief Complaint Patient [...] mammogram was normal and performed at the [facility] in November of 2023. We will obtain [...] [Moxifloxacin] Cedax [Ceftibuten] Ciprofloxacin Corticosteroids (Glucocorticoids) Cortisporin [Gouonujy-Mmdepegvj-Yz] Dyazide [Triamterene-Hydrochlorothiazid] Minocin [Minocycline] Neosporin (Iyr-Ysg-Mclsi) [Grfnkszb-Hwuccsnaebq-Xbytdrhmb] Prozac [Fluoxetine] Sulfa (Sulfonamide Antibiotics) Tetracycline Vioxx [Rofecoxib] MEDICAL HISTORY Past Medical History: Diagnosis Date Allergic Anxiety Cancer ([facility]) kidney- right kidney was removed Depression 1979 GERD (gastroesophageal reflux disease) 1999 History of kidney cancer Visual impairment SURGICAL HISTORY Past Surgical History: Procedure Laterality Date ANKLE FRACTURE SURGERY Right BREAST BIOPSY 2019 CARDIAC CATHETERIZATION 2014 CHOLECYSTECTOMY COLONOSCOPY COLONOSCOPY N/A 12/30/2021 Performed by Kenisha Hilliard DO at [facility] 2020 Shattered right ankle [...] Neck supple. No thyroid mass present. Breasts: Pca present; symmetrical bilaterally with nipples everted. No [...] patient/family/caregiver Referring and communicating with other health multi care technician Lipoma of left upper extremity [D17.22] Kenisha [...] for your understanding. documented in this encounter [facility] 07-10-2024 History of Presen t illness Narrative Images from the original note were not included. [facility] [facility] [address] Progress NOTE CHIEF COMPLAINT Chief Complaint Patient [...] [Moxifloxacin] Cedax [Ceftibuten] Ciprofloxacin Corticosteroids (Glucocorticoids) Cortisporin [Letvlwvt-Hfqmnvfyv-Lx] Dyazide [Triamterene-Hydrochlorothiazid] Minocin [Minocycline] Neosporin (Gqp-Rgc-Frxoh) [Rakmbwte-Byzzeoomang-Ymnldrtsz] Prozac [Fluoxetine] Sulfa (Sulfonamide Antibiotics) Tetracycline Vioxx [Rofecoxib] MEDICAL HISTORY Past Medical History: Diagnosis Date Allergic Anxiety Cancer ([facility]) kidney- right kidney was removed Depression 1979 GERD (gastroesophageal reflux disease) 1999 History of kidney cancer Visual impairment SURGICAL HISTORY Past Surgical History: Procedure Laterality Date ANKLE FRACTURE SURGERY Right BREAST BIOPSY 2019 CARDIAC CATHETERIZATION 2014 CHOLECYSTECTOMY COLONOSCOPY COLONOSCOPY N/A 12/30/2021 Performed by Kenisha Hilliard DO at [facility] 2020 Shattered right ankle [...] patient/family/caregiver Referring and communicating with other health multi care technician Lipoma of left upper extremity [D17.22] Kenisha Hilliard, DO This note was created with the assistance of a speech recognition program. While intending to generate a timely document that accurately reflects the content of the visit, no guarantee can be provided that every grammatical or spelling mistake has been or will be identified or corrected. Thank you for your understanding. documented in this encounter [facility] 07-08-2024 Note Patient Education Nutrition BMI for [...] for Disease Control and Prevention: cdc.gov ??? [place] Heart Association: heart.org ??? National Heart, Lung, and Blood [place]: nhlbi.nih.gov This information is not intended to replace advice given to you by your health care provider. Make sure you discuss any questions you have with your health care provider. Document Revised: 03/09/2023 Document Reviewed: 03/02/2023 Jigsaw Meeting Patient Education ? 2023 [employer]. [facility] 08-01-2022 Note PROCEDURE: XR GI UPP ER [...] authenticated by: DEEPAK SEGOVIA Date: 2022-08-01 10:38 [facility] 08-01-2022 Note PROCEDURE: XR GI UPP [...] authenticated by: DEEPAK SEGOVIA Date: 2022-08-01 10:38 [facility] 07-15-2022 Hospital Discharg e instructions Patient [...] Medicines to relieve symptoms. These can include olmh-gug-rlxufiq medicine for pain and fever, medicines for [...] Follow these instructions at home: Medicines Take hihy-usb-zmbaxlt and prescription medicines only as told by [...] and water are not available, use hand ship's cook. Avoid close contact with friends and family [...] 10/28/2016 Document Revised: 06/01/2018 Document Reviewed: 10/28/2016 Jigsaw Meeting Patient Education 2020 [employer]. Follow Up Care 07/15/2022 14:04:44 With:AGUSTINA WEST Address: [address] [place] [address] Business (1) When:07/18/2022 17:03:13 [facility] 07-15-2022 Evaluation + Plan note Extrac renée [...] TID, # 15 tab(s), Refills(s) 0, Pharmacy: [id number], 154.9, cm, 07/15/22 14:17:00 EST, Height/Length [...] With Cult Reflex XR [facility]02-14-2022 NotePROCEDURE: XR ANKLE RT MIN 3 VIEWS [...] Electronically authenticated by: NICOLAS ARNOLD Date: 2021-08-16 11:22[facility]02-14-2022 NotePROCEDURE: XR ANKLE RT 2V COMPARISON: 08/26/2020 HISTORY: Pain of right ankle joint FINDINGS: 14 seconds of fluoroscopy. 7 fluoroscopic images Images demonstrate interval removal of medial lateral fixation plate and screws. Removal of medial malleolus screw. A posterior tibial plate remains in place IMPRESSION: Interval removal of medial and lateral internal fixation hardware Electronically authenticated by: NICOLAS ARNOLD Date: 2021-08-16 10:46[facility] Plan note Future Appointments Appointment Date:12/04/2023 09:30:00 AM Scheduled Provider: Location:[facility] Appointment Type: Medicare Wellness Subsequent Diagnostic Tests Pending * HCV Antibody RFX to Quant PCR 11/30/22 Future Scheduled Tests Laboratory* Lipid Panel 11/30/22 Radiology* CT Chest, Low Dose Screening 11/30/22 [facility] + Plan note Future Appointments Appointment Date:12/19/2022 07:40:00 AM Scheduled Provider:Elida Anand MD Location:[facility] Appointment Type: ER/Hospital Follow Up Appointment Date:12/04/2023 09:30:00 AM Scheduled Provider: Location:[facility] Appointment Type:FM Medicare Wellness [facility] note Future Appointments Appointment Date:07/31/2023 09:15:00 AM Scheduled Provider:Elida Anand MD Location:[facility] Appointment Type: Open Appointment Date:12/04/2023 09:30:00 AM Scheduled Provider: Location:[facility] Appointment Type:FM Medicare Wellness [facility] + [facility] note Future Appointments Appointment Date:05/23/2023 08:45:00 AM Scheduled Provider: [facility] Type:PT Vestib 45 (FT) Appointment Date:06/02/2023 09:30:00 AM Scheduled Provider: [facility] App[facility] Type:PT Vestib 45 (FT) Appointment Date:06/06/2023 11:15:00 AM Scheduled Provider: [facility] App[facility] Type:PT Vestib Re-eval (FT) Appointment Date:07/31/2023 09:15:00 AM Scheduled Provider:El[facility] Anand MD [facility]: Open Appointment Date:12/04/2023 09:30:00 AM Scheduled Provider: Location:[facility] Appointment Type:FM Medicare Wellness [facility] + Plan note Future Appointments Appointment Date:09/25/2023 01:00:00 PM Scheduled Provider:[facility] Anand MD [facility]: Open Appointment Date:12/04/2023 09:30:00 AM Scheduled Provider: Location:[facility] Appointment Type: Medicare Wellness Subsequent Future Scheduled Tests Radiology* CT Chest, Low Dose Screening 07[facility]31/23 [facility] Future Appointments Appointment Date:01/01/2024 09:15:00 AM Scheduled Provider:Elida Anand MD [facility] Type: Open Appointment Date:12/03/2024 08:00:00 AM Scheduled Provider: Location:[facility] Appointment Type: Medicare Wellness [facility] Future Appointments Appointment Date:12/03/2024 08:00:00 AM Scheduled Provider: Location:[facility] Appointment Type: Medicare Wellness Subsequent [facility] + Plan note Future Appointments Appointment Date:12/30/2024 10:00:00 AM Scheduled Provider: [facility] App[facility] Type:CT Chest, Low Dose Screening (FT) Appointment Date:01/06/2025 08:20:00 AM Scheduled Provider:Elida Anand MD Location:[facility] Appointment Type: Open Appointment Date:12/03/2025 09:30:00 AM Scheduled Provider: Location:[facility] Appointment Type: Medicare Wellness Subsequent Future Scheduled Tests Radiology* CT Chest, Low Dose Screening 12/30/24 [facility] + Plan note Future Appointments Appointment Date:01/13/2025 09:40:00 AM Scheduled Provider:Katlyn Brooks [facility] Type: Open Appointment Date:12/03/2025 09:30:00 AM Scheduled Provider: Location:[facility] Appointment Type: Medicare Wellness Subsequent [facility] evaluation noteNo assessment information available [facility] Work Phone: evaluation note* Diagnosis Lipoma of left upper extremity- Primary Lipoma of right upper extremity documented in this encounter [facility] [employer] SystemEvaluation note* Diagnosis Lipoma of left upper extremity- Primary Lipoma of right upper extremity Axillary adenopathy Enlargement of lymph nodes [facility] Diagnosis Lipoma of left upper extremity- Primary Lipoma of right upper extremity [facility] Diagnosis Lipoma of torso- Primary Obesity (BMI 35.0-39.9 without comorbidity) History of renal cell carcinoma Preop examination- Primary Unspecified pre-operative examination [facility] Diagnosis Lipoma of right axilla- Primary [facility] Narrative No data available for this section [facility] No data available for this section [facility]ructionsNot on filedocumented in this encounter [facility]ructionsNot on filedocumented in this encounter [facility] System[facility]ructionsNot on filedocumented in this encounter [facility] No data available for this section [facility] Summary Purpose Family History No Family History [...] Agustina West MD Primary Care Provider Active Lead Manufacturing Engineer Relationship Specialty Start Date End Date Elida Anand MD [address] [place] [address] PCP - General Family Medicine 07/10/24 Lead Manufacturing Engineer Relationship Specialty Start Date End Date Elida Anand MD [address] [place] [address] PCP - General Family Medicine 07/10/24 Lead Manufacturing Engineer Relationship Specialty Start Date End Date Elida Anand MD [address] [place] [address] PCP - General Family Medicine 07/10/24 Lead Manufacturing Engineer Relationship Specialty Start Date End Date Elida Anand MD [address] [place] [address] PCP - General Family Medicine 07/10/24 Lead Manufacturing Engineer Relationship Specialty Start Date End Date Elida Anand MD [address] [place] [address] PCP - General Family Medicine 07/10/24 Lead Manufacturing Engineer Relationship Specialty Start Date End Date Elida Anand MD [address] [place] [address] PCP - General Family Medicine 07/10/24 Goals [...] section and content) DATE CREATED AUTHOR 06/01/2022 [facility] DATE CREATED AUTHOR AUTHOR'S ORGANIZ ATION 08/04/2022 [facility] DATE CREATED AUTHOR AUTHOR'S ORGANIZ ATION 10/19/2023 [facility] EPIC DATE CREATED AUTHOR AUTHOR'S ORGANIZ ATION 09/04/2024 [facility] DATE CREATED AUTHOR AUTHOR'S ORGANIZ ATION 09/12/2024 [facility] DATE CREATED AUTHOR AUTHOR'S ORGANIZ ATION 12/06/2024 [facility] DATE CREATED AUTHOR AUTHOR'S ORGANIZ ATION 12/10/2024 [facility] DATE CREATED AUTHOR AUTHOR'S ORGANIZ ATION 01/18/2025 [facility] DATE CREATED AUTHOR AUTHOR'S ORGANIZ ATION 01/19/2025 [facility] Reason for [...] 07/24/24 Reason Comments Follow-up Follow up from [facility] performed 07/25/24, discuss surgery Reason Comments Post-op Post op excision of right axillary lipoma performed 08/27/24 at [facility] FOR RECORDS PERTAINING TO PATIENTS WHO ARE [...] BE BASED ON THE PRIMARY CLINICAL RECORDS. [facility] [employer] provides no warranty or guarantee of the accuracy or completeness of information in this document.
== END 2025-01-22 09:52 | disposition home or self-care (01) ==
LOC: US 09:53
PROVIDERS: PCP Nurse Practitioner; Visit Provider Nurse Practitioner
DX: R10.32 Left lower quadrant pain (principal)
CPT/HCPCS: 76775

== ENCOUNTER 2025-06-25 10:08 | Outpatient (OUT) | payer MEDICARE, SELFPAY ==
--- OUTSIDE RECORDS SUMMARY | 2024-01-23 08:20 | XMS_ITS ---
Author Organization [facility] Address [address] [place] [address] Care Team Providers Care Digital Content Marketing Manager Name Role Phone Kirti Torres Primary Care Provider [phone] Dr. Choco Fabian [facility] [phone] REASON FOR VISIT ADJUSTMENT UPPER DENTURES Encounters Encounter Location Date Provider Diagnosis [facility] [address] [place] [address] 01/23/2024 Choco Fabian Plan Of Treatment No Information Progress Notes * CHAI PAREDESDOB:[birth year] (70 yo F)Acc No.[id number]:01/23/2024 Dental Appointment Patient: Michael CHAI MOLINA :Bryson Fabian DDSDOB:1955???Age:68 Y???Sex: FemaleDate:01/23/2024hone:[phone]:[address], [address], [place], [place]-[id number]:Kirti Cleaning Subjective: * Chief Complaints: * A DJUSTMENT UPPER DENTURES Billing Information: * Procedure Codes: * Electronic signature of Dr. Choco Fabian , [facility], [id number] on 06/25/2025 at 10:10 AM ESTSign off status: Pending * Provider: Ignacio Fabian DDS Date: 0 01/23/2024 Generated for Printing/Faxing/eTransmitting on:?06/25/2025 10:10 AM EST
--- OUTSIDE RECORDS SUMMARY | 2025-06-25 10:10 | XMS_ITS | Clinical Summary ---
Author Organization [employer] [facility] Address [id number] [address] [place] [address] Care Team Providers Care Access Developer Name Role Phone Braydon Rodas MD Primary Care Provider [phone] Allergies Active AllergyReactionsCriticalityNoted RxaqDgtkzfrcZeoepiscubmn56/10/2018 Znjuyqutcq52/10/9435Dldpgssqnaerl27/10/2018Corticosteroids (Glucocorticoids) Ayyhikuq-Kgbzifbor-Wz48/10/2018Triamterene-Kerjymenymvfkrvfle51/10/2018 Tccuubxqfhg15/10/1212Opawqdfp-Qavvathtsnd-Rfawgdwah22/10/2018Penicillins QyfzchplkifTqml57/10/1806Queoogcdxo40/10/2018Sulfa (Sulfonamide Antibiotics) 04/11/20180322Ktacwlpnzgvd83/10/5869Bwtjmbbrl31/10/2018 Medications MedicationSigDispense QuantityRefillsLast FilledStart DateEnd DateStatus ALPRAZolam (XANAX) 0.5 mg tablet Take 1 tablet (0.5 mg total) by mouth 3 (three) times a day as needed.0 03/27/2018Active escitalopram (LEXAPRO) 10 mg tablet Take 1 tablet (10 mg total) by mouth in the morning.Active aspirin 81 mg Take 1 tablet (81 mg total) by mouth in the morning.Active atorvastatin (LIPITOR) 10 mg tablet Take 1 tablet (10 mg total) by mouth in the morning.Active alendronate (FOSAMAX) 70 mg tablet Take 1 tablet (70 mg total) by mouth every 7 days. In a.m. with water on empty stomach, nothing else by mouth and remain upright for 30minActive pantoprazole (PROTONIX) 20 mg EC tablet Take 1 tablet (20 mg total) by mouth in the morning.Active Active Problems No known active problems Family History Medical HistoryRelationNameCommentsDiabetesBrother 1JDuthen WilsonDiabetes Brother 2Van WilsonKidney diseaseBrother 2Van WilsonHeart attackBrother 3Danny- in his 40sDiabetesFatherJay WilsonHeart attackFatherJay WilsonCOPDMother Flakita WaldonDiabetesPaternal AuntCheryl BoydDiabetesPaternal GrandfatherJay Liban StDiabetesPaternal GrandmotherKathryn WilsonDiabetesPaternal UncleDaryl WilsonDiabetesSister 1Veronica GreenStrokeSister 1Veronica GreenNo Known ProblemsSister 2Lung cancerSister 3Scarlet BruehlerRelationNameStatusComments Brother 1JDuthen WilsonAliveBrother 2Van WilsonAliveBrother 3Danny- in his 40sDeceasedFatherJay WilsonDeceasedMotherShirley WaldonDeceasedPaternal Aunt Linda BoydPaternal GrandfatherJay Liban StPaternal GrandmotherKathryn Liban Paternal UncleDaryl WilsonSister 1Veronica GreenAliveSister 2AliveSister 3 Scarlet Bruehler Social History Tobacco UseTypesPacks/DayYears UsedDateSmoking Tobacco: Every DayCigarettes0.550 Smokeless Tobacco: Never Tobacco Cessation:Ready to Q uit: Not Asked; Counseling Given: Not Answered Alcohol UseStandard Drinks/WeekCommentsNo0 (1 standard drink = 0.6 oz pure alcohol)AUDIT-CAnswerDate RecordedFrequency of Alcohol ConsumptionNever 04/11/2018Average Number of DrinksNot on file04/11/2018Frequency of Binge DrinkingNot on file04/11/2018ChildcareAnswerDate RecordedChildcareUnknown 12/12/2018EmploymentAnswerDate WulxvnjzTtquaombbnSkbxdbk35/12/2019Hunger ScreeningAnswerDate RecordedWithin the past 12 months we worried whether our food would run out before we got money to buy more.Never True09/10/2024Within the past 12 months the food we bought just didn't last and we didn't have money to get more.Never True09/10/2024Purpose - LifeAnswerDate RecordedPurpose and direction in swdyWkyxteo59/11/2021CommentsNoSex and Gender Information ValueDate RecordedSex Assigned at BirthNot on fileLegal UpcYgrbru21/06/2015 11:33 AM EDTGender IdentityNot on fileSexual OrientationNot on file Last Filed Vital Signs Vital SignReadingTime TakenCommentsBlood Ohhizjxa745/61009/10/2024 10:31 AM EDT Wsxpy050409/10/2024 10:31 AM SEVGmzaemvotnf97.1 ??C (96.9 ??F)08/27/2024 1:30 PM ESTRespiratory Tqus809008/27/2024 2:06 PM ESTOxygen Wahovtiekd98%08/27/2024 1:59 PM ESTInhaled Oxygen Concentration--Oyekvj73.8 kg (202 lb 6.4 oz)09/10/2024 10:31 AM WOTMicokd293 cm (5' 3 )09/10/2024 10:31 AM EDTBody Mass Index35.85 09/10/2024 10:31 AM EDT Plan of Treatment Health MaintenanceDue DateLast DoneCommentsTobacco Zdtmcszcvx1955 Depression Sffvvipyy76/18/1968Adult BMI Follow Up Plan1974DTaP,Tdap and Td Vaccines (1 - Tdap)1975Zoster (Shingles) Vaccine (1 of 2)2006Fall Risk Sxgxokoop30/18/2021Influenza Csguqzq1503/03/2025dult BMI Eorsovrpb37/11/2026 09/10/2024Tobacco Rwgeytjni41olonoscopy, 2RSV ( or age 60+ yrs) (1 - 1-dose 75+ series)2031 Medical Devices Not on file Procedures Procedure NamePriorityDate/TimeAssociated DiagnosisCommentsPROVATION COLONOSCOPY Gmpnukz7212/30/2021 8:17 AM EDT from Last 3 Months or Most Recently Relevant to Health Maintenance Results * Colonoscopy Report (12/30/2021 8:17 AM EDT)Specimen (Source)Anatomical Location / LateralityCollection Method / VolumeCollection TimeReceived Time Narrative SYSTEMGENERATED, DOCUMENTATION - 12/30/2021 8:17 AM EDT This order has been auto-finalized for image and report archival in PACs. *For full report details, please reach out to your physician. ??Effective 11/17/20 this image will be visible to you in MyChart.* Authorizing ProviderResult TypeResult StatusMichael E Grillis DOIMG OR IMG ORDERABLESFinal Result from Last 3 Months or Most Recently Relevant to Health Maintenance [address] [place] [address] Care Teams Team MemberRelationshipSpecialtyStart DateEnd Date Braydon Rodas MD [address] [place] [address] PCP - GeneralFamily Medicine07/10/24
--- OUTSIDE RECORDS SUMMARY | 2025-06-25 10:10 | XMS_ITS | Clinical Summary ---
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 Drafting Machine Operator Name Role Phone Lata West MD Primary Care Provider Unavailab le Allergies Active AllergyReactionsCriticalityNoted LshbMwmemjvkYpvtbthqmsa23/30/2016 Active Problems ProblemNoted DateDiagnosed DateGastroesophageal reflux disease without trucgbnwmeb06/30/2016 Social History Tobacco UseTypesPacks/DayYears UsedDateSmoking Tobacco: Never Assessed CommentsUnknownSex and Gender InformationValueDate RecordedSex Assigned at Not on fileLegal NvfIpmres18/20/2015 12:50 PM EDTGender IdentityNot on file Sexual OrientationNot on file Plan of Treatment Not on file Insurance Care Teams Team MemberRelationshipSpecialtyStart DateEnd Date Lata West MD [address] [place] [address] [facility]09/19/14
--- OUTSIDE RECORDS SUMMARY | 2025-06-25 10:10 | XMS_ITS | Patient Health Record ---
Author Organization [facility] [employer] [facility] Address [address] [place] [address] Care Team Providers Care Staff Physician Name Role Phone Kirti Torres Primary Care Provider Allergies Allergen (clinical drug ingredient) Drug/Non Drug Allergy documented on EMR Reaction Allergy Type Onset Date Status amoxapine Amoxapine Unknown Drug Allergy ActivePenicillinUnknownDrug AllergyActive Reason For Referral No Information Medications Medication SIG (Take, Route, Frequency, Duration) Notes Start Date End Date Status Atorvastatin Calcium ActiveAlendronate SodiumActiveALPRAZolamActive Problems Problem Type SNOMED Code ICD Code Onset Dates Problem Status W/U Status Risk Notes Problem Other dental procedure status (Z98.818)Activeconfirmed Plan Of Treatment No Information Insurance Providers Payer Name Payer Address Payer Phone Subscriber Number Group Number Insured Name Patient Relationship to Insured Coverage Start Date Coverage End Date [employer]ARE PLAN [address] [address] [place] [phone] [id number] CHAI PAREDES Self - patient is the insured DENTAL HUMANA MEDICAREPO [address] [address] [place] [id number] PAREDESSelf - patient is the [id number] 2022
--- OUTSIDE RECORDS SUMMARY | 2025-06-25 10:10 | XMS_ITS | Clinical Summary ---
Author Organization [facility] Healthcare Address [address] [place] [address] Care Team Providers Care Captain Waiter/Waitress Name Role Phone Braydon Rodas MD Primary Care Provider [phone] Allergies Active AllergyReactionsCriticalityNoted DateComments Izdouox-Qrlpdyel-Nyucqjjkw-Hc03/28/2023 Other Reaction(s): Unknown Bacitracin-Polymyxin B003/28/2023 Other Reaction(s): Unknown Qbjwxwnbdn75/10/2018 Other Reaction(s): Not available, Unknown Rplkxvwcee37/26/2023 Other Reaction(s): Not available, Unknown Xrmxjjumimzdh20/10/2018 Other Reaction(s): Not available, Unknown FaytilamkAxukVlb41/26/2023 Other Reaction(s): Unknown Ktytmbiu82/26/2023 Other Reaction(s): Unknown Vuerglbgtdmi33/26/2023 Other Reaction(s): Unknown Uqnkqivguo31/10/2018 Other Reaction(s): Not available, Unknown Hydrochlorothiazide-Ozrvrjlkyxq61/10/9674Segmkytkuenk46/26/2023 Other Reaction(s): Unknown Vspnetaqtzn31/10/2018 Other Reaction(s): Not available, Unknown Sveyrurczate81/10/2018 Other Reaction(s): Not available, Unknown VbnonwjdexsWnotvyw57/26/2023enicillinsAnaphylaxis,Shortness of breathHigh 11/30/2015 Other Reaction(s): Difficulty breathing, Unknown Sgadvjcka28/10/2018 Other Reaction(s): Not available Sulfa Asptwcxxzkz04/26/5967Iurompmwfekw23/10/2018 Other Reaction(s): Not available, Unknown Medications MedicationSigDispense QuantityRefillsLast FilledStart DateEnd DateStatus alendronate (Fosamax) 70 MG tablet Take 70 mg by mouth once a week.07/15/2022ctive atorvastatin (Lipitor) 10 MG tablet Take 10 mg by mouth in the morning.07/15/2022ctive ergocalciferol (Vitamin D-2) 1.25 MG (85352 UT) capsule Take 50,000 Int'l Units by mouth 1 (one) time per week.07/15/2022ctive escitalopram (Lexapro) 10 MG tablet Take 10 mg by mouth in the morning.Active pantoprazole (ProtoNix) 40 MG EC tablet Take 40 mg by mouth in the morning. Take before meals.07/15/2022ctive ALPRAZolam (Xanax) 0.5 MG tablet Take 0.5 mg by mouth 3 (three) times a day as needed.12/19/2022ctive Active Problems ProblemNoted DateDiagnosed DateAcute recurrent vqxxksuyj87/27/2023nticoagulated 03/28/2023hest pain03/28/20232384Yrnbwpdszs17/26/4834Vljwuaetl30/26/2023Ear pain, left03/28/2023Fibrocystic disease of dkgflt7403/28/20230159Xwpzledbi68/26/2023 Generalized anxiety jzaduvfv10/26/2023lenoid labrum tear03/28/2023ranuloma nxocbrcy86/26/2023History of primary malignant neoplasm of ndbseg2803/28/2023 Hypertensive eyxvixzl76/26/2023isorder of rotator cuff03/28/2023Impingement syndrome of shoulder wkxvvi5103/28/2023 Overview (03/28/2023): right shoulder Ksexruj8403/28/2023Stage 3a chronic kidney disease (CKD)03/28/2023Stress vrzknxrosycp88/26/2023urrent cnuxoe1303/28/2023 Overview (03/28/2023): Added secondary to documentation in Social History. Unspecified mononeuropathy of right lower limb03/28/20233371Wyfpntvw55/26/2023 Chronic maxillary teygdjeei65/05/2023astroesophageal reflux disease without nanuxvahzhr90/30/2016 Resolved Problems ProblemNoted DateDiagnosed DateResolved DateSimple reicysr66 Skin cystTobacco user Overview (03/28/2023): Added secondary to social history documentation. Urgency of lhzfislzc95nxiety Family History Medical HistoryRelationNameCommentsDiabetesBrother 1DiabetesBrother 2Butch WilsonMental illnessDaughteryoungestPanic attackDaughteryoungestDiabetesFather Calin WilsonHeart attackFatherJay WilsonDiabetesFather's BrotherRichard Liban Mental illnessFather's Sister 1Panic attackFather's Sister 1DiabetesFather's Sister 2Shirley SullivanCancerMaternal GrandmotherLuella WaldonCOPDMotherShirley WilsonMigrainesMotherShirley WilsonCancerPaternal GrandmotherKathryn Liban DiabetesSiblingHypertensionSiblingDiabetesSister 1DiabetesSister 2Veronica Green RelationNameStatusCommentsBrother 1Brother 2Butch RymgjlJlgjxirac5ZvuhfeVqf WilsonDeceasedFather's BrotherRichard WilsonFather's Sister 1Father's Sister 2 Flakita SullivanMaternal GrandmotherLuella WaldonMotherShirley WilsonDeceased Paternal GrandmotherKathryn WilsonSiblingAliveSister 1Sister 2Veronica Green Social History Tobacco UseTypesPacks/DayYears UsedDateSmoking Tobacco: Every DayCigarettes0.550 Smokeless Tobacco: Never Tobacco Cessation:Ready to Q uit: Not Asked; Counseling Given: Not Answered Alcohol UseStandard Drinks/WeekCommentsNot Currently0 (1 standard drink = 0.6 oz pure alcohol)CommentsUnknownSex and Gender InformationValueDate Recorded Sex Assigned at ZxawtGdggqk54/22/2023 2:23 PM EDTLegal OyfDuftsj02/15/2023 7:13 PM EDTGender VkgnrwhcEnkugu80/15/2023 7:13 PM EDTSexual OrientationStraight 03/24/2023 2:23 PM EDTOccupationIndustryJob Start DateJob End Dateon social security disabilityNot on fileNot on fileNot on file Last Filed Vital Signs Vital SignReadingTime TakenCommentsBlood Qslnlhcl803/70003/29/2023 10:21 AM EDT Pulse--Temperature--Respiratory Rate--Oxygen Saturation--Inhaled Oxygen Concentration--Irozwa48.6 kg (202 lb)03/29/2023 10:21 AM TZYTvvqnr554 cm (5' 3 ) 03/29/2023 10:21 AM EDTBody Mass Index35.78003/29/2023 10:21 AM EDT Plan of Treatment Not on file Insurance [address] [place] [address] Care Teams Team MemberRelationshipSpecialtyStart DateEnd Braydon Rodas MD PCP - GeneralFamily Medicine03/24/23
--- NOTE | 2025-06-25 10:16 | CT_ITS ---
The [address] [address] Patient Name: CHAI PAREDES MRN: [id number] date: 1955 Sex: F Assigned Patient Location: CT Current Patient Location: CT Accession/Order Number: [id number] Exam Date: 06/25/2025 10:24 Report Date: 06/25/2025 11:12 At the request of: ANNABELLA VASQUEZ Procedure: CT head/brain wo con CT BRAIN WITHOUT CONTRAST: CLINICAL HISTORY: New Daily headaches with blurred vision and dizziness COMPARISON: None TECHNIQUE: Contiguous axial unenhanced images were obtained through the brain. This CT exam was performed using one or more following dose reduction techniques: Automated exposure control, adjustment of the mA and/or kV according to patient size, or use of iterative reconstruction technique. FINDINGS: The ventricles are normal in size and position. Minor microvascular changes are noted. There are no developing areas of abnormal attenuation. There is no hemorrhage, mass effect or extra-axial collections. The imaged paranasal sinuses are clear. Mastoid air cells are underdeveloped though otherwise clear. No orbital asymmetries are seen in the euamv-ko-ibvv. CT/CT head/brain wo con IMPRESSION: NO ACUTE INTRACRANIAL ABNORMALITY. Impression dictated by: Magi Espinoza M.D. 06/25/2025 11:12 AM Dictation Location: [facility] Electronically authenticated by: [id number] Date: 06/25/2025 11:12
== END 2025-06-25 10:09 | disposition home or self-care (01) ==
LOC: CT 10:08
PROVIDERS: PCP Nurse Practitioner; Visit Provider Nurse Practitioner
DX: G44.52 New daily persistent headache (NDPH) (principal)
CPT/HCPCS: 70450